=== PATIENT | female | born 2000 | race Caucasian/White ===

== ENCOUNTER 2019-06-16 23:25 | Emergency (ER) | payer MEDICAID, SELFPAY ==
[2019-06-16 23:25] VITALS: BP 114/76; PULSE 97; RESP 16; TEMP 36.6; O2SAT 99; BMI 21.7
--- NOTE | 2019-06-16 23:56 | ED.VIS.GEN ---
History of Present Illness Chief Complaint: Cold Sx Detail of Chief Complaint: Upper respiratory symptoms Informant: Patient Onset: Days - Onset 3 days ago Context: Sudden Onset Timing: Continuous Quality: Rhinorrhea, congestion, sore throat Location: Upper respiratory Current Severity: Mild Maximum Severity: Moderate Worsened by: Nothing Relieved by: Nothing Associated Symptoms: Nonproductive cough Narrative: Patient is a 18-year-old who presents with rhinorrhea, congestion, postnasal drainage, sore throat and nonproductive cough that started 3 days ago. She is a smoker. She smokes between one half and 1 pack/day. She denies headache, photophobia, neck pain or neck stiffness. She denies fever or chills. She denies chest discomfort. She denies GI symptoms. She states her mother had her throat swab and was told she has MRSA. Prior similar symptoms: No Recent Illness/Hospitalization: No - Past Medical History (1) No significant past medical history Status: Acute Past Medical History - Allergies and Home Meds Allergies/Adverse Reactions: Allergies latex Adverse Reaction (Verified 06/16/19 23:27) Rash Penicillins [PCN] Adverse Reaction (Verified 06/16/19 23:27) Other Primary Care Physician: Nahomy Fonseca NP-C [Primary Care Provider] - Prior records reviewed: No Past Medical History: None Surgical History: no surgical history Lives: With Family Smoking Status: Current every day smoker Alcohol: None Drugs: None Review of Systems General: Denies: Chills, Fever, Subjective, Sweats Eyes: Denies: Visual changes - bilaterally, Blurred Vision - bilaterally ENT: Reports: Rhinorrhea, Sore throat. Denies: Bilateral ear pain Cardiovascular: Denies: Chest pain, Palpitations, Heart racing Respiratory: Reports: Cough. Denies: Dyspnea, Sputum, Dyspnea on exertion Gastrointestinal: Denies: Abdominal pain, Nausea, Vomiting, Diarrhea, Melena, Hematochezia Musculoskeletal: Denies: Myalgias, Arthralgias, Neck pain, Back pain, Swelling, Extremity Pain, -, - Neurological: Denies: Headache, Weakness Allergy: Denies: Uticaria, Swelling of the mouth, Swelling of the tongue Physical Exam Vital Signs/Narrative: Vital Signs Temp Pulse Resp BP Pulse Ox 06/16/19 23:25 98 F 97 16 114/76 99 Inital Vital Signs reviewed: Yes General: Well nourished, Well developed, No Acute Distress Head: Normocephalic, Atraumatic Eyes: Perrl, EOMI. Negative for: Pale conjunctiva, Scleral icterus ENT: Moist mucous membranes, TM's clear, Nasal congestion. Negative for: No rhinorrhea, Sinus tenderness Neck: Supple, Nontender, No lymphadenopathy, No JVD Cardiovascular: Regular rate, Regular rhythm, No murmurs Respiratory: No distress, CTA bilaterally, Chest nontender Skin: Normal color, No rash, No Trauma. Negative for: Cyanosis, Diaphoresis, Jaundice Neurological: Alert, Oriented x3, Cranial nerves II-XII grossly intact, Normal Strength, Normal Sensation Psychological: Normal affect, Normal Mood Diagnostic/Tx/Re-eval - Medical Decision Making Centor score is 0. Patient was informed since her center score is 0 cultures are not recommended per the CDC, can be a family practice and Academy of pediatrics. Patient's history and physical exam is consistent with viral upper restaurant infection. She was informed because she is a smoker she may have a cough up to 4 weeks and she may be ill for another 10 to 14 days. She was informed it is in her best interest to quit smoking. ED Disposition - Plan for ED Patient: Disposition: Home or Assisted Living Diagnosis: Upper respiratory infection, acute Instructions: BRONCHITIS, No Antibiotic (Adult) Referrals: Nahomy Fonseca NP-C [Primary Care Provider] - 10-14 Days if not better Additional Instructions: It is in your best interest to quit smoking. Because you are a smoker you may have a cough for 4 weeks. You may be ill for an additional 1014 days.
== END 2019-06-17 00:27 | disposition home or self-care (01) ==
LOC: ED 06-17
PROVIDERS: Emergency Provider Emergency Medicine; Family Provider Nurse Practitioner Family; PCP Nurse Practitioner Family
DX: J06.9 Acute upper respiratory infection, unspecified (principal); F17.200 Nicotine dependence, unspecified, uncomplicated
CPT/HCPCS: 99282

== ENCOUNTER 2019-10-14 12:49 | Emergency (ER) | payer MEDICAID, SELFPAY ==
[2019-10-14 12:49] VITALS: BP 140/82; PULSE 125; RESP 16; TEMP 36.3; O2SAT 100; BMI 22.3
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
[2019-10-14] MEDS: Naproxen 250 MG Tablet 500 MG PO (14:19)
== END 2019-10-14 14:25 | disposition home or self-care (01) ==
LOC: ED 14:20
PROVIDERS: Emergency Provider Emergency Medicine; PCP Nurse Practitioner Family
DX: S90.31XA Contusion of right foot, initial encounter (principal); V03.90XA Pedestrian on foot injured in collision with car, pick-up truck or van, unspecified whether traffic or nontraffic accident, initial encounter; Y93.9 Activity, unspecified; F17.200 Nicotine dependence, unspecified, uncomplicated
CPT/HCPCS: 73630; 99282

== ENCOUNTER 2022-12-20 23:28 | Emergency (ER) | payer MEDICAID, SELFPAY ==
[2022-12-20 23:28] VITALS: BP 128/85; PULSE 98; RESP 16; TEMP 36.9; O2SAT 100; BMI 20.8
--- NOTE | 2022-12-20 23:49 | EDS_ITS ---
HPI History of Present Illness Chief Complaint: Substance Abuse Informant: patient Narrative Narrative: Patient had 6 check-in with 180 a couple days ago about meth use. They were going to get her treatment. They asked her if she drinks alcohol. She states she does drink sometimes. They then told her to come here for detox. They actually sent her an email on that issue. I did read the email that was sent to the patient directing her here. The patient states that they did not ask her how much she drank or how often or if she has symptoms. Patient states that she will sometimes drink a beer if it is in the refrigerator and her dad is having a drink. She will sometimes drink a twisted tea during the week. She may have a drink every day. Other times she will go 3 or 4 days with no drink at all. She rarely if ever has more than 1 drink. She has no symptoms of withdrawal. She does not feel especially good when she has a drink. She does not seek out drinking. She has never had issues with this. She denies any opiates or benzodiazepines. She has no physical complaint. She does not feel she needs detox from alcohol. Her last drink was likely 48 hours ago or maybe more. [facility] Medical History Substance abuse Home Medications NK 12/20/22 [History Last Taken Unknown] Allergy/AdvReac Type Severity Reaction Status Date / Time latex AdvReac Rash Verified 12/20/22 23:30 Penicillins [PCN] AdvReac Other Verified 12/20/22 23:30 Social History Smoking Status: Current every day smoker tobacco type: cigarettes ROS ROS ED Constitutional Constitutional ED: Denies fever(s) ENT ENT ED: Denies rhinorrhea Cardiovascular Cardiovascular: Denies chest pain or palpitations Respiratory/Chest Respiratory/Chest: Denies cough Gastrointestinal Gastrointestinal: Denies nausea or vomiting Musculoskeletal Musculoskeletal: Denies myalgias Integumentary Denies rash Neurologic Neurologic: Denies headache(s), paresthesias or weakness Allergic/Immunologic Allergic/Immunologic ED: Denies urticaria EXAM Physical Exam Narrative Exam Narrative: Patient sitting quietly in the room. She is awake alert appropriate no acute distress. She carries on a very normal conversation and makes good eye contact. HEENT shows no sign of trauma. I smell no odor that would be consistent with alcohol consumption. Neck is supple Lungs are clear bilaterally and saturations are normal at 100%. Heart is regular. No murmur gallop or rub. Abdomen soft nontender Extremities show no rashes. She does not inject any drugs. No track horn. Neurologically she is awake alert appropriate with clear train of thought. Const Vital Signs: 12/20/22 23:28 Temperature 98.4 F Temperature Source Temporal Pulse Rate 98 Respiratory Rate 16 Blood Pressure 128/85 H Blood Pressure Mean 99 Pulse Ox 100 Oxygen Delivery Method Room Air MDM MDM MDM Narrative Medical decision making narrative: Patient has an occasional drink. The most she will have is 1 a day. She has no symptoms if she does not drink. Although she may need help with methamphetamines, she does not need medical detox from alcohol based on this information. She does not really want to come in for detox that she does not think she needs it. If patient has further complaints or concerns she is welcome to return at any time. I do not think any testing is required. I see no indication for labs or x-rays. Discharge Plan Triage Chief Complaint: Substance Abuse ED Provider: Nikko Hanson Dx/Rx/DC Orders Clinical Impression: History of methamphetamine abuse, Alcohol use Instructions: Meth Abuse Addiction Prescriptions: No Action NK Primary Care Provider: Nahomy Fonseca NP Referrals: Nahomy Fonseca NP, SUPERVISORY EXAMINER-C [Primary Care Provider] - As Needed Disposition Disposition: Home, Self Care
[2022-12-21 00:05] VITALS: PULSE 98; RESP 18
== END 2022-12-21 00:05 | disposition home or self-care (01) ==
LOC: ED 23:59
PROVIDERS: Emergency Provider Emergency Medicine; PCP Nurse Practitioner Family; Visit Provider Emergency Medicine
DX: F15.10 Other stimulant abuse, uncomplicated (principal); F10.90 Alcohol use, unspecified, uncomplicated; F17.210 Nicotine dependence, cigarettes, uncomplicated
CPT/HCPCS: 99282

== ENCOUNTER 2024-07-26 23:38 | Emergency (ER) | payer SELFPAY ==
[2024-07-26 23:41] VITALS: BP 102/62; PULSE 142; RESP 18; TEMP 37.6; O2SAT 97; BMI 24.9
--- NOTE | 2024-07-27 | EX.ED.VIS.UR ---
HPI HPI - URI History of Present Illness Chief Complaint: Cold Sx Informant: patient Onset/Context/Timing Onset: Days (2) Context: Sudden Onset Timing: Continuous Quality: Throbbing Location: Head, neck Worsened by: - (Bright lights) Relieved by: - (Nothing) Associated Symptoms Associated Symptoms: Positive for Nasal Congestion, Headache, Sinus Pressure, Myalgias, Nausea, Vomiting, Diarrhea and Nonproductive cough; Negative for Shortness of Breath, Chest Pain, Hemoptysis or Productive Cough Narrative Narrative: Patient presents with fever that has been getting worse over the past 2 days. Patient states her fever was up to 1-2.8 at home. Patient states he got better with a cool bath. Patient states her symptoms began rather suddenly. Patient states they have been constant for the past 2 days. Patient admits to some pain in her head and neck. Patient describes it as throbbing. Patient states it is worse with bright lights. Patient states nothing seems to help with it. Patient also admits to some nausea, vomiting, diarrhea. Patient admits to a nonproductive cough. Patient admits to some general myalgias. Patient states she is approximately 16 weeks . ROS ROS ED Constitutional Constitutional ED: Reports chills and fever(s) Eyes Eyes: Denies blurry vision or change in vision ENT ENT ED: Reports rhinorrhea; Denies sore throat Cardiovascular Cardiovascular: Denies chest pain or palpitations Respiratory/Chest Respiratory/Chest: Reports cough; Denies dyspnea Gastrointestinal Gastrointestinal: Reports diarrhea, nausea and vomiting Genitourinary Genitourinary ED: Reports urinary frequency; Denies dysuria or hematuria Musculoskeletal Musculoskeletal: Reports back pain; Denies neck pain Integumentary Denies abscess or rash Neurologic Neurologic: Reports headache(s); Denies weakness Allergic/Immunologic Allergic/Immunologic ED: Denies mouth swelling or urticaria PFSH PFSH Medical History Substance abuse Home Medications ?Medication ?Instructions ?Recorded ?Last Taken ?Type NK 12/20/22 Unknown History Allergy/AdvReac Type Severity Reaction Status Date / Time latex AdvReac Rash Verified 07/26/24 23:44 Penicillins (PCN) AdvReac Other Verified 07/26/24 23:44 Surgical History no surgical history no surgical history Social History Smoking Status: Current every day smoker tobacco type: cigarettes EXAM Physical Exam Const Vital Signs: 07/26/24 23:41 07/26/24 23:53 Temperature 99.7 F H Temperature Source Oral Pulse Rate 142 H Respiratory Rate 18 Respiratory Effort Normal Blood Pressure 102/62 Blood Pressure Mean 75 Pulse Ox 97 Oxygen Delivery Method Room Air Positive well nourished and well developed General Appearance ED: well developed and NAD HEENT Reports moist mucous membranes normocephalic and atraumatic Throat: posterior oropharynx abnormal Positive for erythema Neck no lymphadenopathy, supple, no meningeal signs and no JVD General: Negative for anterior neck swelling or lymphadenopathy Resp normal respiratory effort and clear to auscultation bilaterally Cardio Rate: regular rate Rhythm: regular rhythm GI non-tender and non-distended Palpation: soft Neuro oriented x3, CN's II-XII intact bilaterally and no sensory deficits noted Sensorium / Orientation: alert Motor Exam: strength 5/5 throughout Psych mental status grossly normal MDM MDM MDM Narrative Medical decision making narrative: Differential diagnosis includes viral pharyngitis, strep pharyngitis, pneumonia, bronchitis, and viral upper respiratory infection. Rapid strep will be obtained to assess for strep pharyngitis. COVID-19, influenza, and RSV PCR will be obtained to assess for viral illness. Chest x-ray will be obtained to assess for pneumonia. Lab Data Lab results narrative: Rapid strep was reviewed and was negative. Radiography Chest X-Ray - ED: 2 View, Read by ED Physician, Read by Radiologist and No Acute Disease Diagnostic Testing: Clinical Impression(s) from Imaging Studies Chest X-Ray 07/27/24 00:20 IMPRESSION: No radiographic evidence of acute cardiopulmonary disease. Electronically Signed: Primo Lopez MD at 1:21 EST , PA and lateral chest x-ray was obtained. There are 2 views. On my independent interpretation, lung kebede are clear. There is normal cardiac silhouette. Bony thorax is normal. There is no acute process noted. Radiologist also interpreted the x-ray and agrees. Treatment and Re-Evaluation Narrative: Patient was advised of her findings. Patient was instructed to drink plenty of fluids. Patient was instructed to follow-up with her primary care physician in 5 to 7 days. Patient understood and was agreeable with the plan. All questions were answered. Discharge Plan Triage Chief Complaint: Cold Sx ED Provider: Israel Sahni Dx/Rx/DC Orders Clinical Impression: Viral upper respiratory infection, Instructions: ED URI, Viral, No Abx (Adult) Prescriptions: No Action NK Primary Care Provider: Nahomy Fonseca NP Referrals: Nahomy Fonseca NP, SENIOR DYNAMICS CRM DEVELOPER-C [Primary Care Provider] - 5-7 Days Print Language: Turkish Disposition Disposition: Home, Self Care
--- NOTE | 2024-07-27 00:20 | RAD_ITS ---
EXAM: XR CHEST, 2 VIEWS CLINICAL INDICATION: Fever -- Shield abdomen TECHNIQUE: Frontal and lateral views of the chest. COMPARISON: No relevant prior studies available. FINDINGS: LUNGS AND PLEURAL SPACES: Unremarkable. No consolidation or edema. No pneumothorax. No effusion. HEART: Unremarkable. Cardiac silhouette not enlarged. MEDIASTINUM: Central airways and mediastinal contour are unremarkable. BONES/JOINTS: Unremarkable. No acute fracture. SOFT TISSUES: Unremarkable. RAD/Chest PA and Lateral IMPRESSION: No radiographic evidence of acute cardiopulmonary disease. Electronically Signed: Primo Lopez MD at 1:21 EST ,
[2024-07-27 01:41] VITALS: BP 100/46; PULSE 130; RESP 18; O2SAT 98
[2024-07-27 02:05] VITALS: O2SAT 98
[2024-07-27 02:14] VITALS: BP 100/46; PULSE 130; RESP 18; TEMP 36.7; O2SAT 98
== END 2024-07-27 02:15 | disposition home or self-care (01) ==
PROVIDERS: Emergency Provider Emergency Medicine; PCP Nurse Practitioner Family; Visit Provider Emergency Medicine
DX: O98.512 Other viral diseases complicating pregnancy, second trimester (principal); U07.1 COVID-19; O99.512 Diseases of the respiratory system complicating pregnancy, second trimester; J06.9 Acute upper respiratory infection, unspecified; O99.332 Smoking (tobacco) complicating pregnancy, second trimester; F17.210 Nicotine dependence, cigarettes, uncomplicated; Z3A.16 16 weeks gestation of pregnancy
CPT/HCPCS: 71046; 87631; 87651; 99283

== ENCOUNTER 2024-10-14 03:55 | Emergency (ER) | payer MEDICAID, SELFPAY ==
[2024-10-14 03:56] VITALS: BP 140/92; PULSE 133; RESP 18; TEMP 36.5; O2SAT 98; BMI 28.3
[2024-10-14] MEDS: Lidocaine 2% /Epi 1:100 (20ml) 20 ML VIAL INFILT (04:14)
[2024-10-14] MEDS: Clindamycin HCl 150 MG Capsule 300 MG PO (04:15)
--- NOTE | 2024-10-14 04:20 | EDS_ITS ---
HPI History of Present Illness Chief Complaint: Dental Informant: patient Narrative Narrative: Patient is a 23-year-old female who is a roughly an 27 weeks . She states that she has been sober for months but through using drugs messed her teeth up. She states she noticed some pain in the lower jaw over the last 2 or 3 days without any type of dental trauma. However today the pain has increased and has become constant. She has concern she is developing a dental infection with this presents for evaluation [facility] Medical History Substance abuse Home Medications ?Medication ?Instructions ?Recorded ?Last Taken ?Type clindamycin HCl 300 mg capsule 300 mg PO 4X/DAY 10 day s #40 10/14/24 Unknown Rx (Cleocin HCl) CAPSULES vitamins no.144-folic 2 tab PO DAILY 10/14/24 Unknown History acid 400 mcg chewable tablet () Allergy/AdvReac Type Severity Reaction Status Date / Time latex AdvReac Rash Verified 10/14/24 03:56 Penicillins (PCN) AdvReac Other Verified 10/14/24 03:56 Social History Smoking Status: Current some day smoker tobacco type: cigarettes ROS ROS ED Constitutional Constitutional ED: Denies chills or fever(s) ENT ENT ED: Reports other Details: Positive dental pain ; Denies sore throat Cardiovascular Cardiovascular: Denies chest pain Respiratory/Chest Respiratory/Chest: Denies cough or dyspnea Gastrointestinal Gastrointestinal: Denies abdominal pain, diarrhea, nausea or vomiting Genitourinary Genitourinary ED: Denies dysuria or hematuria Musculoskeletal Musculoskeletal: Denies neck pain Integumentary Denies rash Neurologic Neurologic: Denies headache(s) Hematologic/Lymphatic Hematologic/Lymphatic: Denies easy bleeding or easy bruising Allergic/Immunologic Allergic/Immunologic ED: Denies tongue swelling EXAM Physical Exam Const Vital Signs: 10/14/24 03:56 Temperature 97.7 F L Temperature Source Oral Pulse Rate 133 H Respiratory Rate 18 Blood Pressure 140/92 H Blood Pressure Mean 108 Pulse Ox 98 Oxygen Delivery Method Room Air Positive well nourished and well developed General Appearance ED: well developed; Negative for pallor HEENT HEENT Narrative: Patient has multiple dental caries greatest in the left lower jaw. There is mild soft tissue swelling along the left molar tooth #20. No obvious abscess noted No airway edema or compromise Eyes PERRL and EOMs intact bilaterally Neck supple Neck Narrative: No brawny edema in the submental space to suggest Abraham's angina Resp normal respiratory effort and clear to auscultation bilaterally Cardio regular rate and regular rhythm Extremity normal to inspection Neuro oriented x3, CN's II-XII intact bilaterally and no sensory deficits noted Sensorium / Orientation: alert Motor Exam: strength 5/5 throughout Psych mental status grossly normal Skin no rashes or lesions noted General Skin Exam: Negative for jaundice or pallor MDM MDM MDM Narrative Medical decision making narrative: Patient presented to the ER hypertensive and tachycardic but is in pain and vitals are consistent with this. She denied any recent trauma and states she has a history of dental issues and has had increased pain over the last few days. Exam is most consistent with developing dental abscess/infection. She does not have brawny edema in the submental space is just Abraham's angina and physical exam shows no signs of ANUG. There is also no obvious abscess on the gingival surface and therefore no need for incision and drainage. As she is afebrile I have low concern for systemic infection and do not feel the need for laboratory studies. As patient's history and exam indicates she is developing a dental infection she will be placed on antibiotics and is otherwise safe for discharge Secondary to pain she was given a dental block. The patient was given 3 mL of 2% lidocaine with epinephrine and an inferior alveolar dental block fashion. Patient achieved good anesthesia with the injection and tolerated procedure well without complication. History & Record Review Discussion w/independent historian: Patient Discharge Plan Triage Chief Complaint: Dental ED Provider: Chad Walker Dx/Rx/DC Orders Clinical Impression: Dental caries, Dental infection, History of drug abuse Instructions: Understanding Tooth Decay, ED Dental Abscess Prescriptions: New clindamycin HCl [Cleocin HCl] 300 mg capsule 300 mg PO 4X/DAY 10 Days Qty: 40 0RF No Action 400 mcg tablet,chewable 2 tab PO DAILY Primary Care Provider: Nahomy Fonseca NP Referrals: Nahomy Fonseca NP, BULKING MACHINE OPERATOR-C [Primary Care Provider] - Activity Restrictions/Additional Instructions: Please take the antibiotic as directed to resolve your developing dental infection. Follow-up with your dentist for repeat evaluation as you may need a root canal or drainage of a developing abscess. Return to the ER should you have any further concerns Print Language: Israeli Disposition Disposition: Home, Self Care Discharge Date/Time: 10/14/24 04:39
== END 2024-10-14 04:39 | disposition home or self-care (01) ==
LOC: ED 04:26
PROVIDERS: Emergency Provider Emergency Medicine; PCP Nurse Practitioner Family; Visit Provider Emergency Medicine
DX: O99.612 Diseases of the digestive system complicating pregnancy, second trimester (principal); K04.7 Periapical abscess without sinus; K02.9 Dental caries, unspecified; O99.332 Smoking (tobacco) complicating pregnancy, second trimester; F17.210 Nicotine dependence, cigarettes, uncomplicated; Z3A.27 27 weeks gestation of pregnancy; Z88.0 Allergy status to penicillin; Z87.898 Personal history of other specified conditions
CPT/HCPCS: 64400; 99282

== ENCOUNTER 2024-10-14 17:27 | Emergency (ER) | payer MEDICAID, SELFPAY ==
[2024-10-14 17:27] VITALS: BP 122/78; PULSE 128; RESP 20; TEMP 36.4; O2SAT 98; BMI 27.4
--- NOTE | 2024-10-14 18:45 | CT_ITS ---
PROCEDURE: SOFT TISSUE NECK WITH CONTRAST REASON FOR EXAM: Trismus, change in voice, dental infection TECHNIQUE: CT of the soft tissues of the neck from the orbits to the upper mediastinum with intravenous contrast. Multiplanar reconstructions performed. COMPARISON: None. FINDINGS: Visualized brain:Unremarkable. Paranasal sinuses:Unremarkable. Vascular structures:Unremarkable. Pharynx:Unremarkable. Larynx:Unremarkable. Salivary glands:Unremarkable. Parotid gland:Unremarkable. Thyroid:Unremarkable. Lymph nodes:Borderline enlarged submandibular lymph nodes measuring 9 mm in short axis. Bones:A subperiosteal abscess is present at the left outer aspect of the mandible measuring 2.2 x 0.5 cm. Periapical abscesses are present at the left mandibular molars at this level. Multiple dental caries are present. Soft tissues:Subcutaneous and deep soft tissue fat stranding is present of the soft tissues of the left lower face. Upper chest:Unremarkable. CT/Soft Tissue Neck WITH Contrast IMPRESSION: 1. Subperiosteal abscess of the left outer aspect of the mandible from a dental source, with extensive surrounding cellulitis of the left lower face. 2. Mild reactive adenopathy in the left submandibular region. [facility]
[2024-10-14] MEDS: 0.9% Normal Saline (1000mL) 1,000 ML 1000 ML IV (18:55)
[2024-10-14 19:07] LABS: Absolute Lymphocyte Count 1.34 X10^3/uL (0.83-4.51); Absolute Neutrophil Count 14.8 X10^3/uL (2.0-7.7); Basophil# 0.03 X10^3/uL; Basophil% 0.2 % (0-1); Eosinophil# 0.13 X10^3/uL; Eosinophils% 0.7 % (0-5); Hematocrit 31.8 % (37-47); Hemoglobin 10.7 g/dL (12.0-15.0); Lymphocyte # 1.34 X10^3/ul (0.83-4.51); Lymphocyte % 7.4 % (19-41); Mean Corp Hgb Conc 33.6 g/dL (32-36); Mean Corpuscular Hgb 29.6 pg (27.0-32.0); Mean Corpuscular Volume 87.8 fL (81-99); Mean Platelet Vol. 8.9 fl (6.2-12.0); Monocyte# 1.74 X10^3/uL; Monocyte% 9.6 % (0-10); NRBC Flagged by Analyzer 0 % (0-5); Neutrophil # 14.76 X10^3/uL (2.7-7.7); Neutrophil % 81.4 % (47-70); POSITIVE DIFFERENTIAL YES; Platelet Count 275 K/mm3 (150-450); RBC Distribution Width CV 13.6 % (11.6-14.6); RBC Distribution Width SD 43.5 fl (35.1-43.9); Red Blood Count 3.62 M/mm3 (4.2-5.4); White Blood Count 18.1 K/mm3 (4.4-11.0)
[2024-10-14 19:12] LABS: Differential Indicated SCAN CRITERIA MET
--- NOTE | 2024-10-14 19:25 | ED.VIS.DENTA ---
HPI History of Present Illness Chief Complaint: Dental Detail of Chief Complaint: Dental pain, facial swelling Informant: patient Onset/Context/Timing Onset: Today (Patient was seen today at 4:[address] Walker. She has taken 2 doses of clindamycin. Pain started 2 to 3 days prior to presentation) Context: Sudden Onset Quality: Pain and swelling Current Severity: Moderate Maximum Severity: Moderate Worsened by: Advancement of disease Associated Symptoms Assocated Symptom - Dental: fever, jaw swelling and face swelling; Negative for cold sensitivity or hot sensitivity Narrative Narrative: Patient was seen earlier this morning by Dr. Walker. She had an infection involving tooth #20. There is slight swelling noted involving the gum in the proximity of tooth #20. There is no evidence of Ludewig's angina. There was no facial swelling. She presents now because of marked facial swelling on the left side. Slight change in voice. Prior similar symptoms: Yes Recent Illness/Hospitalization: [facility] Medical History Substance abuse Home Medications ?Medication ?Instructions ?Recorded ?Last Taken ?Type clindamycin HCl 300 mg capsule 300 mg PO 4X/DAY 10 days #40 10/14/24 Unknown Rx (Cleocin HCl) CAPSULES vitamins no.144-folic 2 tab PO DAILY 10/14/24 Unknown History acid 400 mcg chewable tablet () Allergy/AdvReac Type Severity Reaction Status Date / Time latex AdvReac Rash Verified 10/14/24 03:56 Penicillins (PCN) AdvReac Other Verified 10/14/24 03:56 Social History Smoking Status: Current some day smoker tobacco type: cigarettes ROS ROS ED Constitutional Constitutional ED: Reports chills, fever(s) and subjective; Denies sweats Eyes Eyes: Denies blurry vision or change in vision ENT ENT ED: Reports other Details: Detailed HPI narrative ; Denies ear pain, rhinorrhea or sore throat Cardiovascular Cardiovascular: Reports other Details: Patient was tachycardic this morning. Patient has no history of SBE, heart murmur, mitral valve prolapse. ; Denies chest pain, orthopnea, palpitations, paroxysmal nocturnal dyspnea or racing heartbeat Respiratory/Chest Respiratory/Chest: Denies cough, dyspnea, dyspnea on exertion, orthopnea or paroxysmal nocturnal dyspnea Gastrointestinal Gastrointestinal: Denies abdominal pain, nausea or vomiting Musculoskeletal Musculoskeletal: Denies neck pain Integumentary Denies rash Hematologic/Lymphatic Hematologic/Lymphatic: Denies easy bleeding or easy bruising EXAM Physical Exam Const Vital Signs: 10/14/24 17:27 10/14/24 19:59 Temperature 97.5 F L 98.7 F Temperature Source Temporal Pulse Rate 128 H 105 H Respiratory Rate 20 H 18 Blood Pressure 122/78 H 132/98 H Blood Pressure Mean 92 109 Pulse Ox 98 98 Oxygen Delivery Method Room Air Positive well nourished and well developed Constitutional Narrative: Patient appears ill. General Appearance ED: well developed HEENT HEENT Narrative: Patient has marked swelling left side of the face/jaw. There is submandibular adenopathy. There is swelling on the buccal side of the gum. No obvious fluctuance. Voice is slightly hoarse. There is no drooling. Patient has difficulty opening her mouth completely. Face and Sinus: sinuses nontender Mouth ED: Yes oral and palatal mucosa normal, Yes lips normal, Yes tongue normal, No mouth trauma and Yes oral and palatal mucosa abnormal Mouth: oral and palatal mucosa normal, lips normal, tongue normal, No mouth trauma and oral and palatal mucosa abnormal Teeth and Gingiva: abnormal tooth and associated gingiva, caries, gingiva abnormal, poor dentition and teeth discoloration Eyes PERRL and EOMs intact bilaterally General Eye ED: Negative for pale conjunctiva or scleral icterus Neck no lymphadenopathy, supple and no JVD General: anterior neck swelling and tenderness; Negative for normal visual inspection Lymph Lymphatic: lymphadenopathy; Negative for no lymphadenopathy noted Chest Wall inspection of chest normal and palpation of chest normal Resp normal respiratory effort, no retractions and clear to auscultation bilaterally Cardio regular rhythm, S1 normal heart sound, S2 normal heart sound and no murmurs Rate: tachycardic GI normal to inspection, nondistended, normoactive bowel sounds, non-tender, non-distended and no masses Extremity normal to inspection and no joint enlargement General Extremety ED: Negative for edema General Extremity: Negative for edema Neuro oriented x3 and CN's II-XII intact bilaterally Sensorium / Orientation: alert Skin no rashes or lesions noted MDM MDM MDM Narrative Medical decision making narrative: Patient with dental infection with significant facial swelling. Concern for masseter muscle abscess, possible Ludewig's angina. Patient has taken 2 doses of clindamycin. Will obtain CBC to assess white count differential, BMP to assess renal function and lactate. CT of the soft tissue neck with IV contrast was ordered. Abdomen was shielded since patient is 27 weeks gestation. Lab Data Attestation: I reviewed the patient's lab results. Lab results narrative: White count is elevated 18.1 thousand with shift. There is no bandemia. H&H is 10.7 and 31.8. Labs: Laboratory Results - last 24 hr 10/14/24 18:56 WBC 18.1 H RBC 3.62 L Hgb 10.7 L Hct 31.8 L MCV 87.8 MCH 29.6 MCHC 33.6 RDW Std Deviation 43.5 RDW Coeff of Jessica 13.6 Plt Count 275 MPV 8.9 Immature Gran % (Auto) 0.700 Neut % (Auto) 81.4 H Lymph % (Auto) 7.4 L [place] % (Auto) 9.6 Eos % (Auto) 0.7 Baso % (Auto) 0.2 Absolute Neuts (auto) 14.8 H Absolute Lymphs (auto) 1.34 Nucleated RBC % 0 Differential Comment SEE COMMENT Diff Path Review May foll Platelet Estimate ADEQUATE RBC Morphology NORM C+C Anisocytosis RARE Sodium 135 L Potassium 3.5 Chloride 104 Carbon Dioxide 24.0 Anion Gap 8 BUN 3 L Creatinine 0.50 L Estim Creat Clear Calc 169.40 Est GFR (MDRD) Af Amer 196 Est GFR (MDRD) Non-Af 162 BUN/Creatinine Ratio 6.1 L Glucose 106 Lactic Acid 0.8 Calcium 8.4 L Total Bilirubin 0.40 AST 11 L ALT 18 Alkaline Phosphatase 108 Total Protein 6.8 Albumin 2.9 L Globulin 3.9 Albumin/Globulin Ratio 0.7 L Radiography Diagnostic Testing: Clinical Impression(s) from Imaging Studies Soft Tissue Neck CT 10/14/24 18:45 IMPRESSION: 1. Subperiosteal abscess of the left outer aspect of the mandible from a dental source, with extensive surrounding cellulitis of the left lower face. 2. Mild reactive adenopathy in the left submandibular region. [facility] Management Discussion w/another healthcare provider: Hospitalist (Spoke with Dr. Giordano who requested I speak with Dr. Jaylan Maurer and Dr. Ev Peralta. They were both spoken to. They will see patient in consultation.) and Efficiency Analyst (Spoke with Dr. Jaylan Maurer. He was aware the patient from yesterday. He states he would get involved if needed. Spoke to Dr. Ev Peralta. She states she could be consulted. Patient go to what ever floor and she will have her nurses do daily NST test. She does not require admission to ) Discharge Plan Dx/Rx/DC Orders Clinical Impression: Abscess of periosteum without osteomyelitis, Abscess, dental, Cellulitis of face, Third trimester , Sinus tachycardia Disposition Disposition: Acute Care Hospital [facility]
[2024-10-14 19:26] LABS: ALB/GLOB Ratio 0.7 RATIO (0.9-2.4); AST(SGOT) 11 U/L (15-37); Alanine Aminotransfer ALT/SGPT 18 U/L (13-56); Albumin, Serum 2.9 g/dL (3.2-5.0); Alkaline Phosphatase 108 U/L (45-117); Anion Gap 8 (5-15); BUN 3 mg/dL (7-18); BUN/Creat Ratio 6.1 RATIO (10-20); Calcium,Total 8.4 mg/dL (8.5-10.1); Chloride 104 mmol/L (98-107); EST Glomerular Filtration Rate 162 mL/min (>60); Est Glom Filt Rate - Afr Amer 196 mL/min (>60); Globulin 3.9 g/dL (2.2-4.2); Glucose 106 mg/dL (74-106); Potassium 3.5 mmol/L (3.5-5.1); Protein, Total 6.8 g/dL (6.4-8.2); Sodium Level 135 mmol/L (136-145)
[2024-10-14 19:28] LABS: Lactic Acid 0.8 mmol/L (0.4-1.9)
[2024-10-14 19:36] LABS: Anisocytosis RARE; Platelet Estimate ADEQUATE (ADEQ); Red Cell Morphology NORM C+C NORMAL (NORM C&C)
[2024-10-14 19:59] VITALS: BP 132/98; PULSE 105; RESP 18; TEMP 37.1; O2SAT 98
[2024-10-14] MEDS: Clindamycin 900 MG/50 ML BAG 75 MG IV (20:47)
--- NOTE | 2024-10-14 20:59 | PCM.HP.STD ---
HPI - General General Date of Admission: 10/14/24 Date of Service: 10/14/24 Chief Complaint: Left facial pain, swelling, worsening, recent ED evaluation day prior w/ dental infection, started on clindamycin. HPI Narrative The patient is a 23 y/o F w/ PMHx: Methamphetamine abuse normally snorting reporting clean status x 8 months, Tobacco use, currently 27 weeks gestation following at [facility] for her OB care however she has not had a recent OB evaluation/visit secondary to being in residential since August initially presenting to the [facility] ED on 10/14/2024 in the care tech hours with history at that time of onset of pain to the lower jaw on the left side for 2 to 3 days with no recent history of dental trauma however the pain had increased and she was concern for an infection with no obvious abscess at that time and no need for I&D and given afebrile with dental block placed patient was discharged also on oral clindamycin and instructed to return if worsening now re-presented to [facility] ED on 10/14/2024 in the late evening hours secondary to significantly worsened appearance with significant increased swelling to the left cheek region as well as redness and difficulty even opening her mouth secondary to discomfort and pain with subjective fevers or chills. She does report that she had started the antibiotic therapy. Patient reports her pain as dull aching throbbing noting that discomfort varies from 8-10 out of 10 in severity worse with any attempt at opening her mouth. Workup in the ED included T97.5, heart rate 128, BP 122/78, respiratory rate 20, 98% on room air with most recent repeat vitals T98.7, heart rate 105, BP 132/98, respiratory rate 18, 98% on room air, CBC with WBC 18.1, hemoglobin 10.7, MCV 87.8, platelets 275 with left shift, CMP with sodium 135, BUN/creatinine 3/0.50, glucose 106, lactic acid 0.8, hepatic profile not marked appearing, CT soft tissue neck with subperiosteal abscess to the left outer aspect of the mandible from a dental source with extensive surrounding cellulitis of the left lower face and mild reactive adenopathy in the left submandibular region in addition to in the specific portion of the body of the read noted subperiosteal abscess left outer aspect of the mandible measuring 2.2 x 0.5 cm, periapical abscesses present at the left mandibular molars at that level with multiple dental caries present. Discussed patient with ED who initially reviewed case with facility attendant console operator in addition to ENT who are willing to evaluate patient with possible [facility] admission; however, did discuss case directly with ENT Dr. Maurer and reviewed the imaging itself and given the fact that there were periapical abscesses present to the left mandibular molars he was concerned that even with draining of the abscess patient absolutely 1 out of percent required dental extraction in order to be appropriately treated for this infectious source and recommended transfer to tertiary facility where they had a maxillofacial surgeon. Discussed case also with OB and also updated for fact of plan of transfer instead of admission. [facility] Medical History Normocytic anemia Tobacco use Substance abuse Home Medications ?Medication ?Instructions ?Recorded ?Last Taken ?Type clindamycin HCl 300 mg capsule 300 mg PO 4X/DAY 10 days #40 10/14/24 Unknown Rx (Cleocin HCl) CAPSULES vitamins no.144-folic 2 tab PO DAILY 10/14/24 Unknown History acid 400 mcg chewable tablet () Allergy/AdvReac Type Severity Reaction Status Date / Time latex AdvReac Rash Verified 10/14/24 03:56 Penicillins (PCN) AdvReac Other Verified 10/14/24 03:56 Family History (Updated 10/14/24 @ 21:[address] Ely Giordano MD) Mother Heart disease Sinus tachycardia Father Cancer Surgical History No history of previous surgery Social History (Updated 10/14/24 @ 21:[address] Ely Giordano MD) household members: family Smoking Status: Current some day smoker tobacco type: cigarettes Smoking packs per day: 0.5 Smoking cigarettes per day: 10.0 alcohol intake: never substance use type: former substance user 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 ROS ROS Narrative Admission Review of Systems: CONSTITUTIONAL: No weight loss, + fever, chills, weakness or fatigue. HEENT: + Significant left-sided facial discomfort, pain, swelling, difficulty opening mouth because of discomfort, dental pain, cervical adenopathy. Eyes: No visual loss, blurred vision, double vision or yellow sclerae. Ears, Nose, Throat: No hearing loss, sneezing, congestion, runny nose or sore throat. SKIN: No rash or itching, lesions, wounds except for left lateral facial swelling with erythema. CARDIOVASCULAR: No chest pain, chest pressure or chest discomfort, palpitations, edema, orthopnea, syncopal events. RESPIRATORY: No shortness of breath, cough or sputum, wheezing, hemoptysis. GASTROINTESTINAL: + Decreased intake/anorexia secondary to difficulty with oral intake with pain. No nausea, vomiting or diarrhea, abdominal pain, melena, BRBPR. GENITOURINARY: No dysuria, frequency, urgency or retention. NEUROLOGICAL: No headache, dizziness, syncope, paralysis, ataxia, numbness or tingling in the extremities, focal weakness, change in bowel or bladder control, seizure. MUSCULOSKELETAL: + muscle, back pain, joint pain or stiffness. HEMATOLOGIC: + Normocytic anemia noted. No easy history of bleeding or bruising. LYMPHATICS: + enlarged nodes. No history of splenectomy. PSYCHIATRIC: No history of depression or anxiety. ENDOCRINOLOGIC: No reports of sweating, cold or heat intolerance. No polyuria or polydipsia. ALLERGIES: No history of asthma, hives, eczema or rhinitis. Vital Signs Vital Signs Vital Signs: 10/14/24 17:27 10/14/24 19:59 Temperature 97.5 F L 98.7 F Temperature Source Temporal Pulse Rate 128 H 105 H Respiratory Rate 20 H 18 Blood Pressure 122/78 H 132/98 H Blood Pressure Mean 92 109 Pulse Ox 98 98 Oxygen Delivery Method Room Air Weight Weight: 160 lb Body Mass Index (BMI) 27.4 Physical Exam Narrative Physical Examination: General: Awake, alert, oriented x 3 and cooperative, seated upright in the ED bed, uncomfortable appearing Skin: Normal color, normal turgor, no icterus, no cyanosis except left-sided skin changes at the region of significant swelling/erythema. HEENT: AT aside from left-sided facial changes as noted/NC, EOMI, PERRLA, dry MM, no carotid bruits or JVD noted, obvious significant left-sided facial/jaw swelling with submandibular adenopathy and internal buccal swelling with airway intact with no obvious stridor or drooling with discomfort to palpation both external and internal with obvious poor significant oral care/dentition Lungs: Mildly diminished, greater bases, appropriate effort, no rales, ronchi or wheezing. Heart: Tachycardic with rhythm; no gallop, rub audible. Abdomen: Soft, nontender to palpation, 27 weeks gestation, distant bowel sounds, difficult to assess distention and HSM given status. Extremities: No cyanosis, clubbing, or edema. Neurological: Patient awake, alert, oriented as noted, cognitive function intact; pupils equally reactive to light and accommodation, cranial nerves grossly normal, moving all 4 extremities, no focal deficits, strength moderately globally decreased secondary to acute presentation. Psychiatric: Affect appears fatigued, uncomfortable appearing, no acute evidence of depressive or anxiety feelings. Results Lab / Micro Data 10/14/24 18:56 10/14/24 18:56 Labs: Laboratory Results - last 24 hr 10/14/24 18:56: WBC 18.1 H, RBC 3.62 L, Hgb 10.7 L, Hct 31.8 L, MCV 87.8, MCH 29.6, MCHC 33.6, RDW Std Deviation 43.5, RDW Coeff of Jessica 13.6, Plt Count 275, MPV 8.9, Immature Gran % (Auto) 0.700, Neut % (Auto) 81.4 H, Lymph % (Auto) 7.4 L, [place] % (Auto) 9.6, Eos % (Auto) 0.7, Baso % (Auto) 0.2, Absolute Neuts (auto) 14.8 H, Absolute Lymphs (auto) 1.34, Nucleated RBC % 0, Differential Comment SEE COMMENT, Diff Path Review May foll, Platelet Estimate ADEQUATE, RBC Morphology NORM C+C, Anisocytosis RARE, Sodium 135 L, Potassium 3.5, Chloride 104, Carbon Dioxide 24.0, Anion Gap 8, BUN 3 L, Creatinine 0.50 L, Estim Creat Clear Calc 169.40, Est GFR (MDRD) Af Amer 196, Est GFR (MDRD) Non-Af 162, BUN/Creatinine Ratio 6.1 L, Glucose 106, Lactic Acid 0.8, Calcium 8.4 L, Total Bilirubin 0.40, AST 11 L, ALT 18, Alkaline Phosphatase 108, Total Protein 6.8, Albumin 2.9 L, Globulin 3.9, Albumin/Globulin Ratio 0.7 L Imaging Radiology Impression Soft Tissue Neck CT 10/14/24 18:45 IMPRESSION: 1. Subperiosteal abscess of the left outer aspect of the mandible from a dental source, with extensive surrounding cellulitis of the left lower face. 2. Mild reactive adenopathy in the left submandibular region. [facility] Assessment & Plan Assessment/Plan (1) Abscess of periosteum without osteomyelitis: PLAN: Plan The patient is a 23 y/o F w/ PMHx: Methamphetamine abuse normally snorting reporting clean status x 8 months, Tobacco use, currently 27 weeks gestation following at [facility] for her OB care however she has not had a recent OB evaluation/visit secondary to being in residential since August initially presenting to the [facility] ED on 10/14/2024 in the care tech hours with history at that time of onset of pain to the lower jaw on the left side for 2 to 3 days with no recent history of dental trauma however the pain had increased and she was concern for an infection with no obvious abscess at that time and no need for I&D and given afebrile with dental block placed patient was discharged also on oral clindamycin and instructed to return if worsening now re-presented to [facility] ED on 10/14/2024 in the late evening hours secondary to significantly worsened appearance with significant increased swelling to the left cheek region as well as redness and difficulty even opening her mouth secondary to discomfort and pain with subjective fevers or chills. #1. Subperiosteal abscess of the left outer aspect of the mandible with periapical abscesses of the left mandibular molars with several dental caries with associated cellulitis: Given patient is specifically in need of maxillofacial surgeon per discussion with ENT, will be transferred to tertiary facility preferentially [facility] where she receives her OB care but if unable to obtain a bed in a timely fashion would plan to admit to medical surgical floor, maintain on clears until midnight with n.p.o. status following in case of any surgical needs, maintain on IV fluids, antiemetic regimen, oral/IV pain regimen, pharmacy to follow to ensure medications all appropriate given her /gestational age status. Discussed presence of these findings on imaging as noted with ENT and the concern that she has a previous drug abuse history as well as immunocompromise status thus at this time would likely plan to maintain if admitted on potentially cefepime and IV Flagyl #2. Hyponatremia, mild, suspected hypovolemic given acute presentation: Admission sodium 135, chloride 104, recent poor intake given worsening left-sided facial swelling and pain, will continue to aggressively hydrate and repeat CMP in AM. #3. Gestational age 27 weeks : Patient at this time with lack of OB care given that she has been in residential since August, did discuss frankly recent lab tests and she notes that syphilis and HIV testing were negative. Patient denies any IV drug abuse and again reports being clean x 8 months. UDS has been requested. Discussed case with OB and at this time plan for transfer given need for maxillofacial surgery however in the interim they noted intention for OB nursing to evaluate patient until her transfer. If patient temporally is required to be admitted until transfer bed available then we will continue consultation with OB. #4. Normocytic anemia, unclear chronicity: Admission hemoglobin 10.7, MCV 87.8, unclear baseline but potentially primarily related to anemia of , will continue vitamins with iron supplementation and trend CBC. #5. History of substance abuse: Patient reporting using only methamphetamine, snorting, reports clean x 8 months, UDS requested. #6. Tobacco Abuse: Encouraged cessation, inpatient consultation per RT, NR if desired. #7. DVT prophylaxis: SCDs. Charges/Coding Visit Charges Inpatient E&M: 65006 Init Hosp L3
[2024-10-14 21:53] VITALS: BP 126/75; PULSE 105; RESP 18; TEMP 37.1; O2SAT 98
[2024-10-14 22:53] VITALS: BP 122/75; PULSE 104; RESP 16; TEMP 36.8; O2SAT 99
[2024-10-14 22:55] LABS: Amphetamine Urine NEGATIVE (<1000 ng/mL); Barbiturate Urine VISTA NEGATIVE (< 200 ng/mL); Benzodiazepine Urine VISTA NEGATIVE (< 200 ng/mL); Cocaine Urine VISTA NEGATIVE (< 300 ng/mL); Ecstacy Urine VISTA NEGATIVE (< 500 ng/mL); Methadone Urine VISTA NEGATIVE (< 300 ng/mL); Opiates Urine NEGATIVE (< 300 ng/mL); PCP Urine NEGATIVE (< 25 ng/mL); THC Urine VISTA NEGATIVE (< 50 ng/mL); Vista UDS pH Range 7
[2024-10-14] MEDS: Acetaminophen 325 MG Tablet 650 MG PO (22:55)
--- NOTE | 2024-10-14 23:21 | ED.RN ---
PT NEEDING TRANSFERED, CALLED [facility], [facility], [facility], ALL DECLINED DUE TO NO ORAL SURGERY. [facility] ACCEPTED DR. WATSON ED TO ED.
--- NOTE | 2024-10-14 23:35 | ED.RN ---
This RN gave report to [facility] transfer center nurse.
[2024-10-14 23:36] VITALS: BP 126/76; PULSE 105; RESP 16; TEMP 36.8; O2SAT 98
--- NOTE | 2024-10-14 23:44 | ED.RN ---
Pt called out and requested to speak with this RN. This RN walked into room and pt stated my mom called the hospital in [place] and they said that they would be able to treat me up there. This RN stated, They do not have an oral facial surgeon on because we tried to send you there. The pt stated they said they could see me in the ER and get it treated with their dental clinic. This RN stated I was under the impression that you needed a surgeon and not just a clinic. It is up to you but you would be leaving against medical advice. Pt stated my mom says I should drive up there so I would like the paperwork. This RN gave the patient the AMA paperwork and the patient did not want a copy. The patient's IV is out, AMA paperwork signed, and patient ambulated off the unit at [id number].
--- NOTE | 2024-10-15 10:53 | PN_ITS ---
Progress Note patient was seen in the ER for a dental abscess and decision was made to transport the patient for further management to a tertiary care center. She is 27 weeks gestation and sees an [facility] at [facility]. NST: FHR: 140 moderate variability + accelerations 10x 10 and 15x15 bpm [place]: no contractions A/P reactive nst Procedures Urinary/Genital [id number]: [id number] non-stress test Interp
[2024-10-16 13:27] LABS: Pathologist Review Reviewed
== END 2024-10-15 00:05 | disposition left against medical advice (07) ==
LOC: ED 20:29 → MS3 21:04
PROVIDERS: Emergency Medicine; Emergency Provider Family Medicine; PCP Nurse Practitioner Family; Visit Provider Family Medicine
DX: O99.891 Other specified diseases and conditions complicating pregnancy (principal); M27.2 Inflammatory conditions of jaws; O99.332 Smoking (tobacco) complicating pregnancy, second trimester; F17.210 Nicotine dependence, cigarettes, uncomplicated; O99.712 Diseases of the skin and subcutaneous tissue complicating pregnancy, second trimester; L03.211 Cellulitis of face; O99.612 Diseases of the digestive system complicating pregnancy, second trimester; K02.9 Dental caries, unspecified; K04.7 Periapical abscess without sinus; R00.0 Tachycardia, unspecified; O99.282 Endocrine, nutritional and metabolic diseases complicating pregnancy, second trimester; E87.1 Hypo-osmolality and hyponatremia; O99.012 Anemia complicating pregnancy, second trimester; D64.9 Anemia, unspecified; O09.32 Supervision of pregnancy with insufficient antenatal care, second trimester; Z3A.27 27 weeks gestation of pregnancy; Z88.0 Allergy status to penicillin; Z87.898 Personal history of other specified conditions; Z53.29 Procedure and treatment not carried out because of patient's decision for other reasons
CPT/HCPCS: 70491; 80053; 80307; 83605; 85025; 96361; 96365; 99285; Q9967; A4216

== ENCOUNTER 2025-03-17 09:42 | Emergency (ER) | payer MEDICAID, SELFPAY ==
[2025-03-17 09:42] VITALS: BP 118/82; PULSE 91; RESP 16; TEMP 36.8; O2SAT 99; BMI 25.2
--- NOTE | 2025-03-17 10:17 | EDS_ITS ---
HPI History of Present Illness Chief Complaint: Abscess Informant: patient Narrative Narrative: Patient is evaluated for worsening pain, swelling and now drainage of her axilla. She denies any history of no known abscesses or skin lesions. Has a history of hidradenitis suppurativa. States she shaved her underarms about a week ago and then started to have pain, redness and swelling to the sites. Today she had increased pain and started having drainage from her left axilla which is what prompted her father come to the emergency room. She denies any fever or chills. Denies any nausea or vomiting. She is otherwise feeling well except for the pain of her underarms. She did not take anything for pain prior to arrival.. Denies any recent antibiotics. Does have a history of dental abscess complicated by in October of this year. She has since delivered. [facility] Medical History Normocytic anemia Tobacco use Substance abuse Home Medications ?Medication ?Instructions ?Recorded ?Last Taken ?Type clindamycin HCl 300 mg capsule 300 mg PO 4X/DAY 10 day s #40 10/14/24 Unknown Rx (Cleocin HCl) CAPSULES vitamins no.144-folic 2 tab PO DAILY 10/14/24 Unknown History acid 400 mcg chewable tablet () doxycycline hyclate 100 mg tablet 100 mg PO BID #14 ta bs 03/17/25 Unknown Rx ibuprofen 600 mg tablet 600 mg PO Q6H PRN PRN pain # 20 03/17/25 Unknown Rx TABLETS mupirocin 2 % topical ointment 1 applic topical BID 1 week #15 03/17/25 Unknown Rx (Centany) grams Allergy/AdvReac Type Severity Reaction Status Date / Time latex AdvReac Rash Verified 03/17/25 09:42 Penicillins (PCN) AdvReac Other Verified 03/17/25 09:42 Family History Mother Heart disease Sinus tachycardia Father Cancer Surgical History No history of previous surgery Social History household members: family Smoking Status: Current some day smoker tobacco type: cigarettes alcohol intake: never substance use type: former substance user 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 ROS ROS ED Constitutional Constitutional ED: Denies chills or fever(s) Gastrointestinal Gastrointestinal: Denies nausea or vomiting Musculoskeletal Musculoskeletal: Denies arthralgias or myalgias Integumentary Reports abscess and other Details: Bilateral axilla Neurologic Neurologic: Denies paresthesias or weakness Hematologic/Lymphatic Hematologic/Lymphatic: Denies easy bleeding or easy bruising EXAM Physical Exam Const Vital Signs: 03/17/25 09:42 03/17/25 11:48 Temperature 98.2 F 98 F Temperature Source Oral Pulse Rate 91 78 Respiratory Rate 16 14 Blood Pressure 118/82 H 118/64 Blood Pressure Mean 94 82 Pulse Ox 99 99 Oxygen Delivery Method Room Air Positive well nourished and well developed General Appearance ED: well developed and NAD HEENT Reports moist mucous membranes Neck supple Chest Wall inspection of chest normal and palpation of chest normal Resp normal respiratory effort and clear to auscultation bilaterally Cardio regular rate and regular rhythm Extremity normal to inspection Extremity Narrative: Normal range of motion of the shoulders General Extremety ED: Negative for edema General Extremity: Negative for edema Neuro oriented x3 Sensorium / Orientation: alert Motor Exam: Negative for general weakness Psych mental status grossly normal Skin Skin Narrative: Bilateral axilla abscess but no fluctuance. There is spontaneous drainage purulent/sanguinous drainage from the left. On the left there is another abscess that is approximately 1 cm x 2 cm. On the right there are 2 small - 1 cm areas of swelling with some mild overlying erythema. No associated lymphangitic streaking. No other abscesses or wounds appreciated. MDM MDM MDM Narrative Medical decision making narrative: Patient valuated for bilateral axilla abscess after shaving her underarms. She had spontaneous drainage from the left side today. Denies any fever or systemic symptoms. Differential includes abscess, cellulitis and hidradenitis suppurativa. Given that she does not have a history of any abscess lower suspicion for at bedtime. I&D performed to abscess on the right as well as 1 on the left in addition to opening up the spontaneously draining 1 further on the left lateral aspect of the axilla. Procedure note: 1% lidocaine with epinephrine injected subcutaneously for analgesia. Stab incision using 11 blade over the area of maximum fluctuance. Purulent drainage obtained from all 3. They were expressed until just blood came out. Area then cleansed with antiseptic wash and dressing applied. Patient given doxycycline and Motrin emergency room. Started on doxycycline with first dose in the emergency room and given a prescription as well as prescription for mupirocin and Motrin 600 mg. Given return precautions. Given the extent of her bilateral axilla abscesses given follow-up information for dermatology. Culture sent. Given return precautions. Discharged home in stable condition. Discharge Plan Triage Chief Complaint: Abscess ED Provider: Vani Diaz Dx/Rx/DC Orders Clinical Impression: Cutaneous abscesses of both axillae Instructions: ED Abscess Incision And Drainage Prescriptions: New doxycycline hyclate 100 mg tablet 100 mg PO BID Qty: 14 0RF mupirocin [Centany] 2 % ointment 1 applic topical BID 7 Days Qty: 15 0RF ibuprofen 600 mg tablet 600 mg PO Q6H PRN PRN (Reason: pain) Qty: 20 0RF No Action 400 mcg tablet,chewable 2 tab PO DAILY clindamycin HCl [Cleocin HCl] 300 mg capsule 300 mg PO 4X/DAY 10 Days Qty: 40 0RF Primary Care Provider: Nahomy Fonseca NP Referrals: Alin Ramírez MD [Med Staff - [facility]] - Nahomy Fonseca NP, [employer] [Primary Care Provider] - Print Language: Romanian Disposition Disposition: Home, Self Care Discharge Date/Time: 03/17/25 11:49
[2025-03-17] MEDS: Lidocaine 1% (20 ml mdv) 20 ML Vial INFILT (10:24)
--- OUTSIDE RECORDS SUMMARY | 2025-03-17 10:29 | XMS RPT_ITS | CCD ---
Author Organization [facility] Care Team Providers Care Obstetrics Specialist Name Role Phone TRILESLIE CHARLEE C Unavailable Unavailable TRILL, CHARLEE C Unavailable Unavailable TRILL, CHARLEE C Unavailable Unavailable TRILL, CHARLEE C (HIGHER EDUCATION ADMINISTRATOR) Attending Unavailab le TRILL, CHARLEE C (HIGHER EDUCATION ADMINISTRATOR) Referring Unavailab le TRILL, CHARLEE C (HIGHER EDUCATION ADMINISTRATOR) Referring Unavailab le Fidel Ram MD Primary Care Provider Fidel Ram MD Primary Care Provider [phone] PHYSICIAN, NONE Primary Care Physician Unavailab le PHYSICIAN, NONE Primary Care Unavailable LUTHER AIR BOATSWAIN-MARIBELL ROBLES Attending Unavail able BEITLER AIR BOATSWAIN-CNM, TALISHA R Attending Unav ailable PHYSICIAN, NONE Primary Care Unavailable BEITLER AIR BOATSWAIN-CNM, TALISHA R Attending Unav ailable PHYSICIAN, NONE Primary Care Unavailable BEITLER AIR BOATSWAIN-CNM, TALISHA R Attending Unav ailable PHYSICIAN, NONE Primary Care Unavailable PHYSICIAN, NONE Primary Care Unavailable LUTHER AIR BOATSWAIN-HIGHER EDUCATION ADMINISTRATOR, MARIEBLL Attending Unavail able LIN, DAVIAN Referring Unavailable Trill FOREST FIRE LOOKOUT, Charlee Primary Care Unavailable White, Ely L Admitting Unavailable White, Ely L Attending Unavailable Trill FOREST FIRE LOOKOUT, Charlee Primary Care Unavailable Israel Sahni Attending Unavailable Trill FOREST FIRE LOOKOUT, Charlee Primary Care Unavailable Chad Walker Attending Unavailable Ev Bishop Attending Unavailabl e White, Ely L Consulting Unavailable Trill FOREST FIRE LOOKOUT, Charlee Primary Care Unavailable Trill FOREST FIRE LOOKOUT, Charlee Primary Care Unavailable Lin, Davian Referring Unavailable White, Ely L Consulting Unavailable White, Ely L Attending Unavailable Rosa AIR BOATSWAIN-HIGHER EDUCATION ADMINISTRATOR, Melita Unavailable [phone] Stan SANCHEZ MD, Chad Unavailable [phone] Unavailable Primary Care Provider Unavailabl e PROVIDER, UNKNOWN Admitting Unavailable CHAD DAVIS Attending Unavailable PROVIDER, UNKNOWN Attending Unavailable PROVIDER, UNKNOWN Admitting Unavailable PROVIDER, UNKNOWN Admitting Unavailable ROSA, MELITA Attending Unavailable PROVIDER, UNKNOWN Admitting Unavailable ROSA, MELITA Attending Unavailable PROVIDER, UNKNOWN Admitting Unavailable ROSA, MELITA Referring Unavailable ROSA, MELITA Attending Unavailable PROVIDER, UNKNOWN Attending Unavailable PROVIDER, UNKNOWN Admitting Unavailable SUSTER, GLENN Admitting Unavailable PROVIDER, UNKNOWN Attending Unavailable PROVIDER, UNKNOWN Admitting Unavailable PROVIDER, UNKNOWN Attending Unavailable SUSTER, GLENN Admitting Unavailable KHANH, TALISHA Attending Unavailable MIRLANDE, EV Referring Unavailable CONSULT, IP OB HIGH RISK Consulting Unavail able REQUEST, IP SOCIAL WORK SERVICE Consulting Unavailable ORI, SOLER-BERTA Admitting Unavailable ORI, SOLER-BERTA Attending Unavailable PROVIDER, UNKNOWN Admitting Unavailable ROSA, MELITA Referring Unavailable ROSA, MELITA Attending Unavailable PROVIDER, UNKNOWN Attending Unavailable PROVIDER, UNKNOWN Admitting Unavailable ROSA, MELITA Referring Unavailable PROVIDER, UNKNOWN Admitting Unavailable ROSA, MELITA Referring Unavailable ROSA, MELITA Attending Unavailable PROVIDER, UNKNOWN Admitting Unavailable ROSA, MELITA Referring Unavailable ROSA, MELITA Attending Unavailable PROVIDER, UNKNOWN Admitting Unavailable PROVIDER, UNKNOWN Attending Unavailable Allergies Allergy Classification Reported Allergen(s) Allergy Type Date of Onset Reaction(s) Facility (20 sources) Latex; Translations: [LATEX] Propensity to adverse reactions to drug (disorder) 8 Rash [facility] Repository (20 sources) Penicillins; Translations: [PENICILLINS] Propensity to adverse reactions to drug (disorder) 6 Other [facility] Repository (3 sources) Penicillin; Translations: [penicillin] Drug Allergy unsure - allergic as young child [facility] Medications Current Medications Medication Drug Class(es) Dates Sig (Normalized) Sig (Original) acetaminophen 500 mg oral tablet (20 sources) Start: 12-31-2024 take 1000 mg by mouth every six hours 1,000 mg, Oral, EVERY 6 HOURS, First dose on 12/31/24 at 0300, Until Discontinued Start: 10-17-2024 End: 01-01-2025 take 2 tablets by mouth every six hours acetaminophen (TYLENOL) 500 MG tablet Take 2 Tablets by mouth every 6 (six) hours. 30 Tablet 10/17/2024 11:45 AM EST 10/17/2024 01/01/2025 Discontinued Start: 10-15-2024 End: 10-17-2024 take 1000 mg by mouth every six hours 1,000 mg, Oral, Every 6 hours, First dose on 10/15/24 at 1600, Until Discontinued Start: 10-15-2024 End: 10-15-2024 take 1 dose by mouth once 1,000 mg, Oral, ONCE, 1 dose , On 10/15/24 at 0954 chlorhexidine gluconate 1.2 mg/ml mouthwash (17 sources) Start: 10-15-2024 End: 10-17-2024 take 15 mL by mouth twice daily chlorhexidine (PERIDEX) 0.12 % oral solution Swish and spit 15 mL by mouth 2 times daily. 473 mL 3 10/17/2024 11:45 AM EST 10/17/2024 Active ferrous sulfate 325 mg oral tablet (18 sources) Start: 10-16-2024 End: 11-14-2024 take 1 tablet by mouth once daily ferrous sulfate 325 mg (65 mg elemental) tablet Take 1 Tablet by mouth daily. 60 Tablet 3 11/14/2024 Active ibuprofen 600 mg oral tablet (9 sources) Nonsteroidal Anti-inflammatory Drug Start: 12-31-2024 take 1 tablet by mouth every six hours in the morning ibuprofen (MOTRIN) 600 MG tablet Take 1 Tablet by mouth every 6 hours. 30 Tablet 3 01/01/2025 9:05 AM EDT 01/01/2025 Active lidocaine hydrochloride 20 mg/ml mucous membrane topical solution (17 sources) Antiarrhythmic, Amide Local Anesthetic Start: 10-17-2024 take 15 mL by mouth every three hours as needed for pain Lidocaine HCl (lidocaine viscous) 2 % SOLN solution Take 15 mL by mouth every 3 hours as needed (For severe tooth pain). 100 mL 10/17/2024 11:45 AM EST 10/17/2024 Active Start: 10-16-2024 End: 10-17-2024 take 15 mL by mouth every three hours as needed for pain 15 mL, Mouth/Throat, EVERY 3 HOURS PRN, Starting on Wed10/16/24 at 1219, Until Wed10/17/24 at 1549, For severe tooth pain nitrofurantoin, macrocrystals 25 mg / nitrofurantoin, monohydrate 75 mg oral capsule (2 sources) Nitrofuran Antibacterial Start: 08-01-2024 End: 08-06-2024 Macrobid 100 mg oral capsule Dose : 100 mg = 1 cap(s), Oral, BID, Take with food, X 5 day(s), # 10 cap(s), 0 Refill(s), 08/06/24 9:45:00 AM EST, Pharmacy: [facility] #[id number], 166, cm, 08/01/24 9:17:00 EST, Height Start Date: 08/01/24 Stop Date: 08/06/24 Status: Ordered omeprazole 20 mg delayed release oral capsule (15 sources) Proton Pump Inhibitor Start: 11-27-2024 take 1 capsule by mouth once daily omeprazole (PRILOSEC) 20 MG capsule Indications: Supervision of high risk in third trimester (HCC) , Heartburn during in third trimester (HCC) Take 1 Capsule by mouth daily. 30 Capsule 3 11/27/2024 Active polyethylene glycol 3350 16081 mg powder for oral solution (10 sources) Osmotic Laxative Start: 12-31-2024 polyethylene glycol (MIRALAX) packet Dissolve 1 Packet (17 g total) in 8 ounces of liquid and drink every 12 hours as needed. 30 Packet 3 01/01/2025 9:05 AM EDT 01/01/2025 Active Start: 10-16-2024 End: 10-17-2024 17 g, Oral, DAILY, First dos e on Wed10/16/24 at 1100, Until Discontinued Multivitamins with Vitamin B Complex, Vitamin C, Minerals and L-Methylfolate oral capsule (3 sources) Start: 06-28-2024 take 1 capsule by mouth once daily Multivitamins with Vitamin B Complex, Vitamin C, Minerals and L-Methylfolate oral capsule Dose = 1 cap(s), Oral, Daily, 0 Refill(s) Start Date: 06/28/24 Status: Ordered TABS tablet (16 sources) Start: 10-18-2024 take 1 tablet by mouth once daily TABS tablet Take 1 Tablet by mouth daily. 30 Tablet 5 10/17/2024 11:45 AM EST 10/18/2024 Suspended Start: 10-18-2024 take 1 tablet by jayce th once daily TABS tablet Take 1 Tablet by mouth daily. 30 Tablet 5 10/17/2024 11:45 AM EST 10/18/2024 Active simethicone 80 mg chewable t ablet (1 source) Start: 12-31-2024 Completed/Discontinued Medications Medication Drug Class(es) Dates Sig (Normalized) Sig (Original) benzocaine 200 mg/ml / menthol 5 mg/ml topical spray (1 source) Standardized Chemical Allergen Start: 12-31-2024 Topical, 4 TIMES DAILY PRN, Starting on 12/31/24 at 0335, Until Discontinued, for perineal pain or discomfort. calcium chloride 0.0014 meq/ml / potassium chloride 0.004 meq/ml / sodium chloride 0.103 meq/ml / sodium lactate 0.028 meq/ml injectable solution (6 sources) Start: 12-29-2024 End: 12-30-2024 500 mL, at 999 mL/hr, Intravenous, ONCE PRN, 1 dose, Starting on Wed12/29/24 at 2014, Until 12/30/24 at 2115 Start: 12-29-2024 End: 12-31-2024 take 1 dose intravenously every hour 250 mL, at 999 mL/hr, Intravenous, FLUID BOLUS, 1 dose, On Wed12/29/24 at 2330 Start: 10-15-2024 End: 10-16-2024 Intravenous, at 75 mL/hr, CONTINUOUS, Starting on Wed10/15/24 at 1800, Until 10/16/24 at 0856 ceFAZolin 2000 mg injection (1 source) Cephalosporin Antibacterial Start: 12-31-2024 End: 12-31-2024 2,000 mg, Intravenous, ONCE, 1 dose, On 12/31/24 at 0230 Start: 12-31-2024 End: 12-31-2024 2,000 mg, Intravenous, ONCE, 1 dose, On 12/31/24 at 0230 cefdinir 300 mg oral capsule (2 sources) Cephalosporin Antibacterial Start: 10-16-2024 End: 10-23-2024 take 1 capsule by mouth twice daily cefdinir (OMNICEF) 300 MG capsule Take 1 Capsule by mouth 2 times daily for 6 days. 12 Capsule 10/17/2024 11:45 AM EST 10/17/2024 10/23/2024 cefepime 2000 mg injection (1 source) Cephalosporin Antibacterial Start: 10-15-2024 End: 10-16-2024 2,000 mg, Intravenous, EVERY 8 HOURS ANTIBIOTIC, First dose on 10/15/24 at 1900, Until Discontinued cefepime (MAXIPIME) 2,000 mg in sterile water for injection 20 mL IV push (1 source) Start: 10-15-2024 End: 10-15-2024 2,000 mg, Intravenous, Once, 1 dose, On 10/15/24 at 1049 clindamycin 300 mg oral capsule (1 source) Lincosamide Antibacterial Start: 10-14-2024 End: 10-17-2024 take 1 capsule by mouth four times daily clindamycin (CLEOCIN) 300 MG capsule take 1 capsule by mouth four times a day for 10 days 10/14/2024 10/17/2024 Discontinued docusate sodium 100 mg oral capsule (2 sources) Start: 12-31-2024 take 100 mg by mouth twice daily at mealtime 100 mg, Oral, 2 TIMES DAILY WITH MEALS, First dose on 12/31/24 at 0900, Until Discontinued Start: 10-15-2024 End: 10-17-2024 take 100 mg by mouth twice daily 100 mg, Oral, 2 TIMES DAILY, First dose on 10/15/24 at 1400, Until Discontinued 5 ml EPINEPHrine 0.005 mg/ml / lidocaine hydrochloride 15 mg/ml injection (2 sources) Antiarrhythmic, alpha-Adrenergic Agonist, beta-Adrenergic Agonist, Catecholamine, Amide Local Anesthetic Start: 12-30-2024 End: 12-31-2024 Epidural, PRN, Starting on 12/30/24 at 0733, Until 12/31/24 at 0145, Intra-op Start: 10-15-2024 End: 10-15-2024 10 mL, Injection, ONCE, 1 do se, On 10/15/24 at 1110 1 ml fentaNYL 0.05 mg/ml injection (1 source) Opioid Agonist Start: 10-15-2024 End: 10-15-2024 50 mcg, Intravenous Push, STAT, 1 dose, On 10/15/24 at 1301 Start: 10-15-2024 End: 10-15-2024 50 mcg, Intravenous Push, ST AT, 1 dose, On 10/15/24 at 1301 fentaNYL 2 mcg/mL-BUPivacaine 0.1% in sodium chloride EPIDURAL infusion (1 source) Start: 12-30-2024 End: 12-31-2024 Epidural, PRN CONTINUOUS, Starting on 12/30/24 at 0742, Until 12/31/24 at 0145 iohexol (OMNIPAQUE) 350 MG/ML injection (1 source) Start: 10-16-2024 End: 10-16-2024 take 1 dose intravenously once 75 mL, Intravenous Push, Once at Radiology exam, 1 dose, Starting on 10/16/24 at 0250, Until 10/16/24 at 0250, Imaging Protocol Orders L & D fentaNYL-BUPivacaine EPIDURAL bolus syringe (1 source) Start: 12-30-2024 End: 12-31-2024 Epidural, PRN, Starting on 12/30/24 at 0739, Until 12/31/24 at 0145, Intra-op lanolin 1000 mg/ml topical cream (1 source) Start: 12-31-2024 Topical, PRN, Starting on 12/31/24 at 0335, Until Discontinued, Dry Skin, Breast Soreness 50 ml magnesium sulfate 40 mg/ml injection (1 source) Start: 10-15-2024 End: 10-15-2024 2 g (2,000 mg), Intravenous, ONCE, 1 dose, On 10/15/24 at 1315, at 100 mL/hr metroNIDAZOLE 500 mg oral tablet (3 sources) Nitroimidazole Antimicrobial Start: 10-16-2024 End: 10-23-2024 take 1 tablet by mouth three times daily metroNIDAZOLE (FLAGYL) 500 MG tablet Take 1 Tablet by mouth 3 times daily for 6 days. 18 Tablet 10/17/2024 11:45 AM EST 10/17/2024 10/23/2024 Start: 10-15-2024 End: 10-16-2024 500 mg, Intravenous, EVERY 8 HOURS ANTIBIOTIC, First dose on 10/15/24 at 1040, Until Discontinued, at 100 mL/hr miSOPROStol 0.2 mg oral tablet (2 sources) Prostaglandin E1 Analog Start: 12-31-2024 End: 12-31-2024 take 1 dose rectal route once 800 mcg, Rectal, ONCE, 1 dose, On 12/31/24 at 0230 Start: 12-31-2024 End: 12-31-2024 1 dose, Starting on 12/31 at 0121, Until 12/31/24 at 0127 1 ml nalbuphine hydrochloride 10 mg/ml injection (1 source) Opioid Agonist/Antagonist Start: 12-30-2024 End: 12-30-2024 take 1 dose intravenously once 10 mg, Intravenous Push, Once, 1 dose, On 12/30/24 at 0430 Start: 12-30-2024 End: 12-30-2024 take 1 dose intravenously once 10 mg, Intravenous Push , Once, 1 dose, On 12/30/24 at 0430 24 hr nicotine 0.583 mg/hr transdermal system (17 sources) Cholinergic Nicotinic Agonist Start: 12-29-2024 End: 12-31-2024 14 mg, Transdermal, DAILY, First dose on Wed12/29/24 at 2230, Until Discontinued Start: 10-30-2024 apply 1 dose transde rmal route every twenty-four hours nicotine (NICODERM CQ) 21 mg/24HR patch Indications: Supervision of high risk in third trimester (HCC) Place 1 Patch on the skin every 24 hours. 28 Patch 10/30/2024 Active Start: 10-15-2024 End: 10-17-2024 14 mg, Transdermal, DAILY, F irst dose on 10/15/24 at 1500, Until Discontinued 2 ml ondansetron 2 mg/ml injection (19 sources) Serotonin-3 Receptor Antagonist Start: 12-29-2024 End: 12-31-2024 take 4 mg intravenously every eight hours as needed 4 mg, Intravenous Push, EVERY 8 HOURS PRN, Starting on Wed12/29/24 at 2013, Until 12/31/24 at 0335 Start: 10-17-2024 take 1 tablet by jayce th every twelve hours as needed for nausea ondansetron (ZOFRAN-ODT) 4 MG disintegrating tablet Take 1 Tablet by mouth every 12 hours as needed for Nausea. Place 1 tablet under tongue as needed for nausea. 10 Tablet 10/17/2024 11:45 AM EST 10/17/2024 Active Start: 10-17-2024 End: 10-17-2024 inject 2 mL intravenously every six hours as needed ondansetron (ZOFRAN) 4 MG/2ML injection 2 mL by Intravenous Push route every 6 hours as needed. 15 mL 3 10/17/2024 10/17/2024 Discontinued Start: 10-15-2024 End: 10-17-2024 take 4 mg intravenously every six hours as needed 4 mg, Intravenous Push, EVERY 6 HOURS PRN, Starting on Wed10/15/24 at 1323, Until Wed10/17/24 at 1549 oxyCODONE hydrochloride 5 mg oral tablet (1 source) Opioid Agonist Start: 10-15-2024 End: 10-17-2024 5 mg, Oral, EVERY 4 HOURS PRN, Starting on Wed10/15/24 at 1325, Until Wed10/17/24 at 1549, Severe Pain (pain score 7,8,9,10) oxytocin (PITOCIN) infusion (2 sources) Start: 12-29-2024 End: 12-31-2024 6-36 snow-units/min (6-36 mL/hr), Intravenous, CONTINUOUS, Starting on Wed12/29/24 at 2230, Until Wed12/31/24 at 0335 Start: 12-29-2024 End: 12-31-2024 30 Units, Intravenous, ONCE PRN, 1 dose, Starting on Wed12/29/24 at 2013, Until Wed12/31/24 at 0335 microencapsulated potassium chloride 20 meq extended release oral tablet (1 source) Start: 10-15-2024 End: 10-15-2024 take 1 dose by mouth once 40 mEq, Oral, ONCE, 1 dose, On Wed10/15/24 at 1530 tablet (2 sources) Start: 12-31-2024 take 1 tablet by mouth once daily 1 Tablet, Oral, DAILY, First dose on Wed12/31/24 at 0900, Until Discontinued Start: 10-15-2024 End: 10-17-2024 take 1 tablet by mouth once daily 1 Tablet, Oral, DAILY, First dose on Wed10/15/24 at 1400, Until Discontinued witch chela 500 mg/ml medicated pad (1 source) Start: 04-27-2025 Topical, EVERY 4 HOURS PRN, Starting on 12/31/24 at 0335, Until Discontinued, Itching, Burning, Irritation, not to exceed 6 times per day Problems Active Problems Problem Classification Problem Date Documented Date Episodic/Chronic Abdominal pain (1 source) Unspecified abdominal pain; Translations: [Unspecified abdominal pain] Onset: 09-23-2018 Episodic Anxiety disorders (20 sources) Anxiety disorder, unspecified; Translations: [Mixed anxiety and depressive disorder] Onset: 07-06-2017 12-11-2024 Chronic Asthma (20 sources) Mild intermittent asthma; Translations: [Mild intermittent asthma, uncomplicated] Onset: 11-07-2003 11-07-2003 Chronic Blindness and vision defects (1 source) Other visual disturbances; Translations: [Other visual disturbances] Onset: 09-23-2018 Episodic Cardiac dysrhythmias (1 source) Tachycardia; Translations: [Tachycardia, unspecified] 10-15-2024 Episodic Diseases of mouth; excluding dental (1 source) Abscess of submandibular region; Translations: [Cellulitis and abscess of mouth] 10-15-2024 Episodic Diseases of white blood cells (1 source) Leukocytosis; Translations: [Elevated white blood cell count, unspecified] 10-15-2024 Chronic Headache; including migraine (1 source) Headache; including migraine; Translations: [Headache, unspecified] Onset: 09-29-2024 Hypertension complicating ; childbirth and the puerperium (1 source) Hypertension AND/OR vomiting complicating childbirth AND/OR puerperium 01-01-2025 Chronic Hypertension complicating ; childbirth and the puerperium (2 sources) Hypertension AND/OR vomiting complicating childbirth AND/OR puerperium; Translations: [Gestational [-induced] hypertension without significant proteinuria, third trimester] Onset: 12-29-2024 01-01-2025 Episodic Immunizations and screening for infectious disease (1 source) Encounter for screening for infections with a predominantly sexual mode of transmission; Translations: [Encounter for screening for infections with a predominantly sexual mode of transmission] Onset: 09-23-2018 Episodic Infective arthritis and osteomyelitis (except that caused by tuberculosis or sexually transmitted disease) (1 source) Other osteomyelitis, unspecified sites; Translations: [Other osteomyelitis, unspecified sites] Onset: 11-05-2024 Chronic Mood disorders (18 sources) Major depressive disorder, recurrent, moderate; Translations: [Moderate recurrent major depression] Onset: 07-06-2017 10-15-2024 Chronic Mood disorders (1 source) Mood disorders; Translations: [Depression, unspecified] Onset: 10-30-2024 Nausea and vomiting (1 source) Nausea; Translations: [Nausea] Onset: 09-23-2018 Episodic Other complications of (20 sources) Anemia in mother complicating , childbirth AND/OR puerperium; Translations: [Anemia complicating , third trimester] Onset: 10-30-2024 12-11-2024 Chronic Other complications of (1 source) Anemia complicating , third trimester; Translations: [Anemia complicating , third trimester] Onset: 10-30-2024 Chronic Other complications of (18 sources) Heartburn; Translations: [Other specified related conditions, third trimester] Onset: 11-13-2024 11-13-2024 Episodic Other complications of (5 sources) Vacuum assisted vaginal delivery; Translations: [Outcome of delivery, unspecified] 01-01-2025 Episodic Other complications of (1 source) Outcome of delivery, unspecified; Translations: [Outcome of delivery, unspecified] Onset: 12-29-2024 Episodic Other injuries and conditions due to external causes (20 sources) Systemic inflammatory response syndrome; Translations: [Systemic inflammatory response syndrome (SIRS) of non-infectious origin without acute organ dysfunction] Onset: 10-15-2024 Resolved: 10-17-2024 10-17-2024 Episodic Other nervous system disorders (1 source) Anesthesia of skin; Translations: [Anesthesia of skin] Onset: 09-23-2018 Episodic Other and delivery including normal (18 sources) ; Translations: [Third trimester ] Onset: 04-22-2024 06-28-2024 Episodic Other skin disorders (1 source) Localized swelling, mass and lump, head; Translations: [Localized swelling, mass and lump, head] Onset: 11-05-2024 Episodic Other upper respiratory disease (19 sources) Allergic rhinitis; Translations: [Allergic rhinitis, unspecified] Onset: 02-02-2012 02-02-2012 Chronic Other upper respiratory infections (1 source) Acute upper respiratory infection; Translations: [Acute upper respiratory infection, unspecified] 06-18-2019 Episodic Residual codes; unclassified (1 source) Current drinker; Translations: [Other specified health status] 12-20-2022 Episodic Residual codes; unclassified (2 sources) 16 weeks gestation of ; Translations: [16 weeks gestation of ] Onset: 08-01-2024 Episodic Residual codes; unclassified (2 sources) 10 weeks gestation of ; Translations: [10 weeks gestation of ] Onset: 07-03-2024 Episodic Residual codes; unclassified (9 sources) History of past delivery; Translations: [Personal history of other complications of , childbirth and the puerperium] Onset: 01-01-2025 01-01-2025 Episodic Substance-related disorders (20 sources) History of drug abuse; Translations: [Other stimulant abuse, in remission] Onset: 07-06-2017 12-20-2022 Chronic Superficial injury; contusion (1 source) Contusion of foot; Translations: [Contusion of right foot, initial encounter] 10-15-2019 Episodic Unclassified (1 source) No history of clinical finding in subject; Translations: [No significant past medical history] 06-17-2019 Unclassified (8 sources) MYC3 OB MANAGEMENT Onset: 12-31-2024 12-31-2024 Past or Other Problems Problem Classification Problem Date Documented Da te Episodic/Chronic Conditions associated with dizziness or vertigo (1 source) Dizziness and giddiness; Translations: [Dizziness and giddiness] Onset: 07-06-2017 Episodic Disorders of teeth and jaw (20 sources) Other specified disorders of teeth and supporting structures; Translations: [Dental abscess] Onset: 10-15-2024 10-30-2024 Episodic Inflammation; infection of eye (except that caused by tuberculosis or sexually transmitteddisease) (19 sources) Allergic conjunctivitis; Translations: [Acute atopic conjunctivitis, unspecified eye] Onset: 02-02-2012 02-02-2012 Episodic Malposition; malpresentation (18 sources) Breech presentation; Translations: [Maternal care for breech presentation, not applicable or unspecified] Onset: 12-11-2024 Resolved: 12-18-2024 12-11-2024 Episodic Other complications of (20 sources) High risk ; Translations: [Supervision of high risk , unspecified, third trimester] Onset: 10-15-2024 12-11-2024 Episodic Other complications of (1 source) Supervision of high risk , unspecified, third trimester; Translations: [Supervision of high risk , unspecified, third trimester] Onset: 10-30-2024 Episodic Other complications of (1 source) Supervision of high risk , unspecified, unspecified trimester; Translations: [Supervision of high risk , unspecified, unspecified trimester] Onset: 10-30-2024 Episodic Other injuries and conditions due to external causes (1 source) Systemic inflammatory response syndrome (SIRS) of non-infectious origin without acute organ dysfunction; Translations: [Systemic inflammatory response syndrome (sirs) of non-infectious origin without acute organ dysfunction] Onset: 12-01-2024 Episodic Other nutritional; endocrine; and metabolic disorders (19 sources) Overweight in adulthood with body mass index of 25 or more but less than 30; Translations: [Body mass index (BMI) 28.0-28.9, adult] Onset: 10-30-2024 12-11-2024 Episodic Other nutritional; endocrine; and metabolic disorders (1 source) Body mass index (BMI) 27.0-27.9, adult; Translations: [Body mass index (BMI) 27.0-27.9, adult] Onset: 10-30-2024 Episodic Residual codes; unclassified (19 sources) Has a correction record; Translations: [Other specified health status] Onset: 10-30-2024 12-11-2024 Episodic Residual codes; unclassified (1 source) Other specified health status; Translations: [Other specified health status] Onset: 10-30-2024 Episodic Unclassified (1 source) Dental Abscess - 27 wks Onset: 10-15-2024 Results Test Name Value Interpretation Reference Range Facility Telephone Encounteron 2024 Media Consultant Outside Sales Authentication Interface Message Text Patient NO SHOWED appointment on 01/30/25 Called patient :LVM to call back to reschd apt will send out mychart letter 3rd attempt to contact - end of PP date 03/25/25 [facility] Tele[facility] Encounter[facility] 2024 Media Consultant Outside Sales Authentication Interface Message Text Patient NO SHOWED appointment on 01/30/25 Called patient :LVM to call back to reschd apt 2nd attempt to contact - end of PP date 03/25/25 Normal [facility] Progress Noteson 01-31-2025 Media Consultant Outside Sales Authentication Interface Message Text Sent OB HTN RPM end of program letter. Neena Shook, MPH Virtual Care Manufacturer'S Service Representative [facility] Virtual Chronic Disease Management Program Ph#: [phone] Normal [facility] Telephone Encounteron 2024 Media Consultant Outside Sales Authentication Interface Message Text NO SHOW , OB FOLLOW-UP, AND NEW OB APPOINTMENTS Patient appeared on /no show report Patient NO SHOWED appointment on 01/30/25 Called patient :LVM to call back to reschd apt 1st attempt to contact - end of PP date 03/25/25 Normal [facility] Progress Noteson 01-10-2025 Media Consultant Outside Sales Authentication Interface Message Text Maternal HTN RPM Compliance Alert Review Contact details: 1st attempt to reach patient via telephone. No answer, left VM requesting a call back. SITUATION: Compliance alert received that patient has not taken vitals in the past 48 hours. BACKGROUND: Last vital sign activity synced on 01/03/25 ASSESSMENT: Patient have not check vitals for over 7 days. RECOMMENDATIONS: Patient to check vitals twice a day with C[employer]imple device. Neena Shook, MPH Virtual Care Manufacturer'S Service Representative [facility] Virtual Chronic Disease Management Program Ph#: [phone] Normal [facility] Noteon 01-03-2025 Media Consultant Outside Sales Authentication Interface Message Text This note was copied from a baby's chart. Discussed engorgement management including: Reviewed feed or pump 8-12 times a day around the clock. Make sure baby is latching well to empty the breast effectively. Keep baby actively nursing throughout the feed and do not skip feedings in the first couple of weeks. Reverse pressure softening, apply gentle back and upward pressure to the base the areola for several minutes to temporarily remove swelling. Feed baby on demand or 8-12 times a day. Apply cold packs for 10-20 minutes after feeding to reduce the swelling and provide comfort. Normal [facility] Consultson 01-01-2025 Media Consultant Outside Sales Authentication Interface Message Text SW Coverage Note- Note copied from baby's chart. SW consult received for: Hx of maternal mental health Per chart review, pt with a hx of anxiety and depression Pt is not currently taking any meds. Pt is engaged in counseling in an IOP program. Pt has repeatedly not endorsed experiencing depressive and anxious symptoms during (see PNC and current physician notes). Per chart review, pt's mood has been reported stable throughout . Physicians have documented that pt denies SI/SA/HI. Pt has a hx of substance use but has had clean tox screens throughout with the exception of a positive result for Oxycodone in 10/31 while admitted for a Dental procedure in which she was administered Oxycodeone. SW deferring MH consult at this time. SW to see pt to provide education about depression and anxiety and provide NICU support. MARTÍN Vasquez, MLSP, FUSE ASSEMBLER PRN Learning And Development Administrator Normal [facility] [employer] Noteon 01-01-2025 Media Consultant Outside Sales Authentication Interface Message Text This note was copied from a baby's chart. Consult Indications: $ Consult Type: NICU Follow-Up Reason for Consult: Referred by Nursing Assessment: LATCH Score: 8 Maternal: Maternal Goals: Initial Feeding Plan: Both breast milk and formula Maternal Assessment; Breast: Breast Appearance: Soft : Medical Complications/Histor y: Behavior: Quiet alert Latch Assessment: Independent, Grasps breasts, Lips flanged, Rhythmical sucking, Tongue down at Breast: Positioning: Cross cradle, Mother able to independently latch Latch Assessment: Independent, Grasps breasts, Lips flanged, Rhythmical sucking, Tongue down Feeding Interventions: Breast support and compression throughout feeding, Rousing techniques to maintain alertness, Use of Pillows/Rolls Suck Assessment at Breast: Nutritive, sustained Teaching: Teaching: Language appropriate, Rousing techniques, Latch on techniques, Positioning, Adequacy, Frequency, Duration of feeds Recommendations: Recommendations: Breastfeed on demand, At least 8 times in 24 hours, At least 15-20 minutes, Perform frequent skin to skin care, Pump 8-12 times in 24 hours Comments: Latch observed. Infant able to latch deeply without difficulty or pain. Mother denies breast or nipple pain. Mother states she would like to just put baby to breast instead of triple feeding (breast feeding, bottle feeding and pumping). Encouraged to call with any questions or concerns. Follow-up: Pump Status: Pump given (zomee z2 from [employer]) Follow Up: As needed Normal [facility] Addendum Noteon 12-31-2024 Media Consultant Outside Sales Authentication Interface Message Text Addendum created 12/31/24 1003 by Kameron Rodriguez MD Clinical Note Signed Normal [facility] Anesthesia Postprocedure Cecy chamberlain 12-31-2024 Media Consultant Outside Sales Authentication Interface Message Text Anesthesia Postoperative Assessment: Vital Signs (most recent): BP 116/82 (BP Location: right arm) Pulse 81 Temp 36.7 ???C (98.1 ???F) (Oral) Resp 18 Ht 5' 4 (1.626 m) Wt 174 lb 9.7 oz (79.2 kg) LMP (LMP Unknown) SpO2 100% Unknown BMI 29.97 kg/m??? Anesthesia Post Evaluation Level of consciousness: awake Post-procedure exam normal. Body temperature, hydration status, PONV and pain evaluated and addressed. Pain management: adequate Hydration status: normal PONV:No nausea/vomiting reported Cardiopulmonary status stable Respiratory status: acceptable Cardiovascular status: acceptable ANESTHESIA NOTABLE EVENTS: No notable events documented. Normal [facility] Media Consultant Outside Sales Authentication Interface Message Text Anesthesia Postoperative Assessment: Vital Signs (most recent): BP 117/46 (BP Location: left arm) Pulse 95 Temp 36.8 ???C (98.2 ???F) (Oral) Resp 18 Ht 5' 4 (1.626 m) Wt 174 lb 9.7 oz (79.2 kg) LMP (LMP Unknown) SpO2 100% No BMI 29.97 kg/m??? Anesthesia Post Evaluation Level of consciousness: awake Post-procedure exam normal. Body temperature, hydration status, PONV and pain evaluated and addressed. Pain management: adequate Hydration status: normal PONV:No nausea/vomiting reported Cardiopulmonary status stable Respiratory status: acceptable Cardiovascular status: acceptable ANESTHESIA NOTABLE EVENTS: No notable events documented. Normal [facility] CORD BLOOD GAS, ARTERIALon 0 12-31-2024 Base excess Calc (BldCoA) [Moles/Vol] -1 mmol/L -7.0 - 2.0 mmol/L [facility] CO2 (BldCoA) [Partial pressure] 51.7 [facility] HCO3 (BldCoA) [Moles/Vol] 26 mmol/L 21 - 28 mmol/L [facility] Interpretation and review of laboratory results Abnormal [facility] pH (BldCoA) 7.317 7.180 - 7.380 [facility] CR CABE -1.0 mmol/L Normal -7.0-2.0 [facility] Comment on above: Performed By: #### C R BGCA #### [facility] [address] [place] [address], CR CHCO3 26 mmol/L Normal 21-28 [facility] Comment on above: Performed By: #### C R BGCA #### [facility] [address] [place] [address], CR CPCO2 51.7 mm Hg Normal 38.0-71.0 [facility] Comment on above: Performed By: #### C R BGCA #### [facility] [address] [place] [address], CR CPHA 7.317 Normal 7.180-7.380 [facility] Comment on above: Performed By: #### C R BGCA #### [facility] [address] [place] [address], CR CPO2 < 30 Normal 6-31 [facility] Comment on above: Performed By: #### C R BGCA #### [facility] [address] [place] [address], Oxygen saturation in Blood 60.7 % High 7.0-32.0 [facility] Comment on above: Performed By: #### C R BGCA #### [facility] [address] [place] [address], CORD BLOOD GAS, VENOUSOrdere d By: Mason Lee on 12-31-2024 Base Excess 0.6 mmol/L -6.0 - 2.0 mmol/L [facility] CO2 (BldCoV) [Partial pressure] 40.1 [facility] HCO3 (BldCoV) [Moles/Vol] 25 mmol/L 21 - 28 mmol/L [facility] Interpretation and review of laboratory results Normal [facility] Oxygen (BldCoV) [Partial pressure] 30.1 [facility] Oxygen saturation in Venous blood 70.8 % 70.0 - 80.0 % [facility] pH (BldCoV) 7.408 7.250 - 7.450 [facility] CORD BLOOD GAS, VENOUSon CR CABEV 0.6 mmol/L Normal -6.0-2.0 [facility] Comment on above: Performed By: #### C R BGCV #### S PATHOLOG[facility] LABORAT[facility] [address] [place] [address], CR CHCO3V 25 mmol/L Normal 21-28 [facility] Comment on above: Performed By: #### C R BGCV #### S [facility] [address] [place] [address], CR CPHV 7.408 Normal 7.250-7.450 [facility] Comment on above: Performed By: #### C R BGCV #### S [facility] [address] [place] [address], CR CPVCO2 40.1 mm Hg Normal 28.0-55.0 [facility] Comment on above: Performed By: #### C R BGCV #### [facility] [address] [place] [address], CR CPVO2 30.1 mm Hg Normal 17.0-41.0 [facility] Comment on above: Performed By: #### C R BGCV #### S [facility] [address] [place] [address], Oxygen saturation in Blood 70.8 % Normal 70.0-80.0 [facility] Comment on above: Performed By: #### C R BGCV #### S [facility] LAB[facility] [address] [place] [address], Care Plan Noteon 12-31-2024 Media Consultant Outside Sales Authentication Interface Message Text Problem: Routine Care: Goal: Patient care will be managed and maintained throughout hospital stay per unit specific routine care procedure Outcome: Progressing Intervention: Implement Routine Care of the Patient in Labor Delivery Stages Procedure (continuous) Note: Routine care and hourly rounding maintained. Patient oriented to room, and call light within reach. Problem: Breast Milk/: Goal: Breast Milk/ will be promoted, initated and maintained Outcome: Progressing Intervention: Initiate Procedure (continuous) Note: Patient desires to breast and bottle feed. Will initiate and assist with first feed. Will continue to encourage and support mom during this time. All questions answered. Problem: Fluid and Electrolyte Imbalance: Goal: Adequate fluid and electrolyte balance will be achieved and maintained Outcome: Progressing Intervention: Monitor for signs and symptoms of electrolyte imbalance (ongoing) Note: IV fluids administered per orders. Vaginal Bleeding will be monitored. Problem: Risk for Infection: Goal: Risk for infection will be reduced Outcome: Progressing Intervention: Monitor vital signs (per order) Note: No signs and symptoms of infection as this time. Labs WNL and patient remains afebrile. Will continue to assess and monitor. Problem: Knowledge Deficit: Goal: Ability to make informed decisions regarding treatment will improve Outcome: Progressing Intervention: Identify level of understanding (continuous) Note: Pt kept up to date on POC, all questions answered at this time. Problem: Acute Pain: Goal: Ability to identify pain intensity on a pain scale and rate it consistently will be achieved and maintained Outcome: Progressing Intervention: Assess pain routinely using the developmentally appropriate pain scale (continuous) Note: Pain scale used during hourly rounding on patient. Patient received an epidural for pain management during labor. Encouraged to hit her epidural button only if needed and explained that pressure is a normal feeling with an epidural. Will continue to assess and provide non-pharmacologic interventions when possible as well. Problem: Safety: Goal: Patient will remain free of falls during hospital stay Outcome: Progressing Intervention: Assess for risk related to falls using age appropriate scale (continuous) Note: Environment remains safe. Side rails are up on the bed and is in lowest, locked position. No skid footwear/ Yellow falls risk band and socks applied. Purposeful hourly rounding maintained and call light within reach. Problem: Discharge Planning: Goal: Discharge needs of the adult patient will be met Outcome: Progressing Intervention: Follow [facility] Discharge Planning Policy (continuous) Note: Patient to be transferred with her baby to the Unit s/p after the recovery period in L AND D. Plan for discharge home after 24-48 hours. Patient aware and updated on the discharge planning. Problem: Substance Use / Abuse Goal: MUD WORKER GOAL: PATIENT WILL ESTABLISH A SUSTAINED RECOVERY FROM SUBSTANCE ABUSE Outcome: Progressing Note: Normal [facility] Media Consultant Outside Sales Authentication Interface Message Text Problem: Routine Care: Goal: Patient care will be managed and maintained throughout hospital stay per unit specific routine care procedure Outcome: Progressing Intervention: Implement Routine Care of the Patient in Labor Delivery Stages Procedure (continuous) Note: Routine care and hourly rounding maintained. Patient oriented to room, and call light within reach. Problem: Breast Milk/: Goal: Breast Milk/ will be promoted, initated and maintained Outcome: Progressing Intervention: Initiate Procedure (continuous) Note: Patient desires to breast and bottle feed. Will initiate and assist with first feed. Will continue to encourage and support mom during this time. All questions answered. Problem: Fluid and Electrolyte Imbalance: Goal: Adequate fluid and electrolyte balance will be achieved and maintained Outcome: Progressing Intervention: Monitor for signs and symptoms of electrolyte imbalance (ongoing) Note: IV fluids administered per orders. Vaginal Bleeding will be monitored. Problem: Risk for Infection: Goal: Risk for infection will be reduced Outcome: Progressing Intervention: Monitor vital signs (per order) Note: No signs and symptoms of infection as this time. Labs WNL and patient remains afebrile. Will continue to assess and monitor. Problem: Knowledge Deficit: Goal: Ability to make informed decisions regarding treatment will improve Outcome: Progressing Intervention: Identify level of understanding (continuous) Note: Pt kept up to date on POC, all questions answered at this time. Problem: Acute Pain: Goal: Ability to identify pain intensity on a pain scale and rate it consistently will be achieved and maintained Outcome: Progressing Intervention: Assess pain routinely using the developmentally appropriate pain scale (continuous) Note: Pain scale used during hourly rounding on patient. Patient received an epidural for pain management during labor. Encouraged to hit her epidural button only if needed and explained that pressure is a normal feeling with an epidural. Will continue to assess and provide non-pharmacologic interventions when possible as well. Problem: Safety: Goal: Patient will remain free of falls during hospital stay Outcome: Progressing Intervention: Assess for risk related to falls using age appropriate scale (continuous) Note: Environment remains safe. Side rails are up on the bed and is in lowest, locked position. No skid footwear/ Yellow falls risk band and socks applied. Purposeful hourly rounding maintained and call light within reach. Problem: Discharge Planning: Goal: Discharge needs of the adult patient will be met Outcome: Progressing Intervention: Follow [facility] Discharge Planning Policy (continuous) Note: Patient to be transferred with her baby to the Unit s/p after the recovery period in L AND D. Plan for discharge home after 24-48 hours. Patient aware and updated on the discharge planning. Problem: Substance Use / Abuse Goal: MUD WORKER GOAL: PATIENT WILL ESTABLISH A SUSTAINED RECOVERY FROM SUBSTANCE ABUSE Outcome: Progressing Note: Normal [facility] L AND D Delivery Noteon 04-2 Media Consultant Outside Sales Authentication Interface Message Text OB Delivery Note: The patient began pushing 12/30/2024 9:34 PM. She had a cat II tracing with variable decels with pushing so pitocin was decreased. She was making good progress. We had periods of mod variability and accels at 0004. Patient took a break from pushing due to low energy. She then was amenable to a vacuum assisted delivery given FHR tracing and fatigue. Delivered a living Male over perineum with No episiotomy from Left Occiput Anterior position with Epidural anesthesia. Nocord complications. Anterior shoulder delivered atraumatically, shoulder dystocia not present, followed by posterior shoulder and body. Cord doubly clamped and cut, and infant placed on maternal abdomen Placenta delivery was Spontaneous, and it was Intact, with 3 Vessels cord and with intact amnion/chorion. Pitocin was administered. Fundus firm. Vagina and perineum inspected and found to have 2nd perineal laceration, No periurethral laceration, Bilateral labial laceration, No sulcus laceration(s), no vaginal laceration(s), and no cervical laceration(s). The perineum and lacerations were repaired in the usual fashion. Patient stable in delivery room and in delivery room Delivery Date/Time: 12/31/2024 @ 12:36 AM weight: See delivery summary report for infant weight. APGARS: 1 Minute 5 Minute Totals: 9 9 Blood loss: Blood loss: 200 (12/29/2024 8:08 PM - 12/31/2024 1:14 AM) Pt plans to Breast Milk and Formula feed and use Implant for contraception The patient now has the following VTE risk factors: 0 No known risk factors for a total score of 0. The patient does not meet criteria for chemoprophylaxis currently. PPH Flowsheet the patient's post- PPH risk score is High Risk Total Score: 23 4 Adm - Induction of labor (with oxytocin) or cervical ripening 2 Adm - Hematocrit <30 4 Pre - Labor greater than 18 hours 4 Pre - Augmentation of labor 4 Pre - Prolonged second stage (>2 hours) 4 Post - Operative vaginal delivery 1 PPH Doc Complete (Admission Assessment) Was there a post hemorrhage? No Attending: PAULINE RICO Resident(s): KWADWO MELENDEZ;MARIBELL MOREL;SARAH COHN;LAYLA GARY Jose R Labor Events Induction?: Yes Indications for induction: Hypertension Induction methods: [place]/EASI, Oxytocin, AROM Cervical ripening date/time: Augmentation: N/A--IOL Rupture type: Artificial Rupture date/time: 12/30/24 1030 Fluid color: Clear labor?: No Labor complications: None Hypertension in ?: Yes Hypertensive disorder: Gestational Hypertension Start Pushing Labor onset date/time: 12/29/242199 Dilation complete date/time: 12/30/242125 Start pushing date/time: 12/30/20242133 Decision date/time (emergent ): Anesthesia Anesthesia/Pain Management: Epidural Delivery Details Forceps attempted?: No Vacuum extractor attempted?: Yes Informed Consent: verbal Pelvic exam done: Yes Estimated position prior to placement: left occipital anterior Asynclitic: No Indications: Maternal Fatigue, Heart Rate or Rhythm Abnormality Vacuum type: Kiwi Vacuum application location: Outlet Ease of placement: easy Ease of traction: easy Informed Consent: verbal First attempt time vacuum applied: 0029 EDT First attempt time vacuum removed: 0036 EDT Number of pop offs: 0 Number of pulls: 5 Total vacuum application time: 8 minutes Vacuum applied by: NORA Pelvic exam done: Yes Bladder: Emptied Station at placement: +3 Rotation: 0??? Estimated position prior to placement: left occipital anterior Asynclitic: No Failed?: No Shoulder Dystocia Shoulder dystocia present?: No Presentation and Position Presentation: Vertex Position: Left Occiput Anterior Kwadwo Melendez MD I was present for and actively participated in the entire procedure. There were no complications. I agree with the resident's note above. Pauline Rico MD Normal [facility] Noteon 12-31-2024 Media Consultant Outside Sales Authentication Interface Message Text This note was copied from a baby's chart. Consult Indications: $ Consult Type: $ New consult Reason for Consult: Routine Assessment: Mom sleeping, Nurse will instructed patient how to pump. Maternal: Maternal Goals: Initial Feeding Plan: Both breast milk and formula Maternal History: Experience: No Education: None Is Infant From Mother?: Yes (see comment) (NICU) Initiation: Initiation - within 60 minutes of delivery or within 6 hours of separation (NICU) Teaching: Teaching: Language appropriate, Pumping Education/Resources Provided: Written booklet, NICU packet, Community resources Recommendations: Recommendations: Pump 8-12 times in 24 hours Follow-up: Pump Status: Has pump Follow Up: Will continue to follow Sudha Rey 12/31/2024 Normal [facility] Progress Noteson 12-31-2024 Media Consultant Outside Sales Authentication Interface Message Text 12/31/24 1:31 AM To room for increased trickling on fundal exam. BP 117/46 (BP Location: left arm) Pulse 95 Temp 98.2 ???F (36.8 ???C) (Oral) Resp 18 Ht 5' 4 (1.626 m) Wt 174 lb 9.7 oz (79.2 kg) LMP (LMP Unknown) SpO2 100% No BMI 29.97 kg/m??? Fundus firm ~1cm below U Clots evacuated from ABRAHAN Misoprostol 800mcg MS Ancef for bimanual EBL of 199g Total of 399cc Kwadwo Melendez MD Obstetrics and Gynecology PGY-4 Normal [facility] Media Consultant Outside Sales Authentication Interface Message Text 12/31/24 12:17 AM To room to assess pushing. Good maternal efforts, still +2 station. Pt reported significant fatigue. Assessed for vacuum but after discussion of risks and benefits, pt desired to continue pushing unassisted. FHT occ cat 2 for occ variables but good variability and overall cat 1. To continue pushing. Anticipate . Daksha Kaba MD PGY-1 Obstetrics AND Gynecology Normal [facility] ANTIBODY ID - LAB USE ONLYon 12-30-2024 Antibody Identification Clin Sig Stephany Not ID [facility] Comment on above: All common clinicall y significant alloantibodies have been ruled out X 2 IN GEL. NEG IN PEG [facility] Anesthesia Preprocedure Eval uationon 12-30-2024 Media Consultant Outside Sales Authentication Interface Message Text Attestation signed by Primo Nelson MD at 12/30/2024 7:45 AM Teaching Physician Note: I saw and evaluated the patient. I personally obtained the garcia and critical portions of the history and physical exam. I reviewed the resident's documentation and discussed the patient with the resident. I agree with the resident's medical decision making as documented in the resident's note. Primo Nelson MD ASA: 2 No history of anesthetic complications Past Medical History and Review of Systems Pulmonary (+) asthma Dental ROS (+) teeth problems missing Endo clinical trial specialist (+) Neuro/Psych (+) depression Comment: Substance use Cardiovascular - negative ROS GI/Hepatic/Renal - negative ROS Heme/Other - negative ROS Comment: CBC: 12/29/2024: 8:57 PM H.3 Hct: 29.8 Plt: 299 MCV: 83 PT/PTT/INR: 10/15/2024: 9:31 AM PT: 12.4 PTT: 28 INR: 1.11 Type AND Screen (Last result in the past 30 days) 12/29/2024 8:57 PM ABO Rh O Positive Screen Int. Positive Physical Exam Airway Mallampati: II TM distance: Adequate Micrognathia: Not present Jaw opening: Adequate Neck flexion: Adequate Dental PE (+) intact Pulmonary Cardiovascular Neuro Plan Anesthesia plan: epidural; Anesthesia risks / alternatives discussed pre-op Questions answered / anesthesia plan accepted Past medical history, surgical history, allergies, and medications reviewed. Pertinent laboratory tests, EKG, imaging, and consults reviewed and I have personally seen and evaluated the patient, repeating garcia portions of the history and physical examination. Attestation: Anesthesia options were discussed with the patient and/or legal contact center representative. The risks, benefits and alternatives were reviewed. Questions regarding anesthesia were answered. Patient and/or legal contact center representative knows such anesthetics and procedures may be performed by Resident physicians, Certified Anesthesiologist Assistants, or Certified Nurse Anesthetists under the supervision of a physician. The patient /or the patient's legal contact center representative agree with the plan for anesthesia. clinical trial specialist Evaluation Current Patient is now. Obstetric History MHPATFORM Normal [facility] Basic metabolic 2000 panelon 12-30-2024 Anion gap [Moles/Vol] 12 mmol/L 10 - 20 [facility] Calcium [Mass/Vol] 8.7 mg/dL 8.6 - 10. 3 mg/dL [facility] Chloride [Moles/Vol] 106 mmol/L 98 - 10 7 mmol/L [facility] CO2 [Moles/Vol] 22 mmol/L 21 - 31 mmol/L [facility] Creatinine [Mass/Vol] 0.58 mg/dL Low 0.60 - 1.20 mg/dL [facility] GFR/1.73 sq M.predicted CKD-EPI (S/P/Bld) [Vol rate/Area] 129 - PINF [facility] Comment on above: 2020 CKD EPI Equatio n using Creatinine without Race Comment: Estimated glomerular filtration rate (eGFR) is calculated without a race coefficient. Values should be interpreted in the context of the patient's full clinical presentation. Reference: 1. Jae C, Belén M, Lloyd DC, et al.. A Unifying Approach for GFR Estimation: Recommendations of the NKF-ASN Task Force on Reassessing the Inclusion of Race in Diagnosing Kidney Disease. [place]e Journal of Kidney Diseases 2021;79(2):268-88.e1. 2. N Engl J Med 2020 Vol. 385 Issue 19 Pages 4606-0746 Glucose [Mass/Vol] 78 mg/dL 74 - 109 mg/dL [facility] Potassium [Moles/Vol] 4.1 mmol/L 3.5 - 5.0 mmol/L [facility] Sodium [Moles/Vol] 136 mmol/L 136 - 145 mmol/L [facility] Urea nitrogen [Mass/Vol] 4 mg/dL Low 7 - 25 mg/dL [facility] Blood Attestationon 12-31-19 25 Media Consultant Outside [employer] Authentication Interface Message Text Blood Attestation: ATTESTATION OF INFORMED CONSENT FOR BLOOD: The transfusion of blood and/or blood components were discussed with the patient and/or legal contact center representative. The risks, benefits and alternatives were reviewed. Questions regarding blood transfusions were answered. The patient /or the patient's legal contact center representative agree with the plan for transfusion of blood and/or blood components. Normal [facility] Care Plan Noteon 12-30-2024 Media Consultant Outside Sales Authentication Interface Message Text Problem: Routine Care: Goal: Patient care will be managed and maintained throughout hospital stay per unit specific routine care procedure Outcome: Progressing Unit routine initiated and maintained. Pt oriented to room, call gordon, and nurse Problem: Breast Milk/: Goal: Breast Milk/ will be promoted, initated and maintained Outcome: Progressing Pt plans to breastfeed her . Education provided on and performing kangaroo care. Problem: Fluid and Electrolyte Imbalance: Goal: Adequate fluid and electrolyte balance will be achieved and maintained Outcome: Progressing Patient fluid and electrolyte will be maintained with both IV fluids and PO fluids. Problem: Risk for Infection: Goal: Risk for infection will be reduced Outcome: Progressing Hand hygiene maintained; pt remains afebrile. Will continue to assess vital signs per protocol Problem: Knowledge Deficit: Goal: Ability to make informed decisions regarding treatment will improve Outcome: Progressing Will address any knowledge deficits that patient may have and address any concerns. Problem: Acute Pain: Goal: Ability to identify pain intensity on a pain scale and rate it consistently will be achieved and maintained Outcome: Progressing Patient pain will be managed with both nonpharmacologic and pharmacologic measures. Problem: Safety: Goal: Patient will remain free of falls during hospital stay Outcome: Progressing Side rails up times two, bed locked in lowest position, call gordon within reach, non slip socks applied and falls band applied. Problem: Discharge Planning: Goal: Discharge needs of the adult patient will be met Outcome: Progressing Patient will be aware of all discharge plans prior to discharge. Problem: Substance Use / Abuse Goal: JAIL GOAL: PATIENT WILL ESTABLISH A SUSTAINED RECOVERY FROM SUBSTANCE ABUSE Outcome: Progressing Before patient leaves hospital she will establish a plan to sustain recovery from substance abuse. Normal [facility] Epidural Blockon 12-30-2024 Primo Nelson MD 12/30/2024 7:46 AM Epidural Block Patient location during procedure: OB Start time: 12/30/2024 7:31 AM End time: 12/30/2024 7:34 AM Reason for block: procedure for pain Preanesthetic Checklist Completed: patient identified, IV checked, risks and benefits discussed, consent given, standard monitors applied and equipment checked, pre-op evaluation and timeout performed Staffing: Authorized by: Primo Nelson MD Performed by: Carlos Abel MD Epidural Patient position: sitting Patient monitoring: heart rate and continuous pulse ox Approach: midline Location: L3-4, lumbar Injection technique: JACQUE saline Procedures: lidocaine 1% used Prep: chlorhexidine, site prepped and draped and sterile technique and prep used Multiple attempts not required: Needle Needle type: Tuohy-Schliff Needle gauge: 17 Needle length: 3.5 (9 cm) Needle insertion depth: 7 cm Needle bevel orientation: parallel to dural fibers Catheter type: side hole Catheter at skin depth: 12 cm Test dose: negative and lidocaine 1.5% with epinephrine 1-to-200,000 Assessment Events: injection not painful, no injection resistance, no blood aspirated, CSF not aspirated, no difficulty passing catheter, no paresthesia, adequate block, no unintentional unilaterality and well-tolerated Additional Notes Test dose negative. No complications. I was personally present for the garcia portions of the procedure. Primo Nelson MD Anesthesiologist No block complications [facility] HEPATIC FUNCTION PANELon Albumin [Mass/Vol] 3.6 g/dL 3.5 - 5.7 g/dL [facility] ALP [Catalytic activity/Vol] 188 U/L High [facility] ALT [Catalytic activity/Vol] 14 U/L [facility] AST [Catalytic activity/Vol] 17 U/L [facility] Bilirubin [Mass/Vol] 0.3 mg/dL 0.3 - 1 .0 mg/dL [facility] Bilirubin.direct [Mass/Vol] 0.06 mg/dL 0.03 - 0.18 mg/dL [facility] Protein [Mass/Vol] 6.1 g/dL 6.0 - 8.3 g/dL [facility] LDHon 12-30-2024 LDH [Catalytic activity/Vol] 137 U/L [facility] No Panel Informationon 12-30 Interpretation and review of laboratory results Abnormal [facility] Progress Noteson 12-30-2024 Media Consultant Outside [employer] Authentication Interface Message Text Attestation signed by Pauline Rico MD at 12/30/2024 11:32 PM Patient seen and examined at the bedside. Tachysystole noted and pitocin turned down. Fetus noted to be LOP and rotated to ALLISON. Will continue to monitor but will consider decreasing pitocin further or considering operative delivery vs section if FHR tracing does not improve.CEFM noted to improve with decrease in pitocin so will continue to proceed with pushng. 12/30/24 11:03 PM In to assess pushing efforts. Pushing for 1.5 hours. Now 10/100/+2 although with some caput. LOP position rotated to ALLISON. Deep variables noted with pushing. Pitocin decreased to 3 snow-units/min. Able to elicit scalp stim at 2300. Will continue to monitor. Kwadwo Melendez MD Obstetrics and Gynecology PGY-4 Normal [facility] Media Consultant Outside [employer] Authentication Interface Message Text ADDENDUM 9:08 PM To room for FHR decels. Cervix: 100/0 Patient repositioned. Will decrease pitocin if continued variables persist however overall reassured by moderate variability LABOR PROGRESS 12/30/2024, 7:14 PM S:Patient without complaints. O: BP 115/68 Pulse 70 Temp 98.1 ???F (36.7 ???C) (Oral) Resp 16 Ht 5' 4 (1.626 m) Wt 174 lb 9.7 oz (79.2 kg) LMP (LMP Unknown) SpO2 100% No BMI 29.97 kg/m??? GEN:A AND Ox3 Cervix: 5-6cm / 80% / -1 NST: baseline 120, moderate variability, few mild variable decelerations, + accels TOCO: contractions Q2-4 minutes 12/30/2024 12/29/2024 12/29/2024 OB Pre-eclampsia Labs Hgb 10.3 Hct 29.8 RBC 3.59 WBC 13.0 Mch 28.6 Mchc 34.5 Mcv 83 BUN 4 Creatinine 0.58 TP:CR Ratio 109 Uric Acid 4.2 Ast 17 Alt 14 Plt 299 A/P: 24 year old at 39w1d, admitted for eIOL, now with gHTN 1. Labor: latent phase of labor -- Increasing pitocin per protocol, currently 10 snow-units/min -- Pain management: Epidural 2. FWB: Category 2 -- Few mild variables but overall reassuring due to + accels and mod variability -- Overall reassuring status, continue EFM. 3. GBS negative 4. Gestational hypertension -- BP range: 110-120/60-80 -- Pt asx -- PreE labs without e/o end organ damage 5. Asthma -- Albuterol prn Continue IOL Kwadwo Melendez MD Obstetrics and Gynecology PGY-4 Normal [facility] Media Consultant Outside [employer] Authentication Interface Message Text Attestation signed by Pauline Rico MD at 12/30/2024 12:49 PM Patient seen and examined at bedside. Patient with category 1 tracing. Diagnosed with GHTN, continue to monitor Bps. Patient being induced on pitocin. LABOR PROGRESS 12/30/2024, 10:18 AM S:Patient without complaints. O: BP 117/78 Pulse 75 Temp 98 ???F (36.7 ???C) (Oral) Resp 16 Ht 5' 4 (1.626 m) Wt 174 lb 9.7 oz (79.2 kg) LMP (LMP Unknown) SpO2 96% No BMI 29.97 kg/m??? GEN:A AND Ox3 Cervix: 5-6cm / 70% / -2 AROM clear fluid NST: baseline 120, moderate variability, no decelerations, + accels TOCO: contractions Q2-4 minutes A/P: 24 year old at 39w1d, admitted for elective induction of labor 1. Labor: latent phase of labor -- Increasing pitocin per protocol, currently 2 snow-units/min (decreased due to tachysystole per Dr. Kaba) -- Pain management: Epidural 2. FWB: Category 1 -- Overall reassuring status, continue EFM. 3. GBS negative 4. Gestational hypertension -- Overall normotensive, but has had a few mild range BP >4h apart -- Will order PreE labs now -- Pt asx 5. Asthma -- Albuterol prn Continue IOL Kwadwo Melendez MD Obstetrics and Gynecology PGY-4 Normal [facility] Media Consultant Outside [employer] Authentication Interface Message Text 0708 -Anesthesia called for anesthesia consult 717- LR bolus initiated 0715- Anesthesia at bedside for consult 0722-Timeout 0734- Test dose, FHR monitored 0740- Patient dosed by anesthesia, FHR monitored 0751- Anesthesia out of room Normal [facility] TOTAL PROTEIN WITH CREATININ E, RANDOM URINEon 12-30-2024 Creatinine (U) [Mass/Vol] 92 mg/dL [facility] Protein (U) [Mass/Vol] 10 mg/dL [facility] Protein/Creatinine (U) [Mass ratio] 109 mg/g NINF - 150 mg/g [facility] CREATININE, URINE 92 mg/dL Normal [facility] Comment on above: Performed By: #### C BC #### [facility] [address] [place] [address], [id number] Protein (U) [Mass/Vol] 10 mg/dL Normal [facility] Comment on above: Performed By: #### C BC #### [facility] [address] [place] [address] [place], TP/CREAT RATIO 109 mg/g Normal <150 [facility] Comment on above: Performed By: #### C BC #### S [facility] [address], [place], URIC ACIDon 12-30-2024 Interpretation and review of laboratory results Normal [facility] Urate [Mass/Vol] 4.2 mg/dL 2.3 - 6.6 mg/dL [facility] ANTIBODY [facility] - LAB USE ONLYon 12-29-2024 ABID Clin Sig Stephany Not ID Normal [facility] Comment on above: Result Comment: All common clinically significant alloantibodies have been ruled out X 2 IN GEL. NEG IN PEG Performed By: #### T S #### [facility] [address], [place], BASIC METABOLIC PANELon 12-06 Anion gap [Moles/Vol] 12 mmol/L Normal 10-20 [facility] Comment on above: Performed By: #### L D, URIC, CH8, HEPATIC ####S PATHOLOGY [id number] [place], [place], Calcium [Mass/Vol] 8.7 mg/dL Normal 8.6-10.3 [facility] Comment on above: Performed By: #### L D, URIC, CH8, HEPATIC ####[facility] [id number] [place], [place], Chloride [Moles/Vol] 106 mmol/L Normal 98-107 [facility] Comment on above: Performed By: #### L D, URIC, CH8, HEPATIC ####[facility] [id number] [place], [place], CO2 [Moles/Vol] 22 mmol/L Normal 21-31 [facility] Comment on above: Performed By: #### L D, URIC, CH8, HEPATIC ####[facility] [id number] [place], [place], Creatinine [Mass/Vol] 0.58 mg/dL Low 0.60-1.20 [facility] Comment on above: Performed By: #### L D, URIC, CH8, HEPATIC ####[facility] [id number] [place], [place], ESTIMATED GFR (CKD-EPI) 129 mL/min/1.73sqm Normal >=60 [facility] Comment on above: Result Comment: 2020 CKD EPI Equation using Creatinine without Race Comment: Estimated glomerular filtration rate (eGFR) is calculated without a race coefficient. Values should be interpreted in the context of the patient's full clinical presentation. Reference: 1. Jae C, Belén M, Lloyd MCCLENDON, et al.. A Unifying Approach for GFR Estimation: Recommendations of the NKF-ASN Task Force on Reassessing the Inclusion of Race in Diagnosing Kidney Disease. [place]e Journal of Kidney Diseases 2021;79(2):268-88.e1. 2. N Engl J Med 2020 Vol. 385 Issue 19 Pages 2308-5792 Performed By: #### L D, URIC, CH8, HEPATIC ####S PATHOLOGY [id number] [place], [place], Glucose [Mass/Vol] 78 mg/dL Normal 74-109 [facility] Comment on above: Performed By: #### L D, URIC, CH8, HEPATIC ####[facility] [id number] [place], [place], Potassium [Moles/Vol] 4.1 mmol/L Normal 3.5-5.0 [facility] Comment on above: Performed By: #### L D, URIC, CH8, HEPATIC ####[facility] [id number] [place], [place], Sodium [Moles/Vol] 136 mmol/L Normal 136-145 [facility] Comment on above: Performed By: #### L D, URIC, CH8, HEPATIC ####[facility] [id number] [place], [place], Urea nitrogen [Mass/Vol] 4 mg/dL Low 7-25 [facility] Comment on above: Performed By: #### L D, URIC, CH8, HEPATIC ####[facility] [id number] [place], [place], CBC panel Auto (Bld)on 12-29 Erythrocyte distribution width (RBC) [Ratio] 15.3 % High 11.5 - 14.5 % [facility] Hematocrit (Bld) [Volume fraction] 29.8 % Low 36.0 - 46.0 % [facility] Hemoglobin (Bld) [Mass/Vol] 10.3 g/dL Low 12.0 - 15.0 g/dL [facility] Interpretation and review of laboratory results Abnormal [facility] MCH (RBC) [Entitic mass] 28.6 pg 26.0 - 34.0 pg [facility] MCHC (RBC) [Mass/Vol] 34.5 g/dL 32.0 - 35.9 g/dL [facility] MCV (RBC) [Entitic vol] 83 fL 80 - 100 fL [facility] Platelet mean volume (Bld) [Entitic vol] 7.7 fL 7.5 - 11.2 fL [facility] Platelets (Bld) [#/Vol] 299 10*3/uL 150 - 400 K/uL [facility] RBC (Bld) [#/Vol] 3.59 10*6/uL Low [facility] WBC (Bld) [#/Vol] 13 10*3/uL High 4.5 - 11.5 K/uL [facility] COMPLETE BLOOD COUNTon 12-29 Erythrocyte distribution width (RBC) [Ratio] 15.3 % High 11.5-14.5 [facility] Comment on above: Performed By: #### T S #### S [facility] [address] [place] [address], Hematocrit (Bld) [Volume fraction] 29.8 % Low 36.0-46.0 [facility] Comment on above: Performed By: #### T S #### [facility] [address] [place] [address], Hemoglobin (Bld) [Mass/Vol] 10.3 g/dL Low 12.0-15.0 [facility] Comment on above: Performed By: #### T S #### [facility] [address] [place] [address], MCH (RBC) [Entitic mass] 28.6 pg Normal 26.0-34.0 [facility] Comment on above: Performed By: #### T S #### [facility] [address], [place], MCHC (RBC) [Mass/Vol] 34.5 g/dL Normal 32.0-35.9 [facility] Comment on above: Performed By: #### T S #### [facility] [address], [place], MCV (RBC) [Entitic vol] 83 fL Normal 80-100 [facility] Comment on above: Performed By: #### T S #### [facility] [address], [place], Platelet mean volume (Bld) [Entitic vol] 7.7 fL Normal 7.5-11.2 [facility] Comment on above: Performed By: #### T S #### [facility] [address], [place], Platelets (Bld) [#/Vol] 299 10*3/uL Normal 150-400 [facility] Comment on above: Performed By: #### T S #### [facility] [address], [place], RBC (Bld) [#/Vol] 3.59 10*6/uL Low 4.00-5.20 [facility] Comment on above: Performed By: #### T S #### [facility] [address], [place], WBC (Bld) [#/Vol] 13.0 10*3/uL High 4.5-11.5 [facility] Comment on above: Performed By: #### T S #### [facility] [address], [place], Care Plan Noteon 12-29-2024 Media Consultant Outside Sales Authentication Interface Message Text Problem: Routine Care: Goal: Patient care will be managed and maintained throughout hospital stay per unit specific routine care procedure Outcome: Progressing Unit routine implemented- pt oriented to room, call gordon, care channel. Patient care will be managed and maintained throughout hospital stay per unit specific routine care procedure Orders being followed. Problem: Breast Milk/: Goal: Breast Milk/ will be promoted, initated and maintained Outcome: Progressing promoted while in labor. Will initiate when pt delivers. Problem: Fluid and Electrolyte Imbalance: Goal: Adequate fluid and electrolyte balance will be achieved and maintained Outcome: Progressing Adequate fluid and electrolyte balance will be achieved and maintained IV fluids infusing as ordered. Lab work drawn and sent as ordered. Problem: Risk for Infection: Goal: Risk for infection will be reduced Outcome: Progressing No signs or symptoms of infection at this time. Pt afebrile. Problem: Knowledge Deficit: Goal: Ability to make informed decisions regarding treatment will improve Outcome: Progressing Pt verbalizes understanding of POC. All questions answered. Problem: Acute Pain: Goal: Ability to identify pain intensity on a pain scale and rate it consistently will be achieved and maintained Outcome: Progressing Pt rating pain 0/10 on numeric pain scale. Pt verbalizes understanding of interventions. Problem: Safety: Goal: Patient will remain free of falls during hospital stay Outcome: Progressing Side rails up times two, bed locked in lowest position, call gordon within reach, non slip socks applied. Problem: Discharge Planning: Goal: Discharge needs of the adult patient will be met Outcome: Progressing No discharge concerns at this time. All questions answered. Pt verbalizes understanding of discharge disposition. Will transfer to following delivery. Problem: Substance Use / Abuse Goal: JAIL GOAL: PATIENT WILL ESTABLISH A SUSTAINED RECOVERY FROM SUBSTANCE ABUSE Outcome: Progressing Patient has history of alcohol and meth use. Patient continues sobriety and denies relapse. SW following. Normal [facility] GC/CHLAMYDIA/TRICHOMONAS AMP LIFICATIONon 12-29-2024 GC/CHLAMYDIA/TRICHOMONA S AMPLIFICATION CHLAMYDIA AMPLIFICATION: Negative GC AMPLIFICATION: Negative TRICHOMONAS AMPLIFICATION: Negative Normal Negative [facility] Comment on above: Order Comment: This test is performed using an automated nucleic acid amplification assay ([employer] Performed By: #### C STREP #### [facility] [address] [facility] [address] [place] [address] GOLD TOP - SST TUBE, BLOODon 12-29-2024 Extra Tube Done [facility] H AND Royce 12-29-2024 Media Consultant Outside Sales Authentication Interface Message Text Attestation signed by Fredo Braxton MD at 12/30/2024 3:46 AM Teaching Physician Note: I saw and evaluated the patient. I personally obtained the garcia and critical portions of the history and physical exam. I reviewed the resident's documentation and discussed the patient with the resident. I agree with the resident's medical decision making as documented in the resident's note. 24y at 39w1d, presenting for scheduled induction of labor. status currently reassuring. Zhanna Braxton MD Maternal Medicine, Complex Family Planning Pager: [phone] LABOR AND DELIVERY HISTORY AND PHYSICAL NOTE 12/29/2024 8:21 PM Chief complaint: Braeden Tapia is a 24 year old at 39w0d presents to Labor and Delivery for eIOL. She reports no contractions, no vaginal bleeding, no leaking fluid, and normal movement. Her has been complicated by: 1) Late transfer of care - Transferred here at 28 weeks, from [facility] - Dating confirmed by 07/05/24 US, placing her at 14w0d, at [facility]. Spoke with [place] L AND D provider regarding dating US. 2) History of incarceration - Incarcerated late August-September. - SW/ consult declined. - Related to possession of controlled substances. - Patient states she is in IOP 3) Anxiety and depression - Mood stable, no SI/HI - Counseling - in IOP, no meds. - Denies SW/BH 4) Dental Abscess - 10/15/2024: #L dental/mandibular abscess, Sepsis; Elevated troponin:: s/p I AND D drainage by OMFS with 5cc serosanguinous fluid drained. CT face/soft tissue significant for significant soft tissue infection/phlegmon throughout the left face with myositis of the left masseter muscle without discrete drainable abscess. Sent home with: Peridex mouth rinse daily, no PO for 30 min after use; Cefdinir 2x daily + Flagyl 3x daily for 7 day course - Since that time, no new concerns. 5) History of drug use - Hx of methamphetamine and alcohol abuse - Tox screen negative on 10/15 (positive for oxycodone after iatrogenic administration of opiates) - Denies current use 6) Tobacco use - 0.5 PPD 10/30/24 7) Mild intermittent asthma - Reports this as childhood asthma, last time of symptoms she was in Kindergarten. - No meds - no previous hospitalizations Dating Summary Working BRIANNA: 01/05/2025 set by Margaret Chou RN on 10/30/2024 based on Ultrasound on 10/15/2024 Based On BRIANNA GA Diff User Date Other Basis 01/10/2025 -5d Margaret Chou RN 10/30/2024 Comment: stated BRIANNA Last Menstrual Period (LMP Unknown) Margaret Chou RN 10/30/2024 Ultrasound on 10/15/2024 01/05/2025 Working Margaret Chou RN 10/30/2024 GA: 28w2d OB History Para Term AB Living 1 0 SAB IAB Ectopic Multiple Live Births # Outcome Date GA Lbr Jevon/2nd Weight Sex Type Anes PTL Lv 1 Current Obstetric Comments Due date January 10 Prior Delivery: No. Prior Shoulder Dystocia: No. Prior Delivery: No. Diabetes in : None. Hypertension in : None Infertility treatment: None. Conditions: None Anatomic Malformations: None Other Maternal Medical Conditions: None. Infections in : None. History: Had total of greater than 3 visits. Primary OB Provider: Melita Lee Past Medical History: Diagnosis Date Dental abscess 10/2024 Resolved Depression No problems currently Headache No meds, takes nap Mild intermittent asthma (HCC) No meds since childhood. Pneumonia, organism unspecified([id number]) 09/30/2004 Past Surgical History: Procedure Laterality Date NO PAST SURGICAL HISTORY Family History Problem Relation Age of Onset Other (colitis [Other]) Mother GI Disorders Mother Other (Tachycardia [Other]) Mother Good health Father Cancer runs in family Social History Tobacco Use Smoking status: Every Day Current packs/day: 0.50 Types: Cigarettes Vaping Use Vaping status: Never Used Substance Use Topics Alcohol use: Not Currently Alcohol/week: 7.0 standard drinks of alcohol Types: 7 Cans of beer per week Drug use: Yes Types: Methamphetamines Allergies Allergen Reactions Latex Rash Penicillins Other Other Reaction(s): unsure - allergic as young child No current facility-administere d medications on file prior to encounter. Current Outpatient Medications on File Prior to Encounter Medication Sig Dispense Refill ondansetron (ZOFRAN-ODT) 4 MG disintegrating tablet Take 1 Tablet by mouth every 12 hours as needed for Nausea. Place 1 tablet under tongue as needed for nausea. 10 Tablet 0 acetaminophen (TYLENOL) 500 MG tablet Take 2 Tablets by mouth every 6 (six) hours. 30 Tablet 0 chlorhexidine (PERIDEX) 0.12 % oral so (more content not included)... Normal [facility] HEPATIC FUNCTION PANELon Albumin [Mass/Vol] 3.6 g/dL Normal 3.5-5.7 [facility] Comment on above: Performed By: #### L D, URIC, CH8, HEPATIC ####[facility] [id number] [place], [place], ALK 188 IU/L High 34-104 [facility] Comment on above: Performed By: #### L D, URIC, CH8, HEPATIC ####[facility] [id number] [place], [place], ALT [Catalytic activity/Vol] 14 U/L Normal 7-52 [facility] Comment on above: Performed By: #### L D, URIC, CH8, HEPATIC ####[facility] [id number] [place], [place], AST [Catalytic activity/Vol] 17 U/L Normal 13-39 [facility] Comment on above: Performed By: #### L D, URIC, CH8, HEPATIC ####[facility] [id number] [place], [place], Bilirubin [Mass/Vol] 0.3 mg/dL Normal 0.3-1.0 [facility] Comment on above: Performed By: #### L D, URIC, CH8, HEPATIC ####[facility] [id number] [place], Bilirubin.direct [Mass/Vol] 0.06 mg/dL Normal 0.03-0.18 [facility] Comment on above: Performed By: #### L D, URIC, CH8, HEPATIC ####[facility] [id number] [place], Protein [Mass/Vol] 6.1 g/dL Normal 6.0-8.3 [facility] Comment on above: Performed By: #### L D, URIC, CH8, HEPATIC ####[facility] [id number] [place], [place], LDHon 12-29-2024 LD 137 IU/L Low 140-271 [facility] Comment on above: Performed By: #### L D, URIC, CH8, HEPATIC ####[facility] [id number] [place], [place], Laboratory - Blood bankon ABO and Rh group Nom (Bld) Blood group O Rh(D) positive [facility] SYPHILIS TOTAL/TPPAon 2024 T. pallidum Ab LA Qn (S) [facility] T. pallidum IgG+IgM IA Ql (S) Non-Reactive Non-Reactive [facility] No results found for: TPPA No components found for: FTA No serologic evidence of syphilis. If recent exposure/early infection is suspected, repeat testing in 2-4 weeks. [facility] SYPHILIS TOTAL (IGG/IGM) Non-Reactive Normal Non-Reactive [facility] Comment on above: Order Comment: No re sults found for: TPPANo components found for: FTANo serologic evidence of syphilis.If recent exposure/early infection is suspected, repeat testing in 2-4 weeks. Performed By: #### T S #### [facility] [address] [place], [place], TPPA Normal [facility] Comment on above: Order Comment: No re sults found for: TPPANo components found for: FTANo serologic evidence of syphilis.If recent exposure/early infection is suspected, repeat testing in 2-4 weeks. Performed By: #### T S #### [facility] [address], [place], TOX SCREEN W/CONFIRM - OB/GY Non 12-29-2024 Amphetamines Ql (U) Negative Cutoff: 1000 ng/mL [facility] Barbiturates Screen Ql (U) Negative Cutoff: 200 ng/mL [facility] Benzodiazepines Ql (U) Negative Cutof f: 200 ng/mL [facility] Benzoylecgonine Screen Ql (U) Negative Cutoff: 300 ng/mL [facility] Ethanol Screen Ql (U) Negative Cutoff : 10 mg/dL [facility] fentaNYL Screen Ql (U) Negative Cutof f: 1 ng/mL [facility] Interpretation and review of laboratory results Normal [facility] Methadone Screen Ql (U) Negative Cuto ff: 300 ng/mL [facility] Opiates Confirm Ql (U) Negative Cutof f: 300 ng/mL [facility] oxyCODONE Ql (U) Negative Cutoff: 100 ng/mL [facility] Comment on above: Oxycodone and metabo lites of Oxycodone (Oxymorphone, Noroxycodone, and Noroxymorphone) are measured/detected in this assay method. Phencyclidine Ql (U) Negative Cutoff: 25 ng/mL [facility] Tetrahydrocannabinol Screen Ql (U) Negative Cutoff: 50 ng/mL [facility] Screen results are reported as positive (at or above the cutoff) or negative (below the cutoff). The LC-MS/MS testing (if applicable) was developed and its performance characteristics determined by [facility] in a manner consistent with CLIA requirements. This test has not been cleared or approved by the U.S. Food and Drug Administration; however, the FDA has determined that such clearance or approval is not necessary. [facility] ALCOHOL - TOX W/ CONF Negative Normal Cutoff: 10 [facility] Comment on above: Order Comment: This test was developed, and its performance characteristics determined by the Department of Pathology of [facility]. It has not been cleared or approved by the FDA. This test is used for clinical purposes only. Performed By: #### L ACT #### [facility] [address] [place], [place], AMPH CL Negative Normal Cutoff: 1000 [facility] Comment on above: Order Comment: This test was developed, and its performance characteristics determined by the Department of Pathology of [facility]. It has not been cleared or approved by the FDA. This test is used for clinical purposes only. Performed By: #### L ACT #### [facility] [address] [place], [place], JEAN PIERRE CL Negative Normal Cutoff: 200 [facility] Comment on above: Order Comment: This test was developed, and its performance characteristics determined by the Department of Pathology of [facility]. It has not been cleared or approved by the FDA. This test is used for clinical purposes only. Performed By: #### L ACT #### [facility] [address] [place], [place], BENZO CL Negative Normal Cutoff: 200 [facility] Comment on above: Order Comment: This test was developed, and its performance characteristics determined by the Department of Pathology of [facility]. It has not been cleared or approved by the FDA. This test is used for clinical purposes only. Performed By: #### L ACT #### S [facility]Y LABORATORY [address] [place], [place], COCAINE CL- TOX W/ CONF Negative Normal Cutoff: 300 [facility] Comment on above: Order Comment: This test was developed, and its performance characteristics determined by the Department of Pathology of [facility]. It has not been cleared or approved by the FDA. This test is used for clinical purposes only. Performed By: #### L ACT #### [facility] [address] [place], [place], FENTANYL Negative Normal Cutoff: 1 [facility] Comment on above: Order Comment: This test was developed, and its performance characteristics determined by the Department of Pathology of [facility]. It has not been cleared or approved by the FDA. This test is used for clinical purposes only. Performed By: #### L ACT #### [facility] [address] [place], [place], METH CL Negative Normal Cutoff: 300 [facility] Comment on above: Order Comment: This test was developed, and its performance characteristics determined by the Department of Pathology of [facility]. It has not been cleared or approved by the FDA. This test is used for clinical purposes only. Performed By: #### L ACT #### S PATHOLOGY LABORATORY [address] [place] [address], OPI CL Negative Normal Cutoff: 300 [facility] Comment on above: Order Comment: This test was developed, and its performance characteristics determined by the Department of Pathology of [facility]. It has not been cleared or approved by the FDA. This test is used for clinical purposes only. Performed By: #### L ACT #### [facility] [address] [place], [place], OXYCODONE Negative Normal Cutoff: 100 [facility] Comment on above: Order Comment: This test was developed, and its performance characteristics determined by the Department of Pathology of [facility]. It has not been cleared or approved by the FDA. This test is used for clinical purposes only. Result Comment: Oxyc odone and metabolites of Oxycodone (Oxymorphone, Noroxycodone, and Noroxymorphone) are measured/detected in this assay method. Performed By: #### L ACT #### [facility] [address] [place] [address], PCP CL Negative Normal Cutoff: 25 [facility] Comment on above: Order Comment: This test was developed, and its performance characteristics determined by the Department of Pathology of [facility]. It has not been cleared or approved by the FDA. This test is used for clinical purposes only. Performed By: #### L ACT #### [facility] [address] [place] [address], THC CL - TOX W/ CONF Negative Normal Cutoff: 50 [facility] Comment on above: Order Comment: This test was developed, and its performance characteristics determined by the Department of Pathology of [facility]. It has not been cleared or approved by the FDA. This test is used for clinical purposes only. Performed By: #### L ACT #### [facility] [address] [place] [address], TYPE AND SCREENon 12-29-2024 Blood group antibody screen Ql [facility] ABO and Rh group Nom (Bld) Blood group O Rh(D) positive Normal [facility] Comment on above: Performed By: #### T S #### [facility] [address] [place], [place], ABSC INT Positive Normal [facility] Comment on above: Performed By: #### T S #### [facility] [address] [place], [place], URIC ACIDon 12-29-2024 Urate [Mass/Vol] 4.2 mg/dL Normal 2.3-6.6 [facility] Comment on above: Performed By: #### L D, URIC, CH8, HEPATIC ####[facility] [id number] [place], [place], Assessment AND Plan Noteon 0 12-25-2024 [employer] Authentication Interface Message Text On with extra iron and b12 and is taking that instead of more pills. Does not desire to take extra iron or b12 Nrm hgb elec Labs noteable for low ferritin and low b12; normocytic anemia Repeat 37 weeks reviewed today Hgb slight improvement Normal [facility] [employer] Authentication Interface Message Text Growth AGA Normal [facility] [employer] Authentication Interface Message Text Omeprazole helps sometimes Diet changes reviewed Normal [facility] [employer] Authentication Interface Message Text SW following, continued sobriety Denies cravings, relapse Normal [facility] [employer] Authentication Interface Message Text on probation Lives with partner and grandmother Normal [facility] [employer] Authentication Interface Message Text States in childhood, no meds Denies CP/SOB Normal [facility] [employer] Authentication Interface Message Text Cut down to 3-5 cigs per day nicotine dependant service request already placed Will continue to encouraged cessation Serial growth ongoing - AGA to date Has nicotine patches ordered, has not used yet We reviewed maternal/ risks both during the and We discussed abruption risks Normal [facility] [employer] Authentication Interface Message Text Datinw2d IUP on 01/06/2024 ; Anatomy scan report WNL at [facility], the [facility], records not sent KARO here 35w0d EFW 59%tile AC 75%tile - KARO: The following structures were not optimally visualized due to crowding: neck, mandible, profile, abdominal cord insertion, RVOT Genetics: rrCFDNA at [facility], per pt Vaccinations: declines all, counseled Labs: RH+/RI, RPR negative; Abnormal 1 hr, Nrm 3 hour. GBS negative : control: plans for nexplanon; Feeding: plans to BF; Pediatrics: pre visit information previously provided. Plans to take baby to Delivery: 39 week IOL: December 29 at 8pm Labor precautions reviewed Normal [facility] Progress Noteson 12-25-2024 Media Consultant Outside [employer] Authentication Interface Message Text Department of Obstetrics AND Gynecology Division of Maternal Medicine scale manager Follow-Up Visit Date of visit: 12/25/24 Time of visit: 11:00 AM Patient name: Jose R Tapia Patient Patient : 2000 Assessment and Plan: 24 year old at 38w3d here for her high-risk follow-up visit. The and maternal status are reassuring today. The EPIC chart was reviewed and updated. Please refer to the OB EPIC problem list for further details on the problems addressed at today's visit. Supervision of high risk in third trimester (HCC) [09/07 ppd 10/30/24 ] Datinw2d IUP on 01/06/2024 ; Anatomy scan report WNL at [facility], the [facility], records not sent KARO here 35w0d EFW 59%tile AC 75%tile - KARO: The following structures were not optimally visualized due to crowding: neck, mandible, profile, abdominal cord insertion, RVOT Genetics: rrCFDNA at [facility], per pt Vaccinations: declines all, counseled Labs: RH+/RI, RPR negative; Abnormal 1 hr, Nrm 3 hour. GBS negative : control: plans for nexplanon; Feeding: plans to BF; Pediatrics: pre visit information previously provided. Plans to take baby to Delivery: 39 week IOL: December 29 at 8pm Labor precautions reviewed Tobacco use disorder [2 ppd 10/30/24 ] Cut down to 3-5 cigs per day nicotine dependant service request already placed Will continue to encouraged cessation Serial growth ongoing - AGA to date Has nicotine patches ordered, has not used yet We reviewed maternal/ risks both during the and We discussed abruption risks Mild intermittent asthma without complication (HCC) [childhood] States in childhood, no meds Denies CP/SOB History of incarceration [Briefly incarcerated from late Aug-mid September] on probation Lives with partner and grandmother History of drug abuse (HCC) [Hx Meth and Alcohol use ] SW following, continued sobriety Denies cravings, relapse Heartburn during in third trimester (HCC) Omeprazole helps sometimes Diet changes reviewed BMI 28.0-28.9,adult [Unsure pregravid wt] Growth AGA Anxiety and depression [Reports hx of] mood stable reasons to reach out reviewed BH referral declined will continue close monitoring during the / PP period Anemia affecting in third trimester (HCC) [Normocytic. Low b12, low ferritin. Nrm Hgb elect] On with extra iron and b12 and is taking that instead of more pills. Does not desire to take extra iron or b12 Nrm hgb elec Labs noteable for low ferritin and low b12; normocytic anemia Repeat 37 weeks reviewed today Hgb slight improvement Orders AND Meds Signed During This Encounter Urine Glu/Protein-Ob Pts Only Follow-up Plan: Follow-up in 12/29 (Wednesday) for IOL, or as indicated based on clinical progress. Patient Education AND Counseling: General warning signs discussed, including when to go to the hospital or seek medical attention. kick counts, signs, and symptoms of labor reviewed with the patient today. Patient verbalizes understanding of the care plan and the current management of issues. No further questions or concerns were raised by the patient. Future Appointments Reviewed: Patient's next appointments are listed as follows: Future Appointments (next ) Provider Department Center 12/29/2024 8:00 PM Melita Lee, [employer] EDUCATION ADMINISTRATOR; LD INDUCTIONS [facility] Labor and Delivery INPATIENT Melita Lee DNP, [employer] Advanced Practice Provider (KIMBERLEE) [employer] WORK[employer]OW CONSULTANT, Maternal Medicine Department [address] [place] [phone] ---- Chief Complaint Patient presents with visit Subjective: Jose R Tapia is a 24 year old at 38w3d who presents for her high risk follow-up visit. She is followed in high risk clinic for a c/b Asthma, H/o Drug use, Tobacco use, anxiety and depression, Anemia Current Symptoms: Today, she reports the following symptoms : some ctx, cramping the past day Nothing consistent Vitals Symptoms Flowsheet Row Office Visit from 12/25/2024 [facility] Ob[facility]s High Risk Vag Bleed N Show / Disch N Cramps / CTX Y Dysuria N Pelv press Y She denies nausea, vomiting , loss of fluid, fevers, chills, or general urinary issues today Pertinent negatives and positives listed above. Otherwise, all 10 systems of ROS negative. except what is mention above in HPI. See updated PN Smartforms PN Labs AND dating info reviewed. Problem list, OB Flowsheet, PMHx, PSHx, PSocH, Family Hx, Social Hx, medications, and allergies all reviewed and updated in Epic. Problem based charting was completed today - -we reviewed the following Problem Heartburn During in Third Trimester (Hcc) History of Incarceration Anxiety and Depression Anemia Affecting in (more content not included)... Normal [facility] Media Consultant Outside [employer] Authentication Interface Message Text Patient was identified by name and date of . Ada Syed MA Patient at risk for falls:No Falls Risk protocol implemented: No Normal [facility] URINE GLU/PROTEIN-OB PTS ONL Yon 12-25-2024 Glucose Test strip (U) [Mass/Vol] Negative Negative mg/dL [facility] Interpretation and review of laboratory results Abnormal [facility] Protein (U) [Mass/Vol] Trace Abnormal Negat galileo mg/dL [facility] Addendum Noteon 12-19-2024 Media Consultant Outside [employer] Authentication Interface Message Text Addended by: MELITA LEE on: 12/19/2024 08:49 AM Modules accepted: Orders Normal [facility] Assessment AND Plan Noteon 0 12-18-2024 Media Consultant Outside [employer] Authentication Interface Message Text On with extra iron and b12 and is taking that instead of more pills. Does not desire to take extra iron or b12 Nrm hgb elec Labs noteable for low ferritin and low b12; normocytic anemia Repeat 37 weeks - ordered today Normal [facility] Media Consultant [employer] Authentication Interface Message Text Growth AGA Normal [facility] Media Consultant [employer] Authentication Interface Message Text Cephalic on US today Normal [facility] Media Consultant [employer] Authentication Interface Message Text Omeprazole helps sometimes Diet changes reviewed Normal [facility] [employer] Authentication Interface Message Text SW following, continued sobriety Normal [facility] [employer]ant [employer] Authentication Interface Message Text on probation Lives with partner and grandmother Normal [facility] Media [employer]ant [employer] Authentication Interface Message Text States in childhood, no meds Denies CP/SOB Normal [facility] [employer] Authentication Interface Message Text Cut down to 3-5 cigs per day nicotine dependant service request already placed Will continue to encouraged cessation Serial growth ongoing - AGA to date Has nicotine patches ordered, has not used yet We reviewed maternal/ risks both during the and We discussed abruption risks Normal The [employer] Media Consultant Outside Sales Authentication Interface Message Text Datinw2d IUP on 01/06/2024 ; Anatomy scan report WNL at OSH, [facility], records not sent KARO here 35w0d EFW 59%tile AC 75%tile - KARO: The following structures were not optimally visualized due to crowding: neck, mandible, profile, abdominal cord insertion, RVOT Genetics: rrCFDNA at [facility], per pt Vaccinations: declines all, counseled Labs: RH+/RI, RPR negative; Abnormal 1 hr, Nrm 3 hour. GBS negative : control: plans for nexplanon; Feeding: plans to BF; Pediatrics: pre visit information previously provided. Plans to take baby to Delivery: desires 39 week IOL: December 29 at 8pm The patient has been recommended to have an induction of labor. Reviewed that an induction of labor can be done for either medical or elective indications in order to safely achieve a healthy delivery. The goal of an induction is to have a vaginal delivery, and multiple large studies in both high and low risk patients have shown that induction of labor is safe and is associated with a higher chance of a vaginal delivery than the alternative, expectant management. As with any patient in labor, a delivery may be recommended during her labor for either maternal or reasons, but our starting plan is to achieve a vaginal mode of delivery. I discussed that inductions can involve several steps. For patients with an unripe cervix, cervical ripening with either misoprostol or a richmond catheter may be used. For an induction we also recommend the use of pitocin, a synthetic form of oxytocin, to stimulate contractions. The pitocin will be titrated to achieve a regular contraction pattern. I also reviewed that artificial rupture of membranes may be recommended during the course of her labor as this can help shorten the time to delivery. I reviewed any questions the patient had about the induction of labor process and answered them to the best of my ability. Normal [facility] CBC panel Auto (Bld)on 12-18 Erythrocyte distribution width (RBC) [Ratio] 14.9 % High 11.5 - 14.5 % [facility] Hematocrit (Bld) [Volume fraction] 31.7 % Low 36.0 - 46.0 % [facility] Hemoglobin (Bld) [Mass/Vol] 10.7 g/dL Low 12.0 - 15.0 g/dL [facility] Interpretation and review of laboratory results Abnormal [facility] MCH (RBC) [Entitic mass] 29.4 pg 26.0 - 34.0 pg [facility] MCHC (RBC) [Mass/Vol] 33.7 g/dL 32.0 - 35.9 g/dL [facility] MCV (RBC) [Entitic vol] 87 fL 80 - 100 fL [facility] Platelet mean volume (Bld) [Entitic vol] 8.3 fL 7.5 - 11.2 fL [facility] Platelets (Bld) [#/Vol] 260 10*3/uL 150 - 400 K/uL [facility] RBC (Bld) [#/Vol] 3.64 10*6/uL Low [facility] WBC (Bld) [#/Vol] 16.9 10*3/uL High 4.5 - 11.5 K/uL [facility] COMPLETE BLOOD COUNTon 12-18 Erythrocyte distribution width (RBC) [Ratio] 14.9 % High 11.5-14.5 [facility] Comment on above: Performed By: #### C BC ####S PATHOLOGY [id number] [place] [address], Hematocrit (Bld) [Volume fraction] 31.7 % Low 36.0-46.0 [facility] Comment on above: Performed By: #### C BC ####S PATHOLOGY [id number] [place], [place], Hemoglobin (Bld) [Mass/Vol] 10.7 g/dL Low 12.0-15.0 [facility] Comment on above: Performed By: #### C BC ####[facility] [id number] [place], [place], MCH (RBC) [Entitic mass] 29.4 pg Normal 26.0-34.0 [facility] Comment on above: Performed By: #### C BC ####[facility] PATHOLOGY [id number] [place] [address], MCHC (RBC) [Mass/Vol] 33.7 g/dL Normal 32.0-35.9 [facility] Comment on above: Performed By: #### C BC ####[facility] PATH[facility]Y [id number] [place] [address], MCV (RBC) [Entitic vol] 87 fL Normal 80-[address] [facility] Comment on above: Performed By: #### C BC ####[facility] PATH[facility] [id number] [place] [address], Platelet mean volume (Bld) [Entitic vol] 8.3 fL Normal 7.5-11.2 [facility] Comment on above: Performed By: #### C BC ####[facility] PATH[facility] [id number] [place] [address], Platelets (Bld) [#/Vol] 260 10*3/uL Normal 150-400 [facility] Comment on above: Performed By: #### C BC ####[facility] PATHOLOGY [id number] [place] [address], RBC (Bld) [#/Vol] 3.64 10*6/uL Low 4.00-5.20 [facility] Comment on above: Performed By: #### C BC ####[facility] PATHOLOGY [id number] [place] [address], WBC (Bld) [#/Vol] 16.9 10*3/uL High 4.5-11.5 [facility] Comment on above: Performed By: #### C BC ####[facility] PATHOLOGY [id number] [place], [address] SKILLED NURSING SECOND/THIRD TRIMESTER O Bon 12-18-2024 SKILLED NURSING SECOND/THIRD TRIMESTER OB Indication ======== Indication: Uterine Size-Date Discrepancy,complica ting Indication: Increased Risk for Chromosome Anomaly / Aneuploidy, Suspected in Fetus Indication: Anemia in Indication: Screening Follow-Up Growth Overview Exam date GA BPD (mm) HC (mm) AC (mm) FL (mm) HL (mm) EFW (g) 10/15/2024 28w 2d 74.2 83% 269 51% 234 26% 48.4 2% 1083 15% 12/01/2024 35w 0d 93.1 99% 317 31% 317.4 75% 65.7 16% 57.3 24% 2672 59% Method ====== Transabdominal ultrasound examination. View: Sufficient ========= Irizarry . Number of fetuses: 1 Dating ====== GA by prior assessment 37 w + 3 d BRIANNA by prior assessment: 01/05/2025 Assigned: based on ultrasound (AC, BPD, Femur, HC), selected on 10/15/2024 Assigned GA 37 w + 3 d Assigned BRIANNA: 01/05/2025 General Evaluation Cardiac activity present. FHR 141 bpm. movements: visualized. Presentation: cephalic Placenta: Placental site: anterior Umbilical cord: Cord vessels: 3 vessel cord Amniotic fluid: Amount of AF: normal amount. MVP 5.8 cm. RODRÍGUEZ 13.7 cm. Q1 5.8 cm, Q2 0.0 cm, Q3 4.4 cm, Q4 3.4 cm Anatomy Profile: normal Face Mandible: normal RVOT view: normal 7-ycaxql-vlcrcbu view: normal Heart / Thorax Ductal arch view: normal sex: male Wants to know sex: yes Biophysical Profile 2: breathing movements 2: Gross body movements 2: tone 2: Amniotic fluid volume 8/8 Biophysical profile score Interpretation: normal Maternal Structures Uterus / Cervix Uterus: Visualized Impression ========= There is a single intrauterine with a GA of 37w 3d, and an BRIANNA of 01/05/2025. The biophysical profile reveals an 8 /8 score. The amniotic fluid volume is normal amount, with an RODRÍGUEZ of 13.7 cm. The following structures were visualized today: profile, RVOT, DA, 3VTV, mandible. They appear unremarkable today. Normal [facility] Laboratory - Urinalysison Glucose Test strip (U) [Mass/Vol] Negative Negative mg/dL [facility] Protein (U) [Mass/Vol] Negative Negat galileo mg/dL [facility] No Panel Informationon 12-18 [facility] Progress Noteson 12-18-2024 Media Consultant Outside Sales Authentication Interface Message Text Patient was identified by name and date of . Alia Camarena MA Patient at risk for falls:No Falls Risk protocol implemented: No Normal [facility] Media Consultant Outside Sales Authentication Interface Message Text Department of Obstetrics AND Gynecology Division of Maternal Medicine scale manager Follow-Up Visit Date of visit: 12/18/24 Time of visit: 2:00 PM Patient name: Jose R Tapia Patient Patient : 2000 Assessment and Plan: 24 year old at 37w3d here for her high-risk follow-up visit. The and maternal status are reassuring today. The EPIC chart was reviewed and updated. Please refer to the OB EPIC problem list for further details on the problems addressed at today's visit. Supervision of high risk in third trimester (HCC) [T/f care alexander in 3rd TM; Rh +/ RI / / CT neg / HBV neg / HCV neg / HIV neg / neg Ucx. Abnormal 1 hr, nrm 3 hr GTT ] Datinw2d IUP on 01/06/2024 ; Anatomy scan report WNL at OSH, [facility], records not sent KARO here 35w0d EFW 59%tile AC 75%tile - KARO: The following structures were not optimally visualized due to crowding: neck, mandible, profile, abdominal cord insertion, RVOT Genetics: rrCFDNA at [facility], per pt Vaccinations: declines all, counseled Labs: RH+/RI, RPR negative; Abnormal 1 hr, Nrm 3 hour. GBS negative : control: plans for nexplanon; Feeding: plans to BF; Pediatrics: pre visit information previously provided. Plans to take baby to Delivery: desires 39 week IOL: December 29 at 8pm The patient has been recommended to have an induction of labor. Reviewed that an induction of labor can be done for either medical or elective indications in order to safely achieve a healthy delivery. The goal of an induction is to have a vaginal delivery, and multiple large studies in both high and low risk patients have shown that induction of labor is safe and is associated with a higher chance of a vaginal delivery than the alternative, expectant management. As with any patient in labor, a delivery may be recommended during her labor for either maternal or reasons, but our starting plan is to achieve a vaginal mode of delivery. I discussed that inductions can involve several steps. For patients with an unripe cervix, cervical ripening with either misoprostol or a richmond catheter may be used. For an induction we also recommend the use of pitocin, a synthetic form of oxytocin, to stimulate contractions. The pitocin will be titrated to achieve a regular contraction pattern. I also reviewed that artificial rupture of membranes may be recommended during the course of her labor as this can help shorten the time to delivery. I reviewed any questions the patient had about the induction of labor process and answered them to the best of my ability. Tobacco use disorder [/2 ppd 10/30/24 ] Cut down to 3-5 cigs per day nicotine dependant service request already placed Will continue to encouraged cessation Serial growth ongoing - AGA to date Has nicotine patches ordered, has not used yet We reviewed maternal/ risks both during the and We discussed abruption risks Mild intermittent asthma without complication (HCC) [childhood] States in childhood, no meds Denies CP/SOB History of incarceration [Briefly incarcerated from late Aug-mid September] on probation Lives with partner and grandmother History of drug abuse (HCC) [Hx Meth and Alcohol use ] SW following, continued sobriety Heartburn during in third trimester (HCC) Omeprazole helps sometimes Diet changes reviewed Breech presentation (HCC) Cephalic on US today BMI 28.0-28.9,adult [Unsure pregravid wt] Growth AGA Anxiety and depression [Reports hx of] mood stable reasons to reach out reviewed BH referral declined will continue close monitoring during the / PP period Anemia affecting in third trimester (HCC) [Normocytic. Low b12, low ferritin. Nrm Hgb elect] On with extra iron and b12 and is taking that instead of more pills. Does not desire to take extra iron or b12 Nrm hgb elec Labs noteable for low ferritin and low b12; normocytic anemia Repeat 37 weeks - ordered today Orders AND Meds Signed During This Encounter Complete Blood Count Urine Glu/Protein-Ob Pts Only Follow-up Plan: Follow-up in 1 wk, or as indicated based on clinical progress. Patient Education AND Counseling: General warning signs discussed, including when to go to the hospital or seek medical attention. kick counts, signs, and symptoms of labor reviewed with the patient today. Patient verbalizes understanding of the care plan and the current management of issues. No further questions or concerns were raised by the patient. Future Appointments Reviewed: Patient's next appointments are listed as follows: Future Appointments (next 10) Provider Department Center 12/25/2024 11:00 AM (Arrive by 10:45 AM) Melita Lee APRN-CNP [facility] High Risk [facility] 12/29/2024 8:00 PM Melita Lee APRN-CNP; LD INDUCTIONS [facility] (more content not included)... Normal [facility] US for in second o r third trimesteron 12-18-2024 Indication ======== Indication: Uterine Size-Date Discrepancy,complica ting Indication: Increased Risk for Chromosome Anomaly / Aneuploidy, Suspected in Fetus Indication: Anemia in Indication: Screening Follow-Up Growth Overview Exam date GA BPD (mm) HC (mm) AC (mm) FL (mm) HL (mm) EFW (g) 10/15/2024 28w 2d 74.2 83% 269 51% 234 26% 48.4 2% 1083 15% 12/01/2024 35w 0d 93.1 99% 317 31% 317.4 75% 65.7 16% 57.3 24% 2672 59% Method ====== Transabdominal ultrasound examination. View: Sufficient ========= Irizarry . Number of fetuses: 1 Dating ====== GA by prior assessment 37 w + 3 d BRIANNA by prior assessment: 01/05/2025 Assigned: based on ultrasound (AC, BPD, Femur, HC), selected on 10/15/2024 Assigned GA 37 w + 3 d Assigned BRIANNA: 01/05/2025 General Evaluation Cardiac activity present. FHR 141 bpm. movements: visualized. Presentation: cephalic Placenta: Placental site: anterior Umbilical cord: Cord vessels: 3 vessel cord Amniotic fluid: Amount of AF: normal amount. MVP 5.8 cm. RODRÍGUEZ 13.7 cm. Q1 5.8 cm, Q2 0.0 cm, Q3 4.4 cm, Q4 3.4 cm Anatomy Profile: normal Face Mandible: normal RVOT view: normal 5-tgcqzq-leltvvf view: normal Heart / Thorax Ductal arch view: normal sex: male Wants to know sex: yes Biophysical Profile 2: breathing movements 2: Gross body movements 2: tone 2: Amniotic fluid volume 8/8 Biophysical profile score Interpretation: normal Maternal Structures Uterus / Cervix Uterus: Visualized Impression ========= There is a single intrauterine with a GA of 37w 3d, and an BRIANNA of 01/05/2025. The biophysical profile reveals an 8 /8 score. The amniotic fluid volume is normal amount, with an RODRÍGUEZ of 13.7 cm. The following structures were visualized today: profile, RVOT, DA, 3VTV, mandible. They appear unremarkable today. [facility] Sonia Blount MD - 12/18/2024 Indication ======== Indication:Uterine Size-Date Discrepancy,complica ting Indication:Increased Risk for Chromosome Anomaly / Aneuploidy, Suspected in Fetus Indication:Anemia in Indication: Screening Follow-Up Growth Overview Exam date GA BPD (mm) HC (mm) AC (mm) FL (mm) HL (mm) EFW (g) 10/15/2024 28w 2d 74.2 83% 269 51% 234 26% 48.4 2% 1083 15% 12/01/2024 35w 0d 93.1 99% 317 31% 317.4 75% 65.7 16% 57.3 24% 2672 59% Method ====== Transabdominal ultrasound examination. View: Sufficient ========= Irizarry . Number of fetuses: 1 Dating ====== GA by prior [id number] w + 3 d BRIANNA by prior assessment:01/05/2025 Assigned:based on ultrasound (AC, BPD, Femur, HC), selected on 10/15/2024 Assigned GA37 w + 3 d Assigned BRIANNA:01/05/2025 General Evaluation Cardiac activity present. FHR 141 bpm. movements: visualized. Presentation: cephalic Placenta: Placental site: anterior Umbilical cord: Cord vessels: 3 vessel cord Amniotic fluid: Amount of AF: normal amount. MVP 5.8 cm. RODRÍGUEZ 13.7 cm. Q1 5.8 cm, Q2 0.0 cm, Q3 4.4 cm, Q4 3.4 cm Anatomy Profile:normal Face Mandible:normal RVOT view:normal 1-kmrtqy-gnwxzgg view:normal Heart / Thorax Ductal arch view:normal sex:male Wants to know sex:yes Biophysical Profile 2: breathing movements 2: Gross body movements 2: tone 2: Amniotic fluid volume 8/8 Biophysical profile score Interpretation: normal Maternal Structures Uterus / Cervix Uterus:Visualized Impression ========= There is a single intrauterine with a GA of 37w 3d, and an BRIANNA of 01/05/2025. The biophysical profile reveals an 8 /8 score. The amniotic fluid volume is normal amount, with an RODRÍGUEZ of 13.7 cm. The following structures were visualized today: profile, RVOT, DA, 3VTV, mandible. They appear unremarkable today. [facility] Radiology Study observation (narrative) [facility] US for in second o r third trimesterOrdered By: Sonia Blount on 12-18-2024 [facility] Work Phone: Assessment AND Plan Noteon 0 12-11-2024 Media Consultant Outside Sales Authentication Interface Message Text On US at 35 weeks US next week to recheck position ECV vs CS discussed, will plan at next appt base on position Normal [facility] Media Consultant Outside Sales Authentication Interface Message Text Reports picked up with extra iron and b12 and is taking that instead of more pills. Does not desire to take extra iron or b12 Nrm hgb elec Labs noteable for low ferritin and low b12; normocytic anemia Repeat 37 weeks Normal [facility] Media Consultant Outside Sales Authentication Interface Message Text Growth AGA Normal [facility] Media Consultant Outside Sales Authentication Interface Message Text SW following, continued sobriety Normal [facility] Media Consultant Outside Sales Authentication Interface Message Text on probation, SW following Lives with partner and grandmother Normal [facility] Media Consultant Outside Sales Authentication Interface Message Text States in childhood, no meds Denies CP/SOB Normal The [facility] Media Consultant Outside Sales [employer] Interface Message Text Cut down to 3-5 cigs per day nicotine dependant service request already placed Will continue to encouraged cessation Serial growth ongoing - AGA to date Has nicotine patches ordered, has not used yet We reviewed maternal/ risks both during the and We discussed abruption risks Normal The [facility] Media Consultant Outside Sales Authentication Interface Message Text Dating -- 28w2d IUP on 01/06/2024 ; Anatomy scan report WNL at OS, [facility], records not sent KARO here 35w0d EFW 59%tile AC 75%tile - KARO: The following structures were not optimally visualized due to crowding: neck, mandible, profile, abdominal cord insertion, RVOT Genetics: rrCFDNA at [facility], per pt Vaccinations: declines all, counseled RH+/RI, RPR negative; Abnormal 1 hr, Nrm 3 hour : control: plans for nexplanon Feeding: plans to BF Pediatrics: pre visit information previously provided. Plans to take baby to GBS today Normal [facility] CULTURE FOR BETA-HEMOLYTIC S TREPon 12-11-2024 CULTURE FOR BETA-HEMOLYTIC STREP C STREP: Negative for beta-hemolytic Streptococci group B. Normal [facility] Comment on above: Performed By: #### C STREP #### [facility] Pathology [address] [facility] [place], [place] [address] Progress Noteson 12-11-2024 Media Consultant Outside Sales Authentication Interface Message Text Patient was identified by name and date of . Alia Camarena MA Patient at risk for falls:No Falls Risk protocol implemented: No Normal [facility] Media Consultant Outside Sales Authentication Interface Message Text Department of Obstetrics AND Gynecology Division of Maternal Medicine scale manager Follow-Up Visit Date of visit: 12/11/24 Time of visit: 1:00 PM Patient name: Jose R Tapia Patient Patient : 2000 Assessment and Plan: 24 year old at 36w3d here for her high-risk follow-up visit. The and maternal status are reassuring today. The EPIC chart was reviewed and updated. Please refer to the OB EPIC problem list for further details on the problems addressed at today's visit. Supervision of high risk in third trimester (HCC) [T/f care alexander in 3rd TM; Rh +/ RI / / CT neg / HBV neg / HCV neg / HIV neg / neg Ucx. Abnormal 1 hr, nrm 3 hr GTT ] Dating -- 28w2d IUP on 01/06/2024 ; Anatomy scan report WNL at OSH, [facility], records not sent KARO here 35w0d EFW 59%tile AC 75%tile - KARO: The following structures were not optimally visualized due to crowding: neck, mandible, profile, abdominal cord insertion, RVOT Genetics: rrCFDNA at [facility], per pt Vaccinations: declines all, counseled RH+/RI, RPR negative; Abnormal 1 hr, Nrm 3 hour : control: plans for nexplanon Feeding: plans to BF Pediatrics: pre visit information previously provided. Plans to take baby to [facility] today Tobacco use disorder [/2 ppd 10/30/24 ] Cut down to 3-5 cigs per day nicotine dependant service request already placed Will continue to encouraged cessation Serial growth ongoing - AGA to date Has nicotine patches ordered, has not used yet We reviewed maternal/ risks both during the and We discussed abruption risks Mild intermittent asthma without complication (HCC) [childhood] States in childhood, no meds Denies CP/SOB History of incarceration [Briefly incarcerated from late Aug-mid September] on probation, SW following Lives with partner and grandmother History of drug abuse (HCC) [Hx Meth and Alcohol use ] SW following, continued sobriety BMI 28.0-28.9,adult [Unsure pregravid wt] Growth AGA Anxiety and depression [Reports hx of] mood stable reasons to reach out reviewed BH referral declined will continue close monitoring during the Anemia affecting in third trimester (HCC) [Normocytic. Low b12, low ferritin. Nrm Hgb elect] Reports picked up with extra iron and b12 and is taking that instead of more pills. Does not desire to take extra iron or b12 Nrm hgb elec Labs noteable for low ferritin and low b12; normocytic anemia Repeat 37 weeks Breech presentation (HCC) On US at 35 weeks US next week to recheck position ECV vs CS discussed, will plan at next appt base on position Orders AND Meds Signed During This Encounter Urine Glu/Protein-Ob Pts Only Culture for Beta-Hemolytic Strep Follow-up Plan: Follow-up in 1 wk, or as indicated based on clinical progress. At next visit, will plan for CBC Patient Education AND Counseling: General warning signs discussed, including when to go to the hospital or seek medical attention. kick counts, signs, and symptoms of labor reviewed with the patient today. Patient verbalizes understanding of the care plan and the current management of issues. No further questions or concerns were raised by the patient. Future Appointments Reviewed: Patient's next appointments are listed as follows: Future Appointments (next 10) Provider Department Center 12/18/2024 1:00 PM SKILLED NURSING ROOM 2 [facility] Diagnostic Center [facility] 12/18/2024 2:00 PM (Arrive by 1:45 PM) Melita Lee APRN-CNP [facility] Obstetrics High Risk [facility] 12/25/2024 11:00 AM (Arrive by 10:45 AM) Melita Lee APRN-CNP [facility] Obstetrics [facility] Center Risk [facility] 01/01/2025 11:00 AM (Arrive by 10:45 AM) Melita Lee APRN-CNP [facility] Obstetrics [facility] Center Risk [facility] Melita Lee DNP, APRN-FNP Advanced Practice Provider (KIMBERLEE) S[employer]IOR [employer]UT[employer] WORKFLOW CONSULTANT, Maternal Medicine Department [address] [place] [id number] ---- Chief Complaint Patient presents with visit Subjective: Jose R Tapia is a 24 year old at 36w3d who presents for her high risk follow-up visit. She is followed in high risk clinic for a c/b Asthma, H/o Drug use, Tobacco use, anxiety and depression, Anemia Current Symptoms: Today, she reports the following symptoms : none Some lightening crotch Vitals Symptoms Flowsheet Row Office Visit from 12/11/2024 in [facility] Obst[facility]s High Risk Vag Bleed N Show / Disch N Cramps / CTX N Dysuria N Pelv press N She denies nausea, vomiting , loss of fluid, fevers, chills, or general urinary issues today She denies labor concerns today Pertinent negatives and positives listed above. Otherwise, all 10 systems of ROS negative. except what is mention above in HPI. See updated PN Sma (more content not included)... Normal [facility] SKILLED NURSING SECOND/THIRD TRIMESTER O Bon 12-01-2024 SKILLED NURSING SECOND/THIRD TRIMESTER OB Indication ======== Indication: Anatomy Survey Indication: Increased Risk for Chromosome Anomaly / Aneuploidy, Suspected in Fetus Comment: no labs Indication: Anemia in Growth Overview Exam date GA BPD (mm) HC (mm) AC (mm) FL (mm) HL (mm) EFW (g) 10/15/2024 28w 2d 74.2 83% 269 51% 234 26% 48.4 2% 1083 15% 12/01/2024 35w 0d 93.1 99% 317 31% 317.4 75% 65.7 16% 57.3 24% 2672 59% Method ====== Transabdominal ultrasound examination. View: Suboptimal view: limited by late gestational age. Suboptimal view: limited by position ========= Irizarry . Number of fetuses: 1 Dating ====== GA by prior assessment 35 w + 0 d BRIANNA by prior assessment: 01/05/2025 Ultrasound examination on: 12/01/2024 GA by U/S based upon: AC, BPD, Femur, HC GA by U/S 35 w + 5 d BRIANNA by U/S: 12/31/2024 Assigned: based on ultrasound (AC, BPD, Femur, HC), selected on 10/15/2024 Assigned GA 35 w + 0 d Assigned BRIANNA: 01/05/2025 General Evaluation Cardiac activity present. FHR 151 bpm. movements: visualized. Presentation: breech Placenta: Placental site: anterior Umbilical cord: Cord vessels: 3 vessel cord. Insertion site: normal insertion Amniotic fluid: Amount of AF: normal amount. MVP 7.8 cm. RODRÍGUEZ 21.0 cm. Q1 1.9 cm, Q2 4.5 cm, Q3 6.8 cm, Q4 7.8 cm Biometry Standard BPD 93.1 mm 37w 6d 99% Hadlock HC 317.0 mm 35w 4d 31% Hadlock Cerebellum tr 45.5 mm 16% [place] AC 317.4 mm 35w 5d 75% Hadlock Femur 65.7 mm 33w 6d 16% Hadlock Humerus 57.3 mm 33w 2d 24% Max HC / AC 1.00 EFW 2,672 g 59% Hadlock EFW (lb) 5 lb EFW (oz) 14 oz EFW by: Hadlock ([id number]) Extended Floor Layer Apprentice 4.9 mm CM 9.5 mm 92% Nicolaides Nasal bone 9.7 mm Other Structures FHR 151 bpm Anatomy Cranium: normal Lateral ventricles: normal Choroid plexus: normal Midline falx: normal Cavum septi pellucidi: normal Cerebellum: normal Cisterna magna: normal Head / Neck Cerebellar lobes: normal Vermis: normal Nuchal fold: normal Lips: normal Profile: normal Nose: normal Face Palate: normal Orbits: normal Lens: normal 4-chamber view: normal RVOT view: not visualized LVOT view: normal 3-vessel view: normal 6-ycuhst-hpqdcrw view: not visualized Heart / Thorax Situs: situs solitus (normal) Aortic arch view: normal Bicaval view: normal Ductal arch view: not visualized Cardiac position: levocardia (normal) Cardiac axis: normal Cardiac size: normal (approx. 1/3 of thoracic area) Rt lung: normal Lt lung: normal Diaphragm: normal Cord insertion: not visualized Stomach: normal Kidneys: normal Bladder: normal Genitals: normal Abdomen Abdom. wall: normal Gallbladder: normal Small bowel: normal Large bowel: normal Cervical spine: normal Thoracic spine: normal Lumbar spine: normal Sacral spine: normal Arms: normal Hands: normal Legs: normal Feet: normal Rt upper arm: normal Rt forearm: normal Rt hand: normal Rt fingers: not visualized Lt upper arm: normal Lt forearm: normal Lt hand: normal Lt fingers: not visualized Rt upper leg: normal Rt lower leg: normal Rt foot: normal Lt upper leg: normal Lt lower leg: normal Lt foot: normal Position of hands: normal Position of feet: normal Position of joints: normal sex: male Wants to know sex: yes Maternal Structures Uterus / Cervix Uterus: Visualized Cervix: Not visualized Approach: Transabdominal Ovaries / Tubes / Adnexa Rt ovary: Not visualized Lt ovary: Not visualized Impression ========= The patient presents for an anatomic survey. 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 The scan is limited by the late gestational age and crowding. Single intrauterine gestation with EFW at 59%. The placenta is anterior. The anatomic survey is incomplete. The following structures were not optimally visualized due to crowding: neck, mandible, profile, abdominal cord insertion, RVOT, 3VTV, ductal arch, fingers/toes. Detailed evaluation reveals no malformations, soft markers of aneuploidy, effusions or dysrhythmias on this incomplete anatomic survey. No adnexal or cervical anomalies are suspected on this incomplete survey. Follow-up as clinically indicated. Normal [facility] US for in second o r third trimesteron 12-01-2024 Indication ======== Indication: Anatomy Survey Indication: Increased Risk for Chromosome Anomaly / Aneuploidy, Suspected in Fetus Comment: no labs Indication: Anemia in Growth Overview Exam date GA BPD (mm) HC (mm) AC (mm) FL (mm) HL (mm) EFW (g) 10/15/2024 28w 2d 74.2 83% 269 51% 234 26% 48.4 2% 1083 15% 12/01/2024 35w 0d 93.1 99% 317 31% 317.4 75% 65.7 16% 57.3 24% 2672 59% Method ====== Transabdominal ultrasound examination. View: Suboptimal view: limited by late gestational age. Suboptimal view: limited by position ========= Irizarry . Number of fetuses: 1 Dating ====== GA by prior assessment 35 w + 0 d BRIANNA by prior assessment: 01/05/2025 Ultrasound examination on: 12/01/2024 GA by U/S based upon: AC, BPD, Femur, HC GA by U/S 35 w + 5 d BRIANNA by U/S: 12/31/2024 Assigned: based on ultrasound (AC, BPD, Femur, HC), selected on 10/15/2024 Assigned GA 35 w + 0 d Assigned BRIANNA: 01/05/2025 General Evaluation Cardiac activity present. FHR 151 bpm. movements: visualized. Presentation: breech Placenta: Placental site: anterior Umbilical cord: Cord vessels: 3 vessel cord. Insertion site: normal insertion Amniotic fluid: Amount of AF: normal amount. MVP 7.8 cm. RODRÍGUEZ 21.0 cm. Q1 1.9 cm, Q2 4.5 cm, Q3 6.8 cm, Q4 7.8 cm Biometry Standard BPD 93.1 mm 37w 6d 99% Hadlock HC 317.0 mm 35w 4d 31% Hadlock Cerebellum tr 45.5 mm 16% Verburg AC 317.4 mm 35w 5d 75% Hadlock Femur 65.7 mm 33w 6d 16% Hadlock Humerus 57.3 mm 33w 2d 24% Max HC / AC 1.00 EFW 2,672 g 59% Hadlock EFW (lb) 5 lb EFW (oz) 14 oz EFW by: Hadlock ([id number]) Extended Floor Layer Apprentice 4.9 mm CM 9.5 mm 92% Nicolaides Nasal bone 9.7 mm Other Structures FHR 151 bpm Anatomy Cranium: normal Lateral ventricles: normal Choroid plexus: normal Midline falx: normal Cavum septi pellucidi: normal Cerebellum: normal Cisterna magna: normal Head / Neck Cerebellar lobes: normal Vermis: normal Nuchal fold: normal Lips: normal Profile: normal Nose: normal Face Palate: normal Orbits: normal Lens: normal 4-chamber view: normal RVOT view: not visualized LVOT view: normal 3-vessel view: normal 9-twazor-rjoqhwc view: not visualized Heart / Thorax Situs: situs solitus (normal) Aortic arch view: normal Bicaval view: normal Ductal arch view: not visualized Cardiac position: levocardia (normal) Cardiac axis: normal Cardiac size: normal (approx. 1/3 of thoracic area) Rt lung: normal Lt lung: normal Diaphragm: normal Cord insertion: not visualized Stomach: normal Kidneys: normal Bladder: normal Genitals: normal Abdomen Abdom. wall: normal Gallbladder: normal Small bowel: normal Large bowel: normal Cervical spine: normal Thoracic spine: normal Lumbar spine: normal Sacral spine: normal Arms: normal Hands: normal Legs: normal Feet: normal Rt upper arm: normal Rt forearm: normal Rt hand: normal Rt fingers: not visualized Lt upper arm: normal Lt forearm: normal Lt hand: normal Lt fingers: not visualized Rt upper leg: normal Rt lower leg: normal Rt foot: normal Lt upper leg: normal Lt lower leg: normal Lt foot: normal Position of hands: normal Position of feet: normal Position of joints: normal sex: male Wants to know sex: yes Maternal Structures Uterus / Cervix Uterus: Visualized Cervix: Not visualized Approach: Transabdominal Ovaries / Tubes / Adnexa Rt ovary: Not visualized Lt ovary: Not visualized Impression ========= The patient presents for an anatomic survey. 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 The scan is limited by the late gestational age and crowding. Single intrauterine gestation with EFW at 59%. The placenta is anterior. The anatomic survey is incomplete. The following structures were not optimally visualized due to crowding: neck, mandible, profile, abdominal cord insertion, RVOT, 3VTV, ductal arch, fingers/toes. Detailed evaluation reveals no malformations, soft markers of aneuploidy, effusions or dysrhythmias on this incomplete anatomic survey. No adnexal or cervical anomalies are suspected on this incomplete survey. Follow-up as clinically indicated. [facility] Fredo Braxton MD - 12/01/2024 Indication ======== Indication: Anatomy Survey Indication:Increased Risk for Chromosome Anomaly / Aneuploidy, Suspected in Fetus Comment:no labs Indication:Anemia in Growth Overview Exam date GA BPD (mm) HC (mm) AC (mm) FL (mm) HL (mm) EFW (g) 10/15/2024 28w 2d 74.2 83% 269 51% 234 26% 48.4 2% 1083 15% 12/01/2024 35w 0d 93.1 99% 317 31% 317.4 75% 65.7 16% 57.3 24% 2672 59% Method ====== Transabdominal ultrasound examination. View: Suboptimal view: limited by late gestational age. Suboptimal view: limited by position ========= Irizarry . Number of fetuses: 1 Dating ====== GA by prior [id number] w + 0 d BRIANNA by prior assessment:01/05/2025 Ultrasound examination on:12/01/2024 GA by U/S based upon:AC, BPD, Femur, HC GA by U/S35 w + 5 d BRIANNA by U/S:12/31/2024 Assigned:based on ultrasound (AC, BPD, Femur, HC), selected on 10/15/2024 Assigned GA35 w + 0 d Assigned BRIANNA:01/05/2025 General Evaluation Cardiac activity present. FHR 151 bpm. movements: visualized. Presentation: breech Placenta: Placental site: anterior Umbilical cord: Cord vessels: 3 vessel cord. Insertion site: normal insertion Amniotic fluid: Amount of AF: normal amount. MVP 7.8 cm. RODRÍGUEZ 21.0 cm. Q1 1.9 cm, Q2 4.5 cm, Q3 6.8 cm, Q4 7.8 cm Biometry Standard BPD93.1 mm37w 6d 99% Hadlock HC317.0 mm35w 4d 31% Hadlock Cerebellum tr45.5 mm 16% Verburg AC317.4 mm35w 5d 75% Hadlock Femur65.7 mm33w 6d 16% Hadlock Kehzgli90.3 mm33w 2d 24% Max HC / AC1.00 EFW2,672 g 59% Hadlock EFW (lb)5 lb EFW (oz)14 oz EFW by:Hadlock ([id number]) Extended Vp4.9 mm CM9.5 mm 92% Nicolaides Nasal bone9.7 mm Other Structures ARN186 bpm Anatomy Cranium:normal Lateral ventricles:normal Choroid plexus:normal Midline falx:normal Cavum septi pellucidi:normal Cerebellum:normal Cisterna magna:normal Head / Neck Cerebellar lobes:normal Vermis:normal Nuchal fold:normal Lips:normal Profile:normal Nose:normal Face Palate:normal Orbits:normal Lens:normal 4-chamber view:normal RVOT view:not visualized LVOT view:normal 3-vessel view:normal 6-mmpqzd-wfwfece view:not visualized Heart / Thorax Situs:situs solitus (normal) Aortic arch view:normal Bicaval view:normal Ductal arch view:not visualized Cardiac position:levocardia (normal) Cardiac axis:normal Cardiac size:normal (approx. 1/3 of thoracic area) Rt lung:normal Lt lung:normal Diaphragm:normal Cord insertion:not visualized Stomach:normal Kidneys:normal Bladder:normal Genitals:normal Abdomen Abdom. wall:normal Gallbladder:normal Small bowel:normal Large bowel:normal Cervical spine:normal Thoracic spine:normal Lumbar spine:normal Sacral spine:normal Arms:normal Hands:normal Legs:normal Feet:normal Rt upper arm:normal Rt forearm:normal Rt hand:normal Rt fingers:not visualized Lt upper arm:normal Lt forearm:normal Lt hand:normal Lt fingers:not visualized Rt upper leg:normal Rt lower leg:normal Rt foot:normal Lt upper leg:normal Lt lower leg:normal Lt foot:normal Position of hands:normal Position of feet:normal Position of joints:normal sex:male Wants to know sex:yes Maternal Structures Uterus / Cervix Uterus:Visualized Cervix:Not visualized Approach:Transabdomi nal Ovaries / Tubes / Adnexa Rt ovary:Not visualized Lt ovary:Not visualized Impression ========= The patient presents for an anatomic survey. 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 The scan is limited by the late gestational age and crowding. Single intrauterine gestation with EFW at 59%. The placenta is anterior. The anatomic survey is incomplete. The following structures were not optimally visualized due to crowding: neck, mandible, profile, abdominal cord insertion, RVOT, 3VTV, ductal arch, fingers/toes. Detailed evaluation reveals no malformations, soft markers of aneuploidy, effusions or dysrhythmias on this incomplete anatomic survey. No adnexal or cervical anomalies are suspected on this incomplete survey. Follow-up as clinically indicated. [facility] Radiology Study observation (narrative) [facility] US for in second o r third trimesterOrdered By: Fredo Braxton on 12-01-2024 SDI Work Phone: Assessment AND Plan Noteon 0 11-27-2024 Media Consultant Outside Sales Authentication Interface Message Text Reports picked up with extra iron and b12 and is taking that instead of more pills. Does not desire to take extra iron or b12 Nrm hgb elec Labs noteable for low ferritin and low b12; normocytic anemia Repeat 37 weeks Normal The [facility] Media Consultant Outside Sales Authentication Interface Message Text unsure pregravid wt serial growth ordered AGA to date, has growth next week (rescheduled due to missed appt) Normal The [employer] Media Consultant Outside Sales Authentication Interface Message Text Resolved Normal The [employer] Interface Message Text Pepcid not helping Will rx omeprazole today Diet changes reviewed Normal The [employer] Media Consultant Outside Sales Authentication Interface Message Text SW following, continued sobriety Normal The [employer] Authentication Interface Message Text on probation, SW following Lives with partner and grandmother Normal The [employer] Interface Message Text States in childhood, no meds Denies CP/SOB Normal The [employer] Authentication Interface Message Text Cut down to 5 cigs per day nicotine dependant service request already placed Will continue to encouraged cessation Serial growth ongoing - AGA to date, has growth next week (rescheduled due to missed appt) Has nicotine patches ordered, has not used yet We reviewed maternal/ risks both during the and We discussed abruption risks Normal The [facility] System Media Consultant Outside Sales Authentication Interface Message Text Dating -- 28w2d IUP on 01/06/2024 ; Anatomy scan pending Genetics: rrCFDNA at [facility], per pt Vaccinations: declines all, counseled RH+/RI, RPR negative. Abnormal 1 hr, Nrm 3 hour control: plans for nexplanon Feeding: plans to BF Pediatrics: pre visit information previously provided Normal The [facility] Progress Noteson 11-27-2024 Media Consultant Outside Sales Authentication Interface Message Text Patient was identified by name and date of . Morgan Steiner MA Patient at risk for falls:No Falls Risk protocol implemented: No Pt is unable to give urine at this time. Normal The 3LM Interface Message Text Department of Obstetrics AND Gynecology Division of Maternal Medicine scale manager Follow-Up Visit Date of visit: 11/27/24 Time of visit: 3:15 PM Patient name: Jose R Tapia Patient Patient : 2000 Assessment and Plan: 24 year old at 34w3d here for her high-risk follow-up visit. The and maternal status are reassuring today. The EPIC chart was reviewed and updated. Please refer to the OB EPIC problem list for further details on the problems addressed at today's visit. Supervision of high risk in third trimester (HCC) [T/f care [facility] in 3rd TM; Rh +/ RI / / CT neg / HBV neg / HCV neg / HIV neg / neg Ucx. Abnormal 1 hr, nrm 3 hr GTT ] Dating -- 28w2d IUP on 01/06/2024 ; Anatomy scan pending Genetics: rrCFDNA at [facility], per pt Vaccinations: declines all, counseled RH+/RI, RPR negative. Abnormal 1 hr, Nrm 3 hour control: plans for nexplanon Feeding: plans to BF Pediatrics: pre visit information previously provided Tobacco use disorder [/2 ppd 10/30/24 ] Cut down to 5 cigs per day nicotine dependant service request already placed Will continue to encouraged cessation Serial growth ongoing - AGA to date, has growth next week (rescheduled due to missed appt) Has nicotine patches ordered, has not used yet We reviewed maternal/ risks both during the and We discussed abruption risks Mild intermittent asthma without complication (HCC) [childhood] States in childhood, no meds Denies CP/SOB History of incarceration [Briefly incarcerated from late Aug-mid September] on probation, SW following Lives with partner and grandmother History of drug abuse (HCC) [Hx Meth and Alcohol use ] SW following, continued sobriety Heartburn during in third trimester (HCC) Pepcid not helping Will rx omeprazole today Diet changes reviewed Dental abscess [10/15/2024: #L dental/mandibular abscess, Sepsis; Elevated troponin:: s/p I AND D drainage by OMFS with 5cc serosanguinous fluid drained. CT face/soft tissue significant for significant soft tissue infection/phlegmon throughout the left face with myositis of the left masseter muscle without discrete drainable abscess. Cardiopulmonary exam benign EKG with mild sinus tachycardia (HR 102);] Resolved BMI 28.0-28.9,adult [Unsure pregravid wt] unsure pregravid wt serial growth ordered AGA to date, has growth next week (rescheduled due to missed appt) Anxiety and depression [Reports hx of] mood stable reasons to reach out reviewed referral declined will continue close monitoring during the Anemia affecting in third trimester (HCC) [Normocytic. Low b12, low ferritin. Nrm Hgb elect] Reports picked up with extra iron and b12 and is taking that instead of more pills. Does not desire to take extra iron or b12 Nrm hgb elec Labs noteable for low ferritin and low b12; normocytic anemia Repeat 37 weeks Orders AND Meds Signed During This Encounter Urine Glu/Protein-Ob Pts Only omeprazole (PRILOSEC) 20 MG capsule Follow-up Plan: Follow-up in 2 weeks, or as indicated based on clinical progress. At next visit, will plan for GBS, IOL Patient Education AND Counseling: General warning signs discussed, including when to go to the hospital or seek medical attention. kick counts, signs, and symptoms of labor reviewed with the patient today. Patient verbalizes understanding of the care plan and the current management of issues. No further questions or concerns were raised by the patient. Future Appointments Reviewed: Patient's next appointments are listed as follows: Future Appointments (next 10) Provider Department Center 12/01/2024 8:00 AM SKILLED NURSING ROOM 4 [facility] Diagnostic [facility] 12/11/2024 1:00 PM (Arrive by 12:45 PM) Melita Lee APRN-CNP [facility] Obstetrics High Risk [facility] 12/18/2024 1:00 PM SKILLED NURSING ROOM 2 [facility] Diagnostic [facility] 12/18/2024 2:00 PM (Arrive by 1:45 PM) Melita Lee APRN-CNP [facility] Obstetrics High Risk [facility] 12/25/2024 11:00 AM (Arrive by 10:45 AM) Melita Lee APRN-CNP [facility] Obstetrics High Risk [facility] 01/01/2025 11:00 AM (Arrive by 10:45 AM) Melita Lee APRN-CNP [facility] Risk [facility] Melita Lee DNP, APRN-FNP Advanced Practice Provider (KIMBERLEE) [employer]IOR [employer] WORKFLOW CONSULTANT, Maternal Medicine Department [address] [place] [address] ---- Chief Complaint Patient presents with Pregancy high risk Subjective: Jose R Tapia is a 24 year old at 34w3d who presents for her high risk follow-up visit. She is followed in high risk clinic for a c/b Asthma, H/o Drug use, Tobacco use, anxiety and depression, Anemia Current Symptoms: Today, she reports the following symptoms: none Vitals Pregn (more content not included)... Normal The [facility] Assessment AND Plan Noteon 0 11-13-2024 Media Consultant Outside Sales Authentication Interface Message Text - pepcid rx today - eating a lot of spicy foods - diet and lifestyle changes reviewed Normal The [employer] Interface Message Text - states in childhood, no meds - denies CP/SOB Normal The [employer] Interface Message Text - s/p abx, resolved Normal The [employer] Interface Message Text - unsure pregravid wt - serial growth ordered Normal The [facility] Media Consultant Outside Sales Authentication Interface Message Text - has iron rx, not taking -- recommend repeat labs today to see if iron transfusion indicated - hgb elec collected today with iron studies and CBC - denies dizziness, fatigue, lightheadedness, palpitation, headache, SOB, or malaise Normal The [employer] Authentication Interface Message Text - 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 Reviewed can not smoke while using - nicotine dependant service request - will continue to encouraged cessation - for serial growth, ordered todat Normal The [employer] Media Consultant Outside Sales Authentication Interface Message Text - SW following, continued sobriety Normal The [employer] Authentication Interface Message Text Routine care reviewed -- Dating -- 28w2d IUP on 01/06/2024 ; Anatomy scan pending -- Genetics: rrCFDNA at [facility], per pt -- Vaccinations: declines all, counseled -- RH+/RI, RPR negative. -- Abnormal 1 hr, Nrm 3 hour -- control: plans for nexplanon -- Feeding: plans to BF -- Pediatrics: pre visit information previously provided Plan: - 2 week f/up to correlate with US Normal The [facility] COMPLETE BLOOD COUNTon 11-13 Erythrocyte distribution width (RBC) [Ratio] 13.7 % Normal 11.5-14.5 The [facility] System Comment on above: Performed By: #### C BC #### [facility] [address] [place] [address], Hematocrit (Bld) [Volume fraction] 30.3 % Low 36.0-46.0 The [facility] Comment on above: Performed By: #### C BC #### [facility] [address] [place] [address], Hemoglobin (Bld) [Mass/Vol] 10.3 g/dL Low 12.0-15.0 The [facility] Comment on above: Performed By: #### C BC #### [facility] [address] [place] [address], MCH (RBC) [Entitic mass] 29.1 pg Normal 26.0-34.0 The [facility] Comment on above: Performed By: #### C BC #### [facility] [address], [place], MCHC (RBC) [Mass/Vol] 33.9 g/dL Normal 32.0-35.9 [facility] Comment on above: Performed By: #### C BC #### [facility] [address], [place], MCV (RBC) [Entitic vol] 86 fL Normal 80-100 [facility] Comment on above: Performed By: #### C BC #### [facility] [address], [place], Platelet mean volume (Bld) [Entitic vol] 8.1 fL Normal 7.5-11.2 [facility] Comment on above: Performed By: #### C BC #### [facility] [address], [place], Platelets (Bld) [#/Vol] 279 10*3/uL Normal 150-400 [facility] Comment on above: Performed By: #### C BC #### [facility] [address], [place], RBC (Bld) [#/Vol] 3.52 10*6/uL Low 4.00-5.20 [facility] Comment on above: Performed By: #### C BC #### [facility] [address], [place], WBC (Bld) [#/Vol] 19.2 10*3/uL High 4.5-11.5 [facility] Comment on above: Performed By: #### C BC #### [facility] [address], [place], FERRITINon 11-13-2024 CEFERINO 9.9 ng/mL Low 11.0-306.8 [facility] Comment on above: Performed By: #### C R BGCA #### [facility] [address], [place], FOLIC ACIDon 11-13-2024 FOL 12.1 ng/mL Normal 5.9-24.7 [facility] Comment on above: Performed By: #### C R BGCA #### [facility] [address] [place] [address], HEMOGLOBIN ELECTROPHORESISon 11-13-2024 HEMOGLOBIN A 97.7 % Normal [facility] Comment on above: Order Comment: Lee sierra Signed Out by Tarsha Banks MD on 11/14/2024.I certify that I personally conducted the diagnostic evaluation of the above specimen(s) and have rendered the final diagnosis(es). Performed By: #### C R BGCA #### [facility] [address] [place] [address], HEMOGLOBIN A2 2.3 % Normal 2.2-3.2 [facility] Comment on above: Order Comment: Lee sierra Signed Out by Tarsha Banks MD on 11/14/2024.I certify that I personally conducted the diagnostic evaluation of the above specimen(s) and have rendered the final diagnosis(es). Performed By: #### C R BGCA #### [facility] [address] [place] [address], HGB INTERPRETATION Normal hemoglobin electrophoresis. Normal [facility] Comment on above: Order Comment: Lee sierra Signed Out by Tarsha Banks MD on 11/14/2024.I certify that I personally conducted the diagnostic evaluation of the above specimen(s) and have rendered the final diagnosis(es). Performed By: #### C R BGCA #### [facility] [address] [place] [address], IRON AND TIBCon 11-13-2024 % SAT CORRECT PRD 7 % Low 20-55 [facility] Comment on above: Performed By: #### C R BGCA #### [facility] [address] [place] [address], FE CORRECT PRD 37 ug/dL Low 50-212 [facility] Comment on above: Performed By: #### C R BGCA #### [facility] [address] [place] [address], TIBC CORRECT PRD 514 ug/mL High 250-410 [facility] Comment on above: Performed By: #### C R BGCA #### [facility] [address], [place], TRANSFER CORRECT PRD 367 mg/dL High 203-362 The [facility] Comment on above: Performed By: #### C Anuradha BGJENNI #### [facility] [address], [place], Progress Noteson 11-13-2024 Media Consultant Outside Sales Authentication Interface Message Text Patient was identified by name and date of . Alessandra Westfall MA Normal The [facility] Media Consultant Outside Sales Authentication Interface Message Text OB HIGH RISK FOLLOW UP VISIT 11/13/2024 1:30 PM Chief Complaint Patient presents with Pregancy high risk S:Jose R Tapia is a 24 year old at 32w3d who presents for follow up high-risk OB visit. She is followed in high risk clinic for a c/b Asthma, H/o Drug use, Tobacco use, anxiety and depression, Anemia Nicotine patches -- has not started Today she has complaints of none Vitals Symptoms Flowsheet Row Office Visit from 11/13/2024 in [facility] Obstetrics High Risk Vag Bleed N Show / Disch N Cramps / CTX N Dysuria N Pelv press N She denies any loss of fluid, fevers, chills, dysuria, or other urinary issues She also denies nausea/vomiting. Pertinent negatives and positives listed above. Otherwise, all 10 systems of ROS negative. except what is mention above in HPI. See updated PN Smartforms PN Labs AND dating info reviewed. Problem list, OB Flowsheet, PMHx, PSHx, PSocH, Family Hx, Social Hx, medications, and allergies all reviewed and updated in [facility]. Problem based charting was completed today - -we reviewed the following Problem Heartburn During in Third Trimester ([facility]) History of Incarceration Anxiety and Depression Anemia Affecting in Third Trimester ([facility]) Bmi 28.0-28.9,Adult Dental Abscess Supervision of High Risk in Third Trimester ([facility]) History of Drug Abuse ([facility]) Tobacco Use Disorder Mild Intermittent Asthma Without Complication ([facility]) Allergies Allergen Reactions Latex Rash Penicillins Other Other Reaction(s): unsure - allergic as young child O: BP 119/69 Pulse 107 Ht 5' 4 (1.626 m) Wt 167 lb 14.4 oz (76.2 kg) LMP (LMP Unknown) BMI 28.82 kg/m??? GEN: alert, oriented, no acute distress, pleasant PSYCH: normal mood and affect HEENT: mucous membranes moist NECK: no thyroid enlargement CARDIO: warm and well perfused PULM: no increased work of breathing ABD: soft, gravid, nontender BACK: no CVA tenderness EXT: no edema OB: + by doppler or reviewed from today's ultrasound Vitals Assessment Flowsheet Row Office Visit from 11/13/2024 in [facility] Obstetrics High Risk Fundal Ht -- Presentation -- FHR 145 Mvmt Present See episode visit flowsheet for further examination findings. CBC (last 3 years, up to 8 values) 10/17/2024 10/16/2024 10/15/2024 4:29 AM 6:46 AM 9:31 AM WBC 11.2 12.7 18.0 RBC 3.25 3.38 3.83 Hgb 9.6 9.8 11.0 Hct 28.5 29.9 33.9 MCV 88 88 88 RDW 14.1 14.2 14.1 Plt 263 298 330 A/P: 24 year old at 32w3d here for her high risk visit . and maternal status reassuring today. The EPIC chart was reviewed and updated. Please see the OB EPIC problem list for further details on the problems addressed at today's visit. Supervision of high risk in third trimester (HCC) [T/f care [facility] in 3rd TM; Rh +/ RI / / CT neg / HBV neg / HCV neg / HIV neg / neg Ucx. Abnormal 1 hr, nrm 3 hr GTT ] Routine care reviewed -- Dating -- 28w2d IUP on 01/06/2024 ; Anatomy scan pending -- Genetics: rrCFDNA at [facility], per pt -- Vaccinations: declines all, counseled -- RH+/RI, RPR negative. 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 Reviewed can not smoke while using - nicotine dependant service request - will continue to encouraged cessation - for serial growth, ordered todat History of incarceration [Briefly incarcerated from late Aug-mid September] - on probation, referral today Anxiety and depression [Reports hx of] - mood stable - reasons to reach out reviewed - referral declined - will continue close monitoring during the Anemia affecting in third trimester (HCC) [Nrm ferritin/b12/folic acid] - has iron rx, not taking -- recommend repeat labs today to see if iron transfusion indicated - hgb elec collected today with iron studies and CBC - denies dizziness, fatigue, lightheadedness, palpitation, headache, SOB, or malaise BMI 28.0-28.9,adult [Unsure pregravid wt] - unsure pregravid wt - serial growth ordered Dental abscess [10/15/2024: #L dental/mandibular abscess, Sepsis; Elevated troponin:: s/p I AND D drainage by OMFS with 5cc serosanguinous fluid drained. CT face/soft tissue significant for significant soft tissue infection/phlegmon throughout the left face with myositis of the left masseter muscle without discrete drainable abscess. Cardiopulmonary exam benign EKG with mild sinus tachycardia (HR 102);] - s/p abx, resolved Mild intermittent asthma without complication (HCC) [childhood] - states in childhood, no meds - (more content not included)... Normal [facility] VITAMIN B12 (CYANOCOBALAMIN) on 11-13-2024 Cobalamin (Vitamin B12) [Mass/Vol] 145 pg/mL Low 180-914 [facility] Comment on above: Order Comment: Defic ient: <= 145 pg/mLInsufficient: 145 - 180 pg/mLSufficient: 180 - 914 pg/mL Performed By: #### C R BGCA #### [facility] [address] [place] [address], [phone] Addendum Noteon 10-31-2024 Media Consultant Outside [employer] Authentication Interface Message Text Addended by: CINDA RUST on: 10/31/2024 12:12 PM Modules accepted: Orders Normal [facility] Assessment AND Plan Noteon 0 10-30-2024 Media Consultant Outside Sales Authentication Interface Message Text - unsure pregravid wt Normal [facility] [employer] Interface Message Text - has iron rx, ahs not started. Labs reviewed. Recommend iron BID with low nrm ferritin. - will repeat CBC next week w/ hgb elect (does not have one drawn) - denies dizziness, fatigue, lightheadedness, palpitation, headache, SOB, or malaise Normal [facility] [employer] Interface Message Text - The importance of maternal control of her disease was discussed in detail. - Recommend follow up with psychiatrist throughout the and the post- period. When weighing the risks and benefits, in regards to continued treatment, it is important to note that having untreated psychiatric disorders is related to complications-- increased risk of growth abnormalities, low weight, premature delivery, depression, low rates, substance use and maternal suicide. Each patient has to make an individualized decision based upon their level of comfort with either continuation or discontinuation of medication. - Today, the patient denies insomnia, guilt, loss of energy, anorrhexia, or suicidal/homicidal ideation.The patient feels that she has good ability to concentrate on daily/personal tasks. Discussed that the risk of post- blues/depression is significantly elevated in those with a history of depression (approx. 75-80%). - states this was in the past and no current issues Plan: - resources available to the patient reviewed - reasons to reach out reviewed - referral declined - will continue close monitoring during the Normal [facility] [employer] Interface Message Text - Counseled patient that tobacco use in has been shown to be associated with placental abruption, prelabor rupture of membranes, growth restriction, and increased mortality. Discussed recommendations for discontinuation during . - I asked the patient about her tobacco use, 1/2 ppd - The risks of smoking, especially smoking >1/2 packs per day, were discussed in detail including risks of premature , orofacial clefts, growth restriction, placenta previa, decreased maternal thyroid function and increased potential for abruptio placentae resulting in . - I advised the patient to quit smoking as soon as possible. - Lifetime benefits of smoking cessation to the patient, her unborn child, and effects to her children (such as respiratory infections, asthma, infantile colic, bone fractures and childhood obesity) were explained in detail. I advised that smoking cessation before 15 weeks has the greatest benefit to the unborn child, but cessation at any time during promotes better health for both her and her fetus. I recommended that she cut down on her smoking as quickly as possible and consider quitting cold turkey when smoking less than 10 cigarettes/day. - I assessed her willingness to quit and she was interested in working on it. - I assisted her by offering psychosocial (-QUIT NOW), behavioral, pharmacotherapy and digital smoking cessation resources at [facility]. Pharmacotherapy options in include nicotine replacement (gum, lozenges, inhalers, nasal spray patches) or bupriopion. Although varenicline can be utilized to assist with smoking cessation, there is little data on its safety in . - I recommended that she avoid electronic nicotine delivery systems such as e-cigarettes and vaping products, due to the negative effects of nicotine on the developing lungs as well as the risk of noninfectious severe pulmonary disease. I explained that these should not be utilized as a strategy for smoking cessation. Plan: - nicotine patches, 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 Reviewed can not smoke while using - nicotine dependant service request - will continue to encouraged cessation - for serial growth, ordered todat Normal The [facility] Interface Message Text - Prior meth/stimulant use, no use in . Sober for about 10 months. Attends an IOP program through [facility] in [place] - weekly - recently when inpatient Tox screen negative except for oxycodone, however tox screen collected after administered oxycodone in hospital - Stable, no cravings Reviewed the risks of cocaine use in , including , IUGR, and abruption, as well as the maternal risks of hypertensive crisis, PA, and CVA. --encouraged the patient to continue sobriety and IOP, declined need for MOUD at this time. Strongly encouraged, reviewed risk of relapse. Declines use. On probation and reports that she has + support system. Lives with ehr grandmother. Father of the baby is supportive --recommend the patient see SW, referral today Normal The [facility] Interface Message Text - resolved, not current issues - recommend dental f/up. Reports has f/up with outside provider Normal The [facility] Interface Message Text - states in childhood, no meds - denies CP/SOB Normal [facility] Media Consultant Outside [employer] Authentication Interface Message Text Pt here for New OB, T/f of care from [facility] Routine care reviewed Rh +/ RI / / CT neg / HBV neg / HCV neg / HIV neg / neg Ucx. Abnormal 1 hr, nrm 3 hr GTT -- Dating -- 28w2d IUP on 01/06/2024 -- Genetics: rrCFDNA at [facility], per pt -- Vaccinations: declines today -- RH+/RI, RPR negative. -- Abnormal 1 hr, Nrm 3 hour -- control: plans for nexplanon -- Feeding: plans to BF -- Pediatrics: pre visit information for Peds provided today Plan: - 1 week f/up to correlate with [place] Normal [facility] Patient Instructionson 10-30 Media Consultant Outside Sales Authentication Interface Message Text Folate is also known as folic acid and folacin. The [employer] recommends that all women of childbearing age in the [place] who are capable of becoming consume a multivitamin containing 400 micrograms (mcg) of folic acid per day in addition to eating a healthy diet including foods rich in folic acid for the purpose of reducing their risk of having a affected with Spina Bifida or other neural tube defects. The neural tube is where the central nervous system develops. This forms between the 18-27 day of embryonic life - before a woman knows she is . FOLIC ACID FOOD SOURCES SHOULD BE A PART OF YOUR DAILY DIET BEFORE . Current diet surveys show the average intake of dietary folic acid among women in the [place] is only 200 mcg a day. FOOD SOURCES OF FOLIC ACID Grains Micrograms 1 cup fortified [id number] cereal 100 - 400 ??? cup wheat germ 82 ??? cup oatmeal 97 [place] Fruits and Juice 1 cup orange juice from concentrate 100 1 cup orange sections 55 ??? cantaloupe 100 Vegetables ??? cup cooked asparagus 132 ??? cup cooked spinach 131 ??? cup cooked brussel sprouts 116 ??? cup cooked peas 70 1 cup jody lettuce 86 Legumes/Nuts ??? cup cooked lentils 179 ??? cup cooked black beans 128 ??? cup kidney beans 115 1/3 cup dry roasted peanuts 109 1/3 cup dry roasted almonds 48 If you would like to see a registered dietitian at [facility] to discuss a pre- diet plan, an appointment can be made by calling . NEW OB PATIENT INFORMATION Congratulations! You are well on your way to becoming a parent. Enclosed in this packet is important information for you to review at your leisure. You will receive other important handouts regarding your health care periodically during the next few months. We encourage you to talk about any questions or concerns that you may have regarding this information or your . Through regular OB visits, it is our goal to assist you in obtaining the result of a positive birthing experience and a healthy baby. We look forward to being your health care providers. Sincerely, [facility] Obstetrics staff OFFICE INFORMATION: [facility] - OBGYN [address] [place] [address] PATIENTS: IF YOU ARE HAVE AN EMERGENCY OR CALL AFTER HOURS, PLEASE CALL THE LABOR AND DELIVERY DEPARTMENT AT . ABNORMAL SIGNS IN Should any of the following signs occur prior to your next visit, please seek medical advice immediately by calling our office during normal business hours, or after hours contact Labor and Delivery at HEAVY VAGINAL BLEEDING LIKE A PERIOD OR SPOTTING. SEVERE ABDOMINAL PAIN WHICH DOES NOT GO AWAY (MAY BE ONE SIDED OR ALL OVER), SEVERE CRAMPING. LEAKING FLUID FROM YOUR VAGINA. BURNING, MORE FREQUENT URINATION, OR URGENCY WHEN YOU URINATE. BLOOD IN YOUR URINE. SEVERE VOMITING. UNABLE TO KEEP EVEN CLEAR LIQUIDS DOWN OVER A 24 HOUR PERIOD. MEDICINES: During your , you may become ill with headaches, cold or flu like symptoms. The following over the counter medicines are safe to take at any time during your (as long as you are not allergic) according to the dose instructions on the bottle. Robitussin Cough Syrup (any kind)--cough Extra-Strength Tylenol--headaches/f ever/muscle aches Imodium AD/Kaopectate--diarr hea TUMS/Maalox/Mylanta/ Zantac--heartburn Senokot/Colace/Dulco lax suppositories--const ipation Benadryl--itching/al lergies Please check with our office prior to taking any other medicines, including health food store items, herbs or additional vitamins. Remember to take your vitamins daily to provide you and your baby with the proper vitamins and minerals during your . They also contain folic acid, which is very important for the prevention of spinal problems in your growing baby during the first few weeks of development. If you are not able to tolerate your vitamins, please contact us as alternatives are available. If you have any questions please call the doctor's office. IMPORTANT INFORMATION DOCTOR VISITS: Your first visit to our office will be a somewhat longer appointment. We will be obtaining your initial OB lab tests, medical history, perform an exam, and provide important information related to your . Once your first visit is complete, we will have you schedule your next visit prior to leaving. We will be seeing you every 4-5 weeks initially and more frequently as your condition requires. At the end of your we will be seeing you weekly. WE WILL SCHEDULE YOUR FOLLOW UP APPOINTMENTS AROUND IMPORTANT LAB TESTS FOR WHICH YOU ARE DUE. IF YOU ARE NOT ABLE TO KEEP YOUR APPOINTMENT, PLEASE CALL OUR APPOINTMENT DESK TO RESCHEDULE IN ORDER TO PREVENT A LAPSE (more content not included)... Normal [facility] Media Consultant Outside [employer] Authentication Interface Message Text Folate is also known as folic acid and folacin. The [employer] recommends that all women of childbearing age in the [place] who are capable of becoming consume a multivitamin containing 400 micrograms (mcg) of folic acid per day in addition to eating a healthy diet including foods rich in folic acid for the purpose of reducing their risk of having a affected with Spina Bifida or other neural tube defects. The neural tube is where the central nervous system develops. This forms between the 18-27 day of embryonic life - before a woman knows she is . FOLIC ACID FOOD SOURCES SHOULD BE A PART OF YOUR DAILY DIET BEFORE . Current diet surveys show the average intake of dietary folic acid among women in the [place] is only 200 mcg a day. FOOD SOURCES OF FOLIC ACID Grains Micrograms 1 cup fortified [id number] cereal 100 - 400 ??? cup wheat germ 82 ??? cup oatmeal 97 [place] Fruits and Juice 1 cup orange juice from concentrate 100 1 cup orange sections 55 ??? cantaloupe 100 Vegetables ??? cup cooked asparagus 132 ??? cup cooked spinach 131 ??? cup cooked brussel sprouts 116 ??? cup cooked peas 70 1 cup jody lettuce 86 Legumes/Nuts ??? cup cooked lentils 179 ??? cup cooked black beans 128 ??? cup kidney beans 115 1/3 cup dry roasted peanuts 109 1/3 cup dry roasted almonds 48 If you would like to see a registered dietitian at [facility] to discuss a pre- diet plan, an appointment can be made by calling . NEW OB PATIENT INFORMATION Congratulations! You are well on your way to becoming a parent. Enclosed in this packet is important information for you to review at your leisure. You will receive other important handouts regarding your health care periodically during the next few months. We encourage you to talk about any questions or concerns that you may have regarding this information or your . Through regular OB visits, it is our goal to assist you in obtaining the result of a positive birthing experience and a healthy baby. We look forward to being your health care providers. Sincerely, [facility] Obstetrics staff OFFICE INFORMATION: [facility] - OBGYN [address] [id number] PATIENTS: IF YOU ARE HAVE AN EMERGENCY OR CALL AFTER HOURS, PLEASE CALL THE LABOR AND DELIVERY DEPARTMENT AT . ABNORMAL SIGNS IN Should any of the following signs occur prior to your next visit, please seek medical advice immediately by calling our office during normal business hours, or after hours contact Labor and Delivery at HEAVY VAGINAL BLEEDING LIKE A PERIOD OR SPOTTING. SEVERE ABDOMINAL PAIN WHICH DOES NOT GO AWAY (MAY BE ONE SIDED OR ALL OVER), SEVERE CRAMPING. LEAKING FLUID FROM YOUR VAGINA. BURNING, MORE FREQUENT URINATION, OR URGENCY WHEN YOU URINATE. BLOOD IN YOUR URINE. SEVERE VOMITING. UNABLE TO KEEP EVEN CLEAR LIQUIDS DOWN OVER A 24 HOUR PERIOD. MEDICINES: During your , you may become ill with headaches, cold or flu like symptoms. The following over the counter medicines are safe to take at any time during your (as long as you are not allergic) according to the dose instructions on the bottle. Robitussin Cough Syrup (any kind)--cough Extra-Strength Tylenol--headaches/f ever/muscle aches Imodium AD/Kaopectate--diarr hea TUMS/Maalox/Mylanta/ Zantac--heartburn Senokot/Colace/Dulco lax suppositories--const ipation Benadryl--itching/al lergies Please check with our office prior to taking any other medicines, including health food store items, herbs or additional vitamins. Remember to take your vitamins daily to provide you and your baby with the proper vitamins and minerals during your . They also contain folic acid, which is very important for the prevention of spinal problems in your growing baby during the first few weeks of development. If you are not able to tolerate your vitamins, please contact us as alternatives are available. If you have any questions please call the doctor's office. IMPORTANT INFORMATION DOCTOR VISITS: Your first visit to our office will be a somewhat longer appointment. We will be obtaining your initial OB lab tests, medical history, perform an exam, and provide important information related to your . Once your first visit is complete, we will have you schedule your next visit prior to leaving. We will be seeing you every 4-5 weeks initially and more frequently as your condition requires. At the end of your we will be seeing you weekly. WE WILL SCHEDULE YOUR FOLLOW UP APPOINTMENTS AROUND IMPORTANT LAB TESTS FOR WHICH YOU ARE DUE. IF YOU ARE NOT ABLE TO KEEP YOUR APPOINTMENT, PLEASE CALL OUR APPOINTMENT DESK TO RESCHEDULE IN ORDER TO PREVENT A LAPSE (more content not included)... Normal [facility] Progress Noteson 10-30-2024 Media Consultant Outside Sales Authentication Interface Message Text Patient was identified by name and date of . Christina Cunningham MA Patient at risk for falls:No Falls Risk protocol implemented: No Normal [facility] Media Consultant Outside Sales Authentication Interface Message Text Maternal Medicine New OB 10/30/2024 10:45 AM CC: Maternal Medicine New OB HPI: Jose R Tapia is a 23 year old at 29w5d with No LMP recorded (lmp unknown). Patient is . Here for new OB, T/f care from [facility]. Desires to be here with this hospital, reports [facility] does not know what they are doing MEDICAL HISTORY (PMHx, PSHx, Family Hx, Social Hx, genetic history, infection history, medications, and allergies reviewed and updated in [facility]). Relevant information as summarized below: OBHx: G1 GYNHx: Pap History: denies history of abnormal pap smears, Last Pap Smear date (10 year lookback): Not Found Past Medical History: Diagnosis Date Dental abscess 10/2024 Resolved Depression No problems currently Headache No meds, takes nap Mild intermittent asthma (HCC) No meds since childhood. Pneumonia, organism unspecified([id number]) 09/30/2004 Past Surgical History: Procedure Laterality Date NO PAST SURGICAL HISTORY Allergies Allergen Reactions Latex Rash Penicillins Other Other Reaction(s): unsure - allergic as young child Current Outpatient Medications on File Prior to Visit Medication Sig Dispense Refill ondansetron (ZOFRAN-ODT) 4 MG disintegrating tablet Take 1 Tablet by mouth every 12 hours as needed for Nausea. Place 1 tablet under tongue as needed for nausea. 10 Tablet 0 acetaminophen (TYLENOL) 500 MG tablet Take 2 Tablets by mouth every 6 (six) hours. 30 Tablet 0 ferrous sulfate 325 mg (65 mg elemental) tablet Take 1 Tablet by mouth daily. 60 Tablet 3 chlorhexidine (PERIDEX) 0.12 % oral solution Swish and spit 15 mL by mouth 2 times daily. 473 mL 3 Lidocaine HCl (lidocaine viscous) 2 % SOLN solution Take 15 mL by mouth every 3 hours as needed (For severe tooth pain). 100 mL 0 TABS tablet Take 1 Tablet by mouth daily. 30 Tablet 5 No current facility-administere d medications on file prior to visit. Family History Problem Relation Age of Onset Other (colitis [Other]) Mother GI Disorders Mother Other (Tachycardia [Other]) Mother Good health Father Cancer runs in family pt denies history of MR or congenital defects, denies personal or family history of blood clotting disorders (thrombophilia or coagulopathy, h/o PE/DVT, etc); denies Ashkenazi Sabianist descent. Family/personal history of any genetic disorders? No Social: + tobacco use smoking, denies current drug use, or current EtOH use in this Review of Systems: Today the patient has no complaints Denies VB, LOF, or contractions She denies abnormal vaginal discharge, pelvic pain and/or fevers, chills, dysuria, or other urinary issues. She also denies nausea/vomiting. See OB followsheet for additional HPI. Constitutional: Negative. HENT: Negative. Eyes: Negative. Respiratory: Negative. Cardiovascular: Negative. Gastrointestinal: Negative. Genitourinary: Negative. Musculoskeletal: Negative. Skin: Negative O: Pulse 105 Comment: manual LMP (LMP Unknown) WT 163lb BP 122/71 HR 105 manual (See Vital Flowsheet) Physical Exam Vitals and nursing notes reviewed. GEN: NAD, pleasant, normal appearance. alert and oriented. HENT: Head: Normocephalic and atraumatic. Nose: Nose normal. Mucous membranes moist. Neck: no thyroid enlargement, full range of motion Eyes: Pupils: Pupils are equal, round, and reactive to light. Cardiovascular: Rate and Rhythm: Normal rate and regular rhythm. Warm and well perfused. Pulmonary: Effort: Pulmonary effort is normal. No increased work of breathing Clear lung sounds bilaterally in all lobes Abdominal: Comments: Gravid; soft, non-tender Musculoskeletal: Cervical back: Normal range of motion. no edema noted, full range of motion, no CVA tenderness Skin: General: Skin is warm and dry, intact. No rash noted Neurological: Mental Status: She is A AND O x3, no obvious deficits Psychiatric: Mood and Affect: Normal mood, behavior, and affect ; no focal deficit present. thought content normal. judgement normal. Obstetrics: FHT 150 + by doppler or reviewed from today's ultrasound See episode visit flowsheet for further examination findings. Pertinent Labs: 10/17/2024 4:29 AM 10/17/2024 5:27 AM 10/17/2024 6:32 AM 10/17/2024 7:32 AM WBC 11.2 RBC 3.25 (L) Hemoglobin 9.6 (L) Hematocrit 28.5 (L) MCV 88 MCH 29.6 MCHC 33.7 Platelet 263 RDW-CV% 14.1 MPV 7.5 Glucose 80 Sodium 140 Potassium 4.0 Carbon Dioxide 23 Chloride 108 (H) BUN 6 (L) Creatinine 0.45 (L) Calcium 7.8 (L) Anion Gap 13 Estimated GFR 138 Glucose, Fasting 80 Glucose, 1Hr 152 Glucose, 2Hr 101 GTT 3 HR 54 (LL) Legend: (L) Low (H) High (LL) Low Panic 10/16/2024 6:46 AM 10/16/2024 12:50 PM Amphetamine Class Negative Barbiturate Class Negative Benzodiazepine Class Negative Methadone Class Negative Fentanyl Negative Opiate Class Negative PCP Class Negative Cocaine (more content not included)... Normal [facility] URINE CULTUREon 10-30-2024 Bacteria identified Cx Nom (U) C URINE: No growth of greater than 1,000 CFU/ml Normal [facility] Comment on above: Performed By: #### C STREP #### [facility] Pathology [address] [facility] [address] [place], [place] [address] Laboratory - Microbiology an d Antimicrobial susceptibilityon 10-20-2024 Bacteria identified Cx Nom (Bld) No Growth [facility] No Panel Informationon 10-20 Interpretation and review of laboratory results [facility] TOX ANALYSIS W/CONFIMATION,U ROrdered By: Lobo Rodriguez on 10-20-2024 Amphetamines Ql (U) Negative Cutoff: 1000 ng/mL [facility] Barbiturates Screen Ql (U) Negative Cutoff: 200 ng/mL [facility] Benzodiazepines Ql (U) Negative Cutof f: 200 ng/mL [facility] Benzoylecgonine Screen Ql (U) Negative Cutoff: 300 ng/mL [facility] Ethanol Screen Ql (U) Negative Cutoff : 10 mg/dL [facility] fentaNYL Screen Ql (U) Negative Cutof f: 1 ng/mL [facility] Interpretation and review of laboratory results Abnormal [facility] Methadone Screen Ql (U) Negative Cuto ff: 300 ng/mL [facility] Opiates Confirm Ql (U) Negative Cutof f: 300 ng/mL [facility] oxyCODONE Confirm (U) [Mass/Vol] Positive Abnormal Cutoff: 100 ng/mL [facility] oxyCODONE Ql (U) Positive Abnormal Cutoff: 100 ng/mL [facility] Comment on above: Oxycodone and metabo lites of Oxycodone (Oxymorphone, Noroxycodone, and Noroxymorphone) are measured/detected in this assay method. oxyMORphone Confirm Ql (U) Positive Abnormal Cutoff: 100 ng/mL [facility] Phencyclidine Ql (U) Negative Cutoff: 25 ng/mL [facility] Tetrahydrocannabinol Screen Ql (U) Negative Cutoff: 50 ng/mL [facility] Screen results are reported as positive (at or above the cutoff) or negative (below the cutoff). The LC-MS/MS testing (if applicable) was developed and its performance characteristics determined by [facility] in a manner consistent with CLIA requirements. This test has not been cleared or approved by the U.S. Food and Drug Administration; however, the FDA has determined that such clearance or approval is not necessary. [facility] AEROBIC WOUND CULTUREOrdered By: Makayla Siegel on 10-18-2024 Bacteria identified Cx Nom (Wound) Normal Oral kendal isolated [facility] Microscopic observation Gram stain Nom (Unsp spec) 1+ Polymorphonuclear Leukocytes [facility] Microscopic observation Gram stain Nom (Unsp spec) No Squamous Epithelial Cells seen [facility] Microscopic observation Gram stain Nom (Unsp spec) Positive [facility] BASIC METABOLIC PANELon 10-07 Anion gap [Moles/Vol] 13 mmol/L Normal 10-20 [facility] Comment on above: Performed By: #### L ACT #### S [facility] [address] [place] [address], Calcium [Mass/Vol] 7.8 mg/dL Low 8.6-10.3 [facility] Comment on above: Performed By: #### L ACT #### [facility] [address] [place] [address], Chloride [Moles/Vol] 108 mmol/L High 98-107 [facility] Comment on above: Performed By: #### L ACT #### [facility] [address] [place] [address], CO2 [Moles/Vol] 23 mmol/L Normal 21-31 [facility] Comment on above: Performed By: #### L ACT #### [facility] [address] [place] [address], Creatinine [Mass/Vol] 0.45 mg/dL Low 0.60-1.20 [facility] Comment on above: Performed By: #### L ACT #### [facility] [address] [place] [address], ESTIMATED GFR (CKD-EPI) 138 mL/min/1.73sqm Normal >=60 [facility] Comment on above: Result Comment: 2020 CKD EPI Equation using Creatinine without Race Comment: Estimated glomerular filtration rate (eGFR) is calculated without a race coefficient. Values should be interpreted in the context of the patient's full clinical presentation. Reference: 1. Jae C, Belén M, Lloyd DC, et al.. A Unifying Approach for GFR Estimation: Recommendations of the NKF-ASN Task Force on Reassessing the Inclusion of Race in Diagnosing Kidney Disease. [place] Journal of Kidney Diseases 2021;79(2):268-88.e1. 2. N Engl J Med 1 Vol. 385 Issue 19 Pages 7094-7727 Performed By: #### L ACT #### [facility] [address] [place] [address], Glucose [Mass/Vol] 80 mg/dL Normal 74-109 [facility] Comment on above: Performed By: #### L ACT #### S [facility] [address] [place] [address], Potassium [Moles/Vol] 4.0 mmol/L Normal 3.5-5.0 [facility] Comment on above: Performed By: #### L ACT #### S [facility] [address] [place] [address], Sodium [Moles/Vol] 140 mmol/L Normal 136-145 [facility] Comment on above: Performed By: #### L ACT #### [facility] [address] [place] [address], Urea nitrogen [Mass/Vol] 6 mg/dL Low 7-25 [facility] Comment on above: Performed By: #### L ACT #### [facility] [address] [place] [address], Basic metabolic 2000 panelon 10-17-2024 Anion gap [Moles/Vol] 13 mmol/L 10 - 20 [facility] Calcium [Mass/Vol] 7.8 mg/dL Low 8.6 - 10. 3 mg/dL [facility] Chloride [Moles/Vol] 108 mmol/L High 98 - 10 7 mmol/L [facility] CO2 [Moles/Vol] 23 mmol/L 21 - 31 mmol/L [facility] Creatinine [Mass/Vol] 0.45 mg/dL Low 0.60 - 1.20 mg/dL [facility] GFR/1.73 sq M.predicted CKD-EPI (S/P/Bld) [Vol rate/Area] 138 - PINF [facility] Comment on above: 2020 CKD EPI Equatio n using Creatinine without Race Comment: Estimated glomerular filtration rate (eGFR) is calculated without a race coefficient. Values should be interpreted in the context of the patient's full clinical presentation. Reference: 1. Jae De Dios, Belén M, Lloyd DC, et al.. A Unifying Approach for GFR Estimation: Recommendations of the NKF-ASN Task Force on Reassessing the Inclusion of Race in Diagnosing Kidney Disease. [place] Journal of Kidney Diseases 202;79(2):268-88.e1. 2. N Engl J Med 2020 Vol. 385 Issue 19 Pages 0890-5806 Glucose [Mass/Vol] 80 mg/dL 74 - 109 mg/dL [facility] Interpretation and review of laboratory results Abnormal [facility] Potassium [Moles/Vol] 4 mmol/L 3.5 - 5.0 mmol/L [facility] Sodium [Moles/Vol] 140 mmol/L 136 - 145 mmol/L [facility] Urea nitrogen [Mass/Vol] 6 mg/dL Low 7 - 25 mg/dL [facility] CBC panel Auto (Bld)on 10-17 Erythrocyte distribution width (RBC) [Ratio] 14.1 % 11.5 - 14.5 % [facility] Hematocrit (Bld) [Volume fraction] 28.5 % Low 36.0 - 46.0 % [facility] Hemoglobin (Bld) [Mass/Vol] 9.6 g/dL Low 12.0 - 15.0 g/dL [facility] Interpretation and review of laboratory results Abnormal [facility] MCH (RBC) [Entitic mass] 29.6 pg 26.0 - 34.0 pg [facility] MCHC (RBC) [Mass/Vol] 33.7 g/dL 32.0 - 35.9 g/dL [facility] MCV (RBC) [Entitic vol] 88 fL 80 - 100 fL [facility] Platelet mean volume (Bld) [Entitic vol] 7.5 fL 7.5 - 11.2 fL [facility] Platelets (Bld) [#/Vol] 263 10*3/uL 150 - 400 K/uL [facility] RBC (Bld) [#/Vol] 3.25 10*6/uL Low [facility] WBC (Bld) [#/Vol] 11.2 10*3/uL 4.5 - 11.5 K/uL [facility] COMPLETE BLOOD COUNTon 10-17 Erythrocyte distribution width (RBC) [Ratio] 14.1 % Normal 11.5-14.5 [facility] Comment on above: Performed By: #### T S #### [facility] [address] [place] [address], Hematocrit (Bld) [Volume fraction] 28.5 % Low 36.0-46.0 [facility] Comment on above: Performed By: #### T S #### [facility] [address] [place] [address], Hemoglobin (Bld) [Mass/Vol] 9.6 g/dL Low 12.0-15.0 [facility] Comment on above: Performed By: #### T S #### [facility] [address] [place] [address], MCH (RBC) [Entitic mass] 29.6 pg Normal 26.0-34.0 [facility] Comment on above: Performed By: #### T S #### [facility] [address] [place] [address], MCHC (RBC) [Mass/Vol] 33.7 g/dL Normal 32.0-35.9 [facility] Comment on above: Performed By: #### T S #### S [facility] [address] [place] [address], MCV (RBC) [Entitic vol] 88 fL Normal 80-100 [facility] Comment on above: Performed By: #### T S #### S PATH[facility] LAB[facility]ORY [address], [place], Platelet mean volume (Bld) [Entitic vol] 7.5 fL Normal 7.5-11.2 [facility] Comment on above: Performed By: #### T S #### S [facility] [address] [place] [address], Platelets (Bld) [#/Vol] 263 10*3/uL Normal 150-400 [facility] Comment on above: Performed By: #### T S #### [facility] [address], [place], RBC (Bld) [#/Vol] 3.25 10*6/uL Low 4.00-5.20 [facility] Comment on above: Performed By: #### T S #### [facility] [address], [place], WBC (Bld) [#/Vol] 11.2 10*3/uL Normal 4.5-11.5 [facility] Comment on above: Performed By: #### T S #### [facility] [address], [place], EKG 12 LEAD - PERFORMon 10-07 Diagnosis Sinus tachycardia Otherwise normal ECG No previous ECGs available Confirmed by MAKAYLA GOLDEN ([id number]) on 10/17/2024 1:11:09 PM [facility] P wave [facility] by EKG 102 BPM [facility] P wave axis 76 degrees [facility] P-R Interval 136 ms [facility] Q-T interval 326 ms [facility] Q-T interval corrected 424 ms [facility] QRS axis 29 degrees [facility] QRS duration 74 ms [facility] T wave axis 35 degrees [facility] LAB ONLY-GLUCOSE, 0FASTING G TT10-17-2024 Glucose post fast [Mass/Vol] 80 mg/dL NINF - 95 mg/dL [facility] Interpretation and review of laboratory results Normal [facility] GLUCOSE, FASTING GTT3 80 mg/dL Normal <95 [facility] Comment on above: Performed By: #### 1 [id number] ####[facility] [id number] [place], [place], LAB ONLY-GLUCOSE, 1 HOUR GTT 10-17-2024 Glucose [Mass/Vol] 152 mg/dL NINF - 18 0 mg/dL [facility] Interpretation and review of laboratory results Normal [facility] GLUCOSE, 1 HOUR GTT3 152 mg/dL Normal <180 [facility] Comment on above: Performed By: #### 1 [id number] ####[facility] [id number] [place], [place], LAB ONLY-GLUCOSE, 2 HOUR GTT 3on 10-17-2024 Glucose 2 Hr post 75 g glucose PO [Mass/Vol] 101 mg/dL NINF - 155 mg/dL [facility] Interpretation and review of laboratory results Normal [facility] GLUCOSE, 2 HOUR GTT3 101 mg/dL Normal <155 [facility] Comment on above: Performed By: #### 1 [id number] ####[facility] [id number] [place], [place], LAB ONLY-GLUCOSE, 3 HOUR GTT 3Ordered By: Chidi Wheeler on 10-17-2024 Glucose 3 Hr post 75 g glucose PO [Mass/Vol] 54 mg/dL Critically low NINF - 140 mg/dL [facility] Interpretation and review of laboratory results Abnormal [facility] LAB ONLY-GLUCOSE, 3 HOUR GTT 3on 10-17-2024 GLUCOSE, 3 HOUR GTT3 54 mg/dL Critically low <140 [facility] Comment on above: Performed By: #### 1 [id number] ####[facility] [id number] [place], [place], No Panel Informationon 10-17 [facility] Procedureson 10-17-2024 [employer] Authentication Interface Message Text Jose R Tapia is a 23 year old at 27w6d admitted for sepsis (now resolved) secondary to left mandibular abscess. NST: FHR: Baseline 130 Accels present Decels absent Variability: moderate TOCO: CTX: No Reactive Reanna Mason MD Obstetrics and Gynecology, PGY-1 I have personally reviewed the NST. NST reactive. I agree with the resident's documentation as stated above. Talisha Rahman MD Normal [facility] Progress Noteson 10-17-2024 [employer] Authentication Interface Message Text /BEREKET Mason notified of critical Glucose value of 54. /BEREKET Mason read back critical results. New orders not received. 0830: Pt's breakfast delivered to bedside Normal [facility] BASIC METABOLIC PANELon 10-07 Anion gap [Moles/Vol] 12 mmol/L Normal 10-20 [facility] Comment on above: Performed By: #### C BC #### [facility] [address] [facility] [place], Calcium [Mass/Vol] 8.1 mg/dL Low 8.6-10.3 [facility] Comment on above: Performed By: #### C BC #### S [facility] [address] [place] [address], Chloride [Moles/Vol] 105 mmol/L Normal 98-107 [facility] Comment on above: Performed By: #### C BC #### [facility] [address] [place] [address], CO2 [Moles/Vol] 23 mmol/L Normal 21-31 [facility] Comment on above: Performed By: #### C BC #### [facility] [address] [place] [address], Creatinine [Mass/Vol] 0.43 mg/dL Low 0.60-1.20 [facility] Comment on above: Performed By: #### C BC #### [facility] [address] [place] [address], ESTIMATED GFR (CKD-EPI) 139 mL/min/1.73sqm Normal >=60 [facility] Comment on above: Result Comment: 2020 CKD EPI Equation using Creatinine without Race Comment: Estimated glomerular filtration rate (eGFR) is calculated without a race coefficient. Values should be interpreted in the context of the patient's full clinical presentation. Reference: 1. Jae C, Belén M, Lloyd MCCLENDON, et al.. A Unifying Approach for GFR Estimation: Recommendations of the NKF-ASN Task Force on Reassessing the Inclusion of Race in Diagnosing Kidney Disease. [place] Journal of Kidney Diseases 2021;79(2):268-88.e1. 2. N Engl J Med 1 Vol. 385 Issue 19 Pages 8307-9245 Performed By: #### C BC #### S [facility] [address] [place] [address], Glucose [Mass/Vol] 80 mg/dL Normal 74-109 [facility] Comment on above: Performed By: #### C BC #### S [facility] [address] [place] [address], Potassium [Moles/Vol] 4.2 mmol/L Normal 3.5-5.0 [facility] Comment on above: Performed By: #### C BC #### S [facility] [address], [place], Sodium [Moles/Vol] 136 mmol/L Normal 136-145 [facility] Comment on above: Performed By: #### C BC #### S [facility] [address], [place], Urea nitrogen [Mass/Vol] 4 mg/dL Low 7-25 [facility] Comment on above: Performed By: #### C BC #### S [facility] [address], [place], Basic metabolic 2000 panelon 10-16-2024 Anion gap [Moles/Vol] 12 mmol/L 10 - 20 [facility] Calcium [Mass/Vol] 8.1 mg/dL Low 8.6 - 10. 3 mg/dL [facility] Chloride [Moles/Vol] 105 mmol/L 98 - 10 7 mmol/L [facility] CO2 [Moles/Vol] 23 mmol/L 21 - 31 mmol/L [facility] Creatinine [Mass/Vol] 0.43 mg/dL Low 0.60 - 1.20 mg/dL [facility] GFR/1.73 sq M.predicted CKD-EPI (S/P/Bld) [Vol rate/Area] 139 - PINF [facility] Comment on above: 2020 CKD EPI Equatio n using Creatinine without Race Comment: Estimated glomerular filtration rate (eGFR) is calculated without a race coefficient. Values should be interpreted in the context of the patient's full clinical presentation. Reference: 1. Jae C, Belén M, Lloyd MCCLENDON, et al.. A Unifying Approach for GFR Estimation: Recommendations of the NKF-ASN Task Force on Reassessing the Inclusion of Race in Diagnosing Kidney Disease. [place] Journal of Kidney Diseases 2021;79(2):268-88.e1. 2. N Engl J Med 2020 Vol. 385 Issue 19 Pages 5231-9838 Glucose [Mass/Vol] 80 mg/dL 74 - 109 mg/dL [facility] Interpretation and review of laboratory results Abnormal [facility] Potassium [Moles/Vol] 4.2 mmol/L 3.5 - 5.0 mmol/L [facility] Sodium [Moles/Vol] 136 mmol/L 136 - 145 mmol/L [facility] Urea nitrogen [Mass/Vol] 4 mg/dL Low 7 - 25 mg/dL [facility] CBC W/Diff, Automatedon 10-07 PATH REV Reviewed Normal [facility] Comment on above: Result Comment: Neut rophilic leukocytosis. Normocytic anemia. Clinical correlation necessary. Kuldeep Navarro M.D. 10/16/24 AMENDED REPORT 10/16/24 0747 PATH REV previously reported as: January Performed By: #### L 100.0100, L503.6005, L500.4050 #### [facility] [address] [place], [address] CBC panel Auto (Bld)on 10-16 Erythrocyte distribution width (RBC) [Ratio] 14.2 % 11.5 - 14.5 % [facility] Hematocrit (Bld) [Volume fraction] 29.9 % Low 36.0 - 46.0 % [facility] Hemoglobin (Bld) [Mass/Vol] 9.8 g/dL Low 12.0 - 15.0 g/dL [facility] Interpretation and review of laboratory results Abnormal [facility] MCH (RBC) [Entitic mass] 29 pg 26.0 - 34.0 pg [facility] MCHC (RBC) [Mass/Vol] 32.8 g/dL 32.0 - 35.9 g/dL [facility] MCV (RBC) [Entitic vol] 88 fL 80 - 100 fL [facility] Platelet mean volume (Bld) [Entitic vol] 7.6 fL 7.5 - 11.2 fL [facility] Platelets (Bld) [#/Vol] 298 10*3/uL 150 - 400 K/uL [facility] RBC (Bld) [#/Vol] 3.38 10*6/uL Low [facility] WBC (Bld) [#/Vol] 12.7 10*3/uL High 4.5 - 11.5 K/uL [facility] COMPLETE BLOOD COUNTon 10-16 Erythrocyte distribution width (RBC) [Ratio] 14.2 % Normal 11.5-14.5 [facility] Comment on above: Performed By: #### L ACT #### [facility] [address] [place] [address], Hematocrit (Bld) [Volume fraction] 29.9 % Low 36.0-46.0 [facility] Comment on above: Performed By: #### L ACT #### [facility] [address] [place] [address], Hemoglobin (Bld) [Mass/Vol] 9.8 g/dL Low 12.0-15.0 [facility] Comment on above: Performed By: #### L ACT #### [facility] [address] [place] [address], MCH (RBC) [Entitic mass] 29.0 pg Normal 26.0-34.0 [facility] Comment on above: Performed By: #### L ACT #### [facility] [address] [place] [address], MCHC (RBC) [Mass/Vol] 32.8 g/dL Normal 32.0-35.9 [facility] Comment on above: Performed By: #### L ACT #### [facility] [address] [place] [address], MCV (RBC) [Entitic vol] 88 fL Normal 80-[address] [facility] Comment on above: Performed By: #### L ACT #### [facility] [address] [place] [address], Platelet mean volume (Bld) [Entitic vol] 7.6 fL Normal 7.5-11.2 [facility] Comment on above: Performed By: #### L ACT #### [facility] [address] [place] [address], Platelets (Bld) [#/Vol] 298 10*3/uL Normal 150-400 [facility] Comment on above: Performed By: #### L ACT #### [facility] [address] [place] [address], RBC (Bld) [#/Vol] 3.38 10*6/uL Low 4.00-5.20 [facility] Comment on above: Performed By: #### L ACT #### S PATHOLOGY LABORATORY [address], [place], WBC (Bld) [#/Vol] 12.7 10*3/uL High 4.5-11.5 [facility] Comment on above: Performed By: #### L ACT #### S PATH[facility] LAB[facility]ORY [address], [place], CT FACE SOFT TISSUE W/CONTRA STon 10-16-2024 CT FACE SOFT TISSUE W/CONTRAST EXAMINATION: CT FACE SOFT TISSUE W/CONTRAST 10/16/2024 02:49 AM CLINICAL HISTORY: Abscess; Face pain; submandibular abscess s/p drainage by [facility] DIAGNOSIS: Dental abscess Submandibular abscess ORDERING PROVIDER: MELITA ALEJANDRE TECHNOLOGISTS NOTE: COMPARISON: None TECHNIQUE: Thin isotropic axial images were obtained through the maxillofacial area with intravenous contrast. 2D sagittal and coronal reconstructions were obtained from the axial data. Before infusion of intravenous contrast, radiology personnel investigated the possibility of an allergic history and of any history of reaction to iodinated contrast material. Contrast Protocol: Omnipaque 350 [>or =100lb] 75 ml [<100 lb] 1 ml per 1 lb. INTRA-PROCEDURE MEDS: iohexol (OMNIPAQUE) 350 MG/ML injection 75 mL Route: Intravenous Push FINDINGS: Mandible, maxilla and dentition: There is significant phlegmon and inflammation throughout the left buccal space with thickening of the platysma with haziness/hypoattenua tion of the left masseter muscle suspicious for myositis. There is no discrete well-defined drainable abscess. Significant dental disease with multiple dental caries. The source of the left facial infection is probably the left first mandibular molar which demonstrates significant periapical lucency with a small defect through the buccal cortex. There is also periapical lucency surrounding the left second mandibular bicuspid with the additional lucency through the buccal cortex. Additional mild periapical lucency surrounding the left second mandibular molar. Additional dental caries and periapical lucencies. Orbits: No visible inflammation. Paranasal sinuses: Moderate paranasal sinus mucosal thickening. Vasculature: No evidence of acute thrombosis. Lymph nodes: There is reactive cervical chain adenopathy. Aerodigestive tract: No suspicious mass lesion. Other osseous structures: No acute fracture. Included intracranial contents: Noncontributory. IMPRESSION: Significant soft tissue infection/phlegmon throughout the left face with myositis of the left masseter muscle without discrete drainable abscess. The source is probably the left first mandibular molar with possible contributions from the left second mandibular bicuspid. MACRO: None Normal [facility] CT Maxillofacial region W co ntrast IVOrdered By: Primo Hines on 10-16-2024 CT DLP 852.44 (mGycm) Iwebal[employer]et h Work Phone: CT Series Head,Head,Head Keepy Work Phone: CTDI VOL 52.86 (mGy) [facility] Work Phone: PHANTOM TYPE [employer] Head Dosimetry Phantom [facility] Work Phone: [facility] Work Phone: CT Maxillofacial region W co ntrast James 10-16-2024 EXAMINATION: CT FACE SOFT TISSUE W/CONTRAST 10/16/2024 02:49 AM CLINICAL HISTORY: Abscess; Face pain; submandibular abscess s/p drainage by [facility] DIAGNOSIS: Dental abscess Submandibular abscess ORDERING PROVIDER: MELITA ALEJANDRE TECHNOLOGISTS NOTE: COMPARISON: None TECHNIQUE: Thin isotropic axial images were obtained through the maxillofacial area with intravenous contrast. 2D sagittal and coronal reconstructions were obtained from the axial data. Before infusion of intravenous contrast, radiology personnel investigated the possibility of an allergic history and of any history of reaction to iodinated contrast material. Contrast Protocol: Omnipaque 350 [>or =100lb] 75 ml [<100 lb] 1 ml per 1 lb. INTRA-PROCEDURE MEDS: iohexol (OMNIPAQUE) 350 MG/ML injection 75 mL Route: Intravenous Push FINDINGS: Mandible, maxilla and dentition: There is significant phlegmon and inflammation throughout the left buccal space with thickening of the platysma with haziness/hypoattenua tion of the left masseter muscle suspicious for myositis. There is no discrete well-defined drainable abscess. Significant dental disease with multiple dental caries. The source of the left facial infection is probably the left first mandibular molar which demonstrates significant periapical lucency with a small defect through the buccal cortex. There is also periapical lucency surrounding the left second mandibular bicuspid with the additional lucency through the buccal cortex. Additional mild periapical lucency surrounding the left second mandibular molar. Additional dental caries and periapical lucencies. Orbits: No visible inflammation. Paranasal sinuses: Moderate paranasal sinus mucosal thickening. Vasculature: No evidence of acute thrombosis. Lymph nodes: There is reactive cervical chain adenopathy. Aerodigestive tract: No suspicious mass lesion. Other osseous structures: No acute fracture. Included intracranial contents: Noncontributory. IMPRESSION: Significant soft tissue infection/phlegmon throughout the left face with myositis of the left masseter muscle without discrete drainable abscess. The source is probably the left first mandibular molar with possible contributions from the left second mandibular bicuspid. MACRO: None RADIOLOGY Primo Hines DO - 10/16/2024 EXAMINATION: CT FACE SOFT TISSUE W/CONTRAST 10/16/2024 02:49 AM CLINICAL HISTORY: Abscess; Face pain; submandibular abscess s/p drainage by [facility] DIAGNOSIS: Dental abscess Submandibular abscess ORDERING PROVIDER: MELITA ALEJANDRE TECHNOLOGISTS NOTE: COMPARISON: None TECHNIQUE: Thin isotropic axial images were obtained through the maxillofacial area with intravenous contrast. 2D sagittal and coronal reconstructions were obtained from the axial data. Before infusion of intravenous contrast, radiology personnel investigated the possibility of an allergic history and of any history of reaction to iodinated contrast material. Contrast Protocol: Omnipaque 350 [>or =100lb] 75 ml [<100 lb] 1 ml per 1 lb. INTRA-PROCEDURE MEDS: iohexol (OMNIPAQUE) 350 MG/ML injection 75 mL Route: Intravenous Push FINDINGS: Mandible, maxilla and dentition: There is significant phlegmon and inflammation throughout the left buccal space with thickening of the platysma with haziness/hypoattenua tion of the left masseter muscle suspicious for myositis. There is no discrete well-defined drainable abscess. Significant dental disease with multiple dental caries. The source of the left facial infection is probably the left first mandibular molar which demonstrates significant periapical lucency with a small defect through the buccal cortex. There is also periapical lucency surrounding the left second mandibular bicuspid with the additional lucency through the buccal cortex. Additional mild periapical lucency surrounding the left second mandibular molar. Additional dental caries and periapical lucencies. Orbits: No visible inflammation. Paranasal sinuses: Moderate paranasal sinus mucosal thickening. Vasculature: No evidence of acute thrombosis. Lymph nodes: There is reactive cervical chain adenopathy. Aerodigestive tract: No suspicious mass lesion. Other osseous structures: No acute fracture. Included intracranial contents: Noncontributory. IMPRESSION: Significant soft tissue infection/phlegmon throughout the left face with myositis of the left masseter muscle without discrete drainable abscess. The source is probably the left first mandibular molar with possible contributions from the left second mandibular bicuspid. MACRO: None [facility] Radiology Study observation (narrative) [facility] Consultson 10-16-2024 Media Consultant Outside Sales Authentication Interface Message Text SOCIAL WORK COVERAGE NOTE SW aware of consult for 'Substance abuse resources/interventi ons'. Per chart review, pt with history of substance use. SW met with pt at bedside, visitor present during discussion with pt's permission. This is pt's first per her report. Pt states she stopped using substances prior to and has not used again during this . Pt attends an IOP program through [facility] in [place]. Pt denies need for additional substance use resources at this time. Tox screen is pending. No discharge or SDOH concerns noted by pt. Pt aware to alert SW should needs arise prior to discharge. SW remains available. GRAHAM Guo, FUSE ASSEMBLER Inpatient Social Work Normal The [facility] Media Consultant Outside Sales Authentication Interface Message Text scale manager Consult Note 10/16/2024 CC: Dental abscess and sepsis HPI: Jose R Tapia is a 23 year old at 27w5d who presented to Labor AND Delivery yesterday afternoon for dental abscess and sepsis. (10/15) She presented to [facility] ED on 10/14 with 2-3 days of worsening left lower jaw. She had been seen in the [place] ED that morning and discharged on oral clindamycin. She was afebrile, labs notable for leukocytosis of 18.1 with left shift, lactate 0.8. CT head and neck showed subperiosteal abscess of L outer mandible extending from dental source with extensive cellulitis and reactive submandibular adenopathy. Transfer to [place] for treatment was initially planned due to no dental/OMFS providers available at [facility], but pt declined and left AMA, transported herself to [facility]. In the [facility] ED, labs notable for continued leukocytosis with L shift, mild hypomagnesemia/hypok alemia, and elevated lactate of 2.5. Afebrile but tachycardic to 120s on presentation and she met sepsis criteria at this time, so blood cx collected. She was seen by OMFS who performed I AND D of L facial abscess in the ED with ~5cc fluid collected and sent for culture. OMFS recommended continuing IV antibiotics and CT facial bones with contrast, so pt was admitted to antepartum for continued IV abx and observation in the setting of sepsis. She has been able to swallow and drink fluids but has had decreased intake over the last few days as the pain has limited her ability to open her mouth. Interval update: Today the patient reports she is doing much better. She states she has been able to eat with success. She's had some water and snacks. She states this dental problem has been here since about Wednesday of last week, this has never occurred before. She currently lives in [place] with her grandmother, she has a stable partner whom she feels safe with. They plan to move in together here in [place] off [address] in an apartment that used to be owned by her grandfather. She is currently here with her cousin who drover her up here, she states she would like to continue her care through [facility]. 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 However, she was arrested and sent to halfway for a week, after which she did not use meth again. She states she did not go to a rehab facility or have any formal detox therapy and was able to stop without assistance herself. She denies any cravings at this time, she is agreeable to a urine tox screen. She states she is unsure whether she wasnts to breast or bottle feed and is also unsure of contraception - she reports wanting it, but is unsure what she should receive when it is time. Regarding her jaw swelling, she reports it is much improved compared to earlier this week, she states OMFS recommended they remove several teeth but is unsure when they plan to do this, just told that it would likely happen while she was admitted. She denies any fever, nausea, vomiting, chills, sweats, or weakness. She states her pain is well controlled with her current regimen. She denies any LOF, vaginal bleeding, reports normal movement, denies contractions. ROS: otherwise negative except as above. Past Medical History: Diagnosis Date Mild intermittent asthma (HCC) Pneumonia, organism unspecified(486) 09/30/04 Past Surgical History: Procedure Laterality Date NO PAST SURGICAL HISTORY Allergies Allergen Reactions Latex Rash Penicillins Other Other Reaction(s): unsure - allergic as young child Current Facility-Administere d Medications: lactated ringers iv infusion, , Intravenous, Continuous, Lito Pitt MD, Stopped at 10/16/24 0516 nicotine (NICODERM CQ) 14 mg/24HR patch, 14 mg, Transdermal, Daily, Melita Alejandre MD, 14 mg at 10/15/24 1531 cefepime (MAXIPIME) 2-5 GM-%(50ML) in dextrose 5% 50 mL ivpb, 2,000 mg, Intravenous, Q8H Antibiotic, Melita Alejandre MD, Last Rate: 100 mL/hr at 10/16/24 0516, 2,000 mg at 10/16/24 0516 chlorhexidine (PERIDEX) 0.12 % oral solution, 15 mL, Swish AND Spit, 2x Daily, Melita Alejandre MD, 15 mL at 10/15/24 2134 tablet, 1 Tablet, Oral, Daily, Melita Alejandre MD, 1 Tablet at 10/15/24 1438 ondansetron (ZOFRAN) 4 MG/2ML injection, 4 mg, Intravenous Push, Q6H PRN, Melita Alejandre MD docusate sodium (COLACE) capsule, 100 mg, Oral, 2x Daily, Melita Alejandre MD, 100 mg at 10/15/24 2100 oxyCODONE immediate release tablet, 5 mg, Oral, Q4H PRN, Melita Alejandre MD, 5 mg at 10/16/24 0552 acetaminophen (TYLENOL) tablet, 1,000 mg, Oral, q6h, Melita Alejandre MD, 1,000 mg at 10/16/24 0203 metroNIDAZOLE (FLAGYL) 500 MG/100ML ivpb, 500 mg, Intravenous, Q8H Antibiotic, Ev Sparks MD, Last Rate: 100 mL/hr at 10/16/24256, 500 mg at 10/16/24256 OBJ: BP 113/61 (BP Location: lef (more content not included)... Normal [facility] SKILLED NURSING SECOND/THIRD TRIMESTER O Bon 10-16-2024 SKILLED NURSING SECOND/THIRD TRIMESTER OB Indication ======== Indication: Uterine Size-Date Discrepancy,complica ting Growth Overview Exam date GA BPD (mm) HC (mm) AC (mm) FL (mm) HL (mm) EFW (g) 10/15/2024 28w 2d 74.2 83% 269 51% 234 26% 48.4 2% 1083 15% Method ====== Transabdominal ultrasound examination. View: Sufficient ========= Irizarry . Number of fetuses: 1 Dating ====== Ultrasound examination on: 10/15/2024 GA by U/S based upon: AC, BPD, Femur, HC GA by U/S 28 w + 2 d BRIANNA by U/S: 01/05/2025 Assigned: based on ultrasound (AC, BPD, Femur, HC), selected on 10/15/2024 Assigned GA 28 w + 2 d Assigned BRIANNA: 01/05/2025 General Evaluation Cardiac activity present. FHR 127 bpm. movements: visualized. Presentation: cephalic Placenta: Placental site: anterior Amniotic fluid: Amount of AF: normal amount . MVP 6.6 cm. RODRÍGUEZ 25.2 cm. Q1 5.8 cm, Q2 6.4 cm, Q3 6.6 cm, Q4 6.5 cm Biometry Standard BPD 74.2 mm 29w 5d 83% Hadlock HC 269.0 mm 29w 2d 51% Hadlock AC 234.0 mm 27w 5d 26% Hadlock Femur 48.4 mm 26w 2d 2% Hadlock HC / AC 1.15 EFW 1,083 g 15% Hadlock EFW (lb) 2 lb EFW (oz) 6 oz EFW by: Hadlock ([id number]) Other Structures FHR 127 bpm Anatomy Cranium: normal Cavum septi pellucidi: normal 4-chamber view: normal Stomach: normal Maternal Structures Uterus / Cervix Uterus: Visualized Impression ========= Ms. TAPIA presents to L AND D and a growth scan was performed for the above indications Ultrasound reveals a irizarry fetus in utero. The estimated weight is at the 15%. The abdominal circumference measures at the 26%. The amniotic fluid is within normal limits. Impression: A 28w 2d irizarry intrauterine gestation. Appropriate growth and amniotic fluid volume. Normal [facility] FERRITINon 10-16-2024 Ferritin [Mass/Vol] 32.2 ng/mL 11.0 - 3 06.8 ng/mL [facility] Interpretation and review of laboratory results Normal [facility] CEFERINO 32.2 ng/mL Normal 11.0-306.8 [facility] Comment on above: Performed By: #### C BC #### [facility] [address] [place] [address], FOLIC ACIDon 10-16-2024 Folate [Mass/Vol] 21.5 ng/mL 5.9 - 24.7 ng/mL [facility] Interpretation and review of laboratory results Normal [facility] FOL 21.5 ng/mL Normal 5.9-24.7 [facility] Comment on above: Performed By: #### C BC #### [facility] [address] [place] [address], GC/CHLAMYDIA/TRICHOMONAS AMP LIFICATIONon 10-16-2024 C. trachomatis DNA ANALI+probe Ql (Unsp spec) Negative Negative [facility] Interpretation and review of laboratory results Normal [facility] N. gonorrhoeae DNA ANALI+probe Ql (Unsp spec) Negative Negative [facility] T. vaginalis DNA ANALI+probe Ql (Unsp spec) Negative Negative [facility] This test is performed using an automated nucleic acid amplification assay ([employer] [facility] GLUCOSE OB SCREENon 10-16-19 25 Glucose 1 Hr post 50 g glucose PO [Mass/Vol] 178 mg/dL High NINF - 135 mg/dL [facility] Interpretation and review of laboratory results Abnormal [facility] GLUOBSCRN 178 mg/dL High <135 [facility] Comment on above: Performed By: #### C BC #### [facility] [address], [place], HCV Ab IA Qn (S)on HCV Ab Ql (S) Non-Reactive Nonreactive [facility] Interpretation and review of laboratory results Normal [facility] HEPATITIS B SURFACE ANTIGENo n 10-16-2024 HBV surface Ag Ql (S) Non-Reactive Non-Reactive [facility] Interpretation and review of laboratory results Normal [facility] HIV 1 and 2 Ab and HIV 1 p24 Ag panel IAon 10-16-2024 HIV 1+2 Ab+HIV1 p24 Ag IA Ql Non-Reactive Non-Reactive [facility] Comment on above: No laboratory eviden ce for HIV Infection. Negative result does not rule out acute HIV infection. If acute HIV infection is suspected, recommend ordering an HIV-1 RNA quanitification test. Interpretation and review of laboratory results Normal [facility] HIV Information: [place] Rev. code 3701.243(E): This information has been disclosed to you from confidential records protected from disclosure by state law. You shall make no further disclosure of this information without the specific, written, and informed release of the individual to whom it pertains, or as otherwise permitted by state law. A general authorization for the release of medical or other information is not sufficient for the purpose of the release of HIV test results or diagnoses. [facility] IRON AND TIBCon 10-16-2024 Interpretation and review of laboratory results Abnormal [facility] Iron [Mass/Vol] 42 ug/dL Low 50 - 212 ug/dL [facility] Iron binding capacity [Mass/Vol] 417 ug/mL High 250 - 410 ug/mL [facility] Iron saturation [Mass fraction] 10 % Low 20 - 55 % [facility] Transferrin [Mass/Vol] 298 mg/dL 203 - 362 mg/dL [facility] % SAT CORRECT PRD 10 % Low 20-55 [facility] Comment on above: Performed By: #### C BC #### [facility] [address], [place], FE CORRECT PRD 42 ug/dL Low 50-212 [facility] Comment on above: Performed By: #### C BC #### [facility] [address], [place], TIBC CORRECT PRD 417 ug/mL High 250-410 [facility] Comment on above: Performed By: #### C BC #### [facility] [address], [place], TRANSFER CORRECT PRD 298 mg/dL Normal 203-362 [facility] Comment on above: Performed By: #### C BC #### [facility] [address], [place], Procedureson 10-16-2024 Media Consultant Outside Sales Authentication Interface Message Text Jose R Tapia is a 23 year old at 27w5d admitted for L dental abscess/sepsis NST: FHR: Baseline 130 Accels present Decels absent Variability: moderate TOCO: CTX: No Reactive Reanna Mason MD Obstetrics and Gynecology, PGY-1 I have personally reviewed the above NST. I agree with the resident's documentation as stated above. Reactive NST. Talisha Rahman MD Normal [facility] Progress Noteson 10-16-2024 Media Consultant Outside Sales Authentication Interface Message Text Teaching Physician Note: I saw and evaluated the patient. I personally obtained the garcia and critical portions of the history and physical exam. I reviewed the resident's documentation and discussed the patient with the resident. I agree with the resident's medical decision making as documented in the resident's note. Chad Davis DMD, MD Normal [facility] Media Consultant Outside Sales Authentication Interface Message Text 1254: Sent urine tox. Pt aware. Expressed concern that medicine that I got in the ED might show up in test. RN reassured pt that the physicians will account for any narcotics that show up in urine given by hospital. 1255: Pt drank orange glucola. RN will take sample in 1 hr. Pt aware Normal [facility] Media Consultant Outside Sales Authentication Interface Message Text Normal [facility] Authentication Interface Message Text 0548 EFM for NST able to be d/hannah per Dr Betancourt Normal [facility] RUBELLAon 10-16-2024 Rubella virus Ab IA Qn (S) 18.1 IU/mL [facility] Rubella virus IgG (S) [Interp] Reactive [facility] Nonreactive : < or = 9.9 IU/mL Equivocal : 10.0 - 14.9 IU/mL Reactive : > or = 15.0 IU/mL * A Nonreactive test result indicates no current or previous infection with rubella virus. Such individuals are presumed to be susceptible to primary infection. * A Reactive test result indicates past or current infection with rubella virus or vaccination and indicates immunity to rubella. The following results were obtained using the Access Rubella IgG EIA assay. Values obtained with different manufacturer representative s assay methods may not be used interchangeably. [facility] SYPHILIS TOTAL/TPPAon 2024 T. pallidum Ab LA Qn (S) [facility] T. pallidum IgG+IgM IA Ql (S) Non-Reactive Non-Reactive [facility] No results found for: TPPA No components found for: FTA No serologic evidence of syphilis. If recent exposure/early infection is suspected, repeat testing in 2-4 weeks. [facility] TOX ANALYSIS W/CONFIMATION,U Abran 10-16-2024 ALCOHOL - TOX W/ CONF Negative Normal Cutoff: 10 [facility] Comment on above: Order Comment: Scree n results are reported as positive (at or above the cutoff) or negative (below the cutoff).The LC-MS/MS testing (if applicable) was developed and its performance characteristics determined by [facility] in a manner consistent with CLIA requirements. This test has not been cleared or approved by the U.S. Food and Drug Administration; however, the FDA has determined that such clearance or approval is not necessary. Performed By: #### T S #### [facility] [address] [place] [address], [id number] AMPH CL Negative Normal Cutoff: 1000 [facility] Comment on above: Order Comment: Scree n results are reported as positive (at or above the cutoff) or negative (below the cutoff).The LC-MS/MS testing (if applicable) was developed and its performance characteristics determined by [facility] in a manner consistent with CLIA requirements. This test has not been cleared or approved by the U.S. Food and Drug Administration; however, the FDA has determined that such clearance or approval is not necessary. Performed By: #### T S #### [facility] [address] [place] [address], JEAN PIERRE CL Negative Normal Cutoff: 200 [facility] Comment on above: Order Comment: Scree n results are reported as positive (at or above the cutoff) or negative (below the cutoff).The LC-MS/MS testing (if applicable) was developed and its performance characteristics determined by [facility] in a manner consistent with CLIA requirements. This test has not been cleared or approved by the U.S. Food and Drug Administration; however, the FDA has determined that such clearance or approval is not necessary. Performed By: #### T S #### [facility] [address] [place] [address], BENZO CL Negative Normal Cutoff: 200 [facility] Comment on above: Order Comment: Scree n results are reported as positive (at or above the cutoff) or negative (below the cutoff).The LC-MS/MS testing (if applicable) was developed and its performance characteristics determined by [facility] in a manner consistent with CLIA requirements. This test has not been cleared or approved by the U.S. Food and Drug Administration; however, the FDA has determined that such clearance or approval is not necessary. Performed By: #### T S #### [facility] [address] [place] [address], COCAINE CL- TOX W/ CONF Negative Normal Cutoff: 300 [facility] Comment on above: Order Comment: Scree n results are reported as positive (at or above the cutoff) or negative (below the cutoff).The LC-MS/MS testing (if applicable) was developed and its performance characteristics determined by [facility] in a manner consistent with CLIA requirements. This test has not been cleared or approved by the U.S. Food and Drug Administration; however, the FDA has determined that such clearance or approval is not necessary. Performed By: #### T S #### [facility] [address], [place], FENTANYL Negative Normal Cutoff: 1 [facility] Comment on above: Order Comment: Scree n results are reported as positive (at or above the cutoff) or negative (below the cutoff).The LC-MS/MS testing (if applicable) was developed and its performance characteristics determined by [facility] in a manner consistent with CLIA requirements. This test has not been cleared or approved by the U.S. Food and Drug Administration; however, the FDA has determined that such clearance or approval is not necessary. Performed By: #### T S #### [facility] [address] [place] [address], METH CL Negative Normal Cutoff: 300 [facility] Comment on above: Order Comment: Scree n results are reported as positive (at or above the cutoff) or negative (below the cutoff).The LC-MS/MS testing (if applicable) was developed and its performance characteristics determined by [facility] in a manner consistent with CLIA requirements. This test has not been cleared or approved by the U.S. Food and Drug Administration; however, the FDA has determined that such clearance or approval is not necessary. Performed By: #### T S #### [facility] [address] [place] [address], OPI CL Negative Normal Cutoff: 300 [facility] Comment on above: Order Comment: Scree n results are reported as positive (at or above the cutoff) or negative (below the cutoff).The LC-MS/MS testing (if applicable) was developed and its performance characteristics determined by [facility] in a manner consistent with CLIA requirements. This test has not been cleared or approved by the U.S. Food and Drug Administration; however, the FDA has determined that such clearance or approval is not necessary. Performed By: #### T S #### [facility] [address] [place] [address], OXYCODONE Positive Abnormal Cutoff: 100 [facility] Comment on above: Order Comment: Scree n results are reported as positive (at or above the cutoff) or negative (below the cutoff).The LC-MS/MS testing (if applicable) was developed and its performance characteristics determined by [facility] in a manner consistent with CLIA requirements. This test has not been cleared or approved by the U.S. Food and Drug Administration; however, the FDA has determined that such clearance or approval is not necessary. Result Comment: Oxyc odone and metabolites of Oxycodone (Oxymorphone, Noroxycodone, and Noroxymorphone) are measured/detected in this assay method. Performed By: #### T S #### [facility] [address] [place] [address], OXYCODONE CONFIRMATION Positive Abnormal Cutoff: 100 T [facility] Comment on above: Order Comment: Scree n results are reported as positive (at or above the cutoff) or negative (below the cutoff).The LC-MS/MS testing (if applicable) was developed and its performance characteristics determined by [facility] in a manner consistent with CLIA requirements. This test has not been cleared or approved by the U.S. Food and Drug Administration; however, the FDA has determined that such clearance or approval is not necessary. Performed By: #### T S #### [facility] [address] [place] [address], OXYMORPHONE CONFIRMATION Positive Abnormal Cutoff: 100 [facility] Comment on above: Order Comment: Scree n results are reported as positive (at or above the cutoff) or negative (below the cutoff).The LC-MS/MS testing (if applicable) was developed and its performance characteristics determined by [facility] in a manner consistent with CLIA requirements. This test has not been cleared or approved by the U.S. Food and Drug Administration; however, the FDA has determined that such clearance or approval is not necessary. Performed By: #### T S #### [facility] [address] [place] [address], PCP CL Negative Normal Cutoff: 25 [facility] Comment on above: Order Comment: Scree n results are reported as positive (at or above the cutoff) or negative (below the cutoff).The LC-MS/MS testing (if applicable) was developed and its performance characteristics determined by [facility] in a manner consistent with CLIA requirements. This test has not been cleared or approved by the U.S. Food and Drug Administration; however, the FDA has determined that such clearance or approval is not necessary. Performed By: #### T S #### [facility] [address] [place] [address], THC CL - TOX W/ CONF Negative Normal Cutoff: 50 [facility] Comment on above: Order Comment: Scree n results are reported as positive (at or above the cutoff) or negative (below the cutoff).The LC-MS/MS testing (if applicable) was developed and its performance characteristics determined by [facility] in a manner consistent with CLIA requirements. This test has not been cleared or approved by the U.S. Food and Drug Administration; however, the FDA has determined that such clearance or approval is not necessary. Performed By: #### T S #### [facility] [address], [place], US for in second o r third trimesteron 10-16-2024 Indication ======== Indication: Uterine Size-Date Discrepancy,complica ting Growth Overview Exam date GA BPD (mm) HC (mm) AC (mm) FL (mm) HL (mm) EFW (g) 10/15/2024 28w 2d 74.2 83% 269 51% 234 26% 48.4 2% 1083 15% Method ====== Transabdominal ultrasound examination. View: Sufficient ========= Irizarry . Number of fetuses: 1 Dating ====== Ultrasound examination on: 10/15/2024 GA by U/S based upon: AC, BPD, Femur, HC GA by U/S 28 w + 2 d BRIANNA by U/S: 01/05/2025 Assigned: based on ultrasound (AC, BPD, Femur, HC), selected on 10/15/2024 Assigned GA 28 w + 2 d Assigned BRIANNA: 01/05/2025 General Evaluation Cardiac activity present. FHR 127 bpm. movements: visualized. Presentation: cephalic Placenta: Placental site: anterior Amniotic fluid: Amount of AF: normal amount . MVP 6.6 cm. RODRÍGUEZ 25.2 cm. Q1 5.8 cm, Q2 6.4 cm, Q3 6.6 cm, Q4 6.5 cm Biometry Standard BPD 74.2 mm 29w 5d 83% Hadlock HC 269.0 mm 29w 2d 51% Hadlock AC 234.0 mm 27w 5d 26% Hadlock Femur 48.4 mm 26w 2d 2% Hadlock HC / AC 1.15 EFW 1,083 g 15% Hadlock EFW (lb) 2 lb EFW (oz) 6 oz EFW by: Hadlock (MPU-CM-UD-FL) Other Structures FHR 127 bpm Anatomy Cranium: normal Cavum septi pellucidi: normal 4-chamber view: normal Stomach: normal Maternal Structures Uterus / Cervix Uterus: Visualized Impression ========= Ms. TAPIA presents to L&D and a growth scan was performed for the above indications Ultrasound reveals a irizarry fetus in utero. The estimated weight is at the 15%. The abdominal circumference measures at the 26%. The amniotic fluid is within normal limits. Impression: A 28w 2d irizarry intrauterine gestation. Appropriate growth and amniotic fluid volume. [facility] Keshia Jarvis MD - 10/16/2024 Indication ======== Indication:Uterine Size-Date Discrepancy,complica ting Growth Overview Exam date GA BPD (mm) HC (mm) AC (mm) FL (mm) HL (mm) EFW (g) 10/15/2024 28w 2d 74.2 83% 269 51% 234 26% 48.4 2% 1083 15% Method ====== Transabdominal ultrasound examination. View: Sufficient ========= Irizarry . Number of fetuses: 1 Dating ====== Ultrasound examination on:10/15/2024 GA by U/S based upon:AC, BPD, Femur, HC GA by U/S28 w + 2 d BRIANNA by U/S:01/05/2025 Assigned:based on ultrasound (AC, BPD, Femur, HC), selected on 10/15/2024 Assigned GA28 w + 2 d Assigned BRIANNA:01/05/2025 General Evaluation Cardiac activity present. FHR 127 bpm. movements: visualized. Presentation: cephalic Placenta: Placental site: anterior Amniotic fluid: Amount of AF: normal amount . MVP 6.6 cm. RODRÍGUEZ 25.2 cm. Q1 5.8 cm, Q2 6.4 cm, Q3 6.6 cm, Q4 6.5 cm Biometry Standard BPD74.2 mm29w 5d 83% Hadlock HC269.0 mm29w 2d 51% Hadlock AC234.0 mm27w 5d 26% Hadlock Femur48.4 mm26w 2d 2% Hadlock HC / AC1.15 EFW1,083 g 15% Hadlock EFW (lb)2 lb EFW (oz)6 oz EFW by:Hadlock (UHH-MS-HE-FL) Other Structures TUZ110 bpm Anatomy Cranium:normal Cavum septi pellucidi:normal 4-chamber view:normal Stomach:normal Maternal Structures Uterus / Cervix Uterus:Visualized Impression ========= Ms. TAPIA presents to L&D and a growth scan was performed for the above indications Ultrasound reveals a irizarry fetus in utero. The estimated weight is at the 15%. The abdominal circumference measures at the 26%. The amniotic fluid is within normal limits. Impression: A 28w 2d irizarry intrauterine gestation. Appropriate growth and amniotic fluid volume. [facility] US for in second o r third trimesterOrdered By: Keshia Jarvis on 10-16-2024 [facility] Work Phone: VITAMIN B12 (CYANOCOBALAMIN) on 10-16-2024 Cobalamin (Vitamin B12) [Moles/Vol] 235 pg/mL 180 - 914 pg/mL [facility] Interpretation and review of laboratory results Normal [facility] Deficient: <= 145 pg/mL Insufficient: 145 - 180 pg/mL Sufficient: 180 - 914 pg/mL [facility] Cobalamin (Vitamin B12) [Mass/Vol] 235 pg/mL Normal 180-914 [facility] Comment on above: Order Comment: This test was developed, and its performance characteristics determined by the Department of Pathology of [facility]. It has not been cleared or approved by the FDA. This test is used for clinical purposes only. Performed By: #### L ACT #### [facility] [address] [place] [address], AEROBIC WOUND CULTUREon AEROBIC WOUND CULTURE C PYOG: Normal Oral kendal isolated GRAM STAIN: 1+ Polymorphonuclear Leukocytes No Squamous Epithelial Cells seen 1+ Gram Positive Cocci In Pairs Normal [facility] Comment on above: Performed By: #### C STREP #### [facility] Pathology [address] [place] [address] BASIC METABOLIC PANELon Anion gap [Moles/Vol] 14 mmol/L Normal 10-20 [facility] Comment on above: Performed By: #### C R BGCA #### [facility] [address] [place] [address], Calcium [Mass/Vol] 8.8 mg/dL Normal 8.6-10.3 [facility] Comment on above: Performed By: #### C R BGCA #### [facility] [address] [place] [address], Chloride [Moles/Vol] 104 mmol/L Normal 98-107 [facility] Comment on above: Performed By: #### C R BGCA #### [facility] [address] [place] [address], CO2 [Moles/Vol] 22 mmol/L Normal 21-31 [facility] Comment on above: Performed By: #### C R BGCA #### [facility] [address] [place] [address], Creatinine [Mass/Vol] 0.53 mg/dL Low 0.60-1.20 [facility] Comment on above: Performed By: #### C R BGCA #### [facility] [address] [place] [address], ESTIMATED GFR (CKD-EPI) 132 mL/min/1.73sqm Normal >=60 [facility] Comment on above: Result Comment: 2020 CKD EPI Equation using Creatinine without Race Comment: Estimated glomerular filtration rate (eGFR) is calculated without a race coefficient. Values should be interpreted in the context of the patient's full clinical presentation. Reference: 1. Jae C, Belén M, Lloyd DC, et al.. A Unifying Approach for GFR Estimation: Recommendations of the NKF-ASN Task Force on Reassessing the Inclusion of Race in Diagnosing Kidney Disease. Nep[place]e Journal of Kidney Diseases 2021;79(2):268-88.e1. 2. N Engl J Med 1 Vol. 385 Issue 19 Pages 8640-3401 Performed By: #### C R BGCA #### [facility] [address] [place] [address], Glucose [Mass/Vol] 90 mg/dL Normal 74-109 [facility] Comment on above: Performed By: #### C R BGCA #### [facility] [address] [place] [address], Potassium [Moles/Vol] 3.4 mmol/L Low 3.5-5.0 [facility] Comment on above: Performed By: #### C R BGCA #### [facility] [address] [place] [address], Sodium [Moles/Vol] 137 mmol/L Normal 136-145 [facility] Comment on above: Performed By: #### C R BGCA #### [facility] [address] [place] [address], Urea nitrogen [Mass/Vol] 4 mg/dL Low 7-25 [facility] Comment on above: Performed By: #### C R BGCA #### S [facility] [address] [place] [address], BLOOD CULTUREon 10-15-2024 Bacteria identified Cx Nom (Bld) C BLOOD: No Growth Normal [facility] Comment on above: Performed By: #### C STREP #### [facility] Path[facility] [address] [place] [address] Basic metabolic 2000 panelon 10-15-2024 Anion gap [Moles/Vol] 14 mmol/L 10 - 20 [facility] Calcium [Mass/Vol] 8.8 mg/dL 8.6 - 10. 3 mg/dL [facility] Chloride [Moles/Vol] 104 mmol/L 98 - 10 7 mmol/L [facility] CO2 [Moles/Vol] 22 mmol/L 21 - 31 mmol/L [facility] Creatinine [Mass/Vol] 0.53 mg/dL Low 0.60 - 1.20 mg/dL [facility] GFR/1.73 sq M.predicted CKD-EPI (S/P/Bld) [Vol rate/Area] 132 - PINF [facility] Comment on above: 2020 CKD EPI Equatio n using Creatinine without Race Comment: Estimated glomerular filtration rate (eGFR) is calculated without a race coefficient. Values should be interpreted in the context of the patient's full clinical presentation. Reference: 1. Jae C, Belén M, Lloyd DC, et al.. A Unifying Approach for GFR Estimation: Recommendations of the NKF-ASN Task Force on Reassessing the Inclusion of Race in Diagnosing Kidney Disease. [place]e Journal of Kidney Diseases 2021;79(2):268-88.e1. 2. N Engl J Med 2020 Vol. 385 Issue 19 Pages 0700-0141 Glucose [Mass/Vol] 90 mg/dL 74 - 109 mg/dL [facility] Potassium [Moles/Vol] 3.4 mmol/L Low 3.5 - 5.0 mmol/L [facility] Sodium [Moles/Vol] 137 mmol/L 136 - 145 mmol/L [facility] Urea nitrogen [Mass/Vol] 4 mg/dL Low 7 - 25 mg/dL [facility] CBC WITH DIFFERENTIALon 0 Basophils (Bld) [#/Vol] 0.04 10*3/uL 0.00 - 0.20 K/uL [facility] Basophils/100 WBC (Bld) 0.2 % NINF - 1.9 % [facility] Eosinophils (Bld) [#/Vol] 0.17 10*3/uL 0.00 - 0.70 K/uL [facility] Eosinophils/100 WBC (Bld) 0.9 % 0.1 - 4.0 % [facility] Erythrocyte distribution width (RBC) [Ratio] 14.1 % 11.5 - 14.5 % [facility] Hematocrit (Bld) [Volume fraction] 33.9 % Low 36.0 - 46.0 % [facility] Hemoglobin (Bld) [Mass/Vol] 11 g/dL Low 12.0 - 15.0 g/dL [facility] Interpretation and review of laboratory results Abnormal [facility] Lymphocytes (Bld) [#/Vol] 1.8 10*3/uL 1.00 - 4.80 K/uL [facility] Lymphocytes/100 WBC (Bld) 10.1 % Low 24.0 - 44.0 % [facility] MCH (RBC) [Entitic mass] 28.7 pg 26.0 - 34.0 pg [facility] MCHC (RBC) [Mass/Vol] 32.5 g/dL 32.0 - 35.9 g/dL [facility] MCV (RBC) [Entitic vol] 88 fL 80 - 100 fL [facility] Monocyte distribution width Auto (Bld) [Entitic vol] 23 High NINF - 20 [facility] Monocytes (Bld) [#/Vol] 1.34 10*3/uL High 0.20 - 1.00 K/uL [facility] Monocytes/100 WBC (Bld) 7.5 % 2.0 - 11.0 % [facility] Neutrophils (Bld) [#/Vol] 14.6 10*3/uL High 1.50 - 8.00 K/uL [facility] Neutrophils/100 WBC (Bld) 81.3 % High 31.0 - 76.0 % [facility] Platelet mean volume (Bld) [Entitic vol] 8.1 fL 7.5 - 11.2 fL [facility] Platelets (Bld) [#/Vol] 330 10*3/uL 150 - 400 K/uL [facility] RBC (Bld) [#/Vol] 3.83 10*6/uL Low [facility] WBC (Bld) [#/Vol] 18 10*3/uL High 4.5 - 11.5 K/uL [facility] Basophils (Bld) [#/Vol] 0.04 10*3/uL Normal 0.00-0.20 [facility] Comment on above: Performed By: #### C BCDSAT ####[facility] [id number] [place], [address] Basophils/100 WBC (Bld) 0.2 % Normal <=1.9 T [facility] Comment on above: Performed By: #### C BCDSAT ####[facility] [id number] [place], [place], Eosinophils (Bld) [#/Vol] 0.17 10*3/uL Normal 0.00-0.70 [facility] Comment on above: Performed By: #### C BCDSAT ####[facility] [id number] [place], [place], Eosinophils/100 WBC (Bld) 0.9 % Normal 0.1-4.0 [facility] Comment on above: Performed By: #### C BCDSAT ####[facility] [id number] [place], [place], Erythrocyte distribution width (RBC) [Ratio] 14.1 % Normal 11.5-14.5 [facility] Comment on above: Performed By: #### C BCDSAT ####[facility] [id number] [place], [place], Hematocrit (Bld) [Volume fraction] 33.9 % Low 36.0-46.0 [facility] Comment on above: Performed By: #### C BCDSAT ####[facility] [id number] [place], Hemoglobin (Bld) [Mass/Vol] 11.0 g/dL Low 12.0-15.0 [facility] Comment on above: Performed By: #### C BCDSAT ####[facility] [id number] [place], [place], Lymphocytes (Bld) [#/Vol] 1.80 10*3/uL Normal 1.00-4.80 [facility] Comment on above: Performed By: #### C BCDSAT ####[facility] [id number] [place], Lymphocytes/100 WBC (Bld) 10.1 % Low 24.0-44.0 [facility] Comment on above: Performed By: #### C BCDSAT ####[facility] [id number] [place], [place], MCH (RBC) [Entitic mass] 28.7 pg Normal 26.0-34.0 [facility] Comment on above: Performed By: #### C BCDSAT ####[facility] [id number] [place], MCHC (RBC) [Mass/Vol] 32.5 g/dL Normal 32.0-35.9 [facility] Comment on above: Performed By: #### C BCDSAT ####S PATHOLOGY [id number] [place], MCV (RBC) [Entitic vol] 88 fL Normal 80-[address] [facility] Comment on above: Performed By: #### C BCDSAT ####[facility] [id number] [place], MONOCYTE DISTRIBUTION WIDTH 23 High <=20 [facility] Comment on above: Performed By: #### C BCDSAT ####[facility] [id number] [place], [place], Monocytes (Bld) [#/Vol] 1.34 10*3/uL High 0.20-1.00 [facility] Comment on above: Performed By: #### C BCDSAT ####[facility] [id number] [place], Monocytes/100 WBC (Bld) 7.5 % Normal 2.0-11.0 T [facility] Comment on above: Performed By: #### C BCDSAT ####[facility] [id number] [place], Neutrophils (Bld) [#/Vol] 14.60 10*3/uL High 1.50-8.00 [facility] Comment on above: Performed By: #### C BCDSAT ####[facility] [id number] [place], Neutrophils/100 WBC (Bld) 81.3 % High 31.0-76.0 [facility] Comment on above: Performed By: #### C BCDSAT ####S PATHOLOGY [id number] [place], Platelet mean volume (Bld) [Entitic vol] 8.1 fL Normal 7.5-11.2 [facility] Comment on above: Performed By: #### C BCDSAT ####S PATHOLOGY [id number] [place], Platelets (Bld) [#/Vol] 330 10*3/uL Normal 150-400 [facility] Comment on above: Performed By: #### C BCDSAT ####[facility] [id number] [place], RBC (Bld) [#/Vol] 3.83 10*6/uL Low 4.00-5.20 [facility] Comment on above: Performed By: #### C BCDSAT ####[facility] [id number] [place], WBC (Bld) [#/Vol] 18.0 10*3/uL High 4.5-11.5 [facility] Comment on above: Performed By: #### C BCDSAT ####S PATHOLOGY [id number] [place], [place], Care Plan Noteon 10-15-2024 Media Consult[employer] Outside [employer] Authentication Interface Message Text Problem: Routine Care: Goal: Patient care will be managed and maintained throughout hospital stay per unit specific routine care procedure Outcome: Progressing Problem: Infection: Goal: Will be free of signs and symptoms of infection Outcome: Progressing Problem: Knowledge Deficit: Goal: Ability to make informed decisions regarding treatment will improve Outcome: Progressing Goal: Knowledge of disease processes will improve Outcome: Progressing Problem: Acute Pain: Goal: Ability to identify pain intensity on a pain scale and rate it consistently will be achieved and maintained Outcome: Progressing Goal: Acceptable level of pain which allows the patient to achieve functional outcome goals Outcome: Progressing Problem: Safety: Goal: Patient will remain free of falls during hospital stay Outcome: Progressing Goal: Free from injury during hospitalization Outcome: Progressing Problem: Discharge Planning: Goal: Discharge needs of the adult patient will be met Outcome: Progressing Normal [facility] Provider Noteson 10-15-19 Media Consultant Outside Sales Authentication Interface Message Text EMERGENCY DEPARTMENT - VISIT NOTE HISTORY OF PRESENT ILLNESS ------ Chief Complaint Patient presents with Dental Left lower dental pain and worsening swelling, onset Wednesday, 27 weeks OB HIPAA: Verbal permission granted from patient to discuss case, including protected health information, in front of family / friends in room at the time of the evaluation. Measurer: not needed - patient preferred language is [place] Zealander. The history is provided by the Patient. Jose R Tapia is a 23 year old female (at 27 weeks, due date january 10) h/o meth abuse (per chart review, last use 8 months prior), presenting to the ED for further evaluation of dental pain/infection. Patient reports she has had 3 days of left dental pain, and 2 days of significant facial swelling. She reports she went to [facility] on Wednesday/Sat and in the ed they initially tried to drain her abscess, and then ordered blood work ct and iv abx. They told her she would need to go to [facility] for OFMS consult, patient decided to leave AMA last night and come [facility]. Patient reports sig pain left lower face, non radiating. Swelling. Difficulty eating d/t pain. No fevers. No gen weakness. No n/v. No abd pain, no vb, no lof, no contractions. + FM. OSH records reviewed: 10/14: HR 128, T 97.5 122/78 BP Pulse ox 98% WBC: 18.1 CT: subperiosteal abscess of left mandible from dental source, with extensive cellulitis left lower face, with mild reactive adenopathy in submandibular region. Follows with OB at [place] no recent OB care given was [facility]. REVIEW OF SYSTEMS Review of Systems Constitutional: Negative for chills and fever. HENT: Positive for dental problem and facial swelling. Negative for congestion and rhinorrhea. Eyes: Negative for discharge and redness. Respiratory: Negative for cough, shortness of breath and wheezing. Cardiovascular: Negative for chest pain and palpitations. Gastrointestinal: Negative for abdominal pain, diarrhea, nausea and vomiting. Genitourinary: Negative for decreased urine volume, difficulty urinating, dysuria, frequency and vaginal bleeding. Musculoskeletal: Negative for arthralgias and myalgias. Skin: Negative for color change, rash and wound. Neurological: Negative for syncope, weakness and headaches. Psychiatric/Behavior al: Negative for behavioral problems and confusion. PAST HISTORY -- Pertinent Past History: Past Medical History: Diagnosis Date Mild intermittent asthma (HCC) Pneumonia, organism unspecified(486) 09/30/04 Pertinent Family History: Family History Problem Relation Age of Onset Other (colitis [Other]) Mother GI Disorders Mother Other (Tachycardia [Other]) Mother Good health Father Cancer runs in family Pertinent Social History: Social History Occupational History Not on file Tobacco Use Smoking status: Heavy Smoker Smokeless tobacco: Not on file Substance and Sexual Activity Alcohol use: No Alcohol/week: 0.0 standard drinks of alcohol Drug use: No Sexual activity: Never Smoking cessation counseling of less than 3 minutes was provided to the patient including Reinforced decision not to smoke. PHYSICAL EXAM --- BP 109/63 (BP Location: left arm) Pulse 96 Temp 97.9 ???F (36.6 ???C) (Oral) Resp 17 Ht 5' 4.5 (1.638 m) Wt 160 lb 4.4 oz (72.7 kg) SpO2 100% Unknown BMI 27.09 kg/m??? Const: NAD, Nontoxic, Well nourished, Well Appearing Head: Normocephalic Atruamtic Eyes: PERRL, no conjuctival injection, symmetrical eyelids ENMT: atraumatic ext nose ears, MMM Left face significant manibular edema and erythema noted Multiple dental carious noted, with abscess noted adjacent left lower 19/20 No submandib fullness No trismus Handling secretions Neck: supple, trachea midline , stridor CV: heart rrr no mrg , 2+ peripheral pulses, no edema Resp: Lungs CTAB no wrr GI: soft, gravid, nt, no peritoneal signs MSK: extremities without deformities or ttp Skin: Warm Dry No rash Neuro: CN II-XII grossly intact, strength sensation grossly intact Psych: Alert And Oriented, Approp Mood/Affect MEDICAL DECISION MAKING and ED COURSE - History from Independent Historian: Mother reports, swelling sig increased over past 48 hours. Review of External (Non- ED) Notes: See HPI Management Decisions: CT considered but not performed due to able to obtain OSH images. Images sent over from [employer] via [employer] order in, plant technician/control room operator notified and requested to upload images. - low susp for sig airway involvement, lower susp abraham, given (contrast risk in preg), defer repeat imag (more content not included)... Normal [facility] GC/CHLAMYDIA/TRICHOMONAS AMP LIFICATIONon 10-15-2024 GC/CHLAMYDIA/TRICHOMONA S AMPLIFICATION CHLAMYDIA AMPLIFICATION: Negative GC AMPLIFICATION: Negative TRICHOMONAS AMPLIFICATION: Negative Normal Negative [facility] Comment on above: Order Comment: This test is performed using an automated nucleic acid amplification assay ([employer] Performed By: #### C STREP #### [facility] [address] [place], [place] [address] HEPATIC FUNCTION PANELon Albumin [Mass/Vol] 3.8 g/dL 3.5 - 5.7 g/dL [facility] ALP [Catalytic activity/Vol] 88 U/L [facility] ALT [Catalytic activity/Vol] 12 U/L [facility] AST [Catalytic activity/Vol] 13 U/L [facility] Bilirubin [Mass/Vol] 0.4 mg/dL 0.3 - 1 .0 mg/dL [facility] Bilirubin.direct [Mass/Vol] 0.09 mg/dL 0.03 - 0.18 mg/dL [facility] Interpretation and review of laboratory results Normal [facility] Protein [Mass/Vol] 6.7 g/dL 6.0 - 8.3 g/dL [facility] Albumin [Mass/Vol] 3.8 g/dL Normal 3.5-5.7 [facility] Comment on above: Performed By: #### C R BGCA #### [facility] [address] [place] [address], ALK 88 IU/L Normal 34-104 [facility] Comment on above: Performed By: #### C R BGCA #### [facility] [address] [place] [address], ALT [Catalytic activity/Vol] 12 U/L Normal 7-52 [facility] Comment on above: Performed By: #### C R BGCA #### [facility] [address] [place] [address], AST [Catalytic activity/Vol] 13 U/L Normal 13-39 [facility] Comment on above: Performed By: #### C R BGCA #### [facility] [address] [place] [address], Bilirubin [Mass/Vol] 0.4 mg/dL Normal 0.3-1.0 [facility] Comment on above: Performed By: #### C R BGCA #### [facility] [address] [place] [address], Bilirubin.direct [Mass/Vol] 0.09 mg/dL Normal 0.03-0.18 [facility] Comment on above: Performed By: #### C R BGCA #### [facility] [address] [place] [address], Protein [Mass/Vol] 6.7 g/dL Normal 6.0-8.3 [facility] Comment on above: Performed By: #### C R BGCA #### [facility] [address] [place] [address], HEPATITIS B SURFACE ANTIGENo n 10-15-2024 HBSAG Non-Reactive Normal Non-Reactive [facility] Comment on above: Performed By: #### C BC #### [facility] [address] [place], [place], HEPATITIS C ANTIBODYon 10-15 HCV Non-Reactive Normal Nonreactive [facility] Comment on above: Performed By: #### C BC #### S PATHOLOGY LABORATORY [address] [place], [place], HIGH SENSITIVITY CARDIAC TRO PONIN I (HS-CTNI) SERIAL TESTING 0HR (BASELINE)on 10-15-2024 Troponin I.cardiac DL <= 0.01 ng/mL [Mass/Vol] 15 ng/L NINF - 15 ng/L [facility] HS-CTNI 0 HR (BASELINE) 15 ng/L Normal <=15 T [facility] Comment on above: Order Comment: [place] juan r troponin can result from acute myocardial infarction (coronary etiology) or myocardial injury (non-coronary etiology) - always consider both.Interval test times for ruling out acute coronary syndrome (ACS) are 2 hours.All results are reported in whole numbers representing ng/L. Results obtained by different labs or methods are not comparable.For ruling out ACS, lab values are always used in conjunction with clinical risk assessment (e.g., HEART score*).Interpreting initial value in ruling out ACSLess than 5 ng/L - below lower limit of quantification - essentially rules out ACS if chest pain began more than 3 hours prior to test and assessed risk is low.5 - 49 ng/L - indeterminate - consider repeat value in 2 hours depending on risk assessment.50 ng/L or greater - concern for ACS or myocardial injury.Interpreting delta values in ruling out ACS.Always compare to initial value obtained:Absolute change (rise or fall) of less than 5 ng/L - essentially rules out ACS if assessed clinical risk is low.Absolute change (rise or fall) of 5 - 19 ng/L - indeterminate - consider another repeat value in 2 hours depending on assessed clinical risk.Absolute change (rise or fall) of 20 ng/L or greater - concern for ACS or myocardial injury.Any absolute value of 50 ng/L or greater - concern for ACS or myocardial injury.*When using hsTnI to calculate the HEART score, use the 99% Upper Reference Limit of 15 ng/L as the normal limit (i.e. <=15 ng/L = 0 points, 16-45 ng/L = 1 point, >45 ng/L = 2 points).DispositionIntermediate hsTnI values DO NOT mandate admission to a cardiology or telemetry unit. They need to be interpreted within the clinical context using provider judgement. Performed By: #### C #### [facility] [address] [place], [address] HIGH SENSITIVITY CARDIAC TRO PONIN I (HS-CTNI) SERIAL TESTING 2HRon 10-15-2024 Troponin I.cardiac DL <= 0.01 ng/mL [Mass/Vol] 17 ng/L High NINF - 15 ng/L [facility] DELTA HS-CTNI (0 HR-2HR) 2 ng/L Normal <5 [facility] Comment on above: Order Comment: [place] juan r troponin can result from acute myocardial infarction (coronary etiology) or myocardial injury (non-coronary etiology) - always consider both.Interval test times for ruling out acute coronary syndrome (ACS) are 2 hours.All results are reported in whole numbers representing ng/L. Results obtained by different labs or methods are not comparable.For ruling out ACS, lab values are always used in conjunction with clinical risk assessment (e.g., HEART score*).Interpreting initial value in ruling out ACSLess than 5 ng/L - below lower limit of quantification - essentially rules out ACS if chest pain began more than 3 hours prior to test and assessed risk is low.5 - 49 ng/L - indeterminate - consider repeat value in 2 hours depending on risk assessment.50 ng/L or greater - concern for ACS or myocardial injury.Interpreting delta values in ruling out ACS.Always compare to initial value obtained:Absolute change (rise or fall) of less than 5 ng/L - essentially rules out ACS if assessed clinical risk is low.Absolute change (rise or fall) of 5 - 19 ng/L - indeterminate - consider another repeat value in 2 hours depending on assessed clinical risk.Absolute change (rise or fall) of 20 ng/L or greater - concern for ACS or myocardial injury.Any absolute value of 50 ng/L or greater - concern for ACS or myocardial injury.*When using hsTnI to calculate the HEART score, use the 99% Upper Reference Limit of 15 ng/L as the normal limit (i.e. <=15 ng/L = 0 points, 16-45 ng/L = 1 point, >45 ng/L = 2 points).DispositionIntermediate hsTnI values DO NOT mandate admission to a cardiology or telemetry unit. They need to be interpreted within the clinical context using provider judgement. Performed By: #### T S #### [facility] [address] [place] [address], [id number] HS-CTNI 2 HR 17 ng/L High <=15 [facility] Comment on above: Order Comment: [place] juan r troponin can result from acute myocardial infarction (coronary etiology) or myocardial injury (non-coronary etiology) - always consider both.Interval test times for ruling out acute coronary syndrome (ACS) are 2 hours.All results are reported in whole numbers representing ng/L. Results obtained by different labs or methods are not comparable.For ruling out ACS, lab values are always used in conjunction with clinical risk assessment (e.g., HEART score*).Interpreting initial value in ruling out ACSLess than 5 ng/L - below lower limit of quantification - essentially rules out ACS if chest pain began more than 3 hours prior to test and assessed risk is low.5 - 49 ng/L - indeterminate - consider repeat value in 2 hours depending on risk assessment.50 ng/L or greater - concern for ACS or myocardial injury.Interpreting delta values in ruling out ACS.Always compare to initial value obtained:Absolute change (rise or fall) of less than 5 ng/L - essentially rules out ACS if assessed clinical risk is low.Absolute change (rise or fall) of 5 - 19 ng/L - indeterminate - consider another repeat value in 2 hours depending on assessed clinical risk.Absolute change (rise or fall) of 20 ng/L or greater - concern for ACS or myocardial injury.Any absolute value of 50 ng/L or greater - concern for ACS or myocardial injury.*When using hsTnI to calculate the HEART score, use the 99% Upper Reference Limit of 15 ng/L as the normal limit (i.e. <=15 ng/L = 0 points, 16-45 ng/L = 1 point, >45 ng/L = 2 points).DispositionIntermediate hsTnI values DO NOT mandate admission to a cardiology or telemetry unit. They need to be interpreted within the clinical context using provider judgement. Performed By: #### T S #### [facility] [address] [place] [address], HIV 1 and 2 Ab and HIV 1 p24 Ag panel IAon 10-15-2024 HIV AG-AB SCREEN Non-Reactive Normal Non-Reactive [facility] Comment on above: Order Comment: HIV I nformation: ???[place] Rev. code 3701.243(E):This information has been disclosed to you from confidential records protected from disclosure by state law. ???You shall make no further disclosure of this information without the specific, written, and informed release of the individual to whom it pertains, or as otherwise permitted by state law. ???A general authorization for the release of medical or other information is not sufficient for the purpose of the release of HIV test results or diagnoses. Result Comment: No l aboratory evidence for HIV Infection. Negative result does not rule out acute HIV infection. If acute HIV infection is suspected, recommend ordering an HIV-1 RNA quanitification test. Performed By: #### C BC #### [facility] [address], [place], LACTIC ACIDon 10-15-2024 Interpretation and review of laboratory results Normal [facility] Lactate [Moles/Vol] 0.7 mmol/L 0.5 - 1. 6 mmol/L [facility] This test was developed, and its performance characteristics determined by the Department of Pathology of [facility]. It has not been cleared or approved by the FDA. This test is used for clinical purposes only. [facility] CR LACT 0.7 mmol/L Normal 0.5-1.6 [facility] Comment on above: Order Comment: This test was developed, and its performance characteristics determined by the Department of Pathology of [facility]. It has not been cleared or approved by the FDA. This test is used for clinical purposes only. Performed By: #### L ACT #### [facility] [address], [place], CR LACT 2.5 mmol/L High 0.5-1.6 [facility] Comment on above: Order Comment: This test was developed, and its performance characteristics determined by the Department of Pathology of [facility]. It has not been cleared or approved by the FDA. This test is used for clinical purposes only. Performed By: #### T S #### [facility] [address] [place] [address], LACTIC ACIDOrdered By: Michelle Junior on 10-15-2024 Interpretation and review of laboratory results Abnormal [facility] Lactate [Moles/Vol] 2.5 mmol/L High 0.5 - 1. 6 mmol/L [facility] This test was developed, and its performance characteristics determined by the Department of Pathology of [facility]. It has not been cleared or approved by the FDA. This test is used for clinical purposes only. [facility] Laboratory - Blood bankon ABO and Rh group Nom (Bld) Blood group O Rh(D) positive [facility] MAGNESIUMon 10-15-2024 Magnesium [Mass/Vol] 1.7 mg/dL Low 1.9 - 2 .7 mg/dL [facility] Magnesium [Mass/Vol] 1.7 mg/dL Low 1.9-2.7 [facility] Comment on above: Performed By: #### C R BGCA #### [facility] [address] [place] [address], No Panel Informationon 10-15 [facility] Interpretation and review of laboratory results Abnormal [facility] PARTIAL THROMBOPLASTIN TIMEo n 10-15-2024 aPTT Coag (Bld) [Time] 28 s [facility] Interpretation and review of laboratory results Normal [facility] aPTT Coag (Bld) [Time] 28 s Normal 25-37 Th e [facility] Comment on above: Performed By: #### T S #### [facility] [address] [place] [address], PROTHROMBIN TIME AND INRon 0 10-15-2024 INR Coag (PPP) [Relative time] 1.11 {INR} High 0.90 - 1.10 [facility] Interpretation and review of laboratory results Abnormal [facility] PT Coag (PPP) [Time] 12.4 s [facility] INR Coag (PPP) [Relative time] 1.11 {INR} High 0.90-1.10 [facility] Comment on above: Performed By: #### T S #### [facility] [address], [place], PT Coag (PPP) [Time] 12.4 s Normal 9.7-12.9 [facility] Comment on above: Performed By: #### T S #### [facility] [address], [place], Progress Noteson 10-15-2024 [employer] Authentication Interface Message Text Dr. Kaba at the bedside to see patient. Normal [facility] RUBELLAon 10-15-2024 RUB 18.1 IU/mL Normal [facility] Comment on above: Order Comment: Nonre active : < or = 9.9 IU/mLEquivocal : 10.0 - 14.9 IU/mLReactive : > or = 15.0 IU/mL* A Nonreactive test result indicates no current or previous infection with rubella virus. Such individuals are presumed to be susceptible to primary infection.* A Reactive test result indicates past or current infection with rubella virus or vaccination and indicates immunity to rubella.The following results were obtained using the Access Rubella IgG EIA assay. Values obtained with different manufacturer representative???s assay methods may not be used interchangeably. Performed By: #### C R BGCA #### [facility] [address] [place] [address], RUBELLA INTERPRETATION Reactive Normal Th e [facility] Comment on above: Order Comment: Nonre active : < or = 9.9 IU/mLEquivocal : 10.0 - 14.9 IU/mLReactive : > or = 15.0 IU/mL* A Nonreactive test result indicates no current or previous infection with rubella virus. Such individuals are presumed to be susceptible to primary infection.* A Reactive test result indicates past or current infection with rubella virus or vaccination and indicates immunity to rubella.The following results were obtained using the Access Rubella IgG EIA assay. Values obtained with different manufacturer representative???s assay methods may not be used interchangeably. Performed By: #### C R BGCA #### [facility] [address], [place], SYPHILIS TOTAL/TPPAon 2024 SYPHILIS TOTAL (IGG/IGM) Non-Reactive Normal Non-Reactive [facility] Comment on above: Order Comment: No re sults found for: TPPANo components found for: FTANo serologic evidence of syphilis.If recent exposure/early infection is suspected, repeat testing in 2-4 weeks. Performed By: #### C R BGCA #### [facility] [address] [place] [address], TPPA Normal [facility] Comment on above: Order Comment: No re sults found for: TPPANo components found for: FTANo serologic evidence of syphilis.If recent exposure/early infection is suspected, repeat testing in 2-4 weeks. Performed By: #### C R BGCA #### [facility] [address] [place] [address], TYPE AND SCREENon 10-15-2024 Blood group antibody screen Ql Negative [facility] ABO and Rh group Nom (Bld) Blood group O Rh(D) positive Normal [facility] Comment on above: Performed By: #### T S #### [facility] [address] [place] [address], ABSC INT Negative Normal [facility] Comment on above: Performed By: #### T S #### [facility] [address] [place] [address], Troponin I.cardiac DL <= 0.0 1 ng/mL [Mass/Vol]on 10-15-2024 DELTA hs-cTnI, (0 HR-2HR) 2 ng/L NINF - 5 ng/L [facility] Interpretation and review of laboratory results Abnormal [facility] Elevated troponin can result from acute myocardial infarction (coronary etiology) or myocardial injury (non-coronary etiology) - always consider both. Interval test times for ruling out acute coronary syndrome (ACS) are 2 hours. All results are reported in whole numbers representing ng/L. Results obtained by different labs or methods are not comparable. For ruling out ACS, lab values are always used in conjunction with clinical risk assessment (e.g., HEART score*). Interpreting initial value in ruling out ACS Less than 5 ng/L - below lower limit of quantification - essentially rules out ACS if chest pain began more than 3 hours prior to test and assessed risk is low. 5 - 49 ng/L - indeterminate - consider repeat value in 2 hours depending on risk assessment. 50 ng/L or greater - concern for ACS or myocardial injury. Interpreting delta values in ruling out ACS. Always compare to initial value obtained: Absolute change (rise or fall) of less than 5 ng/L - essentially rules out ACS if assessed clinical risk is low. Absolute change (rise or fall) of 5 - 19 ng/L - indeterminate - consider another repeat value in 2 hours depending on assessed clinical risk. Absolute change (rise or fall) of 20 ng/L or greater - concern for ACS or myocardial injury. Any absolute value of 50 ng/L or greater - concern for ACS or myocardial injury. *When using hsTnI to calculate the HEART score, use the 99% Upper Reference Limit of 15 ng/L as the normal limit (i.e. <=15 ng/L = 0 points, 16-45 ng/L = 1 point, >45 ng/L = 2 points). Disposition Intermediate hsTnI values DO NOT mandate admission to a cardiology or telemetry unit. They need to be interpreted within the clinical context using provider judgement. [facility] Interpretation and review of laboratory results Normal [facility] Elevated troponin can result from acute myocardial infarction (coronary etiology) or myocardial injury (non-coronary etiology) - always consider both. Interval test times for ruling out acute coronary syndrome (ACS) are 2 hours. All results are reported in whole numbers representing ng/L. Results obtained by different labs or methods are not comparable. For ruling out ACS, lab values are always used in conjunction with clinical risk assessment (e.g., HEART score*). Interpreting initial value in ruling out ACS Less than 5 ng/L - below lower limit of quantification - essentially rules out ACS if chest pain began more than 3 hours prior to test and assessed risk is low. 5 - 49 ng/L - indeterminate - consider repeat value in 2 hours depending on risk assessment. 50 ng/L or greater - concern for ACS or myocardial injury. Interpreting delta values in ruling out ACS. Always compare to initial value obtained: Absolute change (rise or fall) of less than 5 ng/L - essentially rules out ACS if assessed clinical risk is low. Absolute change (rise or fall) of 5 - 19 ng/L - indeterminate - consider another repeat value in 2 hours depending on assessed clinical risk. Absolute change (rise or fall) of 20 ng/L or greater - concern for ACS or myocardial injury. Any absolute value of 50 ng/L or greater - concern for ACS or myocardial injury. *When using hsTnI to calculate the HEART score, use the 99% Upper Reference Limit of 15 ng/L as the normal limit (i.e. <=15 ng/L = 0 points, 16-45 ng/L = 1 point, >45 ng/L = 2 points). Disposition Intermediate hsTnI values DO NOT mandate admission to a cardiology or telemetry unit. They need to be interpreted within the clinical context using provider judgement. [facility] for in second o r third trimesteron 10-15-2024 Radiology Study observation (narrative) [facility] Comprehensive Metabolic Prof ilon 10-14-2024 Albumin [Mass/Vol] 2.9 g/dL Low 3.2-5.0 [facility] Comment on above: Performed By: #### L 100.0100, L503.6005, L500.4050 #### [facility] [address] [place], [address] Albumin/Globulin [Mass ratio] 0.7 {ratio} Low 0.9-2.4 [facility] Comment on above: Performed By: #### L 100.0100, L503.6005, L500.4050 #### [facility] [address] [place], [address] ALK P 108 U/L Normal 45-117 [facility] Comment on above: Performed By: #### L 100.0100, L503.6005, [id number] #### [facility] [address] [place], [address] ALT [Catalytic activity/Vol] 18 U/L Normal 13-56 [facility] Comment on above: Performed By: #### L 100.0100, L503.6005, [id number] #### [facility] [address] [place], [address] AST [Catalytic activity/Vol] 11 U/L Low 15-37 [facility] Comment on above: Performed By: #### L 100.0100, L503.6005, [id number] #### [facility] [address] [place], [address] Bilirubin [Mass/Vol] 0.40 mg/dL Normal 0.20-1.00 [facility] Comment on above: Result Comment: For patients on eltrombopag therapy, use of Dimension Elsie TBIL is not recommended. Performed By: #### L 100.0100, L503.6005, [id number] #### [facility] [address] [place], [address] BUN/CRE 6.1 RATIO Low 10-20 [facility] Comment on above: Performed By: #### L 100.0100, L503.6005, [id number] #### [facility] [address] [place], [address] CA,Total 8.4 mg/dL Low 8.5-10.1 [facility] Comment on above: Performed By: #### L 100.0100, L503.6005, [id number] #### [facility] [address] [place], [address] Chloride [Moles/Vol] 104 mmol/L Normal 98-107 [facility] Comment on above: Performed By: #### L 100.0100, L503.6005, [id number] #### [facility] [address] [place], [address] CO2 [Moles/Vol] 24.0 mmol/L Normal 21.0-32.0 [facility] Comment on above: Performed By: #### L 100.0100, L503.6005, L500.4050 #### [facility] [address] [place], [address] Creatinine [Mass/Vol] 0.50 mg/dL Low 0.55-1.02 [facility] Comment on above: Result Comment: The validity of the calculated GFR GFRAA in patients over 70 years has not been determined. Clinical correlation is essential. Performed By: #### L 100.0100, L503.6005, L500.4050 #### [facility] [address] [place], [address] ECRCL 169.40 ml/min Normal [facility] Comment on above: Performed By: #### L 100.0100, L503.6005, L500.4050 #### [facility] [address] [place], [address] EST GFR - AA 196 mL/min Normal >60 [facility] Comment on above: Result Comment: Afri can Nepalese GFR Calc Performed By: #### L 100.0100, L503.6005, L500.4050 #### [facility] [address] [place], [address] GAP 8 Normal 5-15 [facility] Comment on above: Performed By: #### L 100.0100, L503.6005, L500.4050 #### [facility] [address] [place], [address] GFR/1.73 sq M.predicted among non-blacks MDRD (S/P/Bld) [Vol rate/Area] 162 mL/min/{1.73_m2} Normal >60 [facility] Comment on above: Result Comment: Non- GFR Calc Performed By: #### L 100.0100, L503.6005, L500.4050 #### [facility] [address] [place], [address] Globulin (S) [Mass/Vol] 3.9 g/dL Normal 2.2-4.2 [facility] Comment on above: Performed By: #### L 100.0100, L503.6005, L500.4050 #### [facility] [address] [place] [place], [address] Glucose [Mass/Vol] 106 mg/dL Normal 74-106 [facility] Comment on above: Result Comment: Fast ing Glucose result from 100 to 125 mg/dL suggests IMPAIRED HOMEOSTASIS per A.D.A. criteria. Performed By: #### L 100.0100, L503.6005, L500.4050 #### [facility] [address] [place] [place], [address] Potassium [Moles/Vol] 3.5 mmol/L Normal 3.5-5.1 [facility] Comment on above: Performed By: #### L 100.0100, L503.6005, L500.4050 #### [facility] [address] [place] [place], [address] Sodium [Moles/Vol] 135 mmol/L Low 136-145 [facility] Comment on above: Performed By: #### L 100.0100, L503.6005, L500.4050 #### [facility] [address] [place], [address] T PROT 6.8 g/dL Normal 6.4-8.2 [facility] Comment on above: Performed By: #### L 100.0100, L503.6005, L500.4050 #### [facility] [address] [place] [place], [address] Urea nitrogen [Mass/Vol] 3 mg/dL Low 7-18 [facility] Comment on above: Performed By: #### L 100.0100, L503.6005, L500.4050 #### [facility] [address] [place], [address] Emergency Department Summary on 10-14-2024 Emergency Department Summary [facility] Medical Records Department [address] [place] [address] Emergency Department Summary 10/14/24 MR#: [id number] Acct: [id number] Name: JOSE R TAPIA Rep #: [id number] : 2000 23 From: Davian Lin MD PCP: HOLLY Sanchez Status:DEP ER Location: ED HPI History of Present Illness Chief Complaint: Dental Detail of Chief Complaint: Dental pain, facial swelling Informant: patient Onset/Context/Timing Onset: Today (Patient was seen today at 4:[address] Walker. She has taken 2 doses of clindamycin. Pain started 2 to 3 days prior to presentation) Context: Sudden Onset Quality: Pain and swelling Current Severity: Moderate Maximum Severity: Moderate Worsened by: Advancement of disease Associated Symptoms Assocated Symptom - Dental: fever, jaw swelling and face swelling; Negative for cold sensitivity or hot sensitivity Narrative Narrative: Patient was seen earlier this morning by Dr. Walker. She had an infection involving tooth #20. There is slight swelling noted involving the gum in the proximity of tooth #20. There is no evidence of Ludewig's angina. There was no facial swelling. She presents now because of marked facial swelling on the left side. Slight change in voice. Prior similar symptoms: Yes Recent Illness/Hospitalizat ion: Yes PFSH PFSH Medical History Substance abuse Home Medications ???Medication ???Instructions ???Recorded ???Last Taken ???Type clindamycin HCl 300 mg capsule 300 mg PO 4X/DAY 10 days #40 10/14 Unknown Rx (Cleocin HCl) CAPSULES vitamins no.144-folic 2 tab PO DAILY 10/14/24 Unknown Hi story acid 400 mcg chewable tablet () Allergy/AdvReac Type Severity Reaction Status Date / Time latex AdvReac Rash Verified 10/14/24 03:56 Penicillins (PCN) AdvReac Other Verified 10/14/24 03:56 Social History Smoking Status: Current some day smoker tobacco type: cigarettes ROS ROS ED Constitutional Constitutional ED: Reports chills, fever(s) and subjective; Denies sweats Eyes Eyes: Denies blurry vision or change in vision ENT ENT ED: Reports other Details: Detailed HPI narrative ; Denies ear pain, rhinorrhea or sore throat Cardiovascular Cardiovascular: Reports other Details: Patient was tachycardic this morning. Patient has no history of SBE, heart murmur, mitral valve prolapse. ; Denies chest pain, orthopnea, palpitations, paroxysmal nocturnal dyspnea or racing heartbeat Respiratory/Chest Respiratory/Chest: Denies cough, dyspnea, dyspnea on exertion, orthopnea or paroxysmal nocturnal dyspnea Gastrointestinal Gastrointestinal: Denies abdominal pain, nausea or vomiting Musculoskeletal Musculoskeletal: Denies neck pain Integumentary Denies rash Hematologic/Lymphati c Hematologic/Lymphati c: Denies easy bleeding or easy bruising EXAM Physical Exam Const Vital Signs: 10/14/24 17:27 10/14/24 19:59 Temperature 97.5 F L 98.7 F Temperature Source Temporal Pulse Rate 128 H 105 H Respiratory Rate 20 H 18 Blood Pressure 122/78 H 132/98 H Blood Pressure Mean 92 109 Pulse Ox 98 98 Oxygen Delivery Method Room Air Positive well nourished and well developed Constitutional Narrative: Patient appears ill. General Appearance ED: well developed HEENT HEENT Narrative: Patient has marked swelling left side of the face/jaw. There is submandibular adenopathy. There is swelling on the buccal side of the gum. No obvious fluctuance. Voice is slightly hoarse. There is no drooling. Patient has difficulty opening her mouth completely. Face and Sinus: sinuses nontender Mouth ED: Yes oral and palatal mucosa normal, Yes lips normal, Yes tongue normal, No mouth trauma and Yes oral and palatal mucosa abnormal Mouth: oral and palatal mucosa normal, lips normal, tongue normal, No mouth trauma and oral and palatal mucosa abnormal Teeth and Gingiva: abnormal tooth and associated gingiva, caries, gingiva abnormal, poor dentition and teeth discoloration Eyes PERRL and EOMs intact bilaterally General Eye ED: Negative for pale conjunctiva or scleral icterus Neck no lymphadenopathy, supple and no JVD General: anterior neck swelling and tenderness; Negative for normal visual inspection Lymph Lymphatic: lymphadenopathy; Negative for no lymphadenopathy noted Chest Wall inspection of chest normal and palpation of chest normal Resp normal respiratory effort, no retractions and clear to auscultation bilaterally Cardio regular rhythm, S1 normal heart sound, S2 normal heart sound and no murmurs Rate: tachycardic GI normal to inspection, nondistended, normoactive bowel sounds, non-tender, non-distended and no masses Extremity normal to (more content not included)... Normal [facility] Emergency Department Summary [facility] Medical Records Department [address] [place] [address] Emergency Department Summary 10/14/24 MR#: [id number] Acct: [id number] Name: JOSE R TAPIA Rep #: [id number] : 2000 23 From: Chad Walker DO PCP: SHAUNA SanchezC Status:DEP ER Location: ED HPI History of Present Illness Chief Complaint: Dental Informant: patient Narrative Narrative: Patient is a 23-year-old female who is a roughly an 27 weeks . She states that she has been sober for months but through using drugs messed her teeth up. She states she noticed some pain in the lower jaw over the last 2 or 3 days without any type of dental trauma. However today the pain has increased and has become constant. She has concern she is developing a dental infection with this presents for evaluation [facility] Medical History Substance abuse Home Medications ???Medication ???Instructions ???Recorded ???Last Taken ???Type clindamycin HCl 300 mg capsule 300 mg PO 4X/DAY 10 days #40 10/14 Unknown Rx (Cleocin HCl) CAPSULES vitamins no.144-folic 2 tab PO DAILY 10/14/24 Unknown Hi story acid 400 mcg chewable tablet () Allergy/AdvReac Type Severity Reaction Status Date / Time latex AdvReac Rash Verified 10/14/24 03:56 Penicillins (PCN) AdvReac Other Verified 10/14/24 03:56 Social History Smoking Status: Current some day smoker tobacco type: cigarettes ROS ROS ED Constitutional Constitutional ED: Denies chills or fever(s) ENT ENT ED: Reports other Details: Positive dental pain ; Denies sore throat Cardiovascular Cardiovascular: Denies chest pain Respiratory/Chest Respiratory/Chest: Denies cough or dyspnea Gastrointestinal Gastrointestinal: Denies abdominal pain, diarrhea, nausea or vomiting Genitourinary Genitourinary ED: Denies dysuria or hematuria Musculoskeletal Musculoskeletal: Denies neck pain Integumentary Denies rash Neurologic Neurologic: Denies headache(s) Hematologic/Lymphati c Hematologic/Lymphati c: Denies easy bleeding or easy bruising Allergic/Immunologic Allergic/Immunologic ED: Denies tongue swelling EXAM Physical Exam Const Vital Signs: 10/14/24 03:56 Temperature 97.7 F L Temperature Source Oral Pulse Rate 133 H Respiratory Rate 18 Blood Pressure 140/92 H Blood Pressure Mean 108 Pulse Ox 98 Oxygen Delivery Method Room Air Positive well nourished and well developed General Appearance ED: well developed; Negative for pallor HEENT HEENT Narrative: Patient has multiple dental caries greatest in the left lower jaw. There is mild soft tissue swelling along the left molar tooth #20. No obvious abscess noted No airway edema or compromise Eyes PERRL and EOMs intact bilaterally Neck supple Neck Narrative: No brawny edema in the submental space to suggest Abraham's angina Resp normal respiratory effort and clear to auscultation bilaterally Cardio regular rate and regular rhythm Extremity normal to inspection Neuro oriented x3, CN's II-XII intact bilaterally and no sensory deficits noted Sensorium / Orientation: alert Motor Exam: strength 5/5 throughout Psych mental status grossly normal Skin no rashes or lesions noted General Skin Exam: Negative for jaundice or pallor MDM MDM MDM Narrative Medical decision making narrative: Patient presented to the ER hypertensive and tachycardic but is in pain and vitals are consistent with this. She denied any recent trauma and states she has a history of dental issues and has had increased pain over the last few days. Exam is most consistent with developing dental abscess/infection. She does not have brawny edema in the submental space is just Abraham's angina and physical exam shows no signs of ANUG. There is also no obvious abscess on the gingival surface and therefore no need for incision and drainage. As she is afebrile I have low concern for systemic infection and do not feel the need for laboratory studies. As patient's history and exam indicates she is developing a dental infection she will be placed on antibiotics and is otherwise safe for discharge Secondary to pain she was given a dental block. The patient was given 3 mL of 2% lidocaine with epinephrine and an inferior alveolar dental block fashion. Patient achieved good anesthesia with the injection and tolerated procedure well without complication. History Record Review Discussion w/independent historian: Patient Discharge Plan Triage Chief Complaint: Dental ED Provider: Chad Walker Dx/Rx/DC Orders Clinical Impression: Dental caries, Dental infection, History of drug abuse Instructions: U (more content not included)... Normal [facility] H AND P Exam - Hospitaliston 10-14-2024 H&P Exam - Hospitalist [facility] Medical Records Department [address] [place] [address] H P Exam - Hospitalist 10/14/242058 MR#: [id number] Acct: [id number] Name: JOSE R TAPIA Rep #: [id number] : 2000 23 From: Ely Giordano MD PCP: SHAUNA SanchezC Status:REG ER Location: ED HPI - General General Date of Admission: 10/14/24 Date of Service: 10/14/24 Chief Complaint: Left facial pain, swelling, worsening, recent ED evaluation day prior w/ dental infection, started on clindamycin. HPI Narrative The patient is a 23 y/o F w/ PMHx: Methamphetamine abuse normally snorting reporting clean status x 8 months, Tobacco use, currently 27 weeks gestation following at [place] for her OB care however she has not had a recent OB evaluation/visit secondary to being in halfway since August initially presenting to the [facility] ED on 10/14/2024 in the early childhood assistant hours with history at that time of onset of pain to the lower jaw on the left side for 2 to 3 days with no recent history of dental trauma however the pain had increased and she was concern for an infection with no obvious abscess at that time and no need for I D and given afebrile with dental block placed patient was discharged also on oral clindamycin and instructed to return if worsening now re-presented to [facility] ED on 10/14/2024 in the late evening hours secondary to significantly worsened appearance with significant increased swelling to the left cheek region as well as redness and difficulty even opening her mouth secondary to discomfort and pain with subjective fevers or chills. She does report that she had started the antibiotic therapy. Patient reports her pain as dull aching throbbing noting that discomfort varies from 8-10 out of 10 in severity worse with any attempt at opening her mouth. Workup in the ED included T97.5, heart rate 128, BP 122/78, respiratory rate 20, 98% on room air with most recent repeat vitals T98.7, heart rate 105, BP 132/98, respiratory rate 18, 98% on room air, CBC with WBC 18.1, hemoglobin 10.7, MCV 87.8, platelets 275 with left shift, CMP with sodium 135, BUN/creatinine 3/0.50, glucose 106, lactic acid 0.8, hepatic profile not marked appearing, CT soft tissue neck with subperiosteal abscess to the left outer aspect of the mandible from a dental source with extensive surrounding cellulitis of the left lower face and mild reactive adenopathy in the left submandibular region in addition to in the specific portion of the body of the read noted subperiosteal abscess left outer aspect of the mandible measuring 2.2 x 0.5 cm, periapical abscesses present at the left mandibular molars at that level with multiple dental caries present. Discussed patient with ED who initially reviewed case with clinical trial specialist combustion analyst in addition to ENT who are willing to evaluate patient with possible [facility] admission; however, did discuss case directly with ENT Dr. Maurer and reviewed the imaging itself and given the fact that there were periapical abscesses present to the left mandibular molars he was concerned that even with draining of the abscess patient absolutely 1 out of percent required dental extraction in order to be appropriately treated for this infectious source and recommended transfer to tertiary facility where they had a maxillofacial surgeon. Discussed case also with OB and also updated for fact of plan of transfer instead of admission. [facility] Medical History Normocytic anemia Tobacco use Substance abuse Home Medications ???Medication ???Instructions ???Recorded ???Last Taken ???Type clindamycin HCl 300 mg capsule 300 mg PO 4X/DAY 10 days #40 10/14 Unknown Rx (Cleocin HCl) CAPSULES vitamins no.144-folic 2 tab PO DAILY 10/14/24 Unknown Hi story acid 400 mcg chewable tablet () Allergy/AdvReac Type Severity Reaction Status Date / Time latex AdvReac Rash Verified 10/14/24 03:56 Penicillins (PCN) AdvReac Other Verified 10/14/24 03:56 Family History (Updated 10/14/24 @ 21:[address] Ely Giordano MD) Mother Heart disease Sinus tachycardia Father Cancer Surgical History No history of previous surgery Social History (Updated 10/14/24 @ 21:[address] Ely Giordano MD) household members: family Smoking Status: Current some day smoker tobacco type: cigarettes Smoking packs per day: 0.5 Smoking cigarettes per day: 10.0 alcohol intake: never substance use type: former substance user 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 ROS ROS Narrative Admission Review of Systems: CONSTITUTIONAL: No weight loss, + fever, chills, weakness or fatigue. HEENT: + Significant left-sided facial discomfort, pain, swelling, difficulty opening mouth because of disc (more content not included)... Normal [facility] Lactic Acidon 10-14-2024 Lactate [Moles/Vol] 0.8 mmol/L Normal 0.4-1.9 [facility] Comment on above: Order Comment: Y Performed By: #### L 100.0100, L503.6005, L500.4050 #### [facility] Laboratory [address] [place], [address] Soft Tissue Neck WITH Contra ston 10-14-2024 Soft Tissue Neck WITH Contrast [facility] Imaging Services [address] [place], [place] [address] Soft Tissue Neck WITH Contrast MR#: [id number] Acct: [id number] Name: JOSE R TAPIA Rep #: [id number] : 2000 F 23 From: Leslye Metzger MD PCP: HOLLY Sanchez Status: [facility] ER Study: Soft Tissue Neck WITH Contrast Date of Exam: 0 10/14/24 Exam# [id number] Ordering Dr: Davian Lin MD PROCEDURE: SOFT TISSUE NECK WITH CONTRAST REASON FOR EXAM: Trismus, change in voice, dental infection TECHNIQUE: CT of the soft tissues of the neck from the orbits to the upper mediastinum with intravenous contrast. Multiplanar reconstructions performed. COMPARISON: None. FINDINGS: Visualized brain:Unremarkable. Paranasal sinuses:Unremarkable . Vascular structures:Unremarka ble. Pharynx:Unremarkable . Larynx:Unremarkable. Salivary glands:Unremarkable. Parotid gland:Unremarkable. Thyroid:Unremarkable . Lymph nodes:Borderline enlarged submandibular lymph nodes measuring 9 mm in short axis. Bones:A subperiosteal abscess is present at the left outer aspect of the mandible measuring 2.2 x 0.5 cm. Periapical abscesses are present at the left mandibular molars at this level. Multiple dental caries are present. Soft tissues:Subcutaneous and deep soft tissue fat stranding is present of the soft tissues of the left lower face. Upper chest:Unremarkable. CT/Soft Tissue Neck WITH Contrast IMPRESSION: 1. Subperiosteal abscess of the left outer aspect of the mandible from a dental source, with extensive surrounding cellulitis of the left lower face. 2. Mild reactive adenopathy in the left submandibular region. Reading Location: [place] CC: HOLLY Negro; Dr. Davian Lin MD Supervisor Paint Department: Signed Normal [facility] Urine Drug Screen (VISTA)on 10-14-2024 AMPHETAMINES Negative Normal <1000 ng/mL [facility] Comment on above: Performed By: #### L 505.5000 ####[facility] [address] [place] [address] BARBITIURATES Negative Normal < 200 ng/mL [facility] Comment on above: Performed By: #### L 505.5000 ####[facility] [address] [place] [address] BENZODIAZIPINE Negative Normal < 200 ng/mL [facility] Comment on above: Performed By: #### L 505.5000 ####[facility] [address] [place] [id number] COCAINE Negative Normal < 300 ng/mL [facility] Comment on above: Performed By: #### L 505.5000 ####[facility] [address] [facility] [address] ECSTACY Negative Normal < 500 ng/mL [facility] Comment on above: Performed By: #### L 505.5000 ####[facility] [address] [place], [address] METHADONE Negative Normal < 300 ng/mL [facility] Comment on above: Performed By: #### L 505.5000 ####[facility] [address] [place], [address] OPIATES Negative Normal < 300 ng/mL [facility] Comment on above: Performed By: #### L 505.5000 ####[facility] [address] [place], [address] PCP Negative Normal < 25 ng/mL [facility] Comment on above: Performed By: #### L 505.5000 ####[facility] [address] [place], [address] THC Negative Normal < 50 ng/mL [facility] Comment on above: Performed By: #### L 505.5000 ####[facility] [address] [place], [address] VISTA UDS PH 7 Normal [facility] Comment on above: Performed By: #### L 505.5000 ####[facility] [address] [place], [address] No Panel Informationon 08-01 Culture Urine 10,000 - 50,000 cfu/ml Mixed growth consistent with normal urogenital kendal. [facility] Chest PA and Lateralon 07-27 Chest PA and Lateral [facility] Imaging Services [address] [place] [address] Chest PA and Lateral MR#: [id number] Acct: [id number] Name: JOSE R TAPIA Rep #: [id number] : 2000 F 23 From: Primo Argueta PCP: Charlee Negro NP-C Status: REG ER Study: Chest PA and Lateral Date of Exam: 07/27/24 Exam# [id number] Ordering Dr: Israel Sahni DO [id number] EXAM: XR CHEST, 2 VIEWS CLINICAL INDICATION: Fever -- Shield abdomen TECHNIQUE: Frontal and lateral views of the chest. COMPARISON: No relevant prior studies available. FINDINGS: LUNGS AND PLEURAL SPACES: Unremarkable. No consolidation or edema. No pneumothorax. No effusion. HEART: Unremarkable. Cardiac silhouette not enlarged. MEDIASTINUM: Central airways and mediastinal contour are unremarkable. BONES/JOINTS: Unremarkable. No acute fracture. SOFT TISSUES: Unremarkable. RAD/Chest PA and Lateral IMPRESSION: No radiographic evidence of acute cardiopulmonary disease. Electronically Signed: Primo Lopez MD at 1:21 EST , CC: FOREST FIRE LOOKOUTTrey Negro; Dr. Israel Sahni DO Supervisor Paint Department: Signed Normal [facility] Emergency Department Summary on 07-27-2024 Emergency Department Summary [facility] Medical Records Department [address] [place] [address] Emergency Department Summary 07/27/24 MR#: [id number] Acct: [id number] Name: JOSE R TAPIA Rep #: [id number] : 2000 23 From: Israel Sahni DO PCP: HOLLY Sanchez Status:REG ER Location: ED ADDENDUM by Chad Walker DO on 07/27/24 at 0210 The patient was signed out to me while awaiting results of her COVID influenza and RSV swab. The COVID swab was positive consistent with her exam. However she is not in respiratory distress at rest and her pulse ox is 98 to 100% on room air at rest. In order to ensure she does not become hypoxic with ambulation she was walked in the ER. Her pulse ox remained 97 to 100% on room air with ambulation and therefore she is not showing signs of hypoxia there is no need for admission and she is otherwise safe for discharge 07/27/24 0210 Cosigner Signature (if applicable): cc: HOLLY Corea Nickyleslie * Signed HPI HPI - URI History of Present Illness Chief Complaint: Cold Sx Informant: patient Onset/Context/Timing Onset: Days (2) Context: Sudden Onset Timing: Continuous Quality: Throbbing Location: Head, neck Worsened by: - (Bright lights) Relieved by: - (Nothing) Associated Symptoms Associated Symptoms: Positive for Nasal Congestion, Headache, Sinus Pressure, Myalgias, Nausea, Vomiting, Diarrhea and Nonproductive cough; Negative for Shortness of Breath, Chest Pain, Hemoptysis or Productive Cough Narrative Narrative: Patient presents with fever that has been getting worse over the past 2 days. Patient states her fever was up to 1-2.8 at home. Patient states he got better with a cool bath. Patient states her symptoms began rather suddenly. Patient states they have been constant for the past 2 days. Patient admits to some pain in her head and neck. Patient describes it as throbbing. Patient states it is worse with bright lights. Patient states nothing seems to help with it. Patient also admits to some nausea, vomiting, diarrhea. Patient admits to a nonproductive cough. Patient admits to some general myalgias. Patient states she is approximately 16 weeks . ROS ROS ED Constitutional Constitutional ED: Reports chills and fever(s) Eyes Eyes: Denies blurry vision or change in vision ENT ENT ED: Reports rhinorrhea; Denies sore throat Cardiovascular Cardiovascular: Denies chest pain or palpitations Respiratory/Chest Respiratory/Chest: Reports cough; Denies dyspnea Gastrointestinal Gastrointestinal: Reports diarrhea, nausea and vomiting Genitourinary Genitourinary ED: Reports urinary frequency; Denies dysuria or hematuria Musculoskeletal Musculoskeletal: Reports back pain; Denies neck pain Integumentary Denies abscess or rash Neurologic Neurologic: Reports headache(s); Denies weakness Allergic/Immunologic Allergic/Immunologic ED: Denies mouth swelling or urticaria [facility] Medical History Substance abuse Home Medications ???Medication ???Instructions ???Recorded ???Last Taken ???Type NK 12/20/22 Unknown History Allergy/AdvReac Type Severity Reaction Status Date / Time latex AdvReac Rash Verified 07/26/24 23:44 Penicillins (PCN) AdvReac Other Verified 07/26/24 23:44 Surgical History no surgical history no surgical history Social History Smoking Status: Current every day smoker tobacco type: cigarettes EXAM Physical Exam Const Vital Signs: 07/26/24 23:41 07/26/24 23:53 Temperature 99.7 F H Temperature Source Oral Pulse Rate 142 H Respiratory Rate 18 Respiratory Effort Normal Blood Pressure 102/62 Blood Pressure Mean 75 Pulse Ox 97 Oxygen Delivery Method Room Air Positive well nourished and well developed General Appearance ED: well developed and NAD HEENT Reports moist mucous membranes normocephalic and atraumatic Throat: posterior oropharynx abnormal Positive for erythema Neck no lymphadenopathy, supple, no meningeal signs and no JVD General: Negative for anterior neck swelling or lymphadenopathy Resp normal respiratory effort and clear to auscultation bilaterally Cardio Rate: regular rate Rhythm: regular rhythm GI non-tender and non-distended Palpation: soft Neuro oriented x3, CN's II-XII intact bilaterally and no sensory deficits noted Sensorium / Orientation: alert Motor Exam: strength 5/5 throughout Psych mental status grossly normal MDM MDM MDM Narrative Medical decision making narrative: Differential diagnosis includes viral pharyngitis, strep pharyngitis, pneumonia, bronchitis, and viral upper respiratory infection. Rapid strep will be obtained to assess for strep pharyngit (more content not included)... Normal [facility] M100.677on 07-27-2024 M100.677 Negative Normal [facility] Comment on above: Performed By: #### M 100.677, M100.678 #### [facility] [address] [place], [address] M100.678on 07-27-2024 M100.678 Copy of report sent to Infection Control Printer [id number] 07/27/24 Jemma MONET. [facility] Jemma Oropeza. REPORT READ BACK BY SAME. Pending SARS-CoV-2 (COVID 19) A Positive A INFLUENZA A Negative INFLUENZA B Negative RSV PCR Negative SARS-CoV-2 (COVID 19 PCR) * This is an amended result. * A prior result that was reported as final has been changed. 07/27/24 0649 by JACQUES Ramírez [facility] Comment on above: Performed By: #### M 100.677, M100.678 #### [facility] [address] 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 Electronically Signed by Pathology report verified by [facility] Screened by: KK Electronically signed by Marielle ROSEN (ASCP) Sign-Out Date: 07/10/2024 11:22 Performing Lab: [facility], [address] [place] [address] Pathology Dept Disclaimer The Pap test is a screening test for cervical cancer. As evidenced by published data, it is subject to both inherent false negative and false positive results. Your patient's results should be interpreted in context with pertinent clinical history including gynecological examination. Normal [facility] RPRon 07-06-2024 Reagin Ab RPR Ql (S) Non-Reactive Normal Non-Reactive [facility] Comment on above: Result Comment: The RPR test is a non-treponemal assay useful as an aid in the diagnosis of primary and secondary syphilis. It converts to positive generally within 2 weeks after the appearance of a lesion. This test is also useful for monitoring response to antibiotic therapy. A positive RPR screening test will be followed by the FTA ABS test. False positive RPR tests may occur in 1) patients with underlying autoimmune disorders, 2) elderly patients, 3) , and 4) other conditions with abnormal serum globulins. Performed By: #### A FABIOLA, ADIFF, CBC #### [place] [address] #### RPR, VARIS, HBSAG, HCV1, RUBIS #### [place] [address] RUBISon 07-06-[address] Positive Normal Positive [facility] Comment on above: Result Comment: This immune status assay detects IgM and/or IgG antibody to Rubella. Interpret results in conjunction with clinical history. POS: Antibody detected; exposure at undetermined recent or distant time. If clinically indicated, order Rubella IGM to rule out recent infection. NEG: No antibody detected. Performed By: #### A FABIOLA, ADIFF, CBC #### [place] [address] #### RPR, VARIS, HBSAG, HCV1, RUBIS #### [place] [address] VARISon 07-06-[address] Positive Normal [facility] Comment on above: Result Comment: INTE RPRETATION OF VARICELLA IMMUNE STATUS IgG BY EIA: Negative: No detectable VZV IgG antibody. Positive: VZV IgG antibody Detected. If clinically indicated, order Varicella IgM to rule out recent infection. Equivocal: Equivocal for antibodies to VZV. Suggest repeat testing in 10-14 days. Performed By: #### A BSGEL, ABOGEL, HIVRP #### [place] [address] .Auto Diffon 07-05-2024 Basophil, Absolute 0.0 10 3/mcL Normal 0.0-0.2 [facility] Comment on above: Performed By: #### A FABIOLA, ADIFF, CBC #### [place] [address] #### RPR, VARIS, HBSAG, HCV1, RUBIS #### [address] [address] Basophils/100 WBC (Bld) 0.2 % Normal 0.0-2.5 [facility] Comment on above: Performed By: #### A FABIOLA, ADIFF, CBC #### [address] [address] #### RPR, VARIS, HBSAG, HCV1, RUBIS #### [address] [address] Eosinophil, Absolute 0.1 10 3/mcL Normal 0.0-0.7 [facility] Comment on above: Performed By: #### A FABIOLA, ADIFF, CBC #### [place] [address] #### RPR, VARIS, HBSAG, HCV1, RUBIS #### [address] [address] Eosinophils/100 WBC (Bld) 0.6 % Normal 0.0-7.0 [facility] Comment on above: Performed By: #### A FABIOLA, ADIFF, CBC #### [place] [address] #### RPR, VARIS, HBSAG, HCV1, RUBIS #### [address] [address] Lymphocyte, Absolute 1.7 10 3/mcL Normal 0.9-4.3 [facility] Comment on above: Performed By: #### A FABIOLA, ADIFF, CBC #### [place] [address] #### RPR, VARIS, HBSAG, HCV1, RUBIS #### [address] [address] Lymphocytes/100 WBC (Bld) 14.3 % Low 20.0-40.0 [facility] Comment on above: Performed By: #### A FABIOLA, ADIFF, CBC #### [place] [address] #### RPR, VARIS, HBSAG, HCV1, RUBIS #### [address] [address] Monocyte, Absolute 0.6 10 3/mcL Normal 0.1-1.4 [facility] Comment on above: Performed By: #### A FABIOLA, ADIFF, CBC #### [place] [address] #### RPR, VARIS, HBSAG, HCV1, RUBIS #### [address] [address] Monocytes/100 WBC (Bld) 5.3 % Normal 2.0-13.0 [facility] Comment on above: Performed By: #### A FABIOLA, ADIFF, CBC #### [place] [address] #### RPR, VARIS, HBSAG, HCV1, RUBIS #### [address] [address] Neutrophils/100 WBC (Bld) 79.6 % High 50.0-75.0 [facility] Comment on above: Performed By: #### A FABIOLA, ADIFF, CBC #### [place] [address] #### RPR, VARIS, HBSAG, HCV1, RUBIS #### [address] [address] .NEUABSon 07-05-2024 Neutrophil, Absolute 9.4 10 3/mcL High 2.3-8.1 [facility] Comment on above: Performed By: #### A FABIOLA, ADIFF, CBC #### [place] [address] #### RPR, VARIS, HBSAG, HCV1, RUBIS #### [address] [address] ABO/Rh (Gel)on 07-05-2024 ABO/Rh Interp Positive Invalid Interpretation Code [facility] Comment on above: Performed By: #### A BSGEL, ABOGEL, HIVRP #### [address] [address] ABS (Gel)on 07-05-2024 ABSC Interp (Gel) Negative Normal [facility] Comment on above: Performed By: #### A BSEMIL FENTON, HIVRP #### [address] [address] CBCon 07-05-2024 Erythrocyte distribution width (RBC) [Ratio] 13.3 % Normal 11.5-15.5 [facility] Comment on above: Performed By: #### A HAIDER HICKS, CBC #### [place] [address] #### RPR, VARIS, HBSAG, HCV1, RUBIS #### [place] [address] Hematocrit (Bld) [Volume fraction] 38.0 % Normal 34.0-46.0 [facility] Comment on above: Performed By: #### A HAIDER HICKS, CBC #### [place] [address] #### RPR, VARIS, HBSAG, HCV1, RUBIS #### [place] [address] Hgb 12.8 G/dL Normal 12.0-16.0 [facility] Comment on above: Performed By: #### A SHANNA HICKSIFF, CBC #### [place] [address] #### RPR, VARIS, HBSAG, HCV1, RUBIS #### [address] [address] MCH (RBC) [Entitic mass] 29.9 pg Normal 27.0-33.0 [facility] Comment on above: Performed By: #### A SHANNA HICKSIFF, CBC #### [place] [address] #### RPR, VARIS, HBSAG, HCV1, RUBIS #### [place] [id number] MCHC 33.6 G/dL Normal 32.0-36.0 [facility] Comment on above: Performed By: #### A FABIOLA, SHANNAIFF, CBC #### [place] [address] #### RPR, VARIS, HBSAG, HCV1, RUBIS #### [address] [address] MCV (RBC) [Entitic vol] 89.1 fL Normal 80.0-99.0 [facility] Comment on above: Performed By: #### A FABIOLA, ADIFF, CBC #### [place] [address] #### RPR, VARIS, HBSAG, HCV1, RUBIS #### [address] [address] Platelet 305 10 3/mcL Normal 150-450 [facility] Comment on above: Performed By: #### A FABIOLA, SHANNAIFF, CBC #### [place] [address] #### RPR, VARIS, HBSAG, HCV1, RUBIS #### [place] [address] Platelet mean volume (Bld) [Entitic vol] 7.6 fL Normal 6.6-10.5 [facility] Comment on above: Performed By: #### A FABIOLA, ADIFF, CBC #### [place] [address] #### RPR, VARIS, HBSAG, HCV1, RUBIS #### [place] [address] RBC 4.27 10 6/mcL Normal 4.10-5.30 [facility] Comment on above: Performed By: #### A FABIOLA, ADIFF, CBC #### [place] [address] #### RPR, VARIS, HBSAG, HCV1, RUBIS #### [place] [id number] WBC 11.8 10 3/mcL High 4.5-10.8 [facility] Comment on above: Performed By: #### A FABIOLA, SHANNAIFF, CBC #### [address] [address] #### RPR, VARIS, HBSAG, HCV1, RUBIS #### [address] [address] CTPCRon 07-05-2024 C. trachomatis Interp Normal See CT Interp N [facility] Comment on above: Result Comment: C. t rachomatis DNA not detected. Specimen is presumptive negative for C. trachomatis. A negative result does not preclude C. trachomatis infection because results depend on adequate specimen collection, absence of inhibitors, and sufficient DNA to be detected. See CT Interp N Performed By: #### A EMIL CULVER, HIVRP #### [address] [address] C.trachomatis PCR Negative Normal Negative [facility] Comment on above: Result Comment: Robin ureña (PCR) assay performed on the Ghanshy[employer] Susan 4800 system. Performed By: #### A EMIL CULVER HIVRP #### [address] [address] Chlam Source Cervix Normal [facility] Comment on above: Performed By: #### A EMIL CULVER HIVRP #### [address] [address] HBSAGon 07-05-2024 Hep B Surf Ag Non-Reactive Normal Non-Reactive [facility] Comment on above: Performed By: #### A FABIOLA, SHANNAIFF, CBC #### [address] [address] #### RPR, VARIS, HBSAG, HCV1, RUBIS #### [place] [id number] HCVon 07-05-2024 Hep C Ab Non-Reactive Normal Non-Reactive [facility] Comment on above: Performed By: #### A FABIOLA, ADIFF, CBC #### [place] [id number] #### RPR, VARIS, HBSAG, HCV1, RUBIS #### [place] [id number] Hep C Ab Int Normal [facility] Comment on above: Result Comment: Nonr eactive: Samples with a value < 0.80 are considered nonreactive (negative) for antibodies to HCV. A negative test result does not exclude the possibility of exposure to or infection with HCV. HCV antibodies may be undetectable in some stages of the infection and in some clinical conditions. See Interp Performed By: #### A FABIOLA, ADIFF, CBC #### [place] [address] #### RPR, VARIS, HBSAG, HCV1, RUBIS #### [place] [id number] HIVRPon 07-05-2024 HIV p24 Antigen Non-Reactive Normal Non-Reactive [facility] Comment on above: Result Comment: Dete ction of p24 may be inhibited by biotin in the sample, causing false negative results in acute infection. Therefore do not test samples from patients who are taking biotin. Performed By: #### A EMIL CULVER, HIVRP #### [place] [address] HIV P24 Int Non-Reactive Invalid Interpretation Code [facility] Comment on above: Performed By: #### A BSEMIL FENTON, HIVRP #### [place] [id number] Rapid HIV 1/2 Antibody Non-Reactive Normal Non-Reactiv e [facility] Comment on above: Performed By: #### A BSORALIA FENTONGEL, HIVRP #### [address] [address] RHIV 1/2 Ab Int Non-Reactive Invalid Interpretation Code [facility] Comment on above: Performed By: #### A BSEMIL FENTON, HIVRP #### [place] [id number] LABORATORYOrdered By: Carmelita Mohamud on 07-05-2024 ABO and Rh group Nom (Bld) Blood group O Rh(D) positive Invalid Interpretation Code AO BB Auto SS Blood group antibody screen Ql Negative ABSC (07/05/24 11:34 AM) Normal AO BB Auto SS LABORATORYOrdered By: SYSTEM SYSTEM on 07-05-2024 Basophils (Bld) [#/Vol] 0.0 103/mcL Normal 0.0 - 0.2 10^3/mcL AO Workflow SS Basophils/100 WBC (Bld) 0.2 % Normal 0.0 - 2.5 % AO Workflow SS Eosinophil, Absolute 0.1 103/mcL Normal 0.0 - 0 .7 10^3/mcL AO Workflow SS Eosinophils/100 WBC (Bld) 0.6 % Normal 0.0 - 7.0 % AO Workflow SS Erythrocyte distribution width (RBC) [Ratio] 13.3 % Normal 11.5 - 15.5 % AO Workflow SS Hematocrit (Bld) [Volume fraction] 38.0 % Normal 34.0 - 46.0 % AO Workflow SS Hemoglobin (Bld) [Mass/Vol] 12.8 G/dL Normal 12.0 - 16.0 G/dL AO Workflow SS Lymphocytes (Bld) [#/Vol] 1.7 103/mcL Normal 0.9 - 4.3 10^3/mcL AO Workflow SS Lymphocytes/100 WBC (Bld) 14.3 % Low 20.0 - 40.0 % AO Workflow SS MCH (RBC) [Entitic mass] 29.9 pg Normal 27.0 - 33.0 pg AO Workflow SS MCHC 33.6 G/dL Normal 32.0 - 36.0 G/dL AO Workflow SS MCV (RBC) [Entitic vol] 89.1 fL Normal 80.0 - 99.0 fL AO Workflow SS Monocytes (Bld) [#/Vol] 0.6 103/mcL Normal 0.1 - 1.4 10^3/mcL AO Workflow SS Monocytes/100 WBC (Bld) 5.3 % Normal 2.0 - 13.0 % AO Workflow SS Neutrophils (Bld) [#/Vol] 9.4 103/mcL High 2.3 - 8.1 10^3/mcL AO Workflow SS Neutrophils/100 WBC (Bld) 79.6 % High 50.0 - 75.0 % AO Workflow SS Platelet mean volume (Bld) [Entitic vol] 7.6 fL Normal 6.6 - 10.5 fL AO Workflow SS Platelets (Bld) [#/Vol] 305 103/mcL Normal 150 - 450 10^3/mcL AO Workflow SS RBC (Bld) [#/Vol] 4.27 106/mcL Normal 4.10 - 5.3 0 10^6/mcL AO Workflow SS WBC (Bld) [#/Vol] 11.8 103/mcL High 4.5 - 10.8 10^3/mcL AO Workflow SS LABORATORYOrdered By: Carlton Stanton on 07-05-2024 HBV surface Ag IA Ql Non-Reactive (07/05/24 11:34 AM) Normal Non-Reactive AH ADM SS LABORATORYOrdered By: Velma Howard on 07-05-2024 HCV Ab IA Ql Non-Reactive (07/05/24 11:34 AM) Normal Non-Reactive AH ADM SS HCV Ab IA Ql Nonreactive: Samples with a value < 0.80 are considered nonreactive (negative) for antibodies to HCV.A negative test result does not exclude the possibility of exposure to or infection with HCV. HCV antibodies may be undetectable in some stages of the infection and in some clinical conditions. Invalid Interpretation Code Chemistry S LABORATORYOrdered By: Jerrica Stewart on 07-05-2024 HIV 1 p24 Ab Ql (S) Non-Reactive 1 (07/05/24 11:34 AM) Normal Non-Reactive AO Rapid Testing SS Comment on above: Interpretive Data: D etection of p24 may be inhibited by biotin in the sample, causing false negative results in acute infection. Therefore do not test samples from patients who are taking biotin. HIV 1 p24 Ab Ql (S) Non-Reactive Invalid Interpretation Code AO Rapid Testing SS HIV 1+2 Ab IA Ql Non-Reactive Invalid Interpretation Code AO Rapid Testing SS HIV 1+2 Ab IA.rapid Ql (Unsp spec) Non-Reactive (07/05/24 11:34 AM) Normal Non-Reactive AO Rapid Testing SS DRUGUon 07-03-2024 Amphetamine (u) Negative Normal Negative [facility] Comment on above: Performed By: #### A EMIL CULVER HIVRP #### [address] [place] [address] [place], [place] [address] Barbiturate (u) Negative Normal Negative [facility] Comment on above: Performed By: #### A EMIL CULVER HIVRP #### [address] [address] Benzodiazepine (u) Negative Normal Negative [facility] Comment on above: Performed By: #### A EMIL CULVER HIVRP #### [address] [address] Cannabinoid (u) Negative Normal [facility] Comment on above: Performed By: #### A EMIL CULVER HIVRP #### [address] [address] Cocaine Ql (U) Negative Normal Negative [facility] Comment on above: Performed By: #### A EMIL CULVER HIVRP #### [place] [id number] Fentanyl (u) Negative Normal Negative [facility] Comment on above: Result Comment: Test ing has been performed FOR MEDICAL PURPOSES ONLY. Performed By: #### A EMIL CULVER HIVRP #### [address] [address] Methadone Ql (U) Negative Normal [facility] Comment on above: Performed By: #### A EMIL CULVER HIVRP #### [place] [id number] Opiate (u) Negative Normal [facility] Comment on above: Performed By: #### A EMIL CULVER HIVRP #### [place] [id number] Oxycodone (u) Negative Normal [facility] Comment on above: Result Comment: Test ing has been performed FOR MEDICAL PURPOSES ONLY. Performed By: #### A EMIL CULVER HIVRP #### [place] [address] PCP (u) Negative Normal [facility] Comment on above: Performed By: #### A EMIL CULVER HIVRP #### [place] [id number] Propoxyphene (u) Negative Normal Negative [facility] Comment on above: Performed By: #### A EMIL CULVER HIVRP #### [facility] [address] [place], [place] [address] U pH Drug Scrn 6.0 Normal 5.0-8.0 [facility] Comment on above: Performed By: #### A EMIL CULVER HIVBALA #### [facility] [address] [place], [place] [address] Urine Drugs screened: See Below Normal L [facility] Comment on above: Result Comment: This drug screen is a presumptive screening only. No confirmation will be performed unless requested. Drugs screened include: Threshold Amphetamines/Methamphetamines 1,000 ng/mL Barbiturates 200 ng/mL Benzodiazepine metabolites 200 ng/mL Cannabinoids (THC metabolites) 50 ng/mL Benzoylecognine (Cocaine metab) 300 ng/mL Opiates 300 ng/mL Phencyclidine (PCP) 25 ng/mL Methadone 300 ng/mL Propoxyphene 300 ng/mL Fentanyl 1.0 ng/mL Oxycodone 100 ng/mL Testing has been performed FOR MEDICAL PURPOSES ONLY. Performed By: #### A EMIL CULVER HIVRP #### [place] [id number] [place], [place] [address] [facility] JOSE R TAPIA ([id number]) [address] [facility] Date Time Provider Department 03/12/21 CHARLEE NEGRO During your visit today, we recorded the following information about you: Allergies As of Date: 03/12/2021 Noted Allergy Reaction LATEX 09/11/2008 2 - Rash PENICILLINS 09/11/2008 4 - Hives Comments: PCN Date Reviewed: 02/18/2019 Reviewed by: Charlee Negro - Fully Assessed Reason for Visit: outreach call [Other] Cmt: on 02/14/21 2nd attempt no answer no vm Prescriptions as of 03/12/2021 - FLUoxetine (PROZAC) 10 mg capsule Take 1 capsule by mouth once daily. Increase to 2 tablets after 2 weeks. - psyllium (METAMUCIL FIBER SINGLES) 3.4 gram packet Take 1 Packet by mouth once daily. - levonorgestrel-ethin yl estradiol 0.15-0.03 mg per tab Take 1 tablet by mouth once daily. Problem List As Of Date 03/12/2021 Noted Resolved Mild intermittent asthma [J45.20] 11/07/2003 Allergic rhinitis [J30.9] 02/02/2012 Allergic conjunctivitis [H10.10] 02/02/2012 Tobacco use disorder [F17.200] 07/06/2017 Syncope [R55] 07/06/2017 Dizziness [R42] 07/06/2017 Fatigue [R53.83] 07/06/2017 Anxiety [F41.9] 07/06/2017 Moderate episode of recurrent major depressive *07/06/2017 Mild intermittent asthma without complication [*07/06/2017 Encounter Status:Closed by [facility] JOSE R TAPIA ([id number]) [address] [facility] Date Time Provider Department 03/12/21 CHARLEE NEGRO During your visit today, we recorded the following information about you: Allergies As of Date: 03/12/2021 Noted Allergy Reaction LATEX 09/11/2008 2 - Rash PENICILLINS 09/11/2008 4 - Hives Comments: PCN Date Reviewed: 02/18/2019 Reviewed by: Charlee Negro - Fully Assessed Reason for Visit: PHMA/Care Gap Outreach [[id number]] Cmt: 3 attempt again no answer unable to leave message Prescriptions as of 03/12/2021 - FLUoxetine (PROZAC) 10 mg capsule Take 1 capsule by mouth once daily. Increase to 2 tablets after 2 weeks. - psyllium (METAMUCIL FIBER SINGLES) 3.4 gram packet Take 1 Packet by mouth once daily. - levonorgestrel-ethin yl estradiol 0.15-0.03 mg per tab Take 1 tablet by mouth once daily. Problem List As Of Date 03/12/2021 Noted Resolved Mild intermittent asthma [J45.20] 11/07/2003 Allergic rhinitis [J30.9] 02/02/2012 Allergic conjunctivitis [H10.10] 02/02/2012 Tobacco use disorder [F17.200] 07/06/2017 Syncope [R55] 07/06/2017 Dizziness [R42] 07/06/2017 Fatigue [R53.83] 07/06/2017 Anxiety [F41.9] 07/06/2017 Moderate episode of recurrent major depressive *07/06/2017 Mild intermittent asthma without complication [*07/06/2017 Encounter Status:Closed by NEYDA JOSEPH [facility]12[facility] Telephone (YUEMPFILIBERTO) JOSE R TAPIA ([id number]) [address] [facility] Date Time Provider Department 01/01/21 CHARLEE NEGRO During your visit today, we recorded the following information about you: Allergies As of Date: 01/01/2021 Noted Allergy Reaction LATEX 09/11/2008 2 - Rash PENICILLINS 09/11/2008 4 - Hives Comments: N Date Reviewed: 02/18/2019 Reviewed by: Charlee Negro - Fully Assessed Reason for Visit: outreach caregap call [Other] Cmt: 1st call no answer no vm set up Prescriptions as of 01/01/2021 Sig: FLUOXETINE 10 MG CAPSULE Take 1 capsule by mouth once * PSYLLIUM HUSK (ASPARTAME) 3.4* Take 1 Packet by mouth once d* LEVONORGESTREL 0.15 MG-ETHINY* Take 1 tablet by mouth once d* Patient not taking: Reported on 02/06/2019 Problem List As Of Date 01/01/2021 Noted Resolved Mild intermittent asthma [J45.20] 11/07/2003 Allergic rhinitis [J30.9] 02/02/2012 Allergic conjunctivitis [H10.10] 02/02/2012 Tobacco use disorder [F17.200] 07/06/2017 Syncope [R55] 07/06/2017 Dizziness [R42] 07/06/2017 Fatigue [R53.83] 07/06/2017 Anxiety [F41.9] 07/06/2017 Moderate episode of recurrent major depressive *07/06/2017 Mild intermittent asthma without complication [*07/06/2017 Encounter Status:Closed by NEYDA JOSEPH on 01/01/21 Normal [facility] RPRon 09-26-2018 Reagin Ab RPR Ql (S) Non-reactive Normal Nonreactive [facility] Comment on above: Performed By: #### L UDR2 #### [place] [address] HIV Screenon 09-25-2018 HIV Screen Negative Normal Nonreactive [facility] Comment on above: Performed By: #### L UDR2 #### [place] [address] Iron % Saturationon 09-24-19 19 Iron % Saturation 23 % Normal 20-55 [facility] Comment on above: Performed By: #### L URIN #### [place] [address] Iron Binding Cap. 317 ug/dL Normal 250-450 [facility] Comment on above: Performed By: #### L URIN #### [place] [address] Iron Serum 72 ug/dL Normal 50-170 [facility] Comment on above: Performed By: #### L URIN #### [place] [address] Prealbuminon 09-24-2018 Prealbumin mass conc 20.8 mg/dL Normal 20.0-40.0 [facility] Comment on above: Performed By: #### L URIN #### [facility] [address] [place] [address] Vitamin B12on 09-24-2018 Cobalamin (Vitamin B12) mass conc 444 pg/mL Normal 193-986 [facility] Comment on above: Performed By: #### L UDR2 #### [place] [address] Chlam/GC-DNA Amplifiedon Chlam/GC-DNA Amplified Test performed at [facility] Chlamydia trachomatis DNA NOT DETECTED Neisseria gonorrhoeae DNA NOT DETECTED Reference range NOT DETECTED Method: Strand Displacement Amplification-BD ProbeTec Assay Comment: A negative result does not preclude C.trachomatis or N. gonorrhoeae infection because results are dependent on adequate specimen collection, absence of inhibitors, and sufficient DNA to be detected. Normal [facility] Comment on above: Performed By: #### L UDR2 #### [place] [address] Comprehensive Panelon 2018 Albumin mass conc 4.4 g/dL Normal 3.4-5.0 [facility] Comment on above: Performed By: #### L URIN #### [place] [address] ALP enzyme act/vol 90 U/L Normal 50-130 [facility] Comment on above: Performed By: #### L URIN #### [place] [address] ALT-SGPT Blood 25 U/L Normal 14-63 [facility] Comment on above: Performed By: #### L URIN #### [place] [address] Anion gap molar conc 15 mmol/L Normal 8-20 [facility] Comment on above: Performed By: #### L URIN #### [place] [address] AST-SGOT Blood 17 U/L Normal 15-37 [facility] Comment on above: Performed By: #### L URIN #### [facility] [address] [place] [address] Bilirubin Ql (U) 0.3 mg/dL Normal 0.2-1.0 [facility] Comment on above: Performed By: #### L URIN #### [facility] [address] [place] [address] Calcium mass conc 9.4 mg/dL Normal 8.5-10.1 [facility] Comment on above: Performed By: #### L URIN #### [facility] [address] [place] [address] Chloride molar conc 103 mmol/L Normal 98-107 [facility] Comment on above: Performed By: #### L URIN #### [facility] [address] [place] [address] CO2 Blood 25 mEq/L Normal 21-32 [facility] Comment on above: Performed By: #### L URIN #### [facility] [address] [place] [address] Creatinine mass conc 0.65 mg/dL Normal 0.51-0.95 [facility] Comment on above: Performed By: #### L URIN #### [facility] [address] [place] [address] Glucose mass conc 86 mg/dL Normal 70-99 [facility] Comment on above: Performed By: #### L URIN #### [facility] [address] [place] [address] Potassium molar conc 3.9 mmol/L Normal 3.5-5.1 [facility] Comment on above: Performed By: #### L URIN #### [facility] [address] [place] [address] Protein mass conc 7.8 g/dL Normal 6.4-8.2 [facility] Comment on above: Performed By: #### L URIN #### [facility] [address] [place] [address] Sodium molar conc 139 mmol/L Normal 136-145 [facility] Comment on above: Performed By: #### L URIN #### [facility] [address] [place] [address] Urea nitrogen mass conc 6 mg/dL Low 7-25 [facility] Comment on above: Performed By: #### L URIN #### [facility] [address] [place] [address] Urea nitrogen/Creatinine mass ratio 9 mg/mg Low 10-20 [facility] Comment on above: Performed By: #### L URIN #### [facility] [address] [place] [address] Cult Urineon 09-23-2018 Cult Urine Test performed at [facility] <10,000 CFU/ml gram positive organisms cultured. No further identification or susceptibility testing will be performed. Plates will be held for 5 days. Normal [facility] Comment on above: Performed By: #### L UDR2 #### [place] [address] Hemogram/Diffon 09-23-2018 Abs. Baso 0.02 thou/cmm Normal 0.00-0.08 [facility] Comment on above: Performed By: #### L URIN #### [facility] [address] [place] [address] Abs. [place] 0.51 thou/cmm Normal 0.20-1.00 [facility] Comment on above: Performed By: #### L URIN #### [place] [address] Abs. Neut (ANC) 2.91 thou/cmm Low 3.00-5.67 [facility] Comment on above: Performed By: #### L URIN #### [facility] [address] [place] [address] Basophils/100 WBC (Bld) 0.3 % Normal [facility] Comment on above: Performed By: #### L URIN #### [facility] [address] [place] [address] Eosinophils #/vol (Bld) 0.12 thou/cmm Normal 0.00-0.41 [facility] Comment on above: Performed By: #### L URIN #### [facility] [address] [place], [place] [address] Eosinophils/100 WBC (Bld) 2.0 % Normal [facility] Comment on above: Performed By: #### L URIN #### [facility] [address] [place] [address] Erythrocyte distribution width Ratio (RBC) 13.2 % Normal 11.5-15.9 [facility] Comment on above: Performed By: #### L URIN #### [facility] [address] [place] [address] Hematocrit Volume Fraction (Bld) 42.2 % Normal 37.0-47.0 [facility] Comment on above: Performed By: #### L URIN #### [facility] [address] [place] [address] Hemoglobin mass conc (Bld) 13.8 g/dL Normal 12.0-16.0 [facility] Comment on above: Performed By: #### L URIN #### [facility] [address] [place] [address] Lymphocytes #/vol (Bld) 2.54 thou/cmm Normal 1.50-3.65 [facility] Comment on above: Performed By: #### L URIN #### [facility] [address] [place] [address] Lymphocytes/100 WBC (Bld) 41.6 % Normal [facility] Comment on above: Performed By: #### L URIN #### [facility] [address] [place] [address] MCH Entitic mass (RBC) 29.1 pg Normal 27.0-31.[address] [facility] Comment on above: Performed By: #### L URIN #### [facility] [address] [place] [address] MCHC mass conc (RBC) 32.7 % Normal 32.0-36.0 [facility] Comment on above: Performed By: #### L URIN #### [place] [address] MCV Entitic volume (RBC) 89.0 fL Normal 81.0-99.0 [facility] Comment on above: Performed By: #### L URIN #### [facility] [address] [place] [address] Monocytes/100 WBC (Bld) 8.4 % Normal [facility] Comment on above: Performed By: #### L URIN #### [facility] [address] [place] [address] Platelet mean volume Entitic volume (Bld) 9.4 fL Normal 7.1-10.5 [facility] Comment on above: Performed By: #### L URIN #### [facility] [address] [place] [address] Platelets #/vol (Bld) 291 thou/cmm Normal 150-400 [facility] Comment on above: Performed By: #### L URIN #### [facility] [address] [place] [address] RBC #/vol (Bld) 4.74 mil/cmm Normal 4.20-5.40 [facility] Comment on above: Performed By: #### L URIN #### [facility] [address] [place] [address] Seg Neutrophil 47.7 % Normal [facility] Comment on above: Performed By: #### L URIN #### [facility] [address] [place] [address] WBC #/vol (Bld) 6.1 thou/cmm Normal 4.8-10.8 [facility] Comment on above: Performed By: #### L URIN #### [facility] [address] [place] [address] Lipase Bloodon 09-23-2018 Lipase Blood 100 U/L Normal 73-393 [facility] Comment on above: Performed By: #### L URIN #### [facility] [address] [place] [address] MDRD eGFRon 09-23-2018 GFR/1.73 sq M predicted among non-blacks MDRD vol rate/area (S/P/Bld) mL/min/{1.73_m2} Normal >60mL/min/1.7 3m2 [facility] Comment on above: Result Comment: If t he patient is , multiply the result by 1.210. Performed By: #### L URIN #### [facility] [address] [place], [place] [address] TSHon 09-23-2018 Thyrotropin Qn 1.57 uIU/mL Normal 0.34-4.82 [facility] Comment on above: Performed By: #### L URIN #### [facility] [address] [place], [place] [address] CT ABDOMEN AND PELVIS WITH C ONTRASTon 03-26-2018 CT ABDOMEN AND PELVIS WITH CONTRAST Performed at [facility] APPROVED BY: Ochoa Huynh MD Exam: CT of the abdomen and pelvis with contrast dated 03/26/2018 07:05. Indication: 17y/o female with right lower quadrant pain. Comparison: None. Technique: Helically acquired CT images were obtained from the lung bases to the upper thighs following the administration of 150 mL of Omnipaque intravenous contrast and reconstructed to a slice thickness of 3.75 mm. Coronal and sagittal reformatted images were obtained. CT Radiation Dose: Integrated Dose-length product (DLP) = 611.13 mGy*cm. CT Dose Reduction Employed: Automated Exposure Control (AEC). Findings: Evaluation of the lower chest reveals clear lung bases. The liver, gallbladder, spleen, pancreas, and adrenal glands are normal in appearance. There is symmetric renal enhancement. There is no evidence of hydronephrosis or hydroureter. A normal appendix is identified in the right lower quadrant. The small and large bowel are normal in caliber without evidence of focal wall thickening. There is no evidence of bowel obstruction. The bladder appears grossly normal. The uterus and ovaries are normal in CT appearance for a patient of this age. There appears to be a right corpus luteal cyst and trace free fluid adjacent to the right ovary. The visualized vascular structures appear normal. No lymphadenopathy, significant free fluid, or organized fluid collections are appreciated. Bone windows demonstrate no suspicious lytic or sclerotic lesions. IMPRESSION: 1. No acute abnormality identified in the abdomen or pelvis. 2. Right ovarian corpus luteal cyst and adjacent trace free fluid possibly representing etiology of patient's right lower quadrant pain. Normal [facility] Comprehensive Panelon 2017 Albumin mass conc 4.2 g/dL Normal 3.4-5.0 [facility] Comment on above: Performed By: #### L P14 #### [facility] [address] [place] [address] ALP enzyme act/vol 96 U/L Normal 50-130 [facility] Comment on above: Performed By: #### L P14 #### [facility] [address] [place] [address] ALT-SGPT Blood 15 U/L Normal 14-63 [facility] Comment on above: Performed By: #### L P14 #### [facility] [address] [place] [address] Anion gap molar conc 9 mmol/L Normal 8-20 [facility] Comment on above: Performed By: #### L P14 #### [facility] [address] [place] [address] AST-SGOT Blood 13 U/L Low 15-37 [facility] Comment on above: Performed By: #### L P14 #### [facility] [address] [place] [address] Bilirubin Ql (U) 0.2 mg/dL Normal 0.2-1.0 [facility] Comment on above: Performed By: #### L P14 #### [facility] [address] [place] [address] Calcium mass conc 9.0 mg/dL Normal 8.5-10.1 [facility] Comment on above: Performed By: #### L P14 #### [facility] [address] [place] [address] Chloride molar conc 105 mmol/L Normal 98-107 [facility] Comment on above: Performed By: #### L P14 #### [facility] [address] [place] [address] CO2 Blood 28 mEq/L Normal 21-32 [facility] Comment on above: Performed By: #### L P14 #### [facility] [address] [place] [address] Creatinine mass conc 0.68 mg/dL Normal 0.51-0.95 [facility] Comment on above: Performed By: #### L P14 #### [facility] [address] [place] [address] Glucose mass conc 91 mg/dL Normal 70-99 [facility] Comment on above: Performed By: #### L P14 #### [facility] [address] [place] [address] Potassium molar conc 3.9 mmol/L Normal 3.5-5.1 [facility] Comment on above: Performed By: #### L P14 #### [facility] [address] [place] [address] Protein mass conc 8.0 g/dL Normal 6.4-8.2 [facility] Comment on above: Performed By: #### L P14 #### [facility] [address] [place] [address] Sodium molar conc 138 mmol/L Normal 136-145 [facility] Comment on above: Performed By: #### L P14 #### [facility] [address] [place] [address] Urea nitrogen mass conc 7 mg/dL Normal 7-25 [facility] Comment on above: Performed By: #### L P14 #### [place] [address] Urea nitrogen/Creatinine mass ratio 10 mg/mg Normal 10-20 [facility] Comment on above: Performed By: #### L P14 #### [place] [address] Cult Urineon 03-26-2018 Cult Urine Test performed at [facility] <10,000 CFU/ml gram positive organisms cultured. No further identification or susceptibility testing will be performed. Plates will be held for 5 days. Normal [facility] Comment on above: Performed By: #### L URIN #### [facility] [address] [place] [address] Hemogram/Manual Diffon 03-26 Abs. Baso 0.00 thou/cmm Normal 0.00-0.08 [facility] Comment on above: Performed By: #### L MCBD #### [place] [address] Abs. [place] 0.61 thou/cmm Normal 0.20-1.00 [facility] Comment on above: Performed By: #### L MCBD #### [facility] [address] [place], [place] [address] Abs. Neut (ANC) 10.94 thou/cmm High 3.00-5.67 [facility] Comment on above: Performed By: #### L MCBD #### [facility] [address] [place], [place] [address] Basophils/100 WBC (Bld) 0.0 % Normal [facility] Comment on above: Performed By: #### L MCBD #### [place] [address] Eosinophils #/vol (Bld) 0.00 thou/cmm Normal 0.00-0.41 [facility] Comment on above: Performed By: #### L MCBD #### [address] [address] Eosinophils/100 WBC (Bld) 0.0 % Normal [facility] Comment on above: Performed By: #### L MCBD #### [address] [address] Lymphocytes #/vol (Bld) 3.65 thou/cmm Normal 1.50-3.65 [facility] Comment on above: Performed By: #### L MCBD #### [address] [address] Lymphocytes/100 WBC (Bld) 24.0 % Normal [facility] Comment on above: Performed By: #### L MCBD #### [address] [address] Monocytes/100 WBC (Bld) 4.0 % Normal [facility] Comment on above: Performed By: #### L MCBD #### [address] [address] Platelets #/vol (Bld) Normal Normal [facility] Comment on above: Performed By: #### L MCBD #### [address], [place] [address] RBC morphology finding Nom (Bld) Normal Normal [facility] Comment on above: Performed By: #### L MCBD #### [facility] [address] [place] [address] Seg Neutrophil 72.0 % Normal [facility] Comment on above: Performed By: #### L MCBD #### [facility] [address] [place] [address] Diff Type Manual Diff Normal [facility] Comment on above: Performed By: #### L MCBD #### [facility] [address] [place] [address] Erythrocyte distribution width Ratio (RBC) 13.0 % Normal 11.5-15.9 [facility] Comment on above: Performed By: #### L MCBD #### [facility] [address] [place] [address] Hematocrit Volume Fraction (Bld) 40.4 % Normal 37.0-47.0 [facility] Comment on above: Performed By: #### L MCBD #### [facility] [address] [place] [address] Hemoglobin mass conc (Bld) 13.1 g/dL Normal 12.0-16.0 [facility] Comment on above: Performed By: #### L MCBD #### [facility] [address] [place] [address] MCH Entitic mass (RBC) 28.6 pg Normal 27.0-31.[address] [facility] Comment on above: Performed By: #### L MCBD #### [facility] [address] [place] [address] MCHC mass conc (RBC) 32.4 % Normal 32.0-36.0 [facility] Comment on above: Performed By: #### L MCBD #### [facility] [address] [place] [address] MCV Entitic volume (RBC) 88.2 fL Normal 81.0-99.0 [facility] Comment on above: Performed By: #### L MCBD #### [facility] [address] [place] [address] Platelet mean volume Entitic volume (Bld) 9.2 fL Normal 7.1-10.5 [facility] Comment on above: Performed By: #### L MCBD #### [facility] [address] [place] [address] Platelets #/vol (Bld) 387 thou/cmm Normal 150-400 [facility] Comment on above: Performed By: #### L MCBD #### [facility] [address] [place] [address] RBC #/vol (Bld) 4.58 mil/cmm Normal 4.20-5.40 [facility] Comment on above: Performed By: #### L MCBD #### [place] [address] WBC #/vol (Bld) 15.2 thou/cmm High 4.8-10.8 [facility] Comment on above: Performed By: #### L MCBD #### [place] [address] Lactic acidon 03-26-2018 Lactate molar conc 1.3 mmol/L Normal 0.4-2.0 [facility] Comment on above: Performed By: #### L URIN #### [place] [address] Lipase Bloodon 03-26-2018 Lipase Blood 94 U/L Normal 73-393 [facility] Comment on above: Performed By: #### L LIP #### [place] [address] MDRD eGFRon 03-26-2018 GFR/1.73 sq M predicted among non-blacks MDRD vol rate/area (S/P/Bld) mL/min/{1.73_m2} Normal >60mL/min/1.7 3m2 [facility] Comment on above: Result Comment: If t he patient is , multiply the result by 1.210. Performed By: #### L GFR #### [facility] [address] [place] [address] Urinalysis Routineon 018 Appearance Nom (U) CLEAR Normal [facility] Comment on above: Performed By: #### L URIN #### [facility] [address] [place] [address] Bacteria LM.HPF #/area (Urine sed) MODERATE Abnormal None [facility] Comment on above: Performed By: #### L URIN #### [facility] [address] [place] [address] Bilirubin Urine Negative Normal Negative [facility] Comment on above: Performed By: #### L URIN #### [facility] [address] [place] [address] Color Nom (U) YELLOW Normal [facility] Comment on above: Performed By: #### L URIN #### [facility] [address] [place] [address] Ep Cells Urine 6-12 Abnormal 0-5 [facility] Comment on above: Performed By: #### L URIN #### [facility] [address] [place] [address] Glucose Ql (U) Negative Normal Negative [facility] Comment on above: Performed By: #### L URIN #### [facility] [address] [place] [address] Hemoglobin,Urine 2+ Abnormal Negative [facility] Comment on above: Performed By: #### L URIN #### [facility] [address] [place] [address] Ketone Urine Negative Normal Negative [facility] Comment on above: Performed By: #### L URIN #### [facility] [address] [place] [address] Leukocytes Esterase 1+ Abnormal Negative [facility] Comment on above: Performed By: #### L URIN #### [facility] [address] [place] [address] Nitrites Urine Negative Normal Negative [facility] Comment on above: Performed By: #### L URIN #### [facility] [address] [place] [address] pH (U) 6.0 [pH] Normal 5.0-8.0 [facility] Comment on above: Performed By: #### L URIN #### [facility] [address] [place] [address] Protein mass conc (U) 1+ Abnormal Negative [facility] Comment on above: Performed By: #### L URIN #### [facility] [address] [place] [address] RBC LM.HPF #/area (Urine sed) 13-20 Abnormal 0-3 [facility] Comment on above: Performed By: #### L URIN #### [facility] [address] [place] [address] Specific [place], Ur 1.015 Normal 1.005-1.030 [facility] Comment on above: Performed By: #### L URIN #### [facility] [address] [place] [address] Urobilinogen,Ur 0.2 EU/dL Normal 0.0-1.0 [facility] Comment on above: Performed By: #### L URIN #### [facility] [address] [place] [address] WBC LM.HPF #/area (Urine sed) 36-50 Abnormal 0-5 [facility] Comment on above: Performed By: #### L URIN #### [place] [address] Urine HCG, Qual.on 8 HCG.beta subunit ( test) Ql (U) Negative Normal Negative [facility] Comment on above: Performed By: #### L HCG2 #### [place] [address] ABD COMPL WITH UPRIGHT PA CH ESTon 10-11-2017 ABD COMPL WITH UPRIGHT PA CHEST Performed at [facility] APPROVED BY: Madhu Rushing MD EXAM TITLE: ABD COMPL WITH UPRIGHT PA CHEST DATE: 10/11/2017 08:33 COMPARISON: 05/20/2017 CLINICAL INDICATION/HISTORY: Constipation x1 week TECHNIQUE: AP supine, AP upright and left lateral decubitus views of the abdomen are presented. FINDINGS: Lungs are clear without inflammatory infiltrates or pleural effusions. No abnormally dilated bowel loops are noted. Moderate volume retained fecal material in the proximal colon and transverse colon There are no abnormal calcifications. The bony structures appear intact. IMPRESSION: There is no evidence of free air or obstruction. Moderate volume retained fecal material in the proximal colon and transverse colon Normal [facility] Urinalysis Routineon 018 Ep Cells Urine 2-5 Normal 0-5 [facility] Comment on above: Performed By: #### L URIN #### [place] [address] Mucus Threads MODERATE Normal None [facility] Comment on above: Performed By: #### L URIN #### [facility] [address] [place] [address] pH (U) 6.0 [pH] Normal 5.0-8.0 [facility] Comment on above: Performed By: #### L URIN #### [place] [address] RBC LM.HPF #/area (Urine sed) 4-6 Abnormal 0-3 [facility] Comment on above: Performed By: #### L URIN #### [place] [address] Specific [place], Ur 1.025 Normal 1.005-1.030 [facility] Comment on above: Performed By: #### L URIN #### [place] [address] WBC LM.HPF #/area (Urine sed) 1-3 Normal 0-5 [facility] Comment on above: Performed By: #### L URIN #### [place] [address] Appearance Nom (U) CLEAR Normal [facility] Comment on above: Performed By: #### L URIN #### [place] [address] Bilirubin Urine Negative Normal Negative [facility] Comment on above: Performed By: #### L URIN #### [place] [address] Color Nom (U) YELLOW Normal [facility] Comment on above: Performed By: #### L URIN #### [facility] [address] [place] [address] Glucose Ql (U) Negative Normal Negative [facility] Comment on above: Performed By: #### L URIN #### [facility] [address] [place] [address] Hemoglobin,Urine TRACE-INTACT Abnormal Negative [facility] Comment on above: Performed By: #### L URIN #### [facility] [address] [place] [address] Ketone Urine Negative Normal Negative [facility] Comment on above: Performed By: #### L URIN #### [facility] [address] [place] [address] Leukocytes Esterase Negative Normal Negative [facility] Comment on above: Performed By: #### L URIN #### [facility] [address] [place] [address] Nitrites Urine Negative Normal Negative [facility] Comment on above: Performed By: #### L URIN #### [facility] [address] [place] [address] Protein mass conc (U) Negative Normal Negative [facility] Comment on above: Performed By: #### L URIN #### [facility] [address] [place] [address] Urobilinogen,Ur 0.2 EU/dL Normal 0.0-1.0 [facility] Comment on above: Performed By: #### L URIN #### [place] [address] Urine Drug Screenon 10-11-19 18 Protein mass conc (U) Non-Detected Normal Non-Detected [facility] Comment on above: Performed By: #### L UDR2 #### [facility] [address] [place] [address] Urine Amphetamine Non-Detected Normal Non-Detected [facility] Comment on above: Performed By: #### L UDR2 #### [facility] [address] [place] [address] Urine Barbiturates Non-Detected Normal Non-Detected [facility] Comment on above: Performed By: #### L UDR2 #### [facility] [address] [place] [id number] Urine Benzodiazepine Non-Detected Normal Non-Detected [facility] Comment on above: Performed By: #### L UDR2 #### [facility] [address] [place], [place] [address] Urine Buprenorphine Non-Detected Normal Non-Detected [facility] Comment on above: Result Comment: Urin e Drug Cutoff Levels Urine Amphetamine 500 ng/mL Urine Barbituate 200 ng/mL Urine Benzodiazepines 150 ng/mL Urine Cocaine 150 ng/mL Urine Methamphetamines 500 ng/mL Urine Methadone 200 ng/mL Urine Opiates 100 ng/mL Urine Oxycodone 100 ng/mL Urine Phencyclidine (PCP) 25 ng/mL Urine Propoxyphene 300 ng/mL Urine Tricyclics 300 ng/mL Urine THC 50 ng/mL Urine Buprenorphine 10 ng/mL The results of these analytes are unconfirmed and reported qualitatively as detected or non-detected relative to the cutoff value. Detected results indicate the sample is likely to contain the analyte. Non-detected results indicate that either the sample does not contain the analyte or it is present in concentrations below the cutoff level. This drug screen should be used for medical diagnostic purposes only. Testing Performed at: [place] [address] Performed By: #### L UDR2 #### [facility] [address] [place] [address] Urine Cocaine Non-Detected Normal Non-Detected [facility] Comment on above: Performed By: #### L UDR2 #### [facility] [address] [place], [place] [address] Urine Methadone Non-Detected Normal Non-Detected [facility] Comment on above: Performed By: #### L UDR2 #### [facility] [address] [place], [place] [address] Urine Methamphetamine Non-Detected Normal Non-Detected [facility] Comment on above: Performed By: #### L UDR2 #### [facility] [address] [place] [address] Urine Opiate Non-Detected Normal Non-Detected [facility] Comment on above: Performed By: #### L UDR2 #### [facility] [address] [place] [address] Urine Oxycodone Non-Detected Normal Non-Detected [facility] Comment on above: Performed By: #### L UDR2 #### [facility] [address] [place], [place] [address] Urine PCP Non-Detected Normal Non-Detected [facility] Comment on above: Performed By: #### L UDR2 #### [facility] [address] [place] [address] Urine THC Non-Detected Normal Non-Detected [facility] Comment on above: Performed By: #### L UDR2 #### [facility] [address] [place] [address] Urine Tricyclics Non-Detected Normal Non-Detected [facility] Comment on above: Performed By: #### L UDR2 #### [facility] [address] [place] [address] Urine HCG, Qual.on 8 HCG.beta subunit ( test) Ql (U) Negative Normal Negative [facility] Comment on above: Performed By: #### L HCG2 #### [facility] [address] [place], [place] [address] Vital Signs Date Time Vital Sign Value Performing Clinician Facility 01-01-2025 12:10-0400 Body temperature 98.2 [degF] Fredo Braxton MD Work Phone: [facility] 01-01-2025 12:10-0400 Diastolic blood pressure 79 mm[Hg] Fredo Braxton MD Work Phone: [facility] 01-01-2025 12:10-0400 Heart rate 91 /min Fredo Braxton MD Work Phone: [facility] 01-01-2025 12:10-0400 Respiratory rate 18 /min Fredo Braxton MD Work Phone: [facility] 01-01-2025 12:10-0400 Systolic blood pressure 119 mm[Hg] Fredo Braxton MD Work Phone: [facility] 12-31-2024 00:50-0400 SaO2% (BldA) [Mass fraction] 60.7 % Fredo Braxton MD Work Phone: [facility] 12-30-2024 19:35-0400 Diastolic blood pressure 76 mm[Hg] Jesus Vaca MD Work Phone: [facility] 12-30-2024 19:35-0400 Heart rate 71 /min Jesus Vaca MD Work Phone: [facility] 12-30-2024 19:35-0400 SaO2% (BldA) [Mass fraction] 100 % Jesus Vaca MD Work Phone: [facility] 12-30-2024 19:35-0400 Systolic blood pressure 126 mm[Hg] Jesus Vaca MD Work Phone: [facility] 12-29-2024 20:15-0400 Body height 162.6 cm Fredo Braxton MD Work Phone: [facility] 12-29-2024 20:15-0400 Body mass index (BMI) [Ratio] 29.97 kg/m2 Fredo Braxton MD Work Phone: [facility] 12-29-2024 20:15-0400 Body weight 79.2 kg Fredo Braxton MD Work Phone: [facility] 12-25-2024 10:59-0400 Body mass index (BMI) [Ratio] 30.09 kg/m2 Melita Wileyehl [employer]HIGHER EDUCATION ADMINISTRATOR Work Phone: [facility] 12-25-2024 10:59-0400 Body weight 79.52 kg Melita Rosa [employer]IGHER EDUCATION ADMINISTRATOR Work Phone: [facility] 12-25-2024 10:59-0400 Diastolic blood pressure 73 mm[Hg] Melita Rosa [employer]IGHER EDUCATION ADMINISTRATOR Work Phone: [facility] 12-25-2024 10:59-0400 Heart rate 84 /min Melita Wileyehl [employer]IGHER EDUCATION ADMINISTRATOR Work Phone: [facility] 12-25-2024 10:59-0400 Systolic blood pressure 114 mm[Hg] Melita Rosa [employer]IGHER EDUCATION ADMINISTRATOR Work Phone: [facility] 12-18-2024 14:21-0400 Body mass index (BMI) [Ratio] 29.63 kg/m2 Melita Rosa [employer]IGHER EDUCATION ADMINISTRATOR Work Phone: [facility] 12-18-2024 14:21-0400 Body weight 78.29 kg Melita Rosa [employer]IGHER EDUCATION ADMINISTRATOR Work Phone: [facility] 12-18-2024 14:21-0400 Diastolic blood pressure 71 mm[Hg] Melita Rosa [employer]IGHER EDUCATION ADMINISTRATOR Work Phone: [facility] 12-18-2024 14:21-0400 Heart rate 96 /min Melita Rosa [employer]HER EDUCATION ADMINISTRATOR Work Phone: [facility] 12-18-2024 14:21-0400 Systolic blood pressure 116 mm[Hg] Melita Rosa [employer]HER EDUCATION ADMINISTRATOR Work Phone: [facility] 12-11-2024 13:05-0400 Body mass index (BMI) [Ratio] 29.51 kg/m2 Melita Rosa [employer]IGHER EDUCATION ADMINISTRATOR Work Phone: [facility] 12-11-2024 13:05-0400 Body weight 77.97 kg Melita Rosa [employer]IGHER EDUCATION ADMINISTRATOR Work Phone: [facility] 12-11-2024 13:05-0400 Diastolic blood pressure 71 mm[Hg] Melita Rosa [employer]IGHER EDUCATION ADMINISTRATOR Work Phone: [facility] 12-11-2024 13:05-0400 Heart rate 88 /min Melita Rosa [employer]HER EDUCATION ADMINISTRATOR Work Phone: [facility] 12-11-2024 13:05-0400 Systolic blood pressure 120 mm[Hg] Melita Rosa [employer]HER EDUCATION ADMINISTRATOR Work Phone: [facility] 10-17-2024 13:36-0500 Heart rate 102 /min Ev Sparks MD Work Phone: [facility] 10-17-2024 07:30-0500 Body temperature 98.1 [degF] Ev Sparks MD Work Phone: [facility] 10-17-2024 07:30-0500 Diastolic blood pressure 73 mm[Hg] Ev Sparks MD Work Phone: [facility] 10-17-2024 07:30-0500 Heart rate 115 /min Ev Sparks MD Work Phone: [facility] 10-17-2024 07:30-0500 Respiratory rate 16 /min Ev Sparks MD Work Phone: [facility] 10-17-2024 07:30-0500 SaO2% (BldA) [Mass fraction] 100 % Ev Sparks MD Work Phone: [facility] 10-17-2024 07:30-0500 Systolic blood pressure 119 mm[Hg] Ev Sparks MD Work Phone: [facility] 10-15-2024 13:27-0500 Body height 163.8 cm Ev Sparks MD Work Phone: [facility] 10-15-2024 13:27-0500 Body mass index (BMI) [Ratio] 27.09 kg/m2 Ev Sparks MD Work Phone: [facility] 10-15-2024 13:27-0500 Body weight 72.7 kg Ev Sparks MD Work Phone: [facility] 12-21-2022 00:05-0400 Heart rate 98 /min [facility] 12-21-2022 00:05-0400 Respiratory rate 18 /min [facility] 12-20-2022 23:28-0400 Body height 162.56 cm [facility] 12-20-2022 23:28-0400 Body mass index (BMI) [Ratio] 20.8 kg/m2 [facility] 12-20-2022 23:28-0400 Body temperature 98.4 [degF] [facility] 12-20-2022 23:28-0400 Body weight 55.05 kg [facility] 12-20-2022 23:28-0400 Diastolic blood pressure 85 mm[Hg] [facility] 12-20-2022 23:28-0400 SaO2% (BldA) [Mass fraction] 100 % [facility] 12-20-2022 23:28-0400 Systolic blood pressure 128 mm[Hg] [facility] Encounters Encounter Date Encounter Type Care Provider Facility Start: 01-31-2025 End: 01-31-2025 ambulatory Neena Oprecio [facility] Remote Patient Monitoring Start: 01-31-2025 End: 01-31-2025 [facility] Comment on above: OB HTN RPM end of pr ogram letter. Start: 01-31-2025 End: 01-31-2025 Patient encounter procedure Melany Lewis [facility] Care Management/Patient Access Comment on above: APPOINTMENT SCHEDRAZ NG; Outreach Start: 01-10-2025 End: 01-10-2025 [facility] Comment on above: OB RPM COMPLIANCE AL ERT Start: 01-03-2025 End: 01-03-2025 Encounter Melita MCDONALD Work Phone: [facility] NICU Start: 01-01-2025 End: 01-01-2025 ambulatory Primo Kim [facility] Remote Patient Monitoring Start: 12-30-2024 End: 12-31-2024 Evaluation and management of inpatient Primo Nelson MD Work Phone: [facility] Labor and Delivery Start: 12-29-2024 End: 01-01-2025 Evaluation and management of inpatient Fredo Braxton MD Work Phone: [facility] Comment on above: Vacuum-assisted vagi nal delivery (HCC) (Primary Dx); Third trimester (HCC); Dental abscess; History of drug abuse (HCC); Gestational hypertension, third trimester (HCC) Start: 12-25-2024 End: 12-25-2024 Patient encounter procedure Melita Wileyehl [employer]HER EDUCATION ADMINISTRATOR Work Phone: [facility] Obstetrics High Risk Comment on above: Supervision of high risk in third trimester (HCC) (Primary Dx); Heartburn during in third trimester (HCC); Anemia affecting in third trimester (HCC); Tobacco use disorder; Mild intermittent asthma without complication (HCC); History of incarceration; History of drug abuse; BMI 28.0-28.9,adult; Anxiety and depression Start: 12-25-2024 End: 12-25-2024 ambulatory UNKNOWN PROVIDER Facility:[facility] Start: 12-22-2024 End: 12-22-2024 Patient Outreach SINDI Barron [facility] Social Work Start: 12-18-2024 End: 12-19-2024 Patient encounter procedure Melita Rosa [employer]HER EDUCATION ADMINISTRATOR Work Phone: [facility] Obstetrics High Risk Comment on above: Supervision of high risk in third trimester (HCC) (Primary Dx); Tobacco use disorder; Mild intermittent asthma without complication (HCC); History of incarceration; History of drug abuse; Heartburn during in third trimester (HCC); Breech presentation, single or unspecified fetus (HCC); BMI 28.0-28.9,adult; Anxiety and depression; Anemia affecting in third trimester (HCC) Start: 12-18-2024 End: 12-19-2024 ambulatory [facility] 2 [facility] Start: 12-11-2024 End: 12-11-2024 Patient encounter procedure Melita Wileyehl [employer]IGHER EDUCATION ADMINISTRATOR Work Phone: [facility] Obstetrics High Risk Comment on above: Supervision of high risk in third trimester (HCC) (Primary Dx); Breech presentation, single or unspecified fetus (HCC); Tobacco use disorder; Mild intermittent asthma without complication (HCC); History of incarceration; History of drug abuse; BMI 28.0-28.9,adult; Anxiety and depression; Anemia affecting in third trimester (HCC) Start: 12-11-2024 End: 12-14-2024 ambulatory UNKNOWN PROVIDER Facility:[facility] Start: 12-01-2024 End: 12-01-2024 ambulatory UNKNOWN PROVIDER Facility:[facility] Start: 11-27-2024 End: 11-28-2024 ambulatory UNKNOWN PROVIDER Facility:[facility] Start: 11-13-2024 End: 11-14-2024 ambulatory UNKNOWN PROVIDER Facility:[facility] Start: 10-30-2024 End: 10-30-2024 ambulatory UNKNOWN PROVIDER Facility:[facility] Start: 10-30-2024 ambulatory UNKNOWN PROVIDER Facili ty:[facility] Start: 10-16-2024 End: 10-16-2024 Patient encounter procedure Chad Davis DMD, MD Work Phone: [facility] Oral Surgery Comment on above: 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 (Primary Dx) Start: 10-16-2024 ambulatory UNKNOWN PROVIDER Facili ty:[facility] Start: 10-15-2024 ambulatory UNKNOWN PROVIDER Facili ty:[facility] Start: 10-15-2024 ambulatory Ev Neema HicksMunguia cility:[facility] Start: 10-15-2024 End: 10-17-2024 ambulatory GLENN CHOI Facility:[facility] Start: 10-15-2024 End: 10-17-2024 Emergency department patient visit [facility] Facility:[facility] Comment on above: Third trimester preg geronimo (HCC) (Primary Dx); Dental abscess; SIRS (systemic inflammatory response syndrome) (HCC); Submandibular abscess; Tachycardia; Leukocytosis, unspecified type; History of drug abuse (HCC); Anemia affecting in third trimester (HCC) Start: 10-14-2024 ambulatory Charlee Negro NP Facili ty:[facility] Start: 10-14-2024 End: 10-15-2024 Emergency department patient visit Charlee Negro NP Facility:[facility] Start: 10-14-2024 End: 10-14-2024 Emergency department patient visit Charlee Negro NP Facility:[facility] Start: 09-05-2024 ambulatory TALISHA DUBON [employer]CNRay Facility:[facility] Start: 08-04-2024 End: 08-04-2024 ambulatory TALISHA RUTH [employer] Facility:[facility] Start: 08-04-2024 End: 08-04-2024 Patient encounter procedure TALISHA RUTH APRN-CNM [facility] Start: 08-01-2024 End: 08-05-2024 ambulatory TALISHA RUTH [employer]-CNM Facility:[facility] Start: 08-01-2024 End: 08-05-2024 Outreach Lab TALISHA RUTH [employer]-CNM [facility] Start: 07-26-2024 End: 07-27-2024 Emergency department patient visit Charlee Negro NP Facility:[facility] Start: 07-05-2024 End: 07-05-2024 ambulatory NONE PHYSICIAN [facility] Start: 07-05-2024 End: 07-05-2024 Patient encounter procedure MARIBELL LUTHER [employer]IGHER EDUCATION ADMINISTRATOR [facility] Start: 07-03-2024 End: 07-07-2024 ambulatory NONE PHYSICIAN Facility:[facility] Start: 12-20-2022 End: 12-21-2022 Emergency department patient visit [facility]-Emergency Department Start: 11-13-2022 Letter encounter Fidel Ram MD Work Phone[facility] Start: 05-15-2022 Letter encounter Fidel Ram MD Work Phone: [facility] Start: 09-23-2018 Patient encounter procedure CHARLEE De Dios (TRAVIS) [facility] Start: 09-23-2018 End: 09-23-2018 Patient encounter procedure CHARLEE De Dios (HIGHER EDUCATION ADMINISTRATOR) [facility] Start: 07-15-2017 End: 07-15-2017 Ambulatory CHARLEE De Dios [facility] Procedures Date Procedure Procedure Detail Performing Clinician Start: 01-01-2025 OB REMOTE MONITORING Jabari Betancourt DO Work Phone: Start: 12-31-2024 ENROLL PATIENT IN MY CHART CARE PLAN Kwadwo Melendez MD Work Phone: Start: 12-31-2024 Blood gases any comb ination ph pco2 po2 co2 hco3 Lito Pitt MD Work Phone: Start: 12-30-2024 Protein total xcpt refractometry urine Kwadwo Melendez MD Work Phone: Start: 12-30-2024 Epidural anesthesia Chr fiona Abel MD Work Phone: Start: 12-29-2024 Drug screen class list a Reanna Mason MD Work Phone: Start: 12-29-2024 EXTRA TUBE Fredo raya MD Work Phone: Start: 12-29-2024 GOLD TOP - SST TUBE, BLOOD Fredo Braxton MD Work Phone: Start: 12-29-2024 End: 12-29-2024 Hepatic function panel Kwadwo Melendez MD Work Phone: Start: 12-29-2024 End: 12-29-2024 Lactate dehydrogenase ldh Kwadwo Melendez MD Work Phone: Start: 12-29-2024 ANTIBODY ID - LAB USE ONLY Lito Pitt MD Work Phone: Start: 12-29-2024 Blood typing, ABO, R ho(D) and RBC antibody screening Lito Pitt MD Work Phone: Start: 12-29-2024 SYPHILIS TOTAL/TPPA Ugo Pitt MD Work Phone: Start: 12-25-2024 Urnls dip stick/tabl et rgnt non-auto w/o micrscp Melita Lee [employer]HIGHER EDUCATION ADMINISTRATOR Work Phone: Start: 12-18-2024 Blood count complete automated Melita Lee APRN-HIGHER EDUCATION ADMINISTRATOR Work Phone: Start: 12-18-2024 Urnls dip stick/tabl et rgnt non-auto w/o micrscp Melita Lee [employer]HIGHER EDUCATION ADMINISTRATOR Work Phone: Start: 12-18-2024 Us preg uterus real time f/u trnsabdl per fetus Melita Lee [employer]HIGHER EDUCATION ADMINISTRATOR Work Phone: Start: 10-25-2024 Radiology Comparison study - date and time Ev Sparks MD Work Phone: Start: 10-17-2024 End: 10-17-2024 Glucose tolerance test gtt 3 specimens Indu Veloz MD Work Phone: Start: 10-17-2024 End: 10-17-2024 Glucose tolerance test gtt 3 specimens Indu Veloz MD Work Phone: Start: 10-16-2024 Glucose post glucose dose Reanna Mason MD Work Phone: Start: 10-16-2024 Drug screen class list a Reanna Mason MD Work Phone: Start: 10-16-2024 Cyanocobalamin vitamin b-12 Reanna Mason MD Work Phone: Start: 10-16-2024 Ct maxillofacial w/c ontrast material Melita Alejandre MD Work Phone: Start: 10-15-2024 Blood typing, ABO, R ho(D) and RBC antibody screening Melita Alejandre MD Work Phone: Start: 10-15-2024 Iadna nos amplified probe tq each organism Daksha Kaba MD Work Phone: Start: 10-15-2024 Us preg uterus real time f/u trnsabdl per fetus Daksha Kaba MD Work Phone: Start: 10-15-2024 Cul bact xcpt urine blood/stool aerobic isol Ev Sparks MD Work Phone: Start: 10-15-2024 Assay of lactate Montrell Sparks MD Work Phone: Start: 10-15-2024 Troponin I.cardiac [Mass/volume] in Serum or Plasma by Detection limit <= 0.01 ng/mL Ev Sparks MD Work Phone: Start: 10-15-2024 Ecg routine ecg w/le ast 12 lds trcg only w/o i&r Ev Sparks MD Work Phone: Start: 10-15-2024 Antibody rubella Juan Mason MD Work Phone: Start: 10-15-2024 Assay of lactate Montrell Sparks MD Work Phone: Start: 10-15-2024 Iaad ia hepatitis b surface antigen Reanna Mason MD Work Phone: Start: 10-15-2024 SYPHILIS TOTAL/TPPA Adan Mason MD Work Phone: Start: 10-15-2024 Troponin I.cardiac [Mass/volume] in Serum or Plasma by Detection limit <= 0.01 ng/mL Ev Sparks MD Work Phone: None (qualifier value) MARIBELL GREGORYKINSON [employer]HIGHER EDUCATION ADMINISTRATOR Plan of Treatment Date Care Activity Detail Author Start: 11-08-2049 Shingles (RZV) Vacci ne (1 of 2) Shingles (RZV) Vaccine (1 of 2) [facility] Start: 12-29-2025 Creatinine measurement Basic Metabol ic Panel [facility] Start: 06-06-2025 Influenza vaccination Influenza Vacc ine (#1) [facility] Start: 01-30-2025 End: 01-30-2025 Patient encounter procedure 01/30/2025 9:00 AM EDT Office Visit [facility] Obstetrics High Risk [address] [place] [id number] Melita Lee [employer]HIGHER EDUCATION ADMINISTRATOR [address] [place] [address] [facility] Obstetrics High Risk Start: 01-04-2025 End: 01-04-2025 Nursing evaluation of patient and report 01/04/2025 9:30 AM EDT Nurse Visit [facility] Gynecology [address] [place] [address] Nurse, Heat Engineering Teacher [facility] Gynecology Start: 01-01-2025 End: 01-01-2025 Patient encounter procedure 01/01/2025 11:00 AM EDT Office Visit [facility] Obstetrics High Risk [address] [place] [address] Melita Lee APRN-CNP [address] [place] [address] [facility] Obstetrics High Risk Start: 12-29-2024 End: 12-29-2024 Patient encounter procedure 12/29/2024 8:00 PM EDT Office Visit [facility] Labor and Delivery [address] [place] [id number] Melita Lee APRN-CNP [address] [place] [address] [facility] Labor and Delivery Start: 12-25-2024 End: 12-25-2024 Patient encounter procedure 12/25/2024 11:00 AM EDT Office Visit [facility] Obstetrics High Risk [address] [place] [address] Melita Lee APRNHAO [address] [place] [address] [facility] Obstetrics High Risk Start: 12-18-2024 End: 12-18-2024 Patient encounter procedure 12/18/2024 2:00 PM EDT Office Visit [facility] Obstetrics High Risk [address] [place] [address] Melita Lee APRN-CNP [address] [place] [id number] [facility] Obstetrics High Risk Start: 12-18-2024 End: 12-18-2024 ambulatory 12/18/2024 1:00 PM EDT [employer] 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[employer]OW 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 Ultrasound [facility] [address] [place] [address] [facility] Start: 05-07-2024 COVID-19 Vaccine ( season) COVID-19 Vaccine ( season) [facility] Start: 06-06-2022 Influenza vaccination Influenza Vacc ine (#1) [facility] Start: 02-01-2022 Tetanus vaccination Tetanus (T d or Tdap) Booster [facility] Start: 11-08-2020 Screening for malign ant neoplasm of cervix Pap Smear [facility] Start: 11-08-2018 Pneumococcal vaccination Pneum ococcal Vaccine(s) (1 of 2 - PCV) [facility] Start: 11-08-2017 Hepatitis C screening Hepatitis C An tibody [facility] Start: 11-08-2017 Screening for Chlamy venu trachomatis STI Screening (Age 18-24) [facility] Start: 2015 Meningococcal B (Bexsero,OMV) Vaccine (Optional,16-23 years) (#1) Meningococcal B (Bexsero,OMV) Vaccine (Optional,16-23 years) (#1) [facility] Start: 05-11-2000 COVID-19 Vaccine (#1) COVID-19 Vacci ne (#[facility]) [facility] Assay of ferritin FERRITIN Lab R outine Supervision of high risk in third trimester (HCC) Anemia affecting in third trimester (HCC) Ordered: 12/19/[address] [facility] Work Phone: Comment on above: Ordered: 12/19/2024 Assay of folic acid serum FOLIC ACID Lab Routine Supervision of high risk in third trimester (HCC) Anemia affecting in third trimester (HCC) Ordered: 12/19/2024 [facility] Comment on above: Ordered: 12/19/2024 Assay of iron IRON AND TIBC La b Routine Supervision of high risk in third trimester (HCC) Anemia affecting in third trimester (HCC) Ordered: 12/19/2024 [facility] Comment on above: Ordered: 12/19/2024 Cul prsmptv pthgnc organism scrn w/colony estimj CULTURE FOR BETA-HEMOLYTIC STREP Microbiology Routine Supervision of high risk in third trimester (HCC) 12/11/2024 1:24 PM EDT [facility] Cyanocobalamin vitam in b-12 VITAMIN B12 (CYANOCOBALAMIN) Lab Routine Supervision of high risk in third trimester (HCC) Anemia affecting in third trimester (HCC) Ordered: 12/19/2024 [facility] Comment on above: Ordered: 12/19/2024 End: 12-29-2024 Iadna nos amplified probe tq each organism [email or web address] Work Phone: Comment on above: One time for 1 Occur rences starting 12/29/2024 until 12/29/2024 Patient Education Meth Abuse Addiction [facility] Work Phone: Patient referral [facility] Work Phone: Urnls dip stick/tabl et rgnt non-auto w/o micrscp URINE GLU/PROTEIN-OB PTS ONLY Lab Routine Supervision of high risk in third trimester (HCC) Ordered: 12/11/2024 [email or web address] Work Phone: Comment on above: Ordered: 12/11/2024 Immunizations Immunization Date Immunization Notes Care Provider Jamarcus flores 05-24-2017 meningococcal polysaccharide (groups A, C, Y and W-135) diphtheria toxoid conjugate vaccine (MCV4P) Melita MCDONALD [facility] 10-10-2015 hepatitis A vaccine, pediatric/adolescent dosage, 2 dose schedule Fidel Ram MD Work Phone: [facility] 10-10-2015 Human Papillomavirus 9-valent vaccine Fidel Ram MD Work Phone: [facility] 06-06-2014 hepatitis A vaccine, pediatric/adolescent dosage, 2 dose schedule Fidel Ram MD Work Phone: [facility] 06-06-2014 human papilloma viru s vaccine, quadrivalent Fidel Ram MD Work Phone: [facility] 02-02-2012 human papilloma viru s vaccine, quadrivalent Fidel Ram MD Work Phone: [facility] 02-02-2012 measles, mumps and rubella virus vaccine Fidel Ram MD Work Phone: [facility] 02-02-2012 Meningococcal, MCV4, unspecified conjugate formulation(groups A, C, Y and W-135) Fidel Ram MD Work Phone: [facility] 02-02-2012 tetanus toxoid, redu hannah diphtheria toxoid, and acellular pertussis vaccine, adsorbed Fidel Ram MD Work Phone: [facility] 02-02-2012 varicella virus vaccine Nolvia Ram MD Work Phone: [facility] 05-20-2006 tuberculin skin test ; purified protein derivative solution, intradermal Fidel Ram MD Work Phone: [facility] Work Phone: 06-17-2005 measles, mumps and rubella virus vaccine [facility] Work Phone: [facility] 01-01-2005 diphtheria, tetanus toxoids and acellular pertussis vaccine [facility]ajanny [facility] Work Phone: [facility] 01-01-2005 poliovirus vaccine, inactivated [facility]itajanny [facility] Work Phone: [facility] 07-16-2004 influenza virus vacc ine, unspecified formulation Fidel Ram MD Work Phone: [facility] 11-01-2001 varicella virus vaccine Cali Lee [facility] Work Phone: [facility] Work Phone: 02-28-2001 diphtheria, tetanus toxoids and acellular pertussis vaccine [facility]itajanny [facility] Work Phone: [facility] Work Phone: 02-28-2001 pneumococcal conjuga te vaccine, 7 valent Melitajanny [facility] Work Phone: [facility] 12-20-2000 haemophilus influenz ae type b conjugate and Hepatitis B vaccine [facility] Work Phone: [facility] 12-20-2000 measles, mumps and rubella virus vaccine [facility] Work Phone: [facility] 12-20-2000 poliovirus vaccine, inactivated Melita Rosa [employer] Work Phone: [facility] 05-12-2000 diphtheria, tetanus toxoids and acellular pertussis vaccine, unspecified formulation Melita Rosa [employer] Work Phone: [facility] Work Phone: 05-12-2000 haemophilus influenz ae type b conjugate and Hepatitis B vaccine Melita Rosa [employer] Work Phone: [facility] 03-16-2000 diphtheria, tetanus toxoids and acellular pertussis vaccine Melita Rosa [employer] Work Phone: [facility] 03-16-2000 haemophilus influenz ae type b conjugate and Hepatitis B vaccine Melita Rosa [employer] Work Phone: [facility] 03-16-2000 poliovirus vaccine, inactivated Melita Rosa [employer] Work Phone: [facility] 01-12-2000 diphtheria, tetanus toxoids and acellular pertussis vaccine Melita Rosa [employer] Work Phone: [facility] 01-12-2000 haemophilus influenz ae type b vaccine, conjugate unspecified formulation Melita Rosa [employer] Work Phone: [facility] 01-12-2000 hepatitis B vaccine, pediatric or pediatric/adolescent dosage Melita Rosa [employer] Work Phone: [facility] 01-12-2000 poliovirus vaccine, inactivated Melita Rosa [employer] Work Phone: [facility] Payers Date Payer Category Payer Self-pay [id number] 2024 Medicaid (Managed Care) [facility] MEDICAID [id number] 2024 Unknown [id number] Dental --Stand Alone DENTAL-[employer] MEDICAID [id number] 2001 Medicaid [employer] [employer] [id number] 2001-Present [phone] [place] [id number] Medicaid HMO [id number] 1999 Unknown [id number] 2.16.840.1.849277.3.579.2. 627 1999 Unknown [id number] 2.16.840.1.694466.3.579.2. 627 1999 Unknown [id number] 2.16.840.1.848633.3.579.2. 627 1999 Unknown [id number] 2.16.840.1.111493.3.579.2. 627 1999 Unknown [id number] 2.16.840.1.047629.3.579.2. 627 1999 Unknown [id number] 2.16.840.1.920565.3.579.2. 732 1999 Unknown [id number] 2.16.840.1.069282.3.579.2. 732 1999 Unknown [id number] 2.16.840.1.758876.3.579.2. 732 1999 Unknown [id number] 2.16.840.1.982553.3.579.2. 732 1999 Unknown [id number] 2.16.840.1.621024.3.579.2. 732 1999 Unknown [id number] 2.16.840.1.597404.3.579.2. 732 1999 Unknown [id number] 2.16.840.1.526192.3.579.2. 732 1999 Unknown [id number] 2.16.840.1.792044.3.579.2. 732 1999 Unknown [id number] 2.16.840.1.277484.3.579.2. 732 1999 Unknown [id number] 2.16.840.1.055814.3.579.2. 732 1999 Unknown [id number] 2.16.840.1.056516.3.579.2. 732 1999 Unknown [id number] 2.16.840.1.269396.3.579.2. 732 1999 Unknown [id number] 2.16.840.1.689420.3.579.2. 732 1999 Unknown [id number] 2.16.840.1.513007.3.579.2. 732 Private Health Insurance [id number] Unknown [id number] 2.16.840.1.836127.3.579.2. 462 Unknown [id number] 2.16.840.1.631641.3.579.2. 462 Unknown [id number] 2.16.840.1.683064.3.579.2. 462 Unknown [id number] 2.16.840.1.173196.3.579.2. 462 Unknown [id number] 2..840.1.255519.3.579.2. 462 Social History Date Type Detail Facility Tobacco smoking status MIIS Heavy tobacco smoker [facility] Start: 06-02-2016 End: 10-15-2024 Alcohol intake Current non-drinker of alcohol (finding) [facility] Start: 06-02-2016 End: 10-15-2024 Alcohol intake [facility] Start: 2000 [facility] Start: 12-20-2022 Tobacco smoking status [facility] Unknown if ever smoked [facility] Start: 10-14-2019 Rare [facility] Start: 10-14-2019 None [facility] Start: 10-14-2019 With Family [facility] Start: 06-28-2024 Tobacco smoking status Light tobacco smoker (finding) [facility] Start: 10-30-2024 Tobacco smoking status MIIS Smokes tobacco daily [facility] History of tobacco use Cigarette Smoker [facility] Start: 12-11-2024 End: 12-31-2024 Alcoholic beverage intake Ex-drinker (finding) [facility] Start: 10-15-2024 End: 12-29-[address] [facility] Has the electric, gas, oil, or water [employer] threatened to shut off services in your home in past 12Mo No [facility] Fear of Current or Ex-Partner Not on file [facility] (I/We) worried whether (my/our) food would run out before (I/we) got money to buy more. Never true [facility] The thought of harming myself has occurred to me Never [facility] Start: 10-30-2024 Education [facility] Start: 04-14-2024 [facility] Start: 07-10-2012 Sex Female (finding) [facility] Start: 07-22-2021 Gender identity Identifies as female gender (finding) [facility] Start: 07-22-2021 Sexual orientation Heterosexual (fin ding) [facility] Start: 12-31-2024 Details of drug misuse behavior Misuses drugs (finding) [facility] Start: 12-31-2024 Details of drug misuse behavior Metamfetamine (substance) [facility] Start: 12-31-2024 History of sexual behavior Sexually active [facility] Start: 10-15-2024 Details of drug misuse behavior Does not misuse drugs (situation) [facility] Start: 10-15-2024 History of sexual behavior Never been sexually active [facility] NEGATED: Highlighted row [facility] Goals Date Patient Goal Desired Activity /State Personal health goal Functional Status Date Assessment Result Facility 12-29-2024 Are you deaf, or do you have serious difficulty hearing No 12/29/2024 8:26 PM [facility] 12-29-2024 Are you blind, or do you have serious difficulty seeing, even when wearing glasses No 12/29/2024 8:26 PM Denise Anderson RN No [facility] 12-29-2024 Do you have serious difficulty walking or climbing stairs No 12/29/2024 8:26 PM Denise Anderson, ALHAJI No [facility] 12-29-2024 Do you have difficul ty dressing or bathing No 12/29/2024 8:26 PM Denise Anderson, ALHAJI No [facility] 12-29-2024 Because of a physica l, mental, or emotional condition, do you have difficulty doing errands alone such as visiting a physician's office or shopping No 12/29/2024 8:26 PM Denise Anderson RN No [facility] 10-15-2024 Are you deaf, or do you have serious difficulty hearing No 10/15/2024 1:27 PM Shasha Rajan, ALHAJI No [facility] 10-15-2024 Are you blind, or do you have serious difficulty seeing, even when wearing glasses No 10/15/2024 1:27 PM Shasha Rajan, RN No [facility] 10-15-2024 Do you have serious difficulty walking or climbing stairs No 10/15/2024 1:27 PM Shasha Rajan, RN No [facility] 10-15-2024 Do you have difficul ty dressing or bathing No 10/15/2024 1:27 PM Shasha Rajan, RN No [facility] 10-15-2024 Because of a physica l, mental, or emotional condition, do you have difficulty doing errands alone such as visiting a physician's office or shopping No 10/15/2024 1:27 PM Shasha Rajan, RN No [facility] Clinical Notes 12-20-2022 to 01-31-2025 Telephone Encounter - Melany Lewis - 01/31/2025 12:01 PM EDTTelephone Encounter - Melany Lewis - 01/31/2025 12:01 PM EDTOpNeena kelly - 01/31/2025 7:11 AM EDTDischarge Instructions Note Date & Type Note Facility 01-31-2025 Telephone encounter Note NO SHOW , OB FOLLOW-UP, & NEW OB APPOINTMENTS Patient appeared on /no show report Patient NO SHOWED appointment on 01/30/25 Called patient :LVM to call back to reschd apt 1st attempt to contact - end of PP date 03/25/25 [facility] 01-31-2025 Miscellaneous Notes NO SHOW , OB FOLLOW-UP, & NEW OB APPOINTMENTS Patient appeared on /no show report Patient NO SHOWED appointment on 01/30/25 Called patient :LVM to call back to reschd apt 1st attempt to contact - end of PP date 03/25/25 documented in this encounter [facility] 01-31-2025 History of Present illness Narrative Sent OB HTN RPM end of program letter. Neena Shook, MPH Virtual Care Manufacturer'S Service Representative [facility]'s Virtual Chronic Disease Management Program Ph#: [phone] documented in this encounter [facility] 01-10-2025 History of Present illness Narrative Maternal HTN RPM Compliance Alert Review Contact details: 1st attempt to reach patient via telephone. No answer, left VM requesting a call back. SITUATION: Compliance alert received that patient has not taken vitals in the past 48 hours. BACKGROUND: Last vital sign activity synced on 01/03/25 ASSESSMENT: Patient have not check vitals for over 7 days. RECOMMENDATIONS: Patient to check vitals twice a day with C[employer] device. Neena Shook, MPH Virtual Care Manufacturer'S Service Representative [facility] Virtual Chronic Disease Management Program Ph#: [phone] documented in this encounter [facility] 01-03-2025 Obstetrics Note This note was copied from a baby's chart. Discussed engorgement management including: Reviewed feed or pump 8-12 times a day around the clock. Make sure baby is latching well to empty the breast effectively. Keep baby actively nursing throughout the feed and do not skip feedings in the first couple of weeks. Reverse pressure softening, apply gentle back and upward pressure to the base the areola for several minutes to temporarily remove swelling. Feed baby on demand or 8-12 times a day. Apply cold packs for 10-20 minutes after feeding to reduce the swelling and provide comfort. [facility] 01-03-2025 Miscellaneous Notes This note was copied from a baby's chart. Discussed engorgement management including: Reviewed feed or pump 8-12 times a day around the clock. Make sure baby is latching well to empty the breast effectively. Keep baby actively nursing throughout the feed and do not skip feedings in the first couple of weeks. Reverse pressure softening, apply gentle back and upward pressure to the base the areola for several minutes to temporarily remove swelling. Feed baby on demand or 8-12 times a day. Apply cold packs for 10-20 minutes after feeding to reduce the swelling and provide comfort. documented in this encounter [facility] 01-02-2025 Note DISCHARGE SUMMARY [address] [id number] Jose R Tapia Date of : 2000 24 year old female Attending Dr. Rico Date of Admission 12/29/2024 Date of Discharge 01/01/2025 Hospital Problems as of 01/01/2025 * (Principal) Status post vacuum-assisted vaginal delivery Third trimester (HCC) Discharge Procedure Orders Enroll Patient in [facility] Maternal Hypertension RPM Referral Referral Priority: Routine Referral Type: Service Level Authorization Number of Visits Requested: 3 Expiration Date: 12/31/25 Maternal Hypertension RPM Referral Referral Priority: Routine Referral Type: Service Level Authorization Number of Visits Requested: 3 Expiration Date: 01/01/26 Future Appointments Date Time Provider Department Center 01/04/2025 9:30 AM Nurse, Heat Engineering Teacher Heat Engineering Teacher [facility] [place] 01/30/2025 9:00 AM Melita Lee APRN-CNP OB [facility] Final Diagnosis: Status post vacuum-assisted vaginal delivery Condition at Discharge improved Activity no restrictions PIH/Pre-eclampsia hypertension, induced Hemorrhage No Diet no restrictions Disposition home Functional Status ambulatory Contraception None Baby NICU Stay Yes Follow up with [facility] in 4 weeks Delivery Information Delivery Date/Time: 12/31/2024 @ 12:36 AM Infant weight: 7 lb 15 oz (3.6 kg) APGARS: 1 Minute: 9 , 5 Minute: 9 DISCHARGE DIAGNOSIS 1. S/p a vacuum-assisted vaginal delivery at 39 weeks 2 days gestational age 2. H/o dental abscess 3. Anxiety/Depression 4. Gestational hypertension 5. Viable male HOSPITAL COURSE: Jose R Tapia is a 24 year old who presented at 39w2d for elective induction of labor. Initial exam was 0.5cm / 0% / -5 station. Fole, pitocin, and AROM used for induction. She progressed well in labor, and on 12/31/2024 she underwent a vacuum-assisted vaginal delivery of a viable . Attending physician Dr. Rico and resident Dr. Melendez were present at delivery. Bilateral labial and a second degree laceration were repaired in the usual fashion. Intrapartum, the patient was diagnosed with gestational hypertension. She was asymptomatic and labs were unremarkable. Patient recovered well and was transferred to the floor where she had an uncomplicated course. Her blood pressures remained normotensive without long-acting agents. She remained afebrile, had decreasing lochia, was ambulating, tolerating PO, and pain was well controlled with PO pain medications. She was breast and formula feeding without difficulty. On PPD # 1 she was subsequently considered stable for discharge home. LABS: Cord Blood Gases: 12/31/2024 12:42 AM pH, Shaq Cord 7.408 Oxygen Saturation 70.8 PvCO2, Cord 40.1 PvO2, Cord 30.1 Base Ex, Shaq Cord 0.6 HCO3-, Shaq Cord 25 pH 7.317 pCO2 51.7 PO2 <30 Oxygen Saturation 60.7 (H) Base Excess -1.0 Bicarbonate 26 Legend: (H) High 12/30/2024 12/29/2024 12/29/2024 OB Pre-eclampsia Labs Hgb 10.3 Hct 29.8 RBC 3.59 WBC 13.0 Mch 28.6 Mchc 34.5 Mcv 83 BUN 4 Creatinine 0.58 TP:CR Ratio 109 Uric Acid 4.2 Ast 17 Alt 14 Plt 299 DISCHARGE INSTRUCTIONS: - Rx given: Tylenol, Motrin, Colace, and PNV. - RPM referral placed - Instructions: Pelvic rest for 6 weeks - no intercourse, douching, tampons. Showers okay, no tubs/soaking. Follow up in 4 weeks for visit. Kwadwo Melendez MD Obstetrics and Gynecology PGY-4 WE provided the patient and/or family/surrogate with the following information: Explanation of the primary diagnosis, and secondary diagnoses where applicable, including test results, Discussion of any new medications and treatments, including expected benefits and potential major side effects, Explanation of previous treatments or medications that are discontinued, Discussion of post-hospital day-to-day care needs, and Follow-up plans, and warning signs that should prompt more urgent follow-up [facility] 01-01-2025 Obstetrics Note This note was copied from a baby's chart. Consult Indications: $ Consult Type: NICU Follow-Up Reason for Consult: Referred by Nursing Assessment: LATCH Score: 8 Maternal: Maternal Goals: Initial Feeding Plan: Both breast milk and formula Maternal Assessment; Breast: Breast Appearance: Soft : Medical Complications/History: Behavior: Quiet alert Latch Assessment: Independent, Grasps breasts, Lips flanged, Rhythmical sucking, Tongue down at Breast: Positioning: Cross cradle, Mother able to independently latch Latch Assessment: Independent, Grasps breasts, Lips flanged, Rhythmical sucking, Tongue down Feeding Interventions: Breast support and compression throughout feeding, Rousing techniques to maintain alertness, Use of Pillows/Rolls Suck Assessment at Breast: Nutritive, sustained Teaching: Teaching: Language appropriate, Rousing techniques, Latch on techniques, Positioning, Adequacy, Frequency, Duration of feeds Recommendations: Recommendations: Breastfeed on demand, At least 8 times in 24 hours, At least 15-20 minutes, Perform frequent skin to skin care, Pump 8-12 times in 24 hours Comments: Latch observed. Infant able to latch deeply without difficulty or pain. Mother denies breast or nipple pain. Mother states she would like to just put baby to breast instead of triple feeding (breast feeding, bottle feeding and pumping). Encouraged to call with any questions or concerns. Follow-up: Pump Status: Pump given (zomee z2 from [facility]ata Perez) Follow Up: As needed [facility] 01-01-2025 Miscellaneous Notes This note was copied from a baby's chart. Consult Indications: $ Consult Type: NICU Follow-Up Reason for Consult: Referred by Nursing Assessment: LATCH Score: 8 Maternal: Maternal Goals: Initial Feeding Plan: Both breast milk and formula Maternal Assessment; Breast: Breast Appearance: Soft Infant: Medical Complications/History: Behavior: Quiet alert Latch Assessment: Independent, Grasps breasts, Lips flanged, Rhythmical sucking, Tongue down at Breast: Positioning: Cross cradle, Mother able to independently latch infant Latch Assessment: Independent, Grasps breasts, Lips flanged, Rhythmical sucking, Tongue down Feeding Interventions: Breast support and compression throughout feeding, Rousing techniques to maintain alertness, Use of Pillows/Rolls Suck Assessment at Breast: Nutritive, sustained Teaching: Teaching: Language appropriate, Rousing techniques, Latch on techniques, Positioning, Adequacy, Frequency, Duration of feeds Recommendations: Recommendations: Breastfeed on demand, At least 8 times in 24 hours, At least 15-20 minutes, Perform frequent skin to skin care, Pump 8-12 times in 24 hours Comments: Latch observed. able to latch deeply without difficulty or pain. Mother denies breast or nipple pain. Mother states she would like to just put baby to breast instead of triple feeding (breast feeding, bottle feeding and pumping). Encouraged to call with any questions or concerns. Follow-up: Pump Status: Pump given (zomee z2 from [facility]ata Perez) Follow Up: As needed documented in this encounter [facility] 01-01-2025 Consult note Formatting of th is note might be different from the original. SW Coverage Note- Note copied from baby's chart. SW consult received for: Hx of maternal mental health Per chart review, pt with a hx of anxiety and depression Pt is not currently taking any meds. Pt is engaged in counseling in an IOP program. Pt has repeatedly not endorsed experiencing depressive and anxious symptoms during (see PNC and current physician notes). Per chart review, pt's mood has been reported stable throughout . Physicians have documented that pt denies SI/SA/HI. Pt has a hx of substance use but has had clean tox screens throughout with the exception of a positive result for Oxycodone in 10/31 while admitted for a Dental procedure in which she was administered Oxycodeone. SW deferring MH consult at this time. SW to see pt to provide education about depression and anxiety and provide NICU support. MARTÍN Vasquez, MLSP, FUSE ASSEMBLER PRN Learning And Development Administrator [facility] 01-01-2025 Consult note Formatting of th is note might be different from the original. SW Coverage Note- Note copied from baby's chart. SW consult received for: Hx of maternal mental health Per chart review, pt with a hx of anxiety and depression Pt is not currently taking any meds. Pt is engaged in counseling in an IOP program. Pt has repeatedly not endorsed experiencing depressive and anxious symptoms during (see PNC and current physician notes). Per chart review, pt's mood has been reported stable throughout . Physicians have documented that pt denies SI/SA/HI. Pt has a hx of substance use but has had clean tox screens throughout with the exception of a positive result for Oxycodone in 10/31 while admitted for a Dental procedure in which she was administered Oxycodeone. SW deferring MH consult at this time. SW to see pt to provide education about depression and anxiety and provide NICU support. MARTÍN Vasquez, MLSP, FUSE ASSEMBLER PRN Learning And Development Administrator documented in this encounter [facility] 01-01-2025 Note 01/01/25 1000 Maternal Remote Patient Monitoring - HTN - Education/Consent Program Explained? Yes Consent Signed? Yes BP Cuff Given? Yes BP Cuff Size Given Standard Size (BMI less than 40 or blue cuff used in clinic) BP Cuff IMEI ID# [id number] Digital Care Service Team Use Only Outreach Type Inpatient Visit [facility] 01-01-2025 History of Present illness Narrative 01/01/25 1000 Maternal Remote Patient Monitoring - HTN - Education/Consent Program Explained? Yes Consent Signed? Yes BP Cuff Given? Yes BP Cuff Size Given Standard Size (BMI less than 40 or blue cuff used in clinic) BP Cuff IMEI ID# [id number] Digital Care Service Team Use Only Outreach Type Inpatient Visit documented in this encounter [facility] 01-01-2025 Hospital Discharge instructions Martha Betancourt DO - 01/01/2025 7:50 AM EDT Congratulations! Homegoing instructions: - Nothing in the vagina for 6 weeks -- no intercourse, tampons, douching. NO SEX. - No soaking tub baths or swimming. Showers are okay. - No lifting heavier than 15 pounds. - Okay to use stairs, be careful and go slowly at first. - Please come to your visit in 4 weeks. Breast pump if Every insurance is different regarding what pumps are covered and what they need from us. You can either call your insurance company to see what is covered and request a specific prescription or you can use a website like pumpsformomGroupoff, [employer], or [email or web address] to help you navigate the whole process. Often, these websites will handle getting the prescription requested from the doctor once you put in all the information and then ship the pump directly to you. Let us know if you have any difficulty with that or need a prescription sent to a specific location. Homegoing medications: - Motrin and Tylenol for cramping/pain - Miralax for constipation - vitamins while or for as long as you wish - Iron supplements to help replenish blood loss Come back to see Melita Lee in 4 weeks! PAIN MEDICATIONS: - Take pain medications as prescribed. - Avoid aspirin. It can cause bleeding. CALL YOUR DOCTOR IF: - You have pain, redness, and swelling from the IV site. - You feel dizzy or feel like fainting. - You develop pain or bleeding when you urinate. - You develop nausea, vomiting, or diarrhea. - You develop heavier vaginal bleeding or abnormal vaginal discharge. - You develop a rash. - You have any type of abnormal reaction or develop an allergy to your medication. - You need stronger pain medication for your pain. SEEK IMMEDIATE MEDICAL CARE: - You develop a temperature of 100.4 F (38 C) or higher. - You develop abdominal pain. - You develop chest pain or shortness of breath. - You pass out. - You develop pain, swelling or redness of your leg. - You develop heavy vaginal bleeding with or without blood clots soaking > 1 pad per hour. For additional health information call: SDI Line at : 24 hours a day. documented [facility] this [facility] Note OB Progre ss Note 01/01/2025, 7:38 AM S: Patient without complaints. Pain is adequately controlled on PO pain medication. Patient is tolerating a diet, ambulating and urinating without difficulty. Lochia similar to menses. Mood stable and bonding well with baby in the NICU. Denies SARMIENTO, vision changes, CP, SOB, RUQ pain, or worsening edema. O: Vitals Recorded in This Encounter 12/31/2024 1952 12/31/2024 2249 01/01/2025 0030 01/01/2025 0445 01/01/2025 0719 BP: 124/63 131/84 -- 133/89 119/79 Pulse: 76 82 -- 78 85 Resp: 20 18 -- 20 18 Temp: -- 97.9 ???F (36.6 ???C) -- 98.6 ???F (37 ???C) 98.2 ???F (36.8 ???C) Temp src: -- Oral -- Oral Oral Pain Score: 0 2 0 0 -- Gen: NAD, AAOx3 Abd: soft, appropriately tender, firm fundus below umbilicus Ext: Nontender, no edema Lab Results Component Value Date ABORH O Positive 12/29/2024 Lab Results Component Value Date RUBELLA 18.1 10/15/2024 A/P: Jose R Tapia is a 24 year old PPD#1 s/p VAVD. #) Routine - Afebrile, vitals signs stable, pain controlled - Continue routine PP care. - Formula and , control: undecided - Rh+/RI - VTE score 0: encourage ambulation - S/p misoprostol and ancef for bimanual exam #) Gestational hypertension - BP 110s-130s/70-80s - no si/sx of worsening disease - plan for short interval BP check and enroll in home BP monitoring #) Asthma - albuterol prn #) Anxiety/depression - mood stable, no SI/HI - not on meds Anticipate discharge today. Martha Betancourt, DO Obstetrics AND Gynecology PGY-3 OB STAFF I saw this 24 [address] with Dr. Betancourt and reviewed her history and physical findings. I was present for the critical portion of the visit. Assessment and plan were formulated in conjunction with the resident. Desires discharge today with plan to stay in NICU with her baby. Will need short interval BP check as an outpatient. I personally discussed the management plan with the patient, answered her questions and gave her discharge instructions as well as instructions for follow-up. The patient expressed understanding of our management plan. Dr. Glenn Choi [facility] 01-01-2025 History of Present illness Narrative OB Progress Note 01/01/2025, 7:38 AM S: Patient without complaints. Pain is adequately controlled on PO pain medication. Patient is tolerating a diet, ambulating and urinating without difficulty. Lochia similar to menses. Mood stable and bonding well with baby in the NICU. Denies SARMIENTO, vision changes, CP, SOB, RUQ pain, or worsening edema. O: Vitals Recorded in This Encounter 12/31/2024 1952 12/31/2024 2249 01/01/2025 0030 01/01/2025 0445 01/01/2025 0719 BP: 124/63 131/84 -- 133/89 119/79 Pulse: 76 82 -- 78 85 Resp: 20 18 -- 20 18 Temp: -- 97.9 F (36.6 C) -- 98.6 F (37 C) 98.2 F (36.8 C) Temp src: -- Oral -- Oral Oral Pain Score: 0 2 0 0 -- Gen: NAD, AAOx3 Abd: soft, appropriately tender, firm fundus below umbilicus Ext: Nontender, no edema Lab Results Component Value Date ABORH O Positive 12/29/2024 Lab Results Component Value Date RUBELLA 18.1 10/15/2024 A/P: Jose R Tapia is a 24 year old PPD#1 s/p VAVD. #) Routine - Afebrile, vitals signs stable, pain controlled - Continue routine PP care. - Formula and , control: undecided - Rh+/RI - VTE score 0: encourage ambulation - S/p misoprostol and ancef for bimanual exam #) Gestational hypertension - BP 110s-130s/70-80s - no si/sx of worsening disease - plan for short interval BP check and enroll in home BP monitoring #) Asthma - albuterol prn #) Anxiety/depression - mood stable, no SI/HI - not on meds Anticipate discharge today. Martha Betancourt DO Obstetrics & Gynecology PGY-3 OB STAFF I saw this 24 [address] old patient with Dr. Betancourt and reviewed her history and physical findings. I was present for the critical portion of the visit. Assessment and plan were formulated in conjunction with the resident. Desires discharge today with plan to stay in NICU with her baby. Will need short interval BP check as an outpatient. I personally discussed the management plan with the patient, answered her questions and gave her discharge instructions as well as instructions for follow-up. The patient expressed understanding of our management plan. Dr. Glenn Choi 12/31/24 1:31 AM To room for increased trickling on fundal exam. BP 117/46 (BP Location: left arm) Pulse 95 Temp 98.2 F (36.8 C) (Oral) Resp 18 Ht 5' 4 (1.626 m) Wt 174 lb 9.7 oz (79.2 kg) LMP (LMP Unknown) SpO2 100% No BMI 29.97 kg/m Fundus firm ~1cm below U Clots evacuated from ABRAHAN Misoprostol 800mcg MS Ancef for bimanual EBL of 199g Total of 399cc Kwadwo Melendez MD Obstetrics and Gynecology PGY-4 12/31/24 12:17 AM To room to assess pushing. Good maternal efforts, still +2 station. Pt reported significant fatigue. Assessed for vacuum but after discussion of risks and benefits, pt desired to continue pushing unassisted. FHT occ cat 2 for occ variables but good variability and overall cat 1. To continue pushing. Anticipate . Daksha Kaba MD PGY-1 Obstetrics & Gynecology 12/30/24 11:03 PM In to assess pushing efforts. Pushing for 1.5 hours. Now 10/100/+2 although with some caput. LOP position rotated to ALLISON. Deep variables noted with pushing. Pitocin decreased to 3 snow-units/min. Able to elicit scalp stim at 2300. Will continue to monitor. Kwadwo Melendez MD Obstetrics and Gynecology PGY-4 Cosigned by Pauline Rico MD at 12/30/2024 11:32 PM EDT Associated attestation - Pauline Rico MD - 12/30/2024 11:32 PM EDT Patient seen and examined at the bedside. Tachysystole noted and pitocin turned down. Fetus noted to be LOP and rotated to ALLISON. Will continue to monitor but will consider decreasing pitocin further or considering operative delivery vs section if FHR tracing does not improve.CEFM noted to improve with decrease in pitocin so will continue to proceed with pushng. Images from the original note were not included. ADDENDUM 9:08 PM To room for FHR decels. Cervix: 9/100/0 Patient repositioned. Will decrease pitocin if continued variables persist however overall reassured by moderate variability LABOR PROGRESS 12/30/2024, 7:14 PM S:Patient without complaints. O: BP 115/68 Pulse 70 Temp 98.1 F (36.7 C) (Oral) Resp 16 Ht 5' 4 (1.626 m) Wt 174 lb 9.7 oz (79.2 kg) LMP (LMP Unknown) SpO2 100% No BMI 29.97 kg/m GEN:A&Ox3 Cervix: 5-6cm / 80% / -1 NST: baseline 120, moderate variability, few mild variable decelerations, + accels TOCO: contractions Q2-4 minutes 12/30/2024 12/29/2024 12/29/2024 OB Pre-eclampsia Labs Hgb 10.3 Hct 29.8 RBC 3.59 WBC 13.0 Mch 28.6 Mchc 34.5 Mcv 83 BUN 4 Creatinine 0.58 TP:CR Ratio 109 Uric Acid 4.2 Ast 17 Alt 14 Plt 299 A/P: 24 year old at 39w1d, admitted for eIOL, now with gHTN 1. Labor: latent phase of labor -- Increasing pitocin per protocol, currently 10 snow-units/min -- Pain management: Epidural 2. FWB: Category 2 -- Few mild variables but overall reassuring due to + accels and mod variability -- Overall reassuring status, continue EFM. 3. GBS negative 4. Gestational hypertension -- BP range: 110-120/60-80 -- Pt asx -- PreE labs without e/o end organ damage 5. Asthma -- Albuterol prn Continue IOL Kwadwo Melendez MD Obstetrics and Gynecology PGY-4 LABOR AND DELIVERY INTRAPARTUM PROGRESS NOTE 12/30/24 2:49 PM S:To room for cervical check O: BP 122/83 (BP Location: left arm) Pulse 82 Temp 98.4 F (36.9 C) (Oral) Resp 16 Ht 5' 4 (1.626 m) Wt 174 lb 9.7 oz (79.2 kg) LMP (LMP Unknown) SpO2 94% No BMI 29.97 kg/m Cervix: Dilation: 5.5, Effacement (%): 70, Station: -2, Examined By: MD Melvin Consider IUPC if no improvement NST: baseline 125, moderate variability, no decelerations, + accels TOCO: contractions Q3-4 minutes Pitocin management: Pitocin (last 168 hours) Date/Time Action Medication Dose Rate 12/29/24 2200 IV New Bag oxytocin (PITOCIN) infusion 2 snow-units/min 2 mL/hr 12/29/24 2230 IV Rate Change oxytocin (PITOCIN) infusion 3 snow-units/min 3 mL/hr 12/30/24 0030 IV Rate Change oxytocin (PITOCIN) infusion 4 snow-units/min 4 mL/hr 12/30/24 0100 IV Rate Change oxytocin (PITOCIN) infusion 5 snow-units/min 5 mL/hr 12/30/24 0500 IV Rate Change oxytocin (PITOCIN) infusion 6 snow-units/min 6 mL/hr 12/30/24 0530 IV Rate Change oxytocin (PITOCIN) infusion 8 snow-units/min 8 mL/hr 12/30/24 0633 IV Rate Change oxytocin (PITOCIN) infusion 4 snow-units/min 4 mL/hr 12/30/24 0653 IV Rate Change oxytocin (PITOCIN) infusion 2 snow-units/min 2 mL/hr 12/30/24 1330 IV Rate Change oxytocin (PITOCIN) infusion 3 snow-units/min 3 mL/hr A/P: 24 year old at 39w1d with eIOL > gHTN 1. Labor: latent phase of labor. -- On pitocin per protocol. Currently at 3 snow-units/min -- s/p AROM -- total time of: Hours: 4 Minutes: 19 -- Pain management: Epidural 2. well being: Category 1 -- Reassuring status, continue cEFM 3. GBS: GBS: Negative for beta-hemolytic Streptococci group B. 4. HTN in : Gestational hypertension --BPs overall normotensive -- Serum HELLP labs reassuring -- For BP check PP 5. Asthma -- Caution with Hemabate 6. Anemia -- Hgb 10.3 -- Consider T&C if prolonged labor course Continue trial of labor. Peyton Charles DO Obstetrics and Gynecology PGY-2 LABOR PROGRESS 12/30/2024, 10:18 AM S:Patient without complaints. O: BP 117/78 Pulse 75 Temp 98 F (36.7 C) (Oral) Resp 16 Ht 5' 4 (1.626 m) Wt 174 lb 9.7 oz (79.2 kg) LMP (LMP Unknown) SpO2 96% No BMI 29.97 kg/m GEN:A&Ox3 Cervix: 5-6cm / 70% / -2 AROM clear fluid NST: baseline 120, moderate variability, no decelerations, + accels TOCO: contractions Q2-4 minutes A/P: 24 year old at 39w1d, admitted for elective induction of labor 1. Labor: latent phase of labor -- Increasing pitocin per protocol, currently 2 snow-units/min (decreased due to tachysystole per Dr. Kaba) -- Pain management: Epidural 2. FWB: Category 1 -- Overall reassuring status, continue EFM. 3. GBS negative 4. Gestational hypertension -- Overall normotensive, but has had a few mild range BP >4h apart -- Will order PreE labs now -- Pt asx 5. Asthma -- Albuterol prn Continue IOL Kwadwo Melendez MD Obstetrics and Gynecology PGY-4 Cosigned by Pauline Rico MD at 12/30/2024 12:49 PM EDT Associated attestation - Paulnie Rico MD - 12/30/2024 12:49 PM EDT Patient seen and examined at bedside. Patient with category 1 tracing. Diagnosed with GHTN, continue to monitor Bps. Patient being induced on pitocin. 0708 -Anesthesia called for anesthesia consult 717- LR bolus initiated 0715- Anesthesia at bedside for consult 0722-Timeout 0734- Test dose, FHR monitored 0740- Patient dosed by anesthesia, FHR monitored 0751- Anesthesia out of room LABOR AND DELIVERY INTRAPARTUM PROGRESS NOTE 12/30/24 5:13 AM SUBJECTIVE: Cervical exam, wants epidural before AROM OBJECTIVE: BP 126/81 (BP Location: left arm) Pulse 80 Temp 98.1 F (36.7 C) (Oral) Resp 16 Ht 5' 4 (1.626 m) Wt 174 lb 9.7 oz (79.2 kg) LMP (LMP Unknown) SpO2 97% No BMI 29.97 kg/m CERVIX: 4/70/-2, richmond removed Last exam: Dilation: 4.5, Effacement (%): 70, Station: -2, Examined By: Isabella MENDIETA NST: baseline 130, moderate variability, +accelerations, Intermittent variable decelerations TOCO: ctx q2-3 min Pitocin (last 168 hours) Date/Time Action Medication Dose Rate 12/29/24 2200 IV New Bag oxytocin (PITOCIN) infusion 2 snow-units/min 2 mL/hr 12/29/24 2230 IV Rate Change oxytocin (PITOCIN) infusion 3 snow-units/min 3 mL/hr 12/30/24 0030 IV Rate Change oxytocin (PITOCIN) infusion 4 snow-units/min 4 mL/hr 12/30/24 0100 IV Rate Change oxytocin (PITOCIN) infusion 5 snow-units/min 5 mL/hr 12/30/24 0500 IV Rate Change oxytocin (PITOCIN) infusion 6 snow-units/min 6 mL/hr ASSESSMENT AND PLAN: 24 year old at 39w1d admitted for eIOL Latent phase of labor - pitocin at 6 snow-units/min - Plan for amniotomy after epiduralrupture date or rupture time have not been documented - pain management: Epidural when needed - feeding: Breast Milk and Formula - contraception: Implant - GBS: Negative for beta-hemolytic Streptococci group B. FWB: cat 1 FHR tracing - EFW: ~3500g, 59%ile, 12/01/24 - overall reassuring status, continue cEFM 3. Anxiety and Depression - SW & consult PP as needed - Mood stable, no SI/HI 4. Tobacco use - Nicotine patch PRN 5. Mild intermittent asthma - No current meds - Hemabate contraindicated in setting of PPH 6. 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 Tox screen on admission negative. Anticipate Reanna Mason MD Obstetrics and Gynecology, PGY-1 LABOR AND DELIVERY INTRAPARTUM PROGRESS NOTE 12/30/24 1:23 AM SUBJECTIVE: Tracing OBJECTIVE: BP 126/80 (BP Location: left arm) Pulse 92 Temp 98.2 F (36.8 C) (Oral) Resp 17 Ht 5' 4 (1.626 m) Wt 174 lb 9.7 oz (79.2 kg) LMP (LMP Unknown) SpO2 99% No BMI 29.97 kg/m CERVIX: Deferred Last exam: Dilation: Fingertip, Effacement (%): 0, Station: Floating, Examined By: Isabella MENDIETA NST: baseline 150, moderate variability, +accelerations, Intermittent variable decelerations TOCO: ctx q3-4 min Pitocin (last 168 hours) Date/Time Action Medication Dose Rate 12/29/24 2200 IV New Bag oxytocin (PITOCIN) infusion 2 snow-units/min 2 mL/hr 12/29/24 2230 IV Rate Change oxytocin (PITOCIN) infusion 3 snow-units/min 3 mL/hr 12/30/24 0030 IV Rate Change oxytocin (PITOCIN) infusion 4 snow-units/min 4 mL/hr 12/30/24 0100 IV Rate Change oxytocin (PITOCIN) infusion 5 snow-units/min 5 mL/hr ASSESSMENT AND PLAN: 24 year old at 39w1d admitted for eIOL Latent phase of labor - cervical richmond in place - pitocin at 5 snow-units/min - Plan for amniotomy when appropriate rupture date or rupture time have not been documented - pain management: Epidural when needed - feeding: Breast Milk and Formula - contraception: Implant - GBS: Negative for beta-hemolytic Streptococci group B. FWB: cat 2 FHR tracing, moderate variability, accels present, low concern for acidemia - EFW: ~3500g, 59%ile, 12/01/24 - overall reassuring status, continue cEFM 3. Anxiety and Depression - SW & consult PP as needed - Mood stable, no SI/HI 4. Tobacco use - Nicotine patch PRN 5. Mild intermittent asthma - No current meds - Hemabate contraindicated in setting of PPH 6. 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 Tox screen on admission negative. Anticipate Reanna Mason MD Obstetrics and Gynecology, PGY-1 documented in this encounter [facility] 12-31-2024 Miscellaneous Notes This note was copied from a baby's chart. Consult Indications: $ Consult Type: $ New consult Reason for Consult: Routine Assessment: Mom sleeping, Nurse will instructed patient how to pump. Maternal: Maternal Goals: Initial Feeding Plan: Both breast milk and formula Maternal History: Experience: No Education: None Is Infant From Mother?: Yes (see comment) (NICU) Initiation: Initiation - within 60 minutes of delivery or within 6 hours of separation (NICU) Teaching: Teaching: Language appropriate, Pumping Education/Resources Provided: Written booklet, NICU packet, Community resources Recommendations: Recommendations: Pump 8-12 times in 24 hours Follow-up: Pump Status: Has pump Follow Up: Will continue to follow Sudha Rey 12/31/2024 Problem: Routine Care: Goal: Patient care will be managed and maintained throughout hospital stay per unit specific routine care procedure Outcome: Progressing Intervention: Implement Routine Care of the Patient in Labor Delivery Stages Procedure (continuous) Note: Routine care and hourly rounding maintained. Patient oriented to room, and call light within reach. Problem: Breast Milk/: Goal: Breast Milk/ will be promoted, initated and maintained Outcome: Progressing Intervention: Initiate Procedure (continuous) Note: Patient desires to breast and bottle feed. Will initiate and assist with first feed. Will continue to encourage and support mom during this time. All questions answered. Problem: Fluid and Electrolyte Imbalance: Goal: Adequate fluid and electrolyte balance will be achieved and maintained Outcome: Progressing Intervention: Monitor for signs and symptoms of electrolyte imbalance (ongoing) Note: IV fluids administered per orders. Vaginal Bleeding will be monitored. Problem: Risk for Infection: Goal: Risk for infection will be reduced Outcome: Progressing Intervention: Monitor vital signs (per order) Note: No signs and symptoms of infection as this time. Labs WNL and patient remains afebrile. Will continue to assess and monitor. Problem: Knowledge Deficit: Goal: Ability to make informed decisions regarding treatment will improve Outcome: Progressing Intervention: Identify level of understanding (continuous) Note: Pt kept up to date on POC, all questions answered at this time. Problem: Acute Pain: Goal: Ability to identify pain intensity on a pain scale and rate it consistently will be achieved and maintained Outcome: Progressing Intervention: Assess pain routinely using the developmentally appropriate pain scale (continuous) Note: Pain scale used during hourly rounding on patient. Patient received an epidural for pain management during labor. Encouraged to hit her epidural button only if needed and explained that pressure is a normal feeling with an epidural. Will continue to assess and provide non-pharmacologic interventions when possible as well. Problem: Safety: Goal: Patient will remain free of falls during hospital stay Outcome: Progressing Intervention: Assess for risk related to falls using age appropriate scale (continuous) Note: Environment remains safe. Side rails are up on the bed and is in lowest, locked position. No skid footwear/ Yellow falls risk band and socks applied. Purposeful hourly rounding maintained and call light within reach. Problem: Discharge Planning: Goal: Discharge needs of the adult patient will be met Outcome: Progressing Intervention: Follow [facility] Discharge Planning Policy (continuous) Note: Patient to be transferred with her baby to the Unit s/p after the recovery period in L&D. Plan for discharge home after 24-48 hours. Patient aware and updated on the discharge planning. Problem: Substance Use / Abuse Goal: JAIL GOAL: PATIENT WILL ESTABLISH A SUSTAINED RECOVERY FROM SUBSTANCE ABUSE Outcome: Progressing Note: Problem: Routine Care: Goal: Patient care will be managed and maintained throughout hospital stay per unit specific routine care procedure Outcome: Progressing Intervention: Implement Routine Care of the Patient in Labor Delivery Stages Procedure (continuous) Note: Routine care and hourly rounding maintained. Patient oriented to room, and call light within reach. Problem: Breast Milk/: Goal: Breast Milk/ will be promoted, initated and maintained Outcome: Progressing Intervention: Initiate Procedure (continuous) Note: Patient desires to breast and bottle feed. Will initiate and assist with first feed. Will continue to encourage and support mom during this time. All questions answered. Problem: Fluid and Electrolyte Imbalance: Goal: Adequate fluid and electrolyte balance will be achieved and maintained Outcome: Progressing Intervention: Monitor for signs and symptoms of electrolyte imbalance (ongoing) Note: IV fluids administered per orders. Vaginal Bleeding will be monitored. Problem: Risk for Infection: Goal: Risk for infection will be reduced Outcome: Progressing Intervention: Monitor vital signs (per order) Note: No signs and symptoms of infection as this time. Labs WNL and patient remains afebrile. Will continue to assess and monitor. Problem: Knowledge Deficit: Goal: Ability to make informed decisions regarding treatment will improve Outcome: Progressing Intervention: Identify level of understanding (continuous) Note: Pt kept up to date on POC, all questions answered at this time. Problem: Acute Pain: Goal: Ability to identify pain intensity on a pain scale and rate it consistently will be achieved and maintained Outcome: Progressing Intervention: Assess pain routinely using the developmentally appropriate pain scale (continuous) Note: Pain scale used during hourly rounding on patient. Patient received an epidural for pain management during labor. Encouraged to hit her epidural button only if needed and explained that pressure is a normal feeling with an epidural. Will continue to assess and provide non-pharmacologic interventions when possible as well. Problem: Safety: Goal: Patient will remain free of falls during hospital stay Outcome: Progressing Intervention: Assess for risk related to falls using age appropriate scale (continuous) Note: Environment remains safe. Side rails are up on the bed and is in lowest, locked position. No skid footwear/ Yellow falls risk band and socks applied. Purposeful hourly rounding maintained and call light within reach. Problem: Discharge Planning: Goal: Discharge needs of the adult patient will be met Outcome: Progressing Intervention: Follow S Discharge Planning Policy (continuous) Note: Patient to be transferred with her baby to the Unit s/p after the recovery period in L&D. Plan for discharge home after 24-48 hours. Patient aware and updated on the discharge planning. 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 She had a cat II tracing with variable decels with pushing so pitocin was decreased. She was making good progress. We had periods of mod variability and accels at 0004. Patient took a break from pushing due to low energy. She then was amenable to a vacuum assisted delivery given FHR tracing and fatigue. Delivered a living Male over perineum with No episiotomy from Left Occiput Anterior position with Epidural anesthesia. Nocord complications. Anterior shoulder delivered atraumatically, shoulder dystocia not present, followed by posterior shoulder and body. Cord doubly clamped and cut, and placed on maternal abdomen Placenta delivery was Spontaneous, and it was Intact, with 3 Vessels cord and with intact amnion/chorion. Pitocin was administered. Fundus firm. Vagina and perineum inspected and found to have 2nd perineal laceration, No periurethral laceration, Bilateral labial laceration, No sulcus laceration(s), no vaginal laceration(s), and no cervical laceration(s). The perineum and lacerations were repaired in the usual fashion. Patient stable in delivery room and in delivery room Delivery Date/Time: 12/31/2024 @ 12:36 AM Infant weight: See delivery summary report for weight. APGARS: 1 Minute 5 Minute Totals: 9 9 Blood loss: Blood loss: 200 (12/29/2024 8:08 PM - 12/31/2024 1:14 AM) Pt plans to Breast Milk and Formula feed and use Implant for contraception The patient now has the following VTE risk factors: 0 No known risk factors for a total score of 0. The patient does not meet criteria for chemoprophylaxis currently. PPH Flowsheet the patient's post- PPH risk score is High Risk Total Score: 23 4 Adm - Induction of labor (with oxytocin) or cervical ripening 2 Adm - Hematocrit <30 4 Pre - Labor greater than 18 hours 4 Pre - Augmentation of labor 4 Pre - Prolonged second stage (>2 hours) 4 Post - Operative vaginal delivery 1 PPH Doc Complete (Admission Assessment) Was there a post hemorrhage? No Attending: PAULINE RICO Resident(s): KWADWO MELENDEZ;MARIBELL MOREL;SARAH COHN;LAYLA GARY Labor Events Induction?: Yes Indications for induction: Hypertension Induction methods: [place]/EASI, Oxytocin, AROM Cervical ripening date/time: Augmentation: N/A--IOL Rupture type: Artificial Rupture date/time: 12/30/24 1030 Fluid color: Clear labor?: No Labor complications: None Hypertension in ?: Yes Hypertensive disorder: Gestational Hypertension Start Pushing Labor onset date/time: 12/29/242199 Dilation complete date/time: 12/30/242125 Start pushing date/time: 12/30/20242133 Decision date/time (emergent ): Anesthesia Anesthesia/Pain Management: Epidural [place] Delivery Details Forceps attempted?: No Vacuum extractor attempted?: Yes Informed Consent: verbal Pelvic exam done: Yes Estimated position prior to placement: left occipital anterior Asynclitic: No Indications: Maternal Fatigue, Heart Rate or Rhythm Abnormality Vacuum type: Kiwi Vacuum application location: Outlet Ease of placement: easy Ease of traction: easy Informed Consent: verbal First attempt time vacuum applied: 0029 EDT First attempt time vacuum removed: 0036 EDT Number of pop offs: 0 Number of pulls: 5 Total vacuum application time: 8 minutes Vacuum applied by: NORA Pelvic exam done: Yes Bladder: Emptied Station at placement: +3 Rotation: 0 Estimated position prior to placement: left occipital anterior Asynclitic: No Failed?: No Shoulder Dystocia Shoulder dystocia present?: No Presentation and Position Presentation: Vertex Position: Left Occiput Anterior Kwadwo Melendez MD Cosigned by Pauline Rico MD at 12/31/2024 1:38 AM EDT Problem: Routine Care: Goal: Patient care will be managed and maintained throughout hospital stay per unit specific routine care procedure Outcome: Progressing Unit routine initiated and maintained. Pt oriented to room, call gordon, and nurse Problem: Breast Milk/: Goal: Breast Milk/ will be promoted, initated and maintained Outcome: Progressing Pt plans to breastfeed her infant. Education provided on and performing kangaroo care. Problem: Fluid and Electrolyte Imbalance: Goal: Adequate fluid and electrolyte balance will be achieved and maintained Outcome: Progressing Patient fluid and electrolyte will be maintained with both IV fluids and PO fluids. Problem: Risk for Infection: Goal: Risk for infection will be reduced Outcome: Progressing Hand hygiene maintained; pt remains afebrile. Will continue to assess vital signs per protocol Problem: Knowledge Deficit: Goal: Ability to make informed decisions regarding treatment will improve Outcome: Progressing Will address any knowledge deficits that patient may have and address any concerns. Problem: Acute Pain: Goal: Ability to identify pain intensity on a pain scale and rate it consistently will be achieved and maintained Outcome: Progressing Patient pain will be managed with both nonpharmacologic and pharmacologic measures. Problem: Safety: Goal: Patient will remain free of falls during hospital stay Outcome: Progressing Side rails up times two, bed locked in lowest position, call gordon within reach, non slip socks applied and falls band applied. Problem: Discharge Planning: Goal: Discharge needs of the adult patient will be met Outcome: Progressing Patient will be aware of all discharge plans prior to discharge. Problem: Substance Use / Abuse Goal: MUD WORKER GOAL: PATIENT WILL ESTABLISH A SUSTAINED RECOVERY FROM SUBSTANCE ABUSE Outcome: Progressing Before patient leaves hospital she will establish a plan to sustain recovery from substance abuse. Blood Attestation: ATTESTATION OF INFORMED CONSENT FOR BLOOD: The transfusion of blood and/or blood components were discussed with the patient and/or legal contact center representative. The risks, benefits and alternatives were reviewed. Questions regarding blood transfusions were answered. The patient /or the patient s legal contact center representative agree with the plan for transfusion of blood and/or blood components. Problem: Routine Care: Goal: Patient care will be managed and maintained throughout hospital stay per unit specific routine care procedure Outcome: Progressing Unit routine implemented- pt oriented to room, call gordon, care channel. Patient care will be managed and maintained throughout hospital stay per unit specific routine care procedure Orders being followed. Problem: Breast Milk/: Goal: Breast Milk/ will be promoted, initated and maintained Outcome: Progressing promoted while in labor. Will initiate when pt delivers. Problem: Fluid and Electrolyte Imbalance: Goal: Adequate fluid and electrolyte balance will be achieved and maintained Outcome: Progressing Adequate fluid and electrolyte balance will be achieved and maintained IV fluids infusing as ordered. Lab work drawn and sent as ordered. Problem: Risk for Infection: Goal: Risk for infection will be reduced Outcome: Progressing No signs or symptoms of infection at this time. Pt afebrile. Problem: Knowledge Deficit: Goal: Ability to make informed decisions regarding treatment will improve Outcome: Progressing Pt verbalizes understanding of POC. All questions answered. Problem: Acute Pain: Goal: Ability to identify pain intensity on a pain scale and rate it consistently will be achieved and maintained Outcome: Progressing Pt rating pain 0/10 on numeric pain scale. Pt verbalizes understanding of interventions. Problem: Safety: Goal: Patient will remain free of falls during hospital stay Outcome: Progressing Side rails up times two, bed locked in lowest position, call gordon within reach, non slip socks applied. Problem: Discharge Planning: Goal: Discharge needs of the adult patient will be met Outcome: Progressing No discharge concerns at this time. All questions answered. Pt verbalizes understanding of discharge disposition. Will transfer to following delivery. 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 Patient continues sobriety and denies relapse. SW following. documented in this encounter [facility] 12-31-2024 Obstetrics Note This note was copied from a baby's chart. Consult Indications: $ Consult Type: $ New consult Reason for Consult: Routine Assessment: Mom sleeping, Nurse will instructed patient how to pump. Maternal: Maternal Goals: Initial Feeding Plan: Both breast milk and formula Maternal History: Experience: No Education: None Is From Mother?: Yes (see comment) (NICU) Initiation: Initiation - within 60 minutes of delivery or within 6 hours of separation (NICU) Teaching: Teaching: Language appropriate, Pumping Education/Resources Provided: Written booklet, NICU packet, Community resources Recommendations: Recommendations: Pump 8-12 times in 24 hours Follow-up: Pump Status: Has pump Follow Up: Will continue to follow Sudha Rey 12/31/2024 [facility] 12-31-2024 Note Formatting of this n ote is different from the original. Addendum created 12/31/24 1003 by Kameron Rodriguez MD [facility] Note [facility] 12-31-2024 Miscellaneous Notes Addendum created 12/31/24 100 by Kameron Rodriguez MD Clinical Note Signed documented in this encounter [facility] 12-31-2024 Plan of care note Problem: Routine Care: Goal: Patient care will be managed and maintained throughout hospital stay per unit specific routine care procedure Outcome: Progressing Intervention: Implement Routine Care of the Patient in Labor Delivery Stages Procedure (continuous) Note: Routine care and hourly rounding maintained. Patient oriented to room, and call light within reach. Problem: Breast Milk/: Goal: Breast Milk/ will be promoted, initated and maintained Outcome: Progressing Intervention: Initiate Procedure (continuous) Note: Patient desires to breast and bottle feed. Will initiate and assist with first feed. Will continue to encourage and support mom during this time. All questions answered. Problem: Fluid and Electrolyte Imbalance: Goal: Adequate fluid and electrolyte balance will be achieved and maintained Outcome: Progressing Intervention: Monitor for signs and symptoms of electrolyte imbalance (ongoing) Note: IV fluids administered per orders. Vaginal Bleeding will be monitored. Problem: Risk for Infection: Goal: Risk for infection will be reduced Outcome: Progressing Intervention: Monitor vital signs (per order) Note: No signs and symptoms of infection as this time. Labs WNL and patient remains afebrile. Will continue to assess and monitor. Problem: Knowledge Deficit: Goal: Ability to make informed decisions regarding treatment will improve Outcome: Progressing Intervention: Identify level of understanding (continuous) Note: Pt kept up to date on POC, all questions answered at this time. Problem: Acute Pain: Goal: Ability to identify pain intensity on a pain scale and rate it consistently will be achieved and maintained Outcome: Progressing Intervention: Assess pain routinely using the developmentally appropriate pain scale (continuous) Note: Pain scale used during hourly rounding on patient. Patient received an epidural for pain management during labor. Encouraged to hit her epidural button only if needed and explained that pressure is a normal feeling with an epidural. Will continue to assess and provide non-pharmacologic interventions when possible as well. Problem: Safety: Goal: Patient will remain free of falls during hospital stay Outcome: Progressing Intervention: Assess for risk related to falls using age appropriate scale (continuous) Note: Environment remains safe. Side rails are up on the bed and is in lowest, locked position. No skid footwear/ Yellow falls risk band and socks applied. Purposeful hourly rounding maintained and call light within reach. Problem: Discharge Planning: Goal: Discharge needs of the adult patient will be met Outcome: Progressing Intervention: Follow [facility] Discharge Planning Policy (continuous) Note: Patient to be transferred with her baby to the Unit s/p after the recovery period in L&D. Plan for discharge home after 24-48 hours. Patient aware and updated on the discharge planning. Problem: Substance Use / Abuse Goal: JAIL GOAL: PATIENT WILL ESTABLISH A SUSTAINED RECOVERY FROM SUBSTANCE ABUSE Outcome: Progressing Note: [facility] 12-31-2024 Plan of care note Problem: Routine Care: Goal: Patient care will be managed and maintained throughout hospital stay per unit specific routine care procedure Outcome: Progressing Intervention: Implement Routine Care of the Patient in Labor Delivery Stages Procedure (continuous) Note: Routine care and hourly rounding maintained. Patient oriented to room, and call light within reach. Problem: Breast Milk/: Goal: Breast Milk/ will be promoted, initated and maintained Outcome: Progressing Intervention: Initiate Procedure (continuous) Note: Patient desires to breast and bottle feed. Will initiate and assist with first feed. Will continue to encourage and support mom during this time. All questions answered. Problem: Fluid and Electrolyte Imbalance: Goal: Adequate fluid and electrolyte balance will be achieved and maintained Outcome: Progressing Intervention: Monitor for signs and symptoms of electrolyte imbalance (ongoing) Note: IV fluids administered per orders. Vaginal Bleeding will be monitored. Problem: Risk for Infection: Goal: Risk for infection will be reduced Outcome: Progressing Intervention: Monitor vital signs (per order) Note: No signs and symptoms of infection as this time. Labs WNL and patient remains afebrile. Will continue to assess and monitor. Problem: Knowledge Deficit: Goal: Ability to make informed decisions regarding treatment will improve Outcome: Progressing Intervention: Identify level of understanding (continuous) Note: Pt kept up to date on POC, all questions answered at this time. Problem: Acute Pain: Goal: Ability to identify pain intensity on a pain scale and rate it consistently will be achieved and maintained Outcome: Progressing Intervention: Assess pain routinely using the developmentally appropriate pain scale (continuous) Note: Pain scale used during hourly rounding on patient. Patient received an epidural for pain management during labor. Encouraged to hit her epidural button only if needed and explained that pressure is a normal feeling with an epidural. Will continue to assess and provide non-pharmacologic interventions when possible as well. Problem: Safety: Goal: Patient will remain free of falls during hospital stay Outcome: Progressing Intervention: Assess for risk related to falls using age appropriate scale (continuous) Note: Environment remains safe. Side rails are up on the bed and is in lowest, locked position. No skid footwear/ Yellow falls risk band and socks applied. Purposeful hourly rounding maintained and call light within reach. Problem: Discharge Planning: Goal: Discharge needs of the adult patient will be met Outcome: Progressing Intervention: Follow [facility] Discharge Planning Policy (continuous) Note: Patient to be transferred with her baby to the Unit s/p after the recovery period in L&D. Plan for discharge home after 24-48 hours. Patient aware and updated on the discharge planning. Problem: Substance Use / Abuse Goal: JAIL GOAL: PATIENT WILL ESTABLISH A SUSTAINED RECOVERY FROM SUBSTANCE ABUSE Outcome: Progressing Note: [facility] 12-31-2024 Labor and delivery summary note OB Delivery Note: The patient began pushing 12/30/2024 9:34 PM. She had a cat II tracing with variable decels with pushing so pitocin was decreased. She was making good progress. We had periods of mod variability and accels at 0004. Patient took a break from pushing due to low energy. She then was amenable to a vacuum assisted delivery given FHR tracing and fatigue. Delivered a living Male over perineum with No episiotomy from Left Occiput Anterior position with Epidural anesthesia. Nocord complications. Anterior shoulder delivered atraumatically, shoulder dystocia not present, followed by posterior shoulder and body. Cord doubly clamped and cut, and placed on maternal abdomen Placenta delivery was Spontaneous, and it was Intact, with 3 Vessels cord and with intact amnion/chorion. Pitocin was administered. Fundus firm. Vagina and perineum inspected and found to have 2nd perineal laceration, No periurethral laceration, Bilateral labial laceration, No sulcus laceration(s), no vaginal laceration(s), and no cervical laceration(s). The perineum and lacerations were repaired in the usual fashion. Patient stable in delivery room and in delivery room Delivery Date/Time: 12/31/2024 @ 12:36 AM Infant weight: See delivery summary report for weight. APGARS: 1 Minute 5 Minute Totals: 9 9 Blood loss: Blood loss: 200 (12/29/2024 8:08 PM - 12/31/2024 1:14 AM) Pt plans to Breast Milk and Formula feed and use Implant for contraception The patient now has the following VTE risk factors: 0 No known risk factors for a total score of 0. The patient does not meet criteria for chemoprophylaxis currently. PPH Flowsheet the patient's post- PPH risk score is High Risk Total Score: 23 4 Adm - Induction of labor (with oxytocin) or cervical ripening 2 Adm - Hematocrit <30 4 Pre - Labor greater than 18 hours 4 Pre - Augmentation of labor 4 Pre - Prolonged second stage (>2 hours) 4 Post - Operative vaginal delivery 1 PPH Doc Complete (Admission Assessment) Was there a post hemorrhage? No Attending: PAULINE RICO Resident(s): KWADWO MELENDEZ;MARIBELL MOREL;SARAH COHN;LAYLA GARY Labor Events Induction?: Yes Indications for induction: Hypertension Induction methods: [place]/EASI, Oxytocin, AROM Cervical ripening date/time: Augmentation: N/A--IOL Rupture type: Artificial Rupture date/time: 12/30/24 1030 Fluid color: Clear labor?: No Labor complications: None Hypertension in ?: Yes Hypertensive disorder: Gestational Hypertension Start Pushing Labor onset date/time: 12/29/242199 Dilation complete date/time: 12/30/242125 Start pushing date/time: 12/30/20242133 Decision date/time (emergent ): Anesthesia Anesthesia/Pain Management: Epidural Delivery Details Forceps attempted?: No Vacuum extractor attempted?: Yes Informed Consent: verbal Pelvic exam done: Yes Estimated position prior to placement: left occipital anterior Asynclitic: No Indications: Maternal Fatigue, Heart Rate or Rhythm Abnormality Vacuum type: Kiwi Vacuum application location: Outlet Ease of placement: easy Ease of traction: easy Informed Consent: verbal First attempt time vacuum applied: 0029 EDT First attempt time vacuum removed: 0036 EDT Number of pop offs: 0 Number of pulls: 5 Total vacuum application time: 8 minutes Vacuum applied by: NORA Pelvic exam done: Yes Bladder: Emptied Station at placement: +3 Rotation: 0 Estimated position prior to placement: left occipital anterior Asynclitic: No Failed?: No Shoulder Dystocia Shoulder dystocia present?: No Presentation and Position Presentation: Vertex Position: Left Occiput Anterior Kwadwo Melendez MD Cosigned by Pauline Rico MD at 12/31/2024 1:38 AM EDT [facility] 12-30-2024 Note LABOR AND DELIVERY I NTRAPARTUM PROGRESS NOTE 12/30/24 2:49 PM S:To room for cervical check O: BP 122/83 (BP Location: left arm) Pulse 82 Temp 98.4 ???F (36.9 ???C) (Oral) Resp 16 Ht 5' 4 (1.626 m) Wt 174 lb 9.7 oz (79.2 kg) LMP (LMP Unknown) SpO2 94% No BMI 29.97 kg/m??? Cervix: Dilation: 5.5, Effacement (%): 70, Station: -2, Examined By: MD Melvin Consider IUPC if no improvement NST: baseline 125, moderate variability, no decelerations, + accels TOCO: contractions Q3-4 minutes Pitocin management: Pitocin (last 168 hours) Date/Time Action Medication Dose Rate 12/29/24 2200 IV New Bag oxytocin (PITOCIN) infusion 2 snow-units/min 2 mL/hr 12/29/24 2230 IV Rate Change oxytocin (PITOCIN) infusion 3 snow-units/min 3 mL/hr 12/30/24 0030 IV Rate Change oxytocin (PITOCIN) infusion 4 snow-units/min 4 mL/hr 12/30/24 0100 IV Rate Change oxytocin (PITOCIN) infusion 5 snow-units/min 5 mL/hr 12/30/24 0500 IV Rate Change oxytocin (PITOCIN) infusion 6 snow-units/min 6 mL/hr 12/30/24 0530 IV Rate Change oxytocin (PITOCIN) infusion 8 snow-units/min 8 mL/hr 12/30/24 0633 IV Rate Change oxytocin (PITOCIN) infusion 4 snow-units/min 4 mL/hr 12/30/24 0653 IV Rate Change oxytocin (PITOCIN) infusion 2 snow-units/min 2 mL/hr 12/30/24 1330 IV Rate Change oxytocin (PITOCIN) infusion 3 snow-units/min 3 mL/hr A/P: 24 year old at 39w1d with eIOL > gHTN 1. Labor: latent phase of labor. -- On pitocin per protocol. Currently at 3 snow-units/min -- s/p AROM -- total time of: Hours: 4 Minutes: 19 -- Pain management: Epidural 2. well being: Category 1 -- Reassuring status, continue cEFM 3. GBS: GBS: Negative for beta-hemolytic Streptococci group B. 4. HTN in : Gestational hypertension --BPs overall normotensive -- Serum HELLP labs reassuring -- For BP check PP 5. Asthma -- Caution with Hemabate 6. Anemia -- Hgb 10.3 -- Consider T AND C if prolonged labor course Continue trial of labor. Peyton Charles, Obstetrics and Gynecology PGY-2 [facility] 12-30-2024 Plan of care note Problem: Routine Care: Goal: Patient care will be managed and maintained throughout hospital stay per unit specific routine care procedure Outcome: Progressing Unit routine initiated and maintained. Pt oriented to room, call gordon, and nurse Problem: Breast Milk/: Goal: Breast Milk/ will be promoted, initated and maintained Outcome: Progressing Pt plans to breastfeed her infant. Education provided on and performing kangaroo care. Problem: Fluid and Electrolyte Imbalance: Goal: Adequate fluid and electrolyte balance will be achieved and maintained Outcome: Progressing Patient fluid and electrolyte will be maintained with both IV fluids and PO fluids. Problem: Risk for Infection: Goal: Risk for infection will be reduced Outcome: Progressing Hand hygiene maintained; pt remains afebrile. Will continue to assess vital signs per protocol Problem: Knowledge Deficit: Goal: Ability to make informed decisions regarding treatment will improve Outcome: Progressing Will address any knowledge deficits that patient may have and address any concerns. Problem: Acute Pain: Goal: Ability to identify pain intensity on a pain scale and rate it consistently will be achieved and maintained Outcome: Progressing Patient pain will be managed with both nonpharmacologic and pharmacologic measures. Problem: Safety: Goal: Patient will remain free of falls during hospital stay Outcome: Progressing Side rails up times two, bed locked in lowest position, call gordon within reach, non slip socks applied and falls band applied. Problem: Discharge Planning: Goal: Discharge needs of the adult patient will be met Outcome: Progressing Patient will be aware of all discharge plans prior to discharge. Problem: Substance Use / Abuse Goal: JAIL GOAL: PATIENT WILL ESTABLISH A SUSTAINED RECOVERY FROM SUBSTANCE ABUSE Outcome: Progressing Before patient leaves hospital she will establish a plan to sustain recovery from substance abuse. [facility] 12-30-2024 Procedure anesthe sabine Narrative Procedure Name Responsible Anesthesiologist Anesthesia Start Time Anesthesia Stop Time LABOR ANALGESIA Primo Nelson MD 12/30/24 0721 5 0056 Events Date Time Event Comment 12/30/2024 0721 An Start Data 0721 An Start 0751 an stop data 1923 An Start Data 193 Quick Note One sided (pain on left), catheter pulled back 1cm to 11cm at skin 1935 Quick Note Patient endorsi ng relief of pain 1935 an stop data 12/31/2024 0056 AN Stop Meds Name Total lidocaine 1.5% epinephrine 1:200,000 5 m L OB [id number] EPIDURAL bolus (BupEpidB olus) 10 mL L & D fentaNYL 500 mcg - BUPivacaine 0.1 % EPIDURAL infusion 250 mL premix 172.33 mL * Agents No agents on file. * Blood No blood administrations on file. Lines, Drains, and Airways Type Details Placement Removal Peripheral IV Line 12/29/24; 2100; 20 gauge; Anterior, Right; Forearm; 1 12/29/24 2100 by Denise Castro, ALHAJI Epidural 12/30/24; 0731 (crea juan r via procedure documentation); Sitting; 12/31/24; 0246; Catheter intact, Dressing applied; Lumbar (1-5) 12/30/24 0731 by Carlos Abel MD 12/31/24 0246 by Sarah Cohn RN documented in this encounter [id number] Anesthesiology procedure note* Anesthesia Procedure Notes - Primo Nelson MD - 12/30/2024 7:34 AM EDTAssociated Order(s): Epidural Block Epidural Block Patient location during procedure: OB Start time: 12/30/2024 7:31 AM End time: 12/30/2024 7:34 AM Reason for block: procedure for pain Preanesthetic Checklist Completed: patient identified, IV checked, risks and benefits discussed, consent given, standard monitors applied and equipment checked, pre-op evaluation and timeout performed Staffing: Authorized by: Primo Nelson MD Performed by: Carlos Abel MD Epidural Patient position: sitting Patient monitoring: heart rate and continuous pulse ox Approach: midline Location: L3-4, lumbar Injection technique: JACQUE saline Procedures: lidocaine 1% used Prep: chlorhexidine, site prepped and draped and sterile technique and prep used Multiple attempts not required: Needle Needle type: Tuohy-Schliff Needle gauge: 17 Needle length: 3.5 (9 cm) Needle insertion depth: 7 cm Needle bevel orientation: parallel to dural fibers Catheter type: side hole Catheter at skin depth: 12 cm Test dose: negative and lidocaine 1.5% with epinephrine 1-to-200,000 Assessment Events: injection not painful, no injection resistance, no blood aspirated, CSF not aspirated, no difficulty passing catheter, no paresthesia, adequate block, no unintentional unilaterality and well-tolerated Additional Notes Test dose negative. No complications. I was personally present for the garcia portions of the procedure. Primo Nelson MD Anesthesiologist No block complications [facility] Work Phone: [phone] NoteEpidural Block Patient location during procedure: OB Start time: 12/30/2024 7:31 AM End time: 12/30/2024 7:34 AM Reason for block: procedure for pain Preanesthetic Checklist Completed: patient identified, IV checked, risks and benefits discussed, consent given, standard monitors applied and equipment checked, pre-op evaluation and timeout performed Staffing: Authorized by: Primo Nelson MD Performed by: Carlos Abel MD Epidural Patient position: sitting Patient monitoring: heart rate and continuous pulse ox Approach: midline Location: L3-4, lumbar Injection technique: JACQUE saline Procedures: lidocaine 1% used Prep: chlorhexidine, site prepped and draped and sterile technique and prep used Multiple attempts not required: Needle Needle type: Tuohy-Schliff Needle gauge: 17 Needle length: 3.5 (9 cm) Needle insertion depth: 7 cm Needle bevel orientation: parallel to dural fibers Catheter type: side hole Catheter at skin depth: 12 cm Test dose: negative and lidocaine 1.5% with epinephrine 1-to-200,000 Assessment Events: injection not painful, no injection resistance, no blood aspirated, CSF not aspirated, no difficulty passing catheter, no paresthesia, adequate block, no unintentional unilaterality and well-tolerated Additional Notes Test dose negative. No complications. I was personally present for the garcia portions of the procedure. Primo Nelson MD Anesthesiologist No block complicationsThe [facility] [id number] Surgical operation note* Anesthesia Procedure Notes - Primo Nelson MD - 12/30/2024 7:34 AM EDT Associated Order(s): Epidural Block Epidural Block Patient location during procedure: OB Start time: 12/30/2024 7:31 AM End time: 12/30/2024 7:34 AM Reason for block: procedure for pain Preanesthetic Checklist Completed: patient identified, IV checked, risks and benefits discussed, consent given, standard monitors applied and equipment checked, pre-op evaluation and timeout performed Staffing: Authorized by: Primo Nelson MD Performed by: Carlos Abel MD Epidural Patient position: sitting Patient monitoring: heart rate and continuous pulse ox Approach: midline Location: L3-4, lumbar Injection technique: JACQUE saline Procedures: lidocaine 1% used Prep: chlorhexidine, site prepped and draped and sterile technique and prep used Multiple attempts not required: Needle Needle type: Tuohy-Schliff Needle gauge: 17 Needle length: 3.5 (9 cm) Needle insertion depth: 7 cm Needle bevel orientation: parallel to dural fibers Catheter type: side hole Catheter at skin depth: 12 cm Test dose: negative and lidocaine 1.5% with epinephrine 1-to-200,000 Assessment Events: injection not painful, no injection resistance, no blood aspirated, CSF not aspirated, no difficulty passing catheter, no paresthesia, adequate block, no unintentional unilaterality and well-tolerated Additional Notes Test dose negative. No complications. I was personally present for the garcia portions of the procedure. 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 Positive Physical Exam Airway Mallampati: II TM distance: Adequate Micrognathia: Not present Jaw opening: Adequate Neck flexion: Adequate Dental PE (+) intact Pulmonary Cardiovascular Neuro Plan Anesthesia plan: epidural; Anesthesia risks / alternatives discussed pre-op Questions answered / anesthesia plan accepted Past medical history, surgical history, allergies, and medications reviewed. Pertinent laboratory tests, EKG, imaging, and consults reviewed and I have personally seen and evaluated the patient, repeating garcia portions of the history and physical examination. Attestation: Anesthesia options were discussed with the patient and/or legal contact center representative. The risks, benefitsand alternatives were reviewed. Questions regarding anesthesia were answered. Patient and/or legal contact center representative knows such anesthetics and procedures may be performed by Resident physicians, Certified Anesthesiologist Assistants, or Certified Nurse Anesthetists under the supervision of a physician. The patient /or the patient s legal contact center representative agree with the plan for anesthesia. clinical trial specialist Evaluation Current Patient is now. Obstetric History MHPATFORM Cosigned by Primo Nelson MD at 12/30/2024 7:45 AM EDT Associated attestation - Primo Nelson MD - 12/30/2024 7:45 AM EDT Teaching Physician Note: I saw and evaluated the patient. I personally obtained the garcia and critical portions of the historyand physical exam. I reviewed the resident's documentation and discussed the patient with the resident. I agree with the resident's medical decision making as documented in the resident's note. Primo Nelson MD documented in this [id number] Progress note* Blood Attestation - Carlos Abel MD - 12/30/2024 7:17 AM EDT Blood Attestation: ATTESTATION OF INFORMED CONSENT FOR BLOOD: The transfusion of blood and/or blood components were discussed with the patient and/or legal contact center representative. The risks, benefits and alternatives were reviewed. Questions regarding blood transfusions were answered. The patient /or the patient s legal contact center representative agree with the plan for transfusion of blood and/or blood components. 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 Positive Physical Exam Airway Mallampati: II TM distance: Adequate Micrognathia: Not present Jaw opening: Adequate Neck flexion: Adequate Dental PE (+) intact Pulmonary Cardiovascular Neuro Plan Anesthesia plan: epidural; Anesthesia risks / alternatives discussed pre-op Questions answered / anesthesia plan accepted Past medical history, surgical history, allergies, and medications reviewed. Pertinent laboratory tests, EKG, imaging, and consults reviewed and I have personally seen and evaluated the patient, repeating garcia portions of the history and physical examination. Attestation: Anesthesia options were discussed with the patient and/or legal contact center representative. The risks, benefitsand alternatives were reviewed. Questions regarding anesthesia were answered. Patient and/or legal contact center representative knows such anesthetics and procedures may be performed by Resident physicians, Certified Anesthesiologist Assistants, or Certified Nurse Anesthetists under the supervision of a physician. The patient /or the patient s legal contact center representative agree with the plan for anesthesia. clinical trial specialist Evaluation Current Patient is now. Obstetric History MHPATFORM Cosigned by Primo Nelson MD at 12/30/2024 7:45 AM EDT Associated attestation - Primo Nelson MD - 12/30/2024 7:45 AM EDT Teaching Physician Note: I saw and evaluated the patient. I personally obtained the garcia and critical portions of the historyand physical exam. I reviewed the resident's documentation and discussed the patient with the resident. I agree with the resident's medical decision making as documented in the resident's note. Primo Nelson MD [facility] Work Phone: [phone] 503-825904-26-2025 NoteLABOR AND DELIVERY INTRAPARTUM PROGRESS NOTE 12/30/24 5:13 AM SUBJECTIVE: Cervical exam, wants epidural before AROM OBJECTIVE: BP 126/81 (BP Location: left arm) Pulse 80 Temp 98.1 ???F (36.7 ???C) (Oral) Resp 16 Ht 5' 4 (1.626 m) Wt 174 lb 9.7 oz (79.2 kg) LMP (LMP Unknown) SpO2 97% No BMI 29.97 kg/m??? CERVIX: 4/70/-2, richmond removed Last exam: Dilation: 4.5, Effacement (%): 70, Station: -2, Examined By: Isabella MENDIETA NST: baseline 130, moderate variability, +accelerations, Intermittent variable decelerations TOCO: ctx q2-3 min Pitocin (last 168 hours) Date/Time Action Medication Dose Rate 12/29/24 2200 IV New Bag oxytocin (PITOCIN) infusion 2 snow-units/min 2 mL/hr 12/29/24 2230 IV Rate Change oxytocin (PITOCIN) infusion 3 snow-units/min 3 mL/hr 12/30/24 0030 IV Rate Change oxytocin (PITOCIN) infusion 4 snow-units/min 4 mL/hr 12/30/24 0100 IV Rate Change oxytocin (PITOCIN) infusion 5 snow-units/min 5 mL/hr 12/30/24 0500 IV Rate Change oxytocin (PITOCIN) infusion 6 snow-units/min 6 mL/hr ASSESSMENT AND PLAN: 24 year old at 39w1d admitted for eIOL Latent phase of labor - pitocin at 6 snow-units/min - Plan for amniotomy after epiduralrupture date or rupture time have not been documented - pain management: Epidural when needed - feeding: Breast Milk and Formula - contraception: Implant - GBS: Negative for beta-hemolytic Streptococci group B. FWB: cat 1 FHR tracing - EFW: ~3500g, 59%ile, 12/01/24 - overall reassuring status, continue cEFM 3. Anxiety and Depression - SW AND consult PP as needed - Mood stable, no SI/HI 4. Tobacco use - Nicotine patch PRN 5. Mild intermittent asthma - No current meds - Hemabate contraindicated in setting of PPH 6. 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 Tox screen on admission negative. Anticipate Reanna Mason MD Obstetrics and Gynecology, PGY-1[facility] [id number] NoteLABOR AND DELIVERY INTRAPARTUM PROGRESS NOTE 12/30/24 1:23 AM SUBJECTIVE: Tracing OBJECTIVE: BP 126/80 (BP Location: left arm) Pulse 92 Temp 98.2 ???F (36.8 ???C) (Oral) Resp 17 Ht 5' 4 (1.626 m) Wt 174 lb 9.7 oz (79.2 kg) LMP (LMP Unknown) SpO2 99% No BMI 29.97 kg/m??? CERVIX: Deferred Last exam: Dilation: Fingertip, Effacement (%): 0, Station: Floating, Examined By: Isabella MENDIETA NST: baseline 150, moderate variability, +accelerations, Intermittent variable decelerations TOCO: ctx q3-4 min Pitocin (last 168 hours) Date/Time Action Medication Dose Rate 12/29/24 2200 IV New Bag oxytocin (PITOCIN) infusion 2 snow-units/min 2 mL/hr 12/29/24 2230 IV Rate Change oxytocin (PITOCIN) infusion 3 snow-units/min 3 mL/hr 12/30/24 0030 IV Rate Change oxytocin (PITOCIN) infusion 4 snow-units/min 4 mL/hr 12/30/24 0100 IV Rate Change oxytocin (PITOCIN) infusion 5 snow-units/min 5 mL/hr ASSESSMENT AND PLAN: 24 year old at 39w1d admitted for eIOL Latent phase of labor - cervical richmond in place - pitocin at 5 snow-units/min - Plan for amniotomy when appropriate rupture date or rupture time have not been documented - pain management: Epidural when needed - feeding: Breast Milk and Formula - contraception: Implant - GBS: Negative for beta-hemolytic Streptococci group B. FWB: cat 2 FHR tracing, moderate variability, accels present, low concern for acidemia - EFW: ~3500g, 59%ile, 12/01/24 - overall reassuring status, continue cEFM 3. Anxiety and Depression - AND consult PP as needed - Mood stable, no SI/HI 4. Tobacco use - Nicotine patch PRN 5. Mild intermittent asthma - No current meds - Hemabate contraindicated in setting of PPH 6. 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 Tox screen on admission negative. Anticipate Reanna Mason MD Obstetrics and Gynecology, PGY-1[facility] [id number] Note12/29/2024 9:43 PM RICHMOND BULB PROCEDURE NOTE Risks and benefits of the procedure were explained to the patient and she agreed to proceed with the procedure. A timeout was performed prior to the procedure. Pt was placed supine in frog leg position. The 16 panamanian richmond bulb was placed manually through the cervix. Once in place, the richmond bulb was filled with 60cc of sterile water. The richmond was then hung freely. The patient tolerated the procedure well with no complications. SVE: 0.5 / 0 / -5 EBL 0cc Preprocedure pain score 0/10 Postprocedure pain score 0/10 Reanna Mason MD Obstetrics and Gynecology, PGY-1[facility]04-25-2025 Procedure note * Reanna Mason MD - 12/29/2024 9:42 PM EDTProcedure(s): DILATION OF CERVICAL CANAL. Pre-Procedure Diagnose(s): Encounter for elective induction of labor (HCC) Post-Procedure Diagnose(s): Encounter for elective induction of labor (HCC) 12/29/2024 9:43 PM RICHMOND BULB PROCEDURE NOTE Risks and benefits of the procedure were explained to the patient and she agreed to proceed with the procedure. A timeout was performed prior to the procedure. Pt was placed supine in frog leg position. The 16 panamanian richmond bulb was placed manually through the cervix. Once in place, the richmond bulb was filled with 60cc of sterile water. The richmond was then hung freely. The patient tolerated the procedure well with no complications. SVE: 0.5 / 0 / -5 EBL 0cc Preprocedure pain score 0/10 Postprocedure pain score 0/10 Reanna Mason MD Obstetrics and Gynecology, PGY-1 [id number] Procedure note* Reanna Mason MD - 12/29/2024 9:42 PM EDTProcedure(s): DILATION OF CERVICAL CANAL. Pre-Procedure Diagnose(s): Encounter for elective induction of labor (HCC) Post-Procedure Diagnose(s): Encounter for elective induction of labor (HCC) 12/29/2024 9:43 PM RICHMOND BULB PROCEDURE NOTE Risks and benefits of the procedure were explained to the patient and she agreed to proceed with the procedure. A timeout was performed prior to the procedure. Pt was placed supine in frog leg position. The 16 panamanian richmond bulb was placed manually through the cervix. Once in place, the richmond bulb was filled with 60cc of sterile water. The richmond was then hung freely. The patient tolerated the procedure well with no complications. SVE: 0.5 / 0 / -5 EBL 0cc Preprocedure pain score 0/10 Postprocedure pain score 0/10 Reanna Mason MD Obstetrics and Gynecology, PGY-1 documented in this [id number] Plan of care note* Care Plan Note - Denise Castro RN - 12/29/2024 9:12 PM EDT Problem: Routine Care: Goal: Patient care will be managed and maintained throughout hospital stay per unit specific routine care procedure Outcome: Progressing Unit routine implemented- pt oriented to room, call gordon, care channel. Patient care will be managed and maintained throughout hospital stay per unit specific routine care procedure Orders being followed. Problem: Breast Milk/: Goal: Breast Milk/ will be promoted, initated and maintained Outcome: Progressing promoted while in labor. Will initiate when pt delivers. Problem: Fluid and Electrolyte Imbalance: Goal: Adequate fluid and electrolyte balance will be achieved and maintained Outcome: Progressing Adequate fluid and electrolyte balance will be achieved and maintained IV fluids infusing as ordered. Lab work drawn and sent as ordered. Problem: Risk for Infection: Goal: Risk for infection will be reduced Outcome: Progressing No signs or symptoms of infection at this time. Pt afebrile. Problem: Knowledge Deficit: Goal: Ability to make informed decisions regarding treatment will improve Outcome: Progressing Pt verbalizes understanding of POC. All questions answered. Problem: Acute Pain: Goal: Ability to identify pain intensity on a pain scale and rate it consistently will be achieved and maintained Outcome: Progressing Pt rating pain 0/10 on numeric pain scale. Pt verbalizes understanding of interventions. Problem: Safety: Goal: Patient will remain free of falls during hospital stay Outcome: Progressing Side rails up times two, bed locked in lowest position, call gordon within reach, non slip socks applied. Problem: Discharge Planning: Goal: Discharge needs of the adult patient will be met Outcome: Progressing No discharge concerns at this time. All questions answered. Pt verbalizes understanding of discharge disposition. Will transfer to following delivery. 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 Patient continues sobriety and denies relapse. SW following. [id number] History and physical note* Reanna Mason MD - 12/29/2024 8:21 PM EDT Images from the original note were not included. LABOR AND DELIVERY HISTORY AND PHYSICAL NOTE 12/29/2024 8:21 PM Chief complaint: Braeden Tapia is a 24 year old at 39w0d presents to Labor and Delivery for eIOL. She reports no contractions, no vaginal bleeding, no leaking fluid, and normal movement. Her has been complicated by: 1) Late transfer of care - Transferred here at 28 weeks, from [facility] - Dating confirmed by 07/05/24 US, placing her at 14w0d, at [facility]. Spoke with [place] L&D provider regarding dating US. 2) History of incarceration - Incarcerated late August-September. - SW/BH consult declined. - Related to possession of controlled substances. - Patient states she is in IOP 3) Anxiety and depression - Mood stable, no SI/HI - Counseling - in IOP, no meds. - Denies SW/BH 4) Dental Abscess - 10/15/2024: #L dental/mandibular abscess, Sepsis; Elevated troponin:: s/p I&D drainage by OMFS with 5cc serosanguinous fluid drained. CT face/soft tissue significant for significant soft tissue infection/phlegmon throughout the left face with myositis of the left masseter muscle without discrete drainable abscess. Sent home with: Peridex mouth rinse daily, no PO for 30 min after use; Cefdinir 2x daily + Flagyl 3x daily for 7 day course - Since that time, no new concerns. 5) History of drug use - Hx of methamphetamine and alcohol abuse - Tox screen negative on 10/15 (positive for oxycodone after iatrogenic administration of opiates) - Denies current use 6) Tobacco use - 0.5 PPD 10/30/24 7) Mild intermittent asthma - Reports this as childhood asthma, last time of symptoms she was in Kindergarten. - No meds - no previous hospitalizations Dating Summary Working BRIANNA: 01/05/2025 set by Margaret Chou RN on 10/30/2024 based on Ultrasound on 10/15/2024 Based On BRIANNA GA Diff User Date Other Basis 01/10/2025 -5d Margaret Chou RN 10/30/2024 Comment: stated BRIANNA Last Menstrual Period (LMP Unknown) Margaret Chou RN 10/30/2024 Ultrasound on 10/15/2024 01/05/2025 Working Margaret Chou RN 10/30/2024 GA: 28w2d OB History Para Term AB Living 1 0 SAB IAB Ectopic Multiple Live Births # Outcome Date GA Lbr Jevon/2nd Weight Sex Type Anes PTL Lv 1 Current Obstetric Comments Due date January 10 Prior Delivery: No. Prior Shoulder Dystocia: No. Prior Delivery: No. Diabetes in : None. Hypertension in : None Infertility treatment: None. Conditions: None Anatomic Malformations: None Other Maternal Medical Conditions: None. Infections in : None. History: Had total of greater than 3 visits. Primary OB Provider: Melita Lee Past Medical History: Diagnosis Date Dental abscess 10/2024 Resolved Depression No problems currently Headache No meds, takes nap Mild intermittent asthma (HCC) No meds since childhood. Pneumonia, organism unspecified(486) 09/30/2004 Past Surgical History: Procedure Laterality Date NO PAST SURGICAL HISTORY Family History Problem Relation Age of Onset Other (colitis [Other]) Mother GI Disorders Mother Other (Tachycardia [Other]) Mother Good health Father Cancer runs in family Social History Tobacco Use Smoking status: Every Day Current packs/day: 0.50 Types: Cigarettes Vaping Use Vaping status: Never Used Substance Use Topics Alcohol use: Not Currently Alcohol/week: 7.0 standard drinks of alcohol Types: 7 Cans of beer per week Drug use: Yes Types: Methamphetamines Allergies Allergen Reactions Latex Rash Penicillins Other Other Reaction(s): unsure - allergic as young child No current facility-administered medications on file prior to encounter. Current Outpatient Medications on File Prior to Encounter Medication Sig Dispense Refill ondansetron (ZOFRAN-ODT) 4 MG disintegrating tablet Take 1 Tablet by mouth every 12 hours [address]for Nausea. Place 1 tablet under tongue as needed for nausea. 10 Tablet 0 acetaminophen (TYLENOL) 500 MG tablet Take 2 Tablets by mouth every 6 (six) hours. 30 Tablet 0 chlorhexidine (PERIDEX) 0.12 % oral solution Swish and spit 15 mL by mouth 2 times daily. 473 mL 3 Lidocaine HCl (lidocaine viscous) 2 % SOLN solution Take 15 mL by mouth every 3 hours as needed (For severe tooth pain). 100 mL 0 TABS tablet Take 1 Tablet by mouth daily. 30 Tablet 5 OB Problem List None noted. Problems (from 10/15/24 to present) Problem Noted Diagnosed Resolved Third trimester ([facility]) 12/29/2024 by Lito Pitt MD No Heartburn during in third trimester ([facility]) 11/13/2024 by Melita Lee APRN-CNP No History of incarceration 10/30/2024 by Melita Lee APRN-CNP No Overview Signed 10/30/2024 11:41 AM by Melita Lee APRN-CNP Briefly incarcerated from late Aug-mid September Anxiety and depression 10/30/2024 by Melita Lee APRN-CNP No Overview Signed 10/30/2024 11:41 AM by Melita Lee APRN-CNP Reports hx of Anemia affecting in third trimester ([facility]) 10/30/2024 by Melita Lee APRN-CNP No Overview Addendum 11/14/2024 4:34 PM by Melita Lee APRN-CNP Normocytic. Low b12, low ferritin. Nrm Hgb elect CBC (last 3 years, up to 8 values) 11/13/2024 10/17/2024 10/16/2024 10/15/2024 1:58 PM 4:29 AM 6:46 AM 9:31 AM WBC 19.2 11.2 12.7 18.0 RBC 3.52 3.25 3.38 3.83 Hgb 10.3 9.6 9.8 11.0 Hct 30.3 28.5 29.9 33.9 MCV 86 88 88 88 RDW 13.7 14.1 14.2 14.1 Plt 279 263 298 330 BMI 28.0-28.9,adult 10/30/2024 by Melita Lee APRN-CNP No Overview Signed 10/30/2024 11:54 AM by Melita Lee APRN-CNP Unsure pregravid wt Dental abscess 10/15/2024 by Melita Alejandre MD No Overview Signed 10/30/2024 11:35 AM by Melita Lee APRN-CNP 10/15/2024: #L dental/mandibular abscess, Sepsis; Elevated troponin:: s/p I&D drainage by OMFS with 5cc serosanguinous fluid drained. CT face/soft tissue significant for significant soft tissue infection/phlegmon throughout the left face with myositis of the left masseter muscle without discrete drainable abscess. Cardiopulmonary exam benign EKG with mild sinus tachycardia (HR 102); Sent home with: Peridex mouth rinse daily, no PO for 30 min after use; Cefdinir 2x daily + Flagyl 3x daily for 7 day course Supervision of high risk in third trimester (HCC) 10/15/2024 by Melita Alejandre MD No Overview Signed 10/30/2024 11:33 AM by Melita Lee APRN-CNP T/f care [facility] in 3rd TM; Rh +/ RI / / CT neg / HBV neg / HCV neg / HIV neg / neg Ucx. Abnormal1 hr, nrm 3 hr GTT History of drug abuse 10/15/2024 by Melita Alejandre MD No Overview Addendum 10/30/2024 11:36 AM by Melita Lee APRN-CNP Hx Meth and Alcohol use 10/15: when inpatient for tooth abcess Tox screen negative except for oxycodone, however tox screen collected after administered oxycodone in hospital Tobacco use disorder 07/06/2017 by Melita Alejandre MD No Overview Signed 10/30/2024 11:39 AM by Melita Lee APRN-CNP 1/ ppd 10/30/24 Mild intermittent asthma without complication (HCC) 11/07/2003 by Sabra Christensen) No Overview Signed 10/30/2024 11:34 AM by Melita Lee APRN-CNP childhood Breech presentation (HCC) 12/11/2024 by Melita Lee APRN-CNP 12/18/2024 by Melita Lee APRN-CNP Review Of Systems: Otherwise negative O: Ht 5' 4 (1.626 m) Wt 174 lb 9.7 oz (79.2 kg) LMP (LMP Unknown) BMI 29.97 kg/m GEN: NAD Neck: thyroid not enlarged CV: Regular rate and rhythm Lungs: Clear bilaterally Abd: soft, gravid, non-tender Back: no CVAT Ext: No BLE edema, non-tender Neuro: No focal deficits Vaginal Lesions:no Vaginal Exam: 0.5/0/-5 Membranes: Intact SSE: Not indicated FHR: Baseline 130 bpm, moderate variability, accels present, no decels. TOCO:Acontractile U/S: Cephalic Estimated Weight: ~3500g, 59%ile, 12/01/24 Lab Results Component Value Date HCT 31.7 (L) 12/18/2024 HCT 30.3 (L) 11/13/2024 HCT 28.5 (L) 10/17/2024 ABORH O Positive 10/15/2024 ABSCINT Negative 10/15/2024 SYPHILISTOT Non-Reactive 10/15/2024 HBSAG Non-Reactive 10/15/2024 HIVAGAB Non-Reactive 10/15/2024 GCAMPLIFY Negative 10/15/2024 CHLAMAMPLIFY Negative 10/15/2024 RUBELLA 18.1 10/15/2024 GLUOBSCRN 178 (H) 10/16/2024 Beta Strep Culture (no units) Date Value 12/11/2024 Negative for beta-hemolytic Streptococci group B. 10/10/2007 Beta-Streptococcus Culture Site: Throat Culture: Negative for beta-hemolytic Streptococci group A. Assessment: 24 year old at 39w0d dated by 14w0d US here for eIOL. Plan: 1. Transfer to Labor and Delivery - Induce with pitocin, richmond, and AROM as indicated. 2. Consents for delivery verbally reviewed and signed as needed for operative delivery. The patient was counseled as to the possible modes of delivery including spontaneous vaginal delivery, vacuum delivery, forceps delivery, and delivery. The procedure, personnel, risks, benefits, and alternatives of each procedure were discussed with the patient. General risks including, but not limited to the following, were discussed: infection, bleeding withpossible need for blood transfusion, and damage to other tissues, organs, vessels or nerves. 3. FWB: NST reactive 4. L&D Labs: O Positive/R immune/GBS negative 5. The patient has the following VTE risk factors: 0 No known risk factors for a total score of 0 .The patient does not meet criteria for chemoprophylaxis currently. 6.PPH Pre- Flowsheet The patient s pre- PPH risk score is: High Risk Total Score: 9 4 Adm - Induction of labor (with oxytocin) or cervical ripening 4 Pre - Augmentation of labor 1 PPH Doc Complete (Admission Assessment) . A type and screen and a CBC have been ordered. Blood has not been ordered for crossmatch ATTESTATION OF INFORMED CONSENT FOR BLOOD: The transfusion of blood and/or blood components were discussed with the patient and/or legal contact center representative. The risks, benefits and alternatives were reviewed. Questions regarding blood transfusions were answered. The patient /or the patient s legal contact center representative agree with the plan for transfusion of blood and/or blood components.. Her bleeding will be monitored, and the PPH cart and medication kit are immediately available on the unit. 7. The patient is planning to Breast Milk and Formula feed and use Implant contraception. Her plan for pain control in labor is epidural 8. Anxiety and Depression - & consult PP as needed - Mood stable, no SI/HI 9. Tobacco use - Patient offered nicorette/nicotine patch PRN, patient would prefer patch. 10. Mild intermittent asthma - No current meds - Avoid use of hemabate in setting of PPH 11. History of drug abuse - In remission. - Currently in IOP. - Tox screen on admission obtained with patient consent. Currently pending. Reanna Mason MD Staffed with Dr. Braxton. Cosigned by Fredo Braxton MD at 12/30/2024 3:46 AM EDT Associated attestation - Fredo Braxton MD - 12/30/2024 3:46 AM EDT Teaching Physician Note: I saw and evaluated the patient. I personally obtained the garcia and critical portions of the historyand physical exam. I reviewed the resident's documentation and discussed the patient with the resident. I agree with the resident's medical decision making as documented in the resident's note. 24y at 39w1d, presenting for scheduled induction of labor. status currently reassuring. Zhanna Braxton MD Maternal Medicine, Complex Family Planning Pager: [phone] [id number] History and physical note* Reanna Mason MD - 12/29/2024 8:21 PM EDT Images from the original note were not included. LABOR AND DELIVERY HISTORY AND PHYSICAL NOTE 12/29/2024 8:21 PM Chief complaint: Braeden Tapia is a 24 year old at 39w0d presents to Labor and Delivery for eIOL. She reports no contractions, no vaginal bleeding, no leaking fluid, and normal movement. Her has been complicated by: 1) Late transfer of care - Transferred here at 28 weeks, from [facility] - Dating confirmed by 07/05/24 US, [place]w0d, [place] [facility] [facility]. Spoke with [place] L&D provider regarding dating [place]. 2) History of incarceration - Incarcerated late August-September. - SW/ consult declined. - Related to possession of controlled substances. - Patient states she is in IOP 3) Anxiety and depression - Mood stable, no SI/HI - Counseling - in IOP, no meds. - Denies SW/BH 4) Dental Abscess - 10/15/2024: #L dental/mandibular abscess, Sepsis; Elevated troponin:: s/p I&D drainage by OMFS with 5cc serosanguinous fluid drained. CT face/soft tissue significant for significant soft tissue infection/phlegmon throughout the left face with myositis of the left masseter muscle without discrete drainable abscess. Sent home with: Peridex mouth rinse daily, no PO for 30 min after use; Cefdinir 2x daily + Flagyl 3x daily for 7 day course - Since that time, no new concerns. 5) History of drug use - Hx of methamphetamine and alcohol abuse - Tox screen negative on 10/15 (positive for oxycodone after iatrogenic administration of opiates) - Denies current use 6) Tobacco use - 0.5 PPD 10/30/24 7) Mild intermittent asthma - Reports this as childhood asthma, last time of symptoms she was in Kindergarten. - No meds - no previous hospitalizations Dating Summary Working BRIANNA: 01/05/2025 set by Margaret Chou RN on 10/30/2024 based on Ultrasound on 10/15/2024 Based On BRIANNA GA Diff User Date Other Basis 01/10/2025 -5d Margaret Chou RN 10/30/2024 Comment: stated BRIANNA Last Menstrual Period (LMP Unknown) Margaret Chou RN 10/30/2024 Ultrasound on 10/15/2024 01/05/2025 Working Margaret Chou RN 10/30/2024 GA: 28w2d OB History Para Term AB Living 1 0 SAB IAB Ectopic Multiple Live Births # Outcome Date GA Lbr Jevon/2nd Weight Sex Type Anes PTL Lv 1 Current Obstetric Comments Due date January 10 Prior Delivery: No. Prior Shoulder Dystocia: No. Prior Delivery: No. Diabetes in : None. Hypertension in : None Infertility treatment: None. Conditions: None Anatomic Malformations: None Other Maternal Medical Conditions: None. Infections in : None. History: Had total of greater than 3 visits. Primary OB Provider: Melita Lee Past Medical History: Diagnosis Date Dental abscess 10/2024 Resolved Depression No problems currently Headache No meds, takes nap Mild intermittent asthma (HCC) No meds since childhood. Pneumonia, organism unspecified(486) 09/30/2004 Past Surgical History: Procedure Laterality Date NO PAST SURGICAL HISTORY Family History Problem Relation Age of Onset Other (colitis [Other]) Mother GI Disorders Mother Other (Tachycardia [Other]) Mother Good health Father Cancer runs in family Social History Tobacco Use Smoking status: Every Day Current packs/day: 0.50 Types: Cigarettes Vaping Use Vaping status: Never Used Substance Use Topics Alcohol use: Not Currently Alcohol/week: 7.0 standard drinks of alcohol Types: 7 Cans of beer per week Drug use: Yes Types: Methamphetamines Allergies Allergen Reactions Latex Rash Penicillins Other Other Reaction(s): unsure - allergic as young child No current facility-administered medications on file prior to encounter. Current Outpatient Medications on File Prior to Encounter Medication Sig Dispense Refill ondansetron (ZOFRAN-ODT) 4 MG disintegrating tablet Take 1 Tablet by mouth every 12 hours [address] neededfor Nausea. Place 1 tablet under tongue as needed for nausea. 10 Tablet 0 acetaminophen (TYLENOL) 500 MG tablet Take 2 Tablets by mouth every 6 (six) hours. 30 Tablet 0 chlorhexidine (PERIDEX) 0.12 % oral solution Swish and spit 15 mL by mouth 2 times daily. 473 mL 3 Lidocaine HCl (lidocaine viscous) 2 % SOLN solution Take 15 mL by mouth every 3 hours as needed (For severe tooth pain). 100 mL 0 TABS tablet Take 1 Tablet by mouth daily. 30 Tablet 5 OB Problem List None noted. Problems (from 10/15/24 to present) Problem Noted Diagnosed Resolved Third trimester (HCC) 12/29/2024 by Lito Pitt MD No Heartburn during in third trimester (HCC) 11/13/2024 by Melita Lee APRN-CNP No History of incarceration 10/30/2024 by Mleita Lee APRN-CNP No Overview Signed 10/30/2024 11:41 AM by Melita Lee APRN-CNP Briefly incarcerated from late Aug-mid September Anxiety and depression 10/30/2024 by Melita Lee APRN-CNP No Overview Signed 10/30/2024 11:41 AM by Melita Lee APRN-CNP Reports hx of Anemia affecting in third trimester (HCC) 10/30/2024 by Melita Lee APRN-CNP No Overview Addendum 11/14/2024 4:34 PM by Melita Lee APRN-CNP Normocytic. Low b12, low ferritin. Nrm Hgb elect CBC (last 3 years, up to 8 values) 11/13/2024 10/17/2024 10/16/2024 10/15/2024 1:58 PM 4:29 AM 6:46 AM 9:31 AM WBC 19.2 11.2 12.7 18.0 RBC 3.52 3.25 3.38 3.83 Hgb 10.3 9.6 9.8 11.0 Hct 30.3 28.5 29.9 33.9 MCV 86 88 88 88 RDW 13.7 14.1 14.2 14.1 Plt 279 263 298 330 BMI 28.0-28.9,adult 10/30/2024 by Melita Lee APRN-CNP No Overview Signed 10/30/2024 11:54 AM by Melita Lee APRN-CNP Unsure pregravid wt Dental abscess 10/15/2024 by Melita Alejandre MD No Overview Signed 10/30/2024 11:35 AM by Melita Lee APRN-CNP 10/15/2024: #L dental/mandibular abscess, Sepsis; Elevated troponin:: s/p I&D drainage by OMFS with 5cc serosanguinous fluid drained. CT face/soft tissue significant for significant soft tissue infection/phlegmon throughout the left face with myositis of the left masseter muscle without discrete drainable abscess. Cardiopulmonary exam benign EKG with mild sinus tachycardia (HR 102); Sent home with: Peridex mouth rinse daily, no PO for 30 min after use; Cefdinir 2x daily + Flagyl 3x daily for 7 day course Supervision of high risk in third trimester (HCC) 10/15/2024 by Melita Alejandre MD No Overview Signed 10/30/2024 11:33 AM by Melita Lee APRN-CNP T/f care alexander in 3rd TM; Rh +/ RI / / CT neg / HBV neg / HCV neg / HIV neg / neg Ucx. Abnormal1 hr, nrm 3 hr GTT History of drug abuse 10/15/2024 by Melita Alejandre MD No Overview Addendum 10/30/2024 11:36 AM by Melita Lee APRN-CNP Hx Meth and Alcohol use 10/15: when inpatient for tooth abcess Tox screen negative except for oxycodone, however tox screen collected after administered oxycodone in hospital Tobacco use disorder 07/06/2017 by Melita Alejandre MD No Overview Signed 10/30/2024 11:39 AM by Melita Lee APRN-CNP 1/ ppd 10/30/24 Mild intermittent asthma without complication (HCC) 11/07/2003 by Sabra Christensen) No Overview Signed 10/30/2024 11:34 AM by Melita Lee APRN-CNP childhood Breech presentation (HCC) 12/11/2024 by Melita Lee APRN-CNP 12/18/2024 by Melita Lee APRN-CNP Review Of Systems: Otherwise negative O: Ht 5' 4 (1.626 m) Wt 174 lb 9.7 oz (79.2 kg) LMP (LMP Unknown) BMI 29.97 kg/m GEN: NAD Neck: thyroid not enlarged CV: Regular rate and rhythm Lungs: Clear bilaterally Abd: soft, gravid, non-tender Back: no CVAT Ext: No BLE edema, non-tender Neuro: No focal deficits Vaginal Lesions:no Vaginal Exam: 0.5/0/-5 Membranes: Intact SSE: Not indicated FHR: Baseline 130 bpm, moderate variability, accels present, no decels. TOCO:Acontractile U/S: Cephalic Estimated Weight: ~3500g, 59%ile, 12/01/24 Lab Results Component Value Date HCT 31.7 (L) 12/18/2024 HCT 30.3 (L) 11/13/2024 HCT 28.5 (L) 10/17/2024 ABORH O Positive 10/15/2024 ABSCINT Negative 10/15/2024 SYPHILISTOT Non-Reactive 10/15/2024 HBSAG Non-Reactive 10/15/2024 HIVAGAB Non-Reactive 10/15/2024 GCAMPLIFY Negative 10/15/2024 CHLAMAMPLIFY Negative 10/15/2024 RUBELLA 18.1 10/15/2024 GLUOBSCRN 178 (H) 10/16/2024 Beta Strep Culture (no units) Date Value 12/11/2024 Negative for beta-hemolytic Streptococci group B. 10/10/2007 Beta-Streptococcus Culture Site: Throat Culture: Negative for beta-hemolytic Streptococci group A. Assessment: 24 year old at 39w0d dated by 14w0d US here for eIOL. Plan: 1. Transfer to Labor and Delivery - Induce with pitocin, richmond, and AROM as indicated. 2. Consents for delivery verbally reviewed and signed as needed for operative delivery. The patient was counseled as to the possible modes of delivery including spontaneous vaginal delivery, vacuum delivery, forceps delivery, and delivery. The procedure, personnel, risks, benefits, and alternatives of each procedure were discussed with the patient. General risks including, but not limited to the following, were discussed: infection, bleeding withpossible need for blood transfusion, and damage to other tissues, organs, vessels or nerves. 3. FWB: NST reactive 4. L&D Labs: O Positive/R immune/GBS negative 5. The patient has the following VTE risk factors: 0 No known risk factors for a total score of 0 .The patient does not meet criteria for chemoprophylaxis currently. 6.PPH Pre- Flowsheet The patient s pre- PPH risk score is: High Risk Total Score: 9 4 Adm - Induction of labor (with oxytocin) or cervical ripening 4 Pre - Augmentation of labor 1 PPH Doc Complete (Admission Assessment) . A type and screen and a CBC have been ordered. Blood has not been ordered for crossmatch ATTESTATION OF INFORMED CONSENT FOR BLOOD: The transfusion of blood and/or blood components were discussed with the patient and/or legal contact center representative. The risks, benefits and alternatives were reviewed. Questions regarding blood transfusions were answered. The patient /or the patient s legal contact center representative agree with the plan for transfusion of blood and/or blood components.. Her bleeding will be monitored, and the PPH cart and medication kit are immediately available on the unit. 7. The patient is planning to Breast Milk and Formula feed and use Implant contraception. Her plan for pain control in labor is epidural 8. Anxiety and Depression - & consult PP as needed - Mood stable, no SI/HI 9. Tobacco use - Patient offered nicorette/nicotine patch PRN, patient would prefer patch. 10. Mild intermittent asthma - No current meds - Avoid use of hemabate in setting of PPH 11. History of drug abuse - In remission. - Currently in IOP. - Tox screen on admission obtained with patient consent. Currently pending. Reanna Mason MD Staffed with Dr. Braxton. Cosigned by Fredo Braxton MD at 12/30/2024 3:46 AM EDT Associated attestation - Fredo Braxton MD - 12/30/2024 3:46 AM EDT Teaching Physician Note: I saw and evaluated the patient. I personally obtained the garcia and critical portions of the historyand physical exam. I reviewed the resident's documentation and discussed the patient with the resident. I agree with the resident's medical decision making as documented in the resident's note. 24y at 39w1d, presenting for scheduled induction of labor. status currently reassuring. Zhanna Braxton MD Maternal Medicine, Complex Family Planning Pager: [phone] documented in this [id number] Evaluation + Plan note* Assessment & Plan Note - Melita Lee APRN-CNP - 12/25/2024 12:05 PM EDT Associated Problem(s): Anemia affecting in third trimester (HCC) On with extra iron and b12 and is taking that instead of more pills. Does not desire to take extra iron or b12 Nrm hgb elec Labs noteable for low ferritin and low b12; normocytic anemia Repeat 37 weeks reviewed today Hgb slight improvement [id number] Miscellaneous Notes* Assessment & Plan Note - Melita Lee APRN-CNP - 12/25/2024 12:05 PM EDTAssociated Problem(s): Anemia affecting in third trimester (HCC) On with extra iron and b12 and is taking that instead of more pills. Does not desire to take extra iron or b12 Nrm hgb elec Labs noteable for low ferritin and low b12; normocytic anemia Repeat 37 weeks reviewed today Hgb slight improvement * Assessment & Plan Note - Melita Lee APRN-CNP - 12/25/2024 12:04 PM EDT Associated Problem(s): Anxiety and depression mood stable reasons to reach out reviewed BH referral declined will continue close monitoring during the / PP period * Assessment & Plan Note - Melita Lee APRN-CNP - 12/25/2024 12:04 PM EDT Associated Problem(s): BMI 28.0-28.9,adult Growth AGA * Assessment & Plan Note - Melita Lee APRN-CNP - 12/25/2024 12:04 PM EDT Associated Problem(s): Heartburn during in third trimester (HCC) Omeprazole helps sometimes Diet changes reviewed * Assessment & Plan Note - Melita Lee APRN-CNP - 12/25/2024 12:04 PM EDT Associated Problem(s): History of drug abuse SW following, continued sobriety Denies cravings, relapse * Assessment & Plan Note - Melita Lee APRN-CNP - 12/25/2024 12:03 PM EDT Associated Problem(s): History of incarceration on probation Lives with partner and grandmother * Assessment & Plan Note - Melita Lee APRN-CNP - 12/25/2024 12:03 PM EDT Associated Problem(s): Mild intermittent asthma without complication (HCC) States in childhood, no meds Denies CP/SOB * Assessment & Plan Note - Melita Lee APRN-CNP - 12/25/2024 12:03 PM EDT Associated Problem(s): Tobacco use disorder Cut down to 3-5 cigs per day nicotine dependant service request already placed Will continue to encouraged cessation Serial growth ongoing - AGA to date Has nicotine patches ordered, has not used yet We reviewed maternal/ risks both during the and We discussed abruption risks * Assessment & Plan Note - Melita Lee APRN-CNP - 12/25/2024 12:02 PM EDT Associated Problem(s): Supervision of high risk in third trimester (HCC) Datinw2d IUP on 01/06/2024 ; Anatomy scan report WNL at OSH, the [facility], records not sent KARO here 35w0d EFW 59%tile AC 75%tile - KARO: The following structures were not optimally visualizeddue to crowding: neck, mandible, profile, abdominal cord insertion, RVOT Genetics: rrCFDNA at [facility]/clyde Munoz pt Vaccinations: declines all, counseled Labs: RH+/RI, RPR negative; Abnormal 1 hr, Nrm 3 hour. GBS negative : control: plans for nexplanon; Feeding: plans to BF; Pediatrics: pre visit information previously provided. Plans to take baby to Delivery: 39 week IOL: December 29 at 8pm Labor precautions reviewed documented in this [id number] Evaluation + Plan note* Assessment & Plan Note - Melita Lee APRN-CNP - 12/25/2024 12:04 PM EDT Associated Problem(s): Anxiety and depression mood stable reasons to reach out reviewed BH referral declined will continue close monitoring during the / PP period [id number] Notemood stable reasons to reach out reviewed BH referral declined will continue close monitoring during the / PP periodThe [facility]04-21-2025 Evaluation + Plan note* Assessment & Plan Note - Melita Lee APRN-CNP - 12/25/2024 12:04 PM EDTAssociated Problem(s): BMI 28.0-28.9,adult Growth AGA [id number] Evaluation + Plan note* Assessment & Plan Note - Melita Lee APRN-CNP - 12/25/2024 12:04 PM EDTAssociated Problem(s): Heartburn during in third trimester (HCC) Omeprazole helps sometimes Diet changes reviewed [id number] Evaluation + Plan note* Assessment & Plan Note - Melita Lee APRN-CNP - 12/25/2024 12:04 PM EDTAssociated Problem(s): History of drug abuse SW following, continued sobriety Denies cravings, relapse [id number] Evaluation + Plan note* Assessment & Plan Note - Melita Lee APRN-CNP - 12/25/2024 12:03 PM EDTAssociated Problem(s): History of incarceration on probation Lives with partner and grandmother [id number] Evaluation + Plan note* Assessment & Plan Note - Melita Lee APRN-CNP - 12/25/2024 12:03 PM EDTAssociated Problem(s): Mild intermittent asthma without complication (HCC) States in childhood, no meds Denies CP/SOB [id number] Evaluation + Plan note* Assessment & Plan Note - Melita Lee APRN-CNP - 12/25/2024 12:03 PM EDTAssociated Problem(s): Tobacco use disorder Cut down to 3-5 cigs per day nicotine dependant service request already placed Will continue to encouraged cessation Serial growth ongoing - AGA to date Has nicotine patches ordered, has not used yet We reviewed maternal/ risks both during the and We discussed abruption risks [id number] Evaluation + Plan note* Assessment & Plan Note - Melita Lee APRN-CNP - 12/25/2024 12:02 PM EDTAssociated Problem(s): Supervision of high risk in third trimester (HCC) Datinw2d IUP on 01/06/2024 ; Anatomy scan report WNL at OSH, [facility], records not sent KARO here 35w0d EFW 59%tile AC 75%tile - KARO: The following structures were not optimally visualizeddue to crowding: neck, mandible, profile, abdominal cord insertion, RVOT Genetics: rrCFDNA at [facility]/[place], per pt Vaccinations: declines all, counseled Labs: RH+/RI, RPR negative; Abnormal 1 hr, Nrm 3 hour. GBS negative : control: plans for nexplanon; Feeding: plans to BF; Pediatrics: pre visit information previously provided. Plans to take baby to Delivery: 39 week IOL: December 29 at 8pm Labor precautions reviewed [id number] History of Present illness Narrative* Melita Lee APRN- CNP - 12/25/2024 11:00 AM EDT Images from the original note were not included. Department of Obstetrics & Gynecology Division of Maternal Medicine scale manager Follow-Up Visit Date of visit: 12/25/24 Time of visit: 11:00 AM Patient name: Jose R Tapia Patient Patient : 2000 Assessment and Plan: 24 year old at 38w3d here for her high-risk follow-up visit. Thefetal and maternal status are reassuring today. The EPIC chart was reviewed and updated. Please refer to the OB EPIC problem list for further details on the problems addressed at today's visit. Supervision of high risk in third trimester (HCC) [2 ppd 10/30/24 ] Datinw2d IUP on 01/06/2024 ; Anatomy scan report WNL at OSH, [facility], records not sent KARO here 35w0d EFW 59%tile AC 75%tile - KARO: The following structures were not optimally visualizeddue to crowding: neck, mandible, profile, abdominal cord insertion, RVOT Genetics: rrCFDNA at [facility], per pt Vaccinations: declines all, counseled Labs: RH+/RI, RPR negative; Abnormal 1 hr, Nrm 3 hour. GBS negative : control: plans for nexplanon; Feeding: plans to BF; Pediatrics: pre visit information previously provided. Plans to take baby to Delivery: 39 week IOL: December 29 at 8pm Labor precautions reviewed Tobacco use disorder [09/07 ppd 10/30/24 ] Cut down to 3-5 cigs per day nicotine dependant service request already placed Will continue to encouraged cessation Serial growth ongoing - AGA to date Has nicotine patches ordered, has not used yet We reviewed maternal/ risks both during the and We discussed abruption risks Mild intermittent asthma without complication (HCC) [childhood] States in childhood, no meds Denies CP/SOB History of incarceration [Briefly incarcerated from late Aug-mid September] on probation Lives with partner and grandmother History of drug abuse (HCC) [Hx Meth and Alcohol use ] SW following, continued sobriety Denies cravings, relapse Heartburn during in third trimester (HCC) Omeprazole helps sometimes Diet changes reviewed BMI 28.0-28.9,adult [Unsure pregravid wt] Growth AGA Anxiety and depression [Reports hx of] mood stable reasons to reach out reviewed BH referral declined will continue close monitoring during the / PP period Anemia affecting in third trimester (HCC) [Normocytic. Low b12, low ferritin. Nrm Hgb elect] On with extra iron and b12 and is taking that instead of more pills. Does not desire to take extra iron or b12 Nrm hgb elec Labs noteable for low ferritin and low b12; normocytic anemia Repeat 37 weeks reviewed today Hgb slight improvement Orders & Meds Signed During This Encounter Urine Glu/Protein-Ob Pts Only Follow-up Plan: Follow-up in 12/29 (Wednesday) for IOL, or as indicated based on clinical progress. Patient Education & Counseling: General warning signs discussed, including when to go to the hospital or seek medical attention. kick counts, signs, and symptoms of labor reviewed with the patient today. Patient verbalizes understanding of the care plan and the current management of issues. No further questions or concerns were raised by the patient. Future Appointments Reviewed: Patient's next appointments are listed as follows: Future Appointments (next 10) Provider Department Center 12/29/2024 8:00 PM Melita Lee, [employer]IG[employer] EDUCATION ADMINISTRATOR; LD INDUCTIONS [facility] Labor and Delivery INPATIENT Melita Lee DNP, [employer] Advanced Practice Provider ([facility]IMBERLEE) [employer] WORKFLOW CONSULTANT, Maternal Medicine Department [address] [place] [address] Chief Complaint Patient presents with visit Subjective: Jose R Tapia is a 24 year old at 38w3d who presents for her high risk follow-up visit. She is followed in high risk clinic for a c/b Asthma, H/o Drug use, Tobacco use, anxiety and depression, Anemia Current Symptoms: Today, she reports the following symptoms : some ctx, cramping the past day Nothing consistent Vitals Symptoms Flowsheet Row Office Visit from 12/25/2024 in [facility] Obstetrics High Risk Vag Bleed N Show / Disch N Cramps / CTX Y Dysuria N Pelv press Y She denies nausea, vomiting , loss of fluid, fevers, chills, or general urinary issues today Pertinent negatives and positives listed above. Otherwise, all 10 systems of ROS negative. except what is mention above in HPI. See updated PN Smartforms PN Labs & dating info reviewed. Problem list, OB Flowsheet, PMHx, PSHx, PSocH, Family Hx, Social Hx, medications, and allergies all reviewed and updated in [facility]. Problem based charting was completed today - -we reviewed the following Problem Heartburn During in Third Trimester ([facility]) History of Incarceration Anxiety and Depression Anemia Affecting in Third Trimester ([facility]) Bmi 28.0-28.9,Adult Supervision of High Risk in Third Trimester ([facility]) History of Drug Abuse Tobacco Use Disorder Mild Intermittent Asthma Without Complication ([facility]) Allergies Allergen Reactions Latex Rash Penicillins Other Other Reaction(s): unsure - allergic as young child Objective: Vitals Recorded in This Encounter 12/25/2024 1059 BP: 114/73 Pulse: 84 Weight: 175 lb 4.8 oz (79.5 kg) General: Alert, oriented, no acute distress, pleasant. Psychiatric: Normal mood and affect. HEENT: Mucous membranes moist, no conjunctival injection. Neck: No thyroid enlargement or lymphadenopathy. Cardiovascular: Warm and well-perfused, normal heart rate and rhythm. Pulmonary: No increased work of breathing Abdomen: Soft, gravid, non-tender. Back: No costovertebral angle tenderness. OB/Pelvic : heart tones positive by Doppler or reviewed from today's ultrasound. Pelvic not indicated. Vitals Assessment Flowsheet Row Office Visit from 12/25/2024 in [facility] Obstetrics High Risk Fundal Ht -- Presentation -- FHR 125 Mvmt Present Cervical Exam: Vitals Cervical Exam Flowsheet Row Office Visit from 12/25/2024 in [facility] Obstetrics High Risk Cx Dil 0 [0.5] Cx Sta -4 Cx Eff 10 Further examination findings documented in the episode visit flowsheet. Pertinent Labs/Tests Results Reviewed: CBC (last 3 years, up to 8 values) 12/18/2024 11/13/2024 10/17/2024 10/16/2024 10/15/2024 2:39 PM 1:58 PM 4:29 AM 6:46 AM 9:31 AM WBC 16.9 19.2 11.2 12.7 18.0 RBC 3.64 3.52 3.25 3.38 3.83 Hgb 10.7 10.3 9.6 9.8 11.0 Hct 31.7 30.3 28.5 29.9 33.9 MCV 87 86 88 88 88 RDW 14.9 13.7 14.1 14.2 14.1 Plt 260 279 263 298 330 * Comfort Syed MA - 12/25/2024 10:59 AM EDT Patient was identified by name and date of . Ada Syed MA Patient at risk for falls:No Falls Risk protocol implemented: No documented in this [id number] Note* Addendum Note - Melita Lee APRN-CNP - 12/19/2024 8:49 AM EDTAddended by: MELITA LEE on: 12/19/2024 08:49 AM Modules accepted: Orders [id number] Miscellaneous Notes* Addendum Note - Melita Lee APRN- CNP - 12/19/2024 8:49 AM EDTAddended by: MELITA LEE on: 12/19/2024 08:49 AM Modules accepted: Orders * Assessment & Plan Note - Melita Lee APRN-CNP - 12/18/2024 5:13 PM EDT Associated Problem(s): Anemia affecting in third trimester (HCC) On with extra iron and b12 and is taking that instead of more pills. Does not desire to take extra iron or b12 Nrm hgb elec Labs noteable for low ferritin and low b12; normocytic anemia Repeat 37 weeks - ordered today * Assessment & Plan Note - Melita Lee APRN-CNP - 12/18/2024 5:13 PM EDT Associated Problem(s): Anxiety and depression mood stable reasons to reach out reviewed BH referral declined will continue close monitoring during the / PP period * Assessment & Plan Note - Melita Lee APRN-CNP - 12/18/2024 5:12 PM EDT Associated Problem(s): BMI 28.0-28.9,adult Growth AGA * Assessment & Plan Note - Melita Lee APRN-CNP - 12/18/2024 5:12 PM EDT Associated Problem(s): Breech presentation (HCC) (Resolved 12/18/2024) Cephalic on US today * Assessment & Plan Note - Melita Lee APRN-CNP - 12/18/2024 5:12 PM EDT Associated Problem(s): Heartburn during in third trimester (HCC) Omeprazole helps sometimes Diet changes reviewed * Assessment & Plan Note - Melita Lee APRN-CNP - 12/18/2024 5:12 PM EDT Associated Problem(s): History of drug abuse SW following, continued sobriety * Assessment & Plan Note - Melita Lee APRN-CNP - 12/18/2024 5:11 PM EDT Associated Problem(s): History of incarceration on probation Lives with partner and grandmother * Assessment & Plan Note - Melita Lee APRN-CNP - 12/18/2024 5:11 PM EDT Associated Problem(s): Mild intermittent asthma without complication (HCC) States in childhood, no meds Denies CP/SOB * Assessment & Plan Note - Melita Lee APRN-CNP - 12/18/2024 5:11 PM EDT Associated Problem(s): Tobacco use disorder Cut down to 3-5 cigs per day nicotine dependant service request already placed Will continue to encouraged cessation Serial growth ongoing - AGA to date Has nicotine patches ordered, has not used yet We reviewed maternal/ risks both during the and We discussed abruption risks * Assessment & Plan Note - Melita Lee APRN-CNP - 12/18/2024 5:09 PM EDT Associated Problem(s): Supervision of high risk in third trimester (HCC) Datinw2d IUP on 01/06/2024 ; Anatomy scan report WNL at [facility], [facility], records not sent KARO here 35w0d EFW 59%tile AC 75%tile - KARO: The following structures were not optimally visualizeddue to crowding: neck, mandible, profile, abdominal cord insertion, RVOT Genetics: rrCFDNA at [facility]/[place], per pt Vaccinations: declines all, counseled Labs: RH+/RI, RPR negative; Abnormal 1 hr, Nrm 3 hour. GBS negative : control: plans for nexplanon; Feeding: plans to BF; Pediatrics: pre visit information previously provided. Plans to take baby to Delivery: desires 39 week IOL: Rosalba 25 at 8pm The patient has been recommended to have an induction of labor. Reviewed that an induction of laborcan be done for either medical or elective indications in order to safely achieve a healthy delivery. The goal of an induction is to have a vaginal delivery, and multiple large studies in both high and low risk patients have shown that induction of labor is safe and is associated with a higher chance of a vaginal delivery than the alternative, expectant management. As with any patient inlabor, a delivery may be recommended during her labor for either maternal or reasons, but our starting plan is to achieve a vaginal mode of delivery. I discussed that inductions can involve several steps. For patients with an unripe cervix, cervical ripening with either misoprostol or a richmond catheter may be used. For an induction we also recommend the use of pitocin, a synthetic form of oxytocin, to stimulate contractions. The pitocin will betitrated to achieve a regular contraction pattern. I also reviewed that artificial rupture of membranes may be recommended during the course of her labor as this can help shorten the time to delivery. I reviewed any questions the patient had about the induction of labor process and answered them to the best of my ability. documented in this [id number] Evaluation + Plan note* Assessment & Plan Note - Melita Lee APRN-CNP - 12/18/2024 5:13 PM EDT Associated Problem(s): Anemia affecting in third trimester (HCC) On with extra iron and b12 and is taking that instead of more pills. Does not desire to take extra iron or b12 Nrm hgb elec Labs noteable for low ferritin and low b12; normocytic anemia Repeat 37 weeks - ordered today [id number] Evaluation + Plan note* Assessment & Plan Note - Melita Lee APRN-CNP - 12/18/2024 5:13 PM EDTAssociated Problem(s): Anxiety and depression mood stable reasons to reach out reviewed BH referral declined will continue close monitoring during the / PP period [id number] Notemood stable reasons to reach out reviewed BH referral declined will continue close monitoring during the / [facility] [id number] Miscellaneous Notes* Assessment & Plan Note - Melita Lee APRN-CNP - 12/18/2024 5:13 PM EDTAssociated Problem(s): Anemia affecting in third trimester (HCC) On with extra iron and b12 and is taking that instead of more pills. Does not desire to take extra iron or b12 Nrm hgb elec Labs noteable for low ferritin and low b12; normocytic anemia Repeat 37 weeks - ordered today * Assessment & Plan Note - Melita Lee APRN-CNP - 12/18/2024 5:13 PM EDT Associated Problem(s): Anxiety and depression mood stable reasons to reach out reviewed BH referral declined will continue close monitoring during the / PP period * Assessment & Plan Note - Melita Lee APRN-CNP - 12/18/2024 5:12 PM EDT Associated Problem(s): BMI 28.0-28.9,adult Growth AGA * Assessment & Plan Note - Melita Lee APRN-CNP - 12/18/2024 5:12 PM EDT Associated Problem(s): Breech presentation (HCC) (Resolved 12/18/2024) Cephalic on US today * Assessment & Plan Note - Melita Lee APRN-CNP - 12/18/2024 5:12 PM EDT Associated Problem(s): Heartburn during in third trimester (HCC) Omeprazole helps sometimes Diet changes reviewed * Assessment & Plan Note - Melita Lee APRN-CNP - 12/18/2024 5:12 PM EDT Associated Problem(s): History of drug abuse SW following, continued sobriety * Assessment & Plan Note - Melita Lee APRN-CNP - 12/18/2024 5:11 PM EDT Associated Problem(s): History of incarceration on probation Lives with partner and grandmother * Assessment & Plan Note - Melita Lee APRN-CNP - 12/18/2024 5:11 PM EDT Associated Problem(s): Mild intermittent asthma without complication (HCC) States in childhood, no meds Denies CP/SOB * Assessment & Plan Note - Melita Lee APRN-CNP - 12/18/2024 5:11 PM EDT Associated Problem(s): Tobacco use disorder Cut down to 3-5 cigs per day nicotine dependant service request already placed Will continue to encouraged cessation Serial growth ongoing - AGA to date Has nicotine patches ordered, has not used yet We reviewed maternal/ risks both during the and We discussed abruption risks * Assessment & Plan Note - Melita Lee APRN-CNP - 12/18/2024 5:09 PM EDT Associated Problem(s): Supervision of high risk in third trimester (HCC) Datinw2d IUP on 01/06/2024 ; Anatomy scan report WNL at [facility], [facility], records not sent KARO here 35w0d EFW 59%tile AC 75%tile - KARO: The following structures were not optimally visualizeddue to crowding: neck, mandible, profile, abdominal cord insertion, RVOT Genetics: rrCFDNA at [facility], [place] pt Vaccinations: declines all, counseled Labs: RH+/RI, RPR negative; Abnormal 1 hr, Nrm 3 hour. GBS negative : control: plans for nexplanon; Feeding: plans to BF; Pediatrics: pre visit information previously provided. Plans to take baby to Delivery: desires 39 week IOL: December 29 at 8pm The patient has been recommended to have an induction of labor. Reviewed that an induction of laborcan be done for either medical or elective indications in order to safely achieve a healthy delivery. The goal of an induction is to have a vaginal delivery, and multiple large studies in both high and low risk patients have shown that induction of labor is safe and is associated with a higher chance of a vaginal delivery than the alternative, expectant management. As with any patient inlabor, a delivery may be recommended during her labor for either maternal or reasons, but our starting plan is to achieve a vaginal mode of delivery. I discussed that inductions can involve several steps. For patients with an unripe cervix, cervical ripening with either misoprostol or a richmond catheter may be used. For an induction we also recommend the use of pitocin, a synthetic form of oxytocin, to stimulate contractions. The pitocin will betitrated to achieve a regular contraction pattern. I also reviewed that artificial rupture of membranes may be recommended during the course of her labor as this can help shorten the time to delivery. I reviewed any questions the patient had about the induction of labor process and answered them to the best of my ability. documented in this [id number] Evaluation + Plan note* Assessment & Plan Note - Melita Lee APRN-CNP - 12/18/2024 5:12 PM EDT Associated Problem(s): BMI 28.0-28.9,adult Growth AGA [id number] Evaluation + Plan note* Assessment & Plan Note - Melita Lee APRN-CNP - 12/18/2024 5:12 PM EDTAssociated Problem(s): Breech presentation (HCC) (Resolved 12/18/2024) Cephalic on US today [id number] Evaluation + Plan note* Assessment & Plan Note - Melita Lee APRN-CNP - 12/18/2024 5:12 PM EDTAssociated Problem(s): Heartburn during in third trimester (HCC) Omeprazole helps sometimes Diet changes reviewed [id number] Evaluation + Plan note* Assessment & Plan Note - Melita Lee APRN-CNP - 12/18/2024 5:12 PM EDTAssociated Problem(s): History of drug abuse SW following, continued sobriety [id number] Evaluation + Plan note* Assessment & Plan Note - Melita Lee APRN-CNP - 12/18/2024 5:11 PM EDTAssociated Problem(s): History of incarceration on probation Lives with partner and grandmother [id number] Evaluation + Plan note* Assessment & Plan Note - Melita Lee APRN-CNP - 12/18/2024 5:11 PM EDTAssociated Problem(s): Mild intermittent asthma without complication (HCC) States in childhood, no meds Denies CP/SOB [id number] Evaluation + Plan note* Assessment & Plan Note - Melita Lee APRN-CNP - 12/18/2024 5:11 PM EDTAssociated Problem(s): Tobacco use disorder Cut down to 3-5 cigs per day nicotine dependant service request already placed Will continue to encouraged cessation Serial growth ongoing - AGA to date Has nicotine patches ordered, has not used yet We reviewed maternal/ risks both during the and We discussed abruption risks [id number] Evaluation + Plan note* Assessment & Plan Note - Melita Lee APRN-CNP - 12/18/2024 5:09 PM EDTAssociated Problem(s): Supervision of high risk in third trimester (HCC) Datinw2d IUP on 01/06/2024 ; Anatomy scan report WNL at [facility], [facility], records not sent KARO here 35w0d EFW 59%tile AC 75%tile - KARO: The following structures were not optimally visualizeddue to crowding: neck, mandible, profile, abdominal cord insertion, RVOT Genetics: rrCFDNA at [facility], per pt Vaccinations: declines all, counseled Labs: RH+/RI, RPR negative; Abnormal 1 hr, Nrm 3 hour. GBS negative : control: plans for nexplanon; Feeding: plans to BF; Pediatrics: pre visit information previously provided. Plans to take baby to Delivery: desires 39 week IOL: December 29 at 8pm The patient has been recommended to have an induction of labor. Reviewed that an induction of laborcan be done for either medical or elective indications in order to safely achieve a healthy delivery. The goal of an induction is to have a vaginal delivery, and multiple large studies in both high and low risk patients have shown that induction of labor is safe and is associated with a higher chance of a vaginal delivery than the alternative, expectant management. As with any patient inlabor, a delivery may be recommended during her labor for either maternal or reasons, but our starting plan is to achieve a vaginal mode of delivery. I discussed that inductions can involve several steps. For patients with an unripe cervix, cervical ripening with either misoprostol or a richmond catheter may be used. For an induction we also recommend the use of pitocin, a synthetic form of oxytocin, to stimulate contractions. The pitocin will betitrated to achieve a regular contraction pattern. I also reviewed that artificial rupture of membranes may be recommended during the course of her labor as this can help shorten the time to delivery. I reviewed any questions the patient had about the induction of labor process and answered them to the best of my ability. [id number] History of Present illness Narrative* Alia Camarena MA - 12/18/2024 2:21 PM EDT Patient was identified by name and date of . Alia Camarena MA Patient at risk for falls:No Falls Risk protocol implemented: No * Melita Lee APRN-CNP - 12/18/2024 2:00 PM EDT Images from the original note were not included. Department of Obstetrics & Gynecology Division of Maternal Medicine scale manager Follow-Up Visit Date of visit: 12/18/24 Time of visit: 2:00 PM Patient name: Jose R Tapia Patient Patient : 2000 Assessment and Plan: 24 year old at 37w3d here for her high-risk follow-up visit. Thefetal and maternal status are reassuring today. The EPIC chart was reviewed and updated. Please refer to the OB EPIC problem list for further details on the problems addressed at today's visit. Supervision of high risk in third trimester (HCC) [T/f care alexander in 3rd TM; Rh +/ RI / / CT neg / HBV neg / HCV neg / HIV neg / neg Ucx. Abnormal 1 hr, nrm 3 hr GTT ] Datinw2d IUP on 01/06/2024 ; Anatomy scan report WNL at OSH, [facility], records not sent KARO here 35w0d EFW 59%tile AC 75%tile - KARO: The following structures were not optimally visualizeddue to crowding: neck, mandible, profile, abdominal cord insertion, RVOT Genetics: rrCFDNA at [facility], per pt Vaccinations: declines all, counseled Labs: RH+/RI, RPR negative; Abnormal 1 hr, Nrm 3 hour. GBS negative : control: plans for nexplanon; Feeding: plans to BF; Pediatrics: pre visit information previously provided. Plans to take baby to Delivery: desires 39 week IOL: December 29 at 8pm The patient has been recommended to have an induction of labor. Reviewed that an induction of laborcan be done for either medical or elective indications in order to safely achieve a healthy delivery. The goal of an induction is to have a vaginal delivery, and multiple large studies in both high and low risk patients have shown that induction of labor is safe and is associated with a higher chance of a vaginal delivery than the alternative, expectant management. As with any patient inlabor, a delivery may be recommended during her labor for either maternal or reasons, but our starting plan is to achieve a vaginal mode of delivery. I discussed that inductions can involve several steps. For patients with an unripe cervix, cervical ripening with either misoprostol or a richmond catheter may be used. For an induction we also recommend the use of pitocin, a synthetic form of oxytocin, to stimulate contractions. The pitocin will betitrated to achieve a regular contraction pattern. I also reviewed that artificial rupture of membranes may be recommended during the course of her labor as this can help shorten the time to delivery. I reviewed any questions the patient had about the induction of labor process and answered them to the best of my ability. Tobacco use disorder [/2 ppd 10/30/24 ] Cut down to 3-5 cigs per day nicotine dependant service request already placed Will continue to encouraged cessation Serial growth ongoing - AGA to date Has nicotine patches ordered, has not used yet We reviewed maternal/ risks both during the and We discussed abruption risks Mild intermittent asthma without complication (HCC) [childhood] States in childhood, no meds Denies CP/SOB History of incarceration [Briefly incarcerated from late Aug-mid September] on probation Lives with partner and grandmother History of drug abuse (HCC) [Hx Meth and Alcohol use ] SW following, continued sobriety Heartburn during in third trimester (HCC) Omeprazole helps sometimes Diet changes reviewed Breech presentation (HCC) Cephalic on US today BMI 28.0-28.9,adult [Unsure pregravid wt] Growth AGA Anxiety and depression [Reports hx of] mood stable reasons to reach out reviewed referral declined will continue close monitoring during the / PP period Anemia affecting in third trimester (HCC) [Normocytic. Low b12, low ferritin. Nrm Hgb elect] On with extra iron and b12 and is taking that instead of more pills. Does not desire to take extra iron or b12 Nrm hgb elec Labs noteable for low ferritin and low b12; normocytic anemia Repeat 37 weeks - ordered today Orders & Meds Signed During This Encounter Complete Blood Count Urine Glu/Protein-Ob Pts Only Follow-up Plan: Follow-up in 1 wk, or as indicated based on clinical progress. Patient Education & Counseling: General warning signs discussed, including when to go to the hospital or seek medical attention. kick counts, signs, and symptoms of labor reviewed with the patient today. Patient verbalizes understanding of the care plan and the current management of issues. No further questions or concerns were raised by the patient. Future Appointments Reviewed: Patient's next appointments are listed as follows: Future Appointments (next 10) Provider Department Center 12/25/2024 11:00 AM (Arrive by 10:45 AM) Melita Lee APRN-CNP [facility] Obstetrics High Risk [facility] 12/29/2024 8:00 PM Melita Lee APRN-CNP; LD INDUCTIONS [facility] Labor and Delivery INPATIENT Melita Lee DNP, APRN-FNP Advanced Practice Provider ([facility]) [employer], Maternal Medicine Department [address] [place], [place] [id number] Chief Complaint Patient presents with Pregancy high risk Subjective: Jose R Tapia is a 24 year old at 37w3d who presents for her high risk follow-up visit. She is followed in high risk clinic for a c/b Asthma, H/o Drug use, Tobacco use, anxiety and depression, Anemia Current Symptoms: Today, she reports the following symptoms : pelvic pressure Vitals Symptoms Flowsheet Row Office Visit from 12/18/2024 in [facility] Obstetrics High Risk Vag Bleed N Show / Disch N Cramps / CTX N Dysuria N Pelv press Y She denies nausea, vomiting , loss of fluid, fevers, chills, or general urinary issues today She denies labor concerns today Pertinent negatives and positives listed above. Otherwise, all 10 systems of ROS negative. except what is mention above in HPI. See updated PN Smartforms PN Labs & dating info reviewed. Problem list, OB Flowsheet, PMHx, PSHx, PSocH, Family Hx, Social Hx, medications, and allergies all reviewed and updated in [facility]. Problem based charting was completed today - -we reviewed the following Problem Heartburn During in Third Trimester ([facility]) History of Incarceration Anxiety and Depression Anemia Affecting in Third Trimester ([facility]) Bmi 28.0-28.9,Adult Supervision of High Risk in Third Trimester ([facility]) History of Drug Abuse Tobacco Use Disorder Mild Intermittent Asthma Without Complication ([facility]) Breech Presentation ([facility]) (Resolved) Allergies Allergen Reactions Latex Rash Penicillins Other Other Reaction(s): unsure - allergic as young child Objective: Vitals Recorded in This Encounter 12/18/2024 1421 BP: 116/71 Pulse: 96 Weight: 172 lb 9.6 oz (78.3 kg) General: Alert, oriented, no acute distress, pleasant. Psychiatric: Normal mood and affect. HEENT: Mucous membranes moist, no conjunctival injection. Neck: No thyroid enlargement or lymphadenopathy. Cardiovascular: Warm and well-perfused, normal heart rate and rhythm. Pulmonary: No increased work of breathing Abdomen: Soft, gravid, non-tender. Back: No costovertebral angle tenderness. OB/Pelvic : heart tones positive by Doppler or reviewed from today's ultrasound. Pelvic not indicated. Vitals Assessment Flowsheet Row Office Visit from 12/18/2024 in [facility] Obstetrics High Risk Fundal Ht -- Presentation Vertex FHR 141 Mvmt Present Further examination findings documented in the episode visit flowsheet. Pertinent Labs/Tests Results: CBC (last 3 years, up to 8 values) 11/13/2024 10/17/2024 10/16/2024 10/15/2024 1:58 PM 4:29 AM 6:46 AM 9:31 AM WBC 19.2 11.2 12.7 18.0 RBC 3.52 3.25 3.38 3.83 Hgb 10.3 9.6 9.8 11.0 Hct 30.3 28.5 29.9 33.9 MCV 86 88 88 88 RDW 13.7 14.1 14.2 14.1 Plt 279 263 298 330 documented in this [id number] History of Present illness Narrative* Alia Camarena MA - 12/18/2024 2:21 PM EDT Patient was identified by name and date of . Alia Camarena MA Patient at risk for falls:No Falls Risk protocol implemented: No * Melita Lee APRN-CNP - 12/18/2024 2:00 PM EDT Images from the original note were not included. Department of Obstetrics & Gynecology Division of Maternal Medicine scale manager Follow-Up Visit Date of visit: 12/18/24 Time of visit: 2:00 PM Patient name: Jose R Tapia Patient Patient : 2000 Assessment and Plan: 24 year old at 37w3d here for her high-risk follow-up visit. Thefetal and maternal status are reassuring today. The EPIC chart was reviewed and updated. Please refer to the OB EPIC problem list for further details on the problems addressed at today's visit. Supervision of high risk in third trimester (HCC) [T/f care alexander in 3rd TM; Rh +/ RI / / CT neg / HBV neg / HCV neg / HIV neg / neg Ucx. Abnormal 1 hr, nrm 3 hr GTT ] Datinw2d IUP on 01/06/2024 ; Anatomy scan report WNL at [facility], [facility], records not sent KARO here 35w0d EFW 59%tile AC 75%tile - KARO: The following structures were not optimally visualizeddue to crowding: neck, mandible, profile, abdominal cord insertion, RVOT Genetics: rrCFDNA at [facility], per pt Vaccinations: declines all, counseled Labs: RH+/RI, RPR negative; Abnormal 1 hr, Nrm 3 hour. GBS negative : control: plans for nexplanon; Feeding: plans to BF; Pediatrics: pre visit information previously provided. Plans to take baby to Delivery: desires 39 week IOL: December 29 at 8pm The patient has been recommended to have an induction of labor. Reviewed that an induction of laborcan be done for either medical or elective indications in order to safely achieve a healthy delivery. The goal of an induction is to have a vaginal delivery, and multiple large studies in both high and low risk patients have shown that induction of labor is safe and is associated with a higher chance of a vaginal delivery than the alternative, expectant management. As with any patient inlabor, a delivery may be recommended during her labor for either maternal or reasons, but our starting plan is to achieve a vaginal mode of delivery. I discussed that inductions can involve several steps. For patients with an unripe cervix, cervical ripening with either misoprostol or a richmond catheter may be used. For an induction we also recommend the use of pitocin, a synthetic form of oxytocin, to stimulate contractions. The pitocin will betitrated to achieve a regular contraction pattern. I also reviewed that artificial rupture of membranes may be recommended during the course of her labor as this can help shorten the time to delivery. I reviewed any questions the patient had about the induction of labor process and answered them to the best of my ability. Tobacco use disorder [09/07 ppd 10/30/24 ] Cut down to 3-5 cigs per day nicotine dependant service request already placed Will continue to encouraged cessation Serial growth ongoing - AGA to date Has nicotine patches ordered, has not used yet We reviewed maternal/ risks both during the and We discussed abruption risks Mild intermittent asthma without complication (HCC) [childhood] States in childhood, no meds Denies CP/SOB History of incarceration [Briefly incarcerated from late Aug-mid September] on probation Lives with partner and grandmother History of drug abuse (HCC) [Hx Meth and Alcohol use ] SW following, continued sobriety Heartburn during in third trimester (HCC) Omeprazole helps sometimes Diet changes reviewed Breech presentation (HCC) Cephalic on US today BMI 28.0-28.9,adult [Unsure pregravid wt] Growth AGA Anxiety and depression [Reports hx of] mood stable reasons to reach out reviewed referral declined will continue close monitoring during the / PP period Anemia affecting in third trimester (HCC) [Normocytic. Low b12, low ferritin. Nrm Hgb elect] On with extra iron and b12 and is taking that instead of more pills. Does not desire to take extra iron or b12 Nrm hgb elec Labs noteable for low ferritin and low b12; normocytic anemia Repeat 37 weeks - ordered today Orders & Meds Signed During This Encounter Complete Blood Count Urine Glu/Protein-Ob Pts Only Follow-up Plan: Follow-up in 1 wk, or as indicated based on clinical progress. Patient Education & Counseling: General warning signs discussed, including when to go to the hospital or seek medical attention. kick counts, signs, and symptoms of labor reviewed with the patient today. Patient verbalizes understanding of the care plan and the current management of issues. No further questions or concerns were raised by the patient. Future Appointments Reviewed: Patient's next appointments are listed as follows: Future Appointments (next 10) Provider Department Center 12/25/2024 11:00 AM (Arrive by 10:45 AM) Melita Lee APRN-CNP [facility] Obstetrics High Risk [facility] 12/29/2024 8:00 PM Melita Lee APRN-CNP; LD INDUCTIONS [facility] Labor and Delivery INPATIENT Melita Lee DNP, APRN-FNP Advanced Practice Provider (KIMBERLEE) SENIOR SOLUTIONS WORKFLOW CONSULTANT, Maternal Medicine Department [address] [place], [place] [id number] Chief Complaint Patient presents with Pregancy high risk Subjective: Jose R Tapia is a 24 year old at 37w3d who presents for her high risk follow-up visit. She is followed in high risk clinic for a c/b Asthma, H/o Drug use, Tobacco use, anxiety and depression, Anemia Current Symptoms: Today, she reports the following symptoms : pelvic pressure Vitals Symptoms Flowsheet Row Office Visit from 12/18/2024 in [facility] Obstetrics High [facility] Vag Bleed N Show / Disch N Cramps / CTX N Dysuria N Pelv press Y She denies nausea, vomiting , loss of fluid, fevers, chills, or general urinary issues today She denies labor concerns today Pertinent negatives and positives listed above. Otherwise, all 10 systems of ROS negative. except what is mention above in HPI. See updated PN Smartforms PN Labs & dating info reviewed. Problem list, OB Flowsheet, PMHx, PSHx, PSocH, Family Hx, Social Hx, medications, and allergies all reviewed and updated in [employer]. Problem based charting was completed today - -we reviewed the following Problem Heartburn During in Third Trimester ([facility]) History of Incarceration Anxiety and Depression Anemia Affecting in Third Trimester ([facility]) Bmi 28.0-28.9,Adult Supervision of High Risk in Third Trimester ([facility]) History of Drug Abuse Tobacco Use Disorder Mild Intermittent Asthma Without Complication ([facility]) Breech Presentation ([facility]) (Resolved) Allergies Allergen Reactions Latex Rash Penicillins Other Other Reaction(s): unsure - allergic as young child Objective: Vitals Recorded in This Encounter 12/18/2024 1421 BP: 116/71 Pulse: 96 Weight: 172 lb 9.6 oz (78.3 kg) General: Alert, oriented, no acute distress, pleasant. Psychiatric: Normal mood and affect. HEENT: Mucous membranes moist, no conjunctival injection. Neck: No thyroid enlargement or lymphadenopathy. Cardiovascular: Warm and well-perfused, normal heart rate and rhythm. Pulmonary: No increased work of breathing Abdomen: Soft, gravid, non-tender. Back: No costovertebral angle tenderness. OB/Pelvic : heart tones positive by Doppler or reviewed from today's ultrasound. Pelvic not indicated. Vitals Assessment Flowsheet Row Office Visit from 12/18/2024 in [facility] Obstetrics High Risk Fundal Ht -- Presentation Vertex FHR 141 Mvmt Present Further examination findings documented in the episode visit flowsheet. Pertinent Labs/Tests Results: CBC (last 3 years, up to 8 values) 11/13/2024 10/17/2024 10/16/2024 10/15/2024 1:58 PM 4:29 AM 6:46 AM 9:31 AM WBC 19.2 11.2 12.7 18.0 RBC 3.52 3.25 3.38 3.83 Hgb 10.3 9.6 9.8 11.0 Hct 30.3 28.5 29.9 33.9 MCV 86 88 88 88 RDW 13.7 14.1 14.2 14.1 Plt 279 263 298 330 documented in this [id number] Evaluation + Plan note* Assessment & Plan Note - Melita Lee APRN-CNP - 12/11/2024 2:24 PM EDT Associated Problem(s): Breech presentation (HCC) On US at 35 weeks US next week to recheck position ECV vs CS discussed, will plan at next appt base on position [id number] Miscellaneous Notes* Assessment & Plan Note - Melita Lee APRN-CNP - 12/11/2024 2:24 PM EDTAssociated Problem(s): Breech presentation (HCC) On US at 35 weeks US next week to recheck position ECV vs CS discussed, will plan at next appt base on position * Assessment & Plan Note - Melita Lee APRN-CNP - 12/11/2024 2:22 PM EDT Associated Problem(s): Anemia affecting in third trimester (HCC) Reports picked up with extra iron and b12 and is taking that instead of more pills. Does not desire to take extra iron or b12 Nrm hgb elec Labs noteable for low ferritin and low b12; normocytic anemia Repeat 37 weeks * Assessment & Plan Note - Melita Lee APRN-CNP - 12/11/2024 2:22 PM EDT Associated Problem(s): Anxiety and depression mood stable reasons to reach out reviewed BH referral declined will continue close monitoring during the * Assessment & Plan Note - Melita Lee APRN-CNP - 12/11/2024 2:21 PM EDT Associated Problem(s): BMI 28.0-28.9,adult Growth AGA * Assessment & Plan Note - Melita Lee APRN-CNP - 12/11/2024 2:21 PM EDT Associated Problem(s): History of drug abuse SW following, continued sobriety * Assessment & Plan Note - Melita Lee APRN-CNP - 12/11/2024 2:21 PM EDT Associated Problem(s): History of incarceration on probation, SW following Lives with partner and grandmother * Assessment & Plan Note - Melita Lee APRN-CNP - 12/11/2024 2:21 PM EDT Associated Problem(s): Mild intermittent asthma without complication (HCC) States in childhood, no meds Denies CP/SOB * Assessment & Plan Note - Melita Lee APRN-CNP - 12/11/2024 2:21 PM EDT Associated Problem(s): Tobacco use disorder Cut down to 3-5 cigs per day nicotine dependant service request already placed Will continue to encouraged cessation Serial growth ongoing - AGA to date Has nicotine patches ordered, has not used yet We reviewed maternal/ risks both during the and We discussed abruption risks * Assessment & Plan Note - Melita Lee APRN-CNP - 12/11/2024 2:20 PM EDT Associated Problem(s): Supervision of high risk in third trimester (HCC) Dating -- 28w2d IUP on 01/06/2024 ; Anatomy scan report WNL at [facility], the [facility], records not sent KARO here 35w0d EFW 59%tile AC 75%tile - KARO: The following structures were not optimally visualizeddue to crowding: neck, mandible, profile, abdominal cord insertion, RVOT Genetics: rrCFDNA at [facility] pt Vaccinations: declines all, counseled RH+/RI, RPR negative; Abnormal 1 hr, Nrm 3 hour : control: plans for nexplanon Feeding: plans to BF Pediatrics: pre visit information previously provided. Plans to take baby to [facility] today documented in this [id number] Evaluation + Plan note* Assessment & Plan Note - Melita Lee APRN-CNP - 12/11/2024 2:22 PM EDT Associated Problem(s): Anemia affecting in third trimester (HCC) Reports picked up with extra iron and b12 and is taking that instead of more pills. Does not desire to take extra iron or b12 Nrm hgb elec Labs noteable for low ferritin and low b12; normocytic anemia Repeat 37 weeks [id number] Evaluation + Plan note* Assessment & Plan Note - Melita Lee APRN-CNP - 12/11/2024 2:22 PM EDTAssociated Problem(s): Anxiety and depression mood stable reasons to reach out reviewed referral declined will continue close monitoring during the [id number] Notemood stable reasons to reach out reviewed BH referral declined will continue close monitoring during the pregnancyThe [facility] 12-11-2024 Evaluation + Plan note* Assessment & Plan Note - Melita Lee APRN- CNP - 12/11/2024 2:21 PM EDTAssociated Problem(s): BMI 28.0-28.9,adult Growth AGA [id number] Evaluation + Plan note* Assessment & Plan Note - Melita Lee APRN-CNP - 12/11/2024 2:21 PM EDTAssociated Problem(s): History of drug abuse SW following, continued sobriety [id number] Evaluation + Plan note* Assessment & Plan Note - Melita Lee APRN-CNP - 12/11/2024 2:21 PM EDTAssociated Problem(s): History of incarceration on probation, SW following Lives with partner and grandmother [id number] Evaluation + Plan note* Assessment & Plan Note - Melita Lee APRN-CNP - 12/11/2024 2:21 PM EDTAssociated Problem(s): Mild intermittent asthma without complication (HCC) States in childhood, no meds Denies CP/SOB [id number] Evaluation + Plan note* Assessment & Plan Note - Melita Lee APRN-CNP - 12/11/2024 2:21 PM EDTAssociated Problem(s): Tobacco use disorder Cut down to 3-5 cigs per day nicotine dependant service request already placed Will continue to encouraged cessation Serial growth ongoing - AGA to date Has nicotine patches ordered, has not used yet We reviewed maternal/ risks both during the and We discussed abruption risks [id number] Evaluation + Plan note* Assessment & Plan Note - Melita Lee APRN-CNP - 12/11/2024 2:20 PM EDTAssociated Problem(s): Supervision of high risk in third trimester (HCC) Dating -- 28w2d IUP on 01/06/2024 ; Anatomy scan report WNL at [facility], [facility], records not sent KARO here 35w0d EFW 59%tile AC 75%tile - KARO: The following structures were not optimally visualizeddue to crowding: neck, mandible, profile, abdominal cord insertion, RVOT Genetics: rrCFDNA at [facility], per pt Vaccinations: declines all, counseled RH+/RI, RPR negative; Abnormal 1 hr, Nrm 3 hour : control: plans for nexplanon Feeding: plans to BF Pediatrics: pre visit information previously provided. Plans to take baby to [facility] today [id number] History of Present illness Narrative* Alia Camarena MA - 12/11/2024 1:05 PM EDT Patient was identified by name and date of . Alia Camarena MA Patient at risk for falls:No Falls Risk protocol implemented: No * Melita Lee APRN-CNP - 12/11/2024 1:00 PM EDT Images from the original note were not included. Department of Obstetrics & Gynecology Division of Maternal Medicine scale manager Follow-Up Visit Date of visit: 12/11/24 Time of visit: 1:00 PM Patient name: Jose R Tapia Patient Patient : 2000 Assessment and Plan: 24 year old at 36w3d here for her high-risk follow-up visit. Thefetal and maternal status are reassuring today. The EPIC chart was reviewed and updated. Please refer to the OB EPIC problem list for further details on the problems addressed at today's visit. Supervision of high risk in third trimester (HCC) [T/f care aleaxnder in 3rd TM; Rh +/ RI / / CT neg / HBV neg / HCV neg / HIV neg / neg Ucx. Abnormal 1 hr, nrm 3 hr GTT ] Dating -- 28w2d IUP on 01/06/2024 ; Anatomy scan report WNL at [facility], the [facility], records not sent KARO here 35w0d EFW 59%tile AC 75%tile - KARO: The following structures were not optimally visualizeddue to crowding: neck, mandible, profile, abdominal cord insertion, RVOT Genetics: rrCFDNA at [facility], per pt Vaccinations: declines all, counseled RH+/RI, RPR negative; Abnormal 1 hr, Nrm 3 hour : control: plans for nexplanon Feeding: plans to BF Pediatrics: pre visit information previously provided. Plans to take baby to [facility] today Tobacco use disorder [/2 ppd 10/30/24 ] Cut down to 3-5 cigs per day nicotine dependant service request already placed Will continue to encouraged cessation Serial growth ongoing - AGA to date Has nicotine patches ordered, has not used yet We reviewed maternal/ risks both during the and We discussed abruption risks Mild intermittent asthma without complication (HCC) [childhood] States in childhood, no meds Denies CP/SOB History of incarceration [Briefly incarcerated from late Aug-mid September] on probation, SW following Lives with partner and grandmother History of drug abuse (HCC) [Hx Meth and Alcohol use ] SW following, continued sobriety BMI 28.0-28.9,adult [Unsure pregravid wt] Growth AGA Anxiety and depression [Reports hx of] mood stable reasons to reach out reviewed BH referral declined will continue close monitoring during the Anemia affecting in third trimester (HCC) [Normocytic. Low b12, low ferritin. Nrm Hgb elect] Reports picked up with extra iron and b12 and is taking that instead of more pills. Does not desire to take extra iron or b12 Nrm hgb elec Labs noteable for low ferritin and low b12; normocytic anemia Repeat 37 weeks Breech presentation (HCC) On US at 35 weeks US next week to recheck position ECV vs CS discussed, will plan at next appt base on position Orders & Meds Signed During This Encounter Urine Glu/Protein-Ob Pts Only Culture for Beta-Hemolytic Strep Follow-up Plan: Follow-up in 1 wk, or as indicated based on clinical progress. At next visit, will plan for CBC Patient Education & Counseling: General warning signs discussed, including when to go to the hospital or seek medical attention. kick counts, signs, and symptoms of labor reviewed with the patient today. Patient verbalizes understanding of the care plan and the current management of issues. No further questions or concerns were raised by the patient. Future Appointments Reviewed: Patient's next appointments are listed as follows: Future Appointments (next 10) Provider Department Center 12/18/2024 1:00 PM SKILLED NURSING ROOM 2 [facility] Diagnostic [facility] 12/18/2024 2:00 PM (Arrive by 1:45 PM) Melita Lee APRN-CNP [facility] Risk [facility] 12/25/2024 11:00 AM (Arrive by 10:45 AM) Melita Lee APRN-CNP [facility] Risk [facility] 01/01/2025 11:00 AM (Arrive by 10:45 AM) Melita Lee APRN-CNP [facility] Risk [facility] Melita Lee DNP, APRN-FNP Advanced Practice Provider (KIMBERLEE) SENIOR SOLUTIONS WORKFLOW CONSULTANT, Maternal Medicine Department [address] [place], [place] [phone] Chief Complaint Patient presents with visit Subjective: Jose R Tapia is a 24 year old at 36w3d who presents for her high risk follow-up visit. She is followed in high risk clinic for a c/b Asthma, H/o Drug use, Tobacco use, anxiety and depression, Anemia Current Symptoms: Today, she reports the following symptoms : none Some lightening crotch Vitals Symptoms Flowsheet Row Office Visit from 12/11/2024 in [facility] Obstetrics High Risk Vag Bleed N Show / Disch N Cramps / CTX N Dysuria N Pelv press N She denies nausea, vomiting , loss of fluid, fevers, chills, or general urinary issues today She denies labor concerns today Pertinent negatives and positives listed above. Otherwise, all 10 systems of ROS negative. except what is mention above in HPI. See updated PN Smartforms PN Labs & dating info reviewed. Problem list, OB Flowsheet, PMHx, PSHx, PSocH, Family Hx, Social Hx, medications, and allergies all reviewed and updated in [facility]. Problem based charting was completed today - -we reviewed the following Problem Breech Presentation (Hcc) History of Incarceration Anxiety and Depression Anemia Affecting in Third Trimester ([facility]) Bmi 28.0-28.9,Adult Supervision of High Risk in Third Trimester ([facility]) History of Drug Abuse Tobacco Use Disorder Mild Intermittent Asthma Without Complication ([facility]) Allergies Allergen Reactions Latex Rash Penicillins Other Other Reaction(s): unsure - allergic as young child Objective: Vitals Recorded in This Encounter 12/11/2024 1305 BP: 120/71 Pulse: 88 Weight: 171 lb 14.4 oz (78 kg) General: Alert, oriented, no acute distress, pleasant. Psychiatric: Normal mood and affect. HEENT: Mucous membranes moist, no conjunctival injection. Neck: No thyroid enlargement or lymphadenopathy. Cardiovascular: Warm and well-perfused, normal heart rate and rhythm. Pulmonary: No increased work of breathing Abdomen: Soft, gravid, non-tender. Back: No costovertebral angle tenderness. OB/Pelvic : heart tones positive by Doppler or reviewed from today's ultrasound. Pelvic not indicated. Vitals Assessment Flowsheet Row Office Visit from 12/11/2024 in [facility] Obstetrics High Risk Fundal Ht -- Presentation -- FHR 150 Mvmt Present Further examination findings documented in the episode visit flowsheet. Pertinent Labs/Tests Results: CBC (last 3 years, up to 8 values) 11/13/2024 10/17/2024 10/16/2024 10/15/2024 1:58 PM 4:29 AM 6:46 AM 9:31 AM WBC 19.2 11.2 12.7 18.0 RBC 3.52 3.25 3.38 3.83 Hgb 10.3 9.6 9.8 11.0 Hct 30.3 28.5 29.9 33.9 MCV 86 88 88 88 RDW 13.7 14.1 14.2 14.1 Plt 279 263 298 330 documented in this [id number] Notemood stable reasons to reach out reviewed BH referral declined will continue close monitoring during the pregnancyThe [facility] 11-22-2024 NoteOB/METAL CONTROL WORKER Risk Score for Admission: 21% Reason for Referral: OB Assessment SW attempted to reach Pt via telephone call for a 3rd outreach. SW LVM for Pt requesting a return call. SW provided SW contact information. SW attempted to reach Pt on 11/08, 11/15, and 11/22. SW sent letter to Pt's home providing SW contact information. Plan: SW will await return phone call. DG Flores, FUSE ASSEMBLER Outpatient Learning And Development Administrator [phone] [facility]03-10-2025 Note- mood stable - reasons to reach out reviewed - BH referral declined - will continue close monitoring during the pregnancyThe [facility] 11-13-2024 Note- on probation, SW referral todayThe [facility]02-24-2025 Note- on probation, SW referral todayThe [facility]02-11-2025 Hospital Discharge instructions* Discharge Instructions* Caity Cohn RN - 10/17/2024 11:41 AM EST Return to the Triage area if * Bag of water breaks (note time and color). * Vaginal bleeding equal to or greater than a period. * Contractions every five minutes for one hour, lasting 45-60 seconds. * Decrease in movement. * Fever * Pain * Bleeding in mouth [facility] Labor & Delivery * Attachments The following attachments cannot be sent through Care Everywhere. * Tooth Abscess Discharge Instructions ([place]) * Tooth Extraction Discharge Instructions ([place]) documented in this [id number] History of Present illness Narrative* Caity Cohn RN - 10/17/2024 8:26 AM EST /BEREKET Mason notified of critical Glucose value of 54. /BEREKET Mason read back critical results. New orders not received. 0830: Pt's breakfast delivered to bedside * Talisha Rahman MD - 10/17/2024 5:39 AM EST [facility] Progress Note 10/17/2024 5:40 AM Hospital Course: (10/15): She presented to [facility] ED on 10/14 with 2-3 days of worsening left lower jaw. Shehad been seen in the [place] ED that morning and discharged on oral clindamycin. She was afebrile, labs notable for leukocytosis of 18.1 with left shift, lactate 0.8. CT head and neck showed subperiosteal abscess of L outer mandible extending from dental source with extensive cellulitis and reactive submandibular adenopathy. Transfer to [place] for treatment was initially planned due to no dental/OMFS providers available at [facility], but pt declined and left [facility]MA, [facility], labs notable for continued leukocytosis with L shift, mild hypomagnesemia/hypokalemia, and elevated lactate of 2.5. Afebrile but tachycardic to 120s on presentation and she met sepsis criteria at this time, so blood cx collected. She was seen by OMFS who performed I&D of L facial abscess in the ED with ~5cc fluid collected and sent for culture. OMFS recommended continuing IV antibiotics and CT facial bones with contrast, so pt was admitted to antepartum for continued IV abxand observation in the setting of sepsis. She has been able to swallow and drink fluids but has had decreased intake over the last few days as the pain has limited her ability to open her mouth. (10/16): Patient clinically improving, to OMFS for routine extraction teeth # 17, # 18, # 19, and #20 . Seen by SW regarding prior history of substance use. Patient in treatment program at this time, declines further assistance. Transitioned to PO Abx per OMFS recommendations. S: No acute events overnight. No new concerns this morning. Denies painful cxns, LOF, or vaginal bleeding. +FM. Hospital Course: O: BP 112/67 (BP Location: left arm) Pulse 93 Temp 98 F (36.7 C) (Oral) Resp 17 Ht 5' 4.5 (1.638 m) Wt 160 lb 4.4 oz (72.7 kg) SpO2 99% Unknown BMI 27.09 kg/m Tmax (24 hours): 98.1 F (36.7 C) Blood pressure over the past 24 hours, as of 10/17/2024 5:40 AM: Systolic (24hrs), Av , Min:109 , Max:121 Diastolic (24hrs), Av, Min:63, Max:81 Gen: NAD, alert and oriented Oral: Swelling appears to have improved, decreased edema. Oral exam now with missing left lower molars. Purulent drainage visible. Left mandible non-tender to light palpation, though indurated. Abd: soft, NT/ND Ext: BLE edema, no calf tenderness SVE deferred FHT: 130s baseline with moderate variability, accels present, no decels, AGA reactive. O'Neill: quiet, acontractile Last US 10/15/24: vertex, anterior placenta, +FHT, RODRÍGUEZ wnl Estimated Weight: ~1098g, 39%ile, 2/9 growth on L&D. Has formal US scheduled 11/06. A/P: Jose R Tapia is a 23 year old at 27w6d admitted for sepsis suspected secondary to L dental/mandibular abscess. 1) Sepsis - Now resolved - Met criteria for sepsis with leukocytosis, tachycardia, elevated lactate, and + source of infection - Blood cultures no growth to date - Lactate 2.5 -> 0.7 - Afebrile, no subjective fevers or chills - WBC 18.0K -> 12.7K -> 11.2 - s/p I&D by OMFS with 5cc serosanguinous fluid, now s/p extraction of teeth # 17, # 18, # 19, and # 20. - Wound cultures with 1+ gram positive cocci in pairs, final culture pending. - CT face/soft tissue significant for significant soft tissue infection/phlegmon throughout the left face with myositis of the left masseter muscle without discrete drainable abscess - Peridex mouth rinse daily, no PO for 30 min after use - Cefdinir 2x daily + Flagyl 3x daily for 7 day course initiated yesterday (10/13). - Appreciate care. - Continue tylenol 1000mg q6h and oxycodone PRN for pain 2) History of substance use - Prior meth/stimulant use, denies use during this . - Stable, no cravings - Seen by TJ yesterday, attends an IOP program through [facility] in [place]. - Tox screen negative except for oxycodone, however tox screen collected after administered oxycodone in hospital. 3) Tobacco use - Current use = 1/2 ppd - Nicotine replacement PRN - Advised cessation 4) FWB - NST daily, AGA, reactive - Growth on admission, EFW 39%ile - SKILLED NURSING ultrasound scheduled 11/06. 5) Asthma - Patient denies symptoms at this time. No exacerbation this - Albuterol inhaler PRN 6) routine OB - Feeding: Undecided - Contraception: Undecided - Rh + / Rubella unknown / GBS unknown - Glucose OB screen completed in hospital -> final result pending. Dispo: Possible discharge today Reanna Mason MD Obstetrics and Gynecology, PGY-1 Teaching Physician Note: I saw and evaluated the patient. I personally obtained the garcia and critical portions of the historyand physical exam. I reviewed the resident's documentation and discussed the patient with the resident. I agree with the resident's medical decision making as documented in the resident's note. Appropriate for discharge today Talisha Rahman MD * Glo Stallings RN - 10/16/2024 12:54 PM EST 1254: Sent urine tox. Pt aware. Expressed concern that medicine that I got in the ED might show upin test. RN reassured pt that the physicians will account for any narcotics that show up in urine given by hospital. 1255: Pt drank orange glucola. RN will take sample in 1 hr. Pt aware * Talisha Tapia RN - 10/16/2024 6:00 AM EST 0548 EFM for NST able to be d/hannah per Dr Betancourt * Glenda Garces RN - 10/15/2024 2:[address] Kaba at the bedside to see patient. documented in this [id number] Procedure note* Talisha Rahman MD - 10/17/2024 7:20 AM ESTProcedure(s): NON-STRESS TEST Pre-Procedure Diagnose(s): Dental abscess Post-Procedure Diagnose(s): Dental abscess Jose R Tapia is a 23 year old at 27w6d admitted for sepsis (now resolved) secondary to left mandibular abscess. NST: FHR: Baseline 130 Accels present Decels absent Variability: moderate TOCO: CTX: No Reactive Reanna Mason MD Obstetrics and Gynecology, PGY-1 I have personally reviewed the NST. NST reactive. I agree with the resident's documentation as stated above. Talisha Rahman MD [id number] Procedure note* Talisha Rahman MD - 10/17/2024 7:20 AM ESTProcedure(s): NON-STRESS TEST Pre-Procedure Diagnose(s): Dental abscess Post-Procedure Diagnose(s): Dental abscess Jose R Tapia is a 23 year old at 27w6d admitted for sepsis (now resolved) secondary to left mandibular abscess. NST: FHR: Baseline 130 Accels present Decels absent Variability: moderate TOCO: CTX: No Reactive Reanna Mason MD Obstetrics and Gynecology, PGY-1 I have personally reviewed the NST. NST reactive. I agree with the resident's documentation as stated above. Talisha Rahman MD * Talisha Rahman MD - 10/16/2024 7:19 AM ESTProcedure(s): NON-STRESS TEST Pre-Procedure Diagnose(s): High-risk , third trimester (HCC) Post-Procedure Diagnose(s): High-risk , third trimester (HCC) Jose R Tapia is a 23 year old at 27w5d admitted for L dental abscess/sepsis NST: FHR: Baseline 130 Accels present Decels absent Variability: moderate TOCO: CTX: No Reactive Reanna Mason MD Obstetrics and Gynecology, PGY-1 I have personally reviewed the above NST. I agree with the resident's documentation as stated above. Reactive NST. Talisha Rahman MD documented in this [id number] NoteAPU Progress Note 10/17/2024 5:40 AM Hospital Course: (10/15): She presented to [facility] ED on 10/14 with 2-3 days of worsening left lower jaw. She had been seen in the [place] ED that morning and discharged on oral clindamycin. She was afebrile, labs notable for leukocytosis of 18.1 with left shift, lactate 0.8. CT head and neck showed subperiosteal abscess of L outer mandible extending from dental source with extensive cellulitis and reactive submandibular adenopathy. Transfer to [place] for treatment was initially planned due to no dental/OMFS providers available at [facility], but pt declined and left AMA, transported herself to [facility]. In the [facility] ED, labs notable for continued leukocytosis with L shift, mild hypomagnesemia/hypokalemia, and elevated lactate of 2.5. Afebrile but tachycardic to 120s on presentation and she met sepsis criteria at this time, so blood cx collected. She was seen by OMFS who performed I AND D of L facial abscess in the ED with ~5cc fluid collected and sent for culture. OMFS recommended continuing IV antibiotics and CT facial bones with contrast, so pt was admitted to antepartum for continued IV abx and observation in the setting of sepsis. She has been able to swallow and drink fluids but has had decreased intake over the last few days as the pain has limited her ability to open her mouth. (10/16): Patient clinically improving, to [facility] for routine extraction teeth # 17, # 18, # 19, and # 20 . Seen by SW regarding prior history of substance use. Patient in treatment program at this time, declines further assistance. Transitioned to PO Abx per OMFS recommendations. S: No acute events overnight. No new concerns this morning. Denies painful cxns, LOF, or vaginal bleeding. +FM. Hospital Course: O: BP 112/67 (BP Location: left arm) Pulse 93 Temp 98 ???F (36.7 ???C) (Oral) Resp 17 Ht 5' 4.5 (1.638 m) Wt 160 lb 4.4 oz (72.7 kg) SpO2 99% Unknown BMI 27.09 kg/m??? Tmax (24 hours): 98.1 ???F (36.7 ???C) Blood pressure over the past 24 hours, as of 10/17/2024 5:40 AM: Systolic (24hrs), Av , Min:109 , Max:121 Diastolic (24hrs), Av, Min:63, Max:81 Gen: NAD, alert and oriented Oral: Swelling appears to have improved, decreased edema. Oral exam now with missing left lower molars. Purulent drainage visible. Left mandible non-tender to light palpation, though indurated. Abd: soft, NT/ND Ext: BLE edema, no calf tenderness SVE deferred FHT: 130s baseline with moderate variability, accels present, no decels, AGA reactive. O'Neill: quiet, acontractile Last US 10/15/24: vertex, anterior placenta, +FHT, RODRÍGUEZ wnl Estimated Weight: ~1098g, 39%ile, 2/9 growth on L AND D. Has formal US scheduled 11/06. A/P: Jose R Tapia is a 23 year old at 27w6d admitted for sepsis suspected secondary to L dental/mandibular abscess. 1) Sepsis - Now resolved - Met criteria for sepsis with leukocytosis, tachycardia, elevated lactate, and + source of infection - Blood cultures no growth to date - Lactate 2.5 -> 0.7 - Afebrile, no subjective fevers or chills - WBC 18.0K -> 12.7K -> 11.2 - s/p I AND D by OMFS with 5cc serosanguinous fluid, now s/p extraction of teeth # 17, # 18, # 19, and # 20. - Wound cultures with 1+ gram positive cocci in pairs, final culture pending. - CT face/soft tissue significant for significant soft tissue infection/phlegmon throughout the left face with myositis of the left masseter muscle without discrete drainable abscess - Peridex mouth rinse daily, no PO for 30 min after use - Cefdinir 2x daily + Flagyl 3x daily for 7 day course initiated yesterday (10/13). - Appreciate care. - Continue tylenol 1000mg q6h and oxycodone PRN for pain 2) History of substance use - Prior meth/stimulant use, denies use during this . - Stable, no cravings - Seen by TJ yesterday, attends an IOP program through [facility] [place]. - Tox screen negative except for oxycodone, however tox screen collected after administered oxycodone in hospital. 3) Tobacco use - Current use = 1/2 ppd - Nicotine replacement PRN - Advised cessation 4) FWB - NST daily, AGA, reactive - Growth on admission, EFW 39%ile - SKILLED NURSING ultrasound scheduled 11/06. 5) Asthma - Patient denies symptoms at this time. No exacerbation this - Albuterol inhaler PRN 6) routine OB - Feeding: Undecided - Contraception: Undecided - Rh + / Rubella unknown / GBS unknown - Glucose OB screen completed in hospital -> final result pending. Dispo: Possible discharge today Reanna Mason MD Obstetrics and Gynecology, PGY-1 Teaching Physician Note: I saw and evaluated the patient. I personally obtained the garcia and critical portions of the history and physical exam. I reviewed the resident's documentation and discussed the patient with the resident. I agree with the resident's medical decision making as documented in the resi (more content not included)...[facility] [id number] History of Present illness Narrative* Chad Davis DMD, MD - 10/16/2024 4:15 PM EST Teaching Physician Note: I saw and evaluated the patient. I personally obtained the garcia and critical portions of the historyand physical exam. I reviewed the resident's documentation and discussed the patient with the resident. I agree with the resident's medical decision making as documented in the resident's note. Chad Davis DMD, MD * Maurice Traore DDS - 10/16/2024 11:55 AM EST ORAL SURGERY PROCEDURE ROOM NOTE [facility] Surgical Product(s): Routine extraction teeth # 17, # 18, # 19, and # 20 PMH: Reviewed, no change. Antibiotic prophylaxis indicated/taken: no Discussed risks, benefits, and alternatives of treatment. All of the patient s questions were answered, and informed consent was obtained: yes Pre-op Diagnosis: Caries PROCEDURE TIME OUT CHECK LIST 1. Radiograph is correctly matched to the patient,diagnostic quality, correctly oriented for laterality: Yes 2. Time out performed confirming correct surgical site and/or involved teeth verified by the patient and the surgeon: Yes Anesthesia: 2% Xylocaine with 1/100,000 epinephrine: 1 carpules Attending: Chad Davis DMD, MD Resident: León Assistants: ENRICO Bruce Procedure in Detail: Anesthetized with 1 carp 2% lido via QUE. Teeth #17,18,19,20 extracted via elevator and forceps. Irrigated with copious saline. Gauze hemostasis achieved. Patient dismissed in stable condition. Complications: none Specimens: Intact teeth Estimated blood loss: Minimal (<5 ml) Disposition: Admitted to hospital Maurice Traore DDS * Lam Owen - 10/16/2024 9:49 AM EST Images from the original note were not included. documented in this [id number] Consult note* Richard Crabtree LSW - 10/16/2024 3:32 PM ESTAssociated Order(s): IP SOCIAL WORK SERVICE REQUEST SOCIAL WORK COVERAGE NOTE SW aware of consult for 'Substance abuse resources/interventions'. Per chart review, pt with history of substance use. SW met with pt at bedside, visitor present during discussion with pt's permission. This is pt's first per her report. Pt states she stopped using substances prior to and has not used again during this . Pt attends an IOP program through [facility] [place]. Pt denies need for additional substance use resources at this time. Tox screen is pending. No discharge or SDOH concerns noted by pt. Pt aware to alert SW should needs arise prior to discharge. SW remains available. GRAHAM Guo LSW Inpatient Social Work [facility] Work Phone: [phone] Consult note* Richard Crabtree LSW - 10/16/2024 3:32 PM ESTAssociated Order(s): IP SOCIAL WORK SERVICE REQUEST SOCIAL WORK COVERAGE NOTE SW aware of consult for 'Substance abuse resources/interventions'. Per chart review, pt with history of substance use. SW met with pt at bedside, visitor present during discussion with pt's permission. This is pt's first per her report. Pt states she stopped using substances prior to and has not used again during this . Pt attends an IOP program through [facility] [place]. Pt denies need for additional substance use resources at this time. Tox screen is pending. No discharge or SDOH concerns noted by pt. Pt aware to alert SW should needs arise prior to discharge. SW remains available. GRAHAM Guo, FUSE ASSEMBLER Inpatient Social Work * Talisha Rahman MD - 10/16/2024 5:51 AM ESTAssociated Order(s): IP OB HIGH RISK CONSULT scale manager Consult Note 10/16/2024 CC: Dental abscess and sepsis HPI: Jose R Tapia is a 23 year old at 27w5d who presented to Labor [facility] Delivery yesterday afternoon for dental abscess and sepsis. (10/15) She presented to [facility] ED on 10/14 with 2-3 days of worsening left lower jaw. She had been seen in the [place] ED that morning and discharged on oral clindamycin. She was afebrile, labs notable for leukocytosis of 18.1 with left shift, lactate 0.8. CT head and neck showed subperiosteal abscess of L outer mandible extending from dental source with extensive cellulitis and reactive submandibular adenopathy. Transfer to [place] for treatment was initially planned due to no dental/OMFS providers available at [facility], but pt declined and left AMA, transported herself to [facility]. In the [facility] ED, labs notable for continued leukocytosis with L shift, mild hypomagnesemia/hypokalemia, and elevated lactate of 2.5. Afebrile but tachycardic to 120s on presentation and she met sepsis criteria at this time, so blood cx collected. She was seen by OMFS who performed I&D of L facial abscess in the ED with ~5cc fluid collected and sent for culture. OMFS recommended continuing IV antibiotics and CT facial bones with contrast, so pt was admitted to antepartum for continued IV abxand observation in the setting of sepsis. She has been able to swallow and drink fluids but has had decreased intake over the last few days as the pain has limited her ability to open her mouth. Interval update: Today the patient reports she is doing much better. She states she has been able to eat with success. She's had some water and snacks. She states this dental problem has been here since about Wednesday of last week, this has never occurred before. She currently lives in [place] with her grandmother, she has a stable partner whom she feels safe with. They plan to move in together here in [place] [address] in an apartment that used to be owned by her grandfather. She is currently here with her cousin who drover her up here, she states she would like to continue her care through [facility]. 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 However, she was arrested and sent to halfway for a week, after which she did not use meth again. She states she did not go to a rehab facility or have any formal detox therapy and was able to stop without assistance herself.She denies any cravings at this time, she is agreeable to a urine tox screen. She states she is unsure whether she wasnts to breast or bottle feed and is also unsure of contraception - she reports wanting it, but is unsure what she should receive when it is time. Regarding her jaw swelling, she reports it is much improved compared to earlier this week, she states OMFS recommended they remove several teeth but is unsure when they plan to do this, just told that it would likely happen while she was admitted. She denies any fever, nausea, vomiting, chills, sweats, or weakness. She states her pain is well controlled with her current regimen. She denies any LOF, vaginal bleeding, reports normal movement, denies contractions. ROS: otherwise negative except as above. Past Medical History: Diagnosis Date Mild intermittent asthma (HCC) Pneumonia, organism unspecified(486) 09/30/04 Past Surgical History: Procedure Laterality Date NO PAST SURGICAL HISTORY Allergies Allergen Reactions Latex Rash Penicillins Other Other Reaction(s): unsure - allergic as young child Current Facility-Administered Medications: lactated ringers iv infusion, , Intravenous, Continuous, Lito Pitt MD, Stopped at 10/16/24 0516 nicotine (NICODERM CQ) 14 mg/24HR patch, 14 mg, Transdermal, Daily, Melita Alejandre MD, 14 mg at 10/15/24 1531 cefepime (MAXIPIME) 2-5 GM-%(50ML) in dextrose 5% 50 mL ivpb, 2,000 mg, Intravenous, Q8H Antibiotic, Melita Alejandre MD, Last Rate: 100 mL/hr at 10/16/24 0516, 2,000 mg at 10/16/24 0516 chlorhexidine (PERIDEX) 0.12 % oral solution, 15 mL, Swish & Spit, 2x Daily, Melita Alejandre MD, 15 mL at 10/15/24 2134 tablet, 1 Tablet, Oral, Daily, Melita Alejandre MD, 1 Tablet at 10/15/24 1438 ondansetron (ZOFRAN) 4 MG/2ML injection, 4 mg, Intravenous Push, Q6H PRN, Melita Alejandre MD docusate sodium (COLACE) capsule, 100 mg, Oral, 2x Daily, Melita Alejandre MD, 100 mg at 10/15/24 2100 oxyCODONE immediate release tablet, 5 mg, Oral, Q4H PRN, Melita Alejandre MD, 5 mg at 10/16/24 0552 acetaminophen (TYLENOL) tablet, 1,000 mg, Oral, q6h, Melita Alejandre MD, 1,000 mg at 10/16/24 0203 metroNIDAZOLE (FLAGYL) 500 MG/100ML ivpb, 500 mg, Intravenous, Q8H Antibiotic, Ev Sparks MD, Last Rate: 100 mL/hr at 10/16/24 0257, 500 mg at 10/16/24 0257 OBJ: BP 113/61 (BP Location: left arm) Pulse 79 Temp 97.5 F (36.4 C) (Oral) Resp 18 Ht 5' 4.5 (1.638 m) Wt 160 lb 4.4 oz (72.7 kg) SpO2 100% Unknown BMI 27.09 kg/m Gen: NAD, A&Ox3 Oral exam: Significant left lower jaw swelling, without erythema, tender to palpation. Oral exam significant for significant tooth decay on left lower molars. Surrounding mucosa edematous, no visibledrainage. Resp: nonlabored breathing on room air CV: RRR Abd: soft, gravid, nontender Ext: no BLE edema NST: 130 baseline, moderate variability, accelerations present, decelerations absent O'Neill: Acontractile Labs: 10/15/2024 9:31 AM 10/15/2024 12:51 PM 10/15/2024 1:46 PM WBC 18.0 (H) RBC 3.83 (L) Hemoglobin 11.0 (L) Hematocrit 33.9 (L) MCV 88 MCH 28.7 MCHC 32.5 Platelet 330 RDW-CV% 14.1 MPV 8.1 Neutrophils 81.3 (H) Neutrophil # 14.60 (H) Lymphocytes 10.1 (L) Lymph Absolute 1.80 Monocytes 7.5 Monocyte Absolute 1.34 (H) Eosinophil 0.9 Eosinophil Absolute 0.17 Basophils 0.2 Basophil # 0.04 MDW 23 (H) Glucose 90 Sodium 137 Potassium 3.4 (L) Carbon Dioxide 22 Chloride 104 BUN 4 (L) Creatinine 0.53 (L) Calcium 8.8 Anion Gap 14 Estimated GFR 132 Albumin 3.8 Bilirubin, Direct 0.09 Bilirubin, Total 0.4 Alkaline Phosphatase 88 ALT (SGPT) 12 AST (SGOT) 13 Protein, Total 6.7 Gram Stain 1+ Polymorphonuclear Leukocytes (P) Gram Stain No Squamous Epithelial Cells seen (P) Gram Stain 1+ Gram Positive Cocci In Pairs (P) Lactate 2.5 (H) 0.7 Legend: (H) High (L) Low (P) Preliminary Imaging: CT Face Soft Tissue W/Contrast pending Last US: Patient states last ultasound was in September. Images downloading to [facility] now. No other imaging available. Patient underwent bedside US upon admission. 10/15/24: vertex, anterior placenta, +FHT, RODRÍGUEZ wnl Estimated Weight: ~1098g, 39%ile, 2/9 growth on L& Assessment: In summary, Ms Tapia is a 23 year old at 27w5d with sepsis suspected secondary to Ldental/mandibular abscess. Plan: 1) Sepsis - Suspected secondary to L dental/mandibular abscess - Met criteria for sepsis with leukocytosis, tachycardia, elevated lactate, and + source of infection - Blood cultures pending - Lactate 2.5 -> 0.7 - Afebrile, no subjective fevers or chills - WBC 18.0K -> 12.7K this AM - s/p I&D by OMFS with 5cc serosanguinous fluid. - Wound cultures pending - CT face/soft tissue pending - Peridex mouth rinse daily, no PO for 30 min after use - Follow up in oral surgery clinic for dental extraction this admission. - Appreciate care - Continue IV Abx, cefepime/flagyl for a total of 24-48 hours. Once clinically improved, may cease IV Abx and transition to PO Abx. Will f/u with OMFS regarding optimal Abx regimen. - Continue Tylenol 1000mg q6h and oxycodone PRN for pain. - Continue to trend AM CBC, BMP for resolution of leukocytosis and electrolyte disturbances - Magnesium 1.7 and Potassium 3.4 on admission, repleted on admission. 2) Elevated troponin - hs-cTnl ordered in ED, 15 -> 17, mildly elevated, delta <5, low suspicion for acute coronary process at this time. - Cardiopulmonary exam benign - Pt is asymptomatic, denies chest pain, SOB - EKG with mild sinus tachycardia (HR 102) 3) Hx of substance use - Prior meth/stimulant use, denies use during this . - Stable, no cravings - Patient agreeable to urine tox screen. - Urine tox screen ordered. 4) Hx of incarceration in - briefly incarcerated form late Aug-mid September. - SW consult placed. 5) Tobacco use - Current use = 1/2 ppd - Nicotine replacement PRN. 6) FWB - NST daily, AGA, reactive - Growth on admission, EFW 39%ile - Consider Formal SKILLED NURSING ultrasound this admission. 8) Asthma - Patient denies symptoms at this time. Had asthma as a child. Has not had any exacerbations thispregnancy. - Albuterol inhaler PRN. 9) Routine OB - Feeding: Undecided - Contraception: Undecided - Rh + / Rubella unknown / GBS unknown - Unclear as to care prior to this encounter, patient reports receiving care through [facility]. Latest CareEverywhere records appear to be from 2020. Filling out record release form currently.Routine labs ordered as add- on labs. - Needs glucose OB screening, ordered. Dispo: Continue to monitor inpatient. Patient seen and discussed with Dr. Rahman . Reanna Mason MD Obstetrics and Gynecology, PGY-1 MFM Attending Note Patient is a 23yo at 27w5d admitted for mandibular abscess and sepsis. No complaints Pain improved Denies methamphetamine cravings Denies asthma exacerbation Has good movement Denies ctx, LOF or VB Vitals Recorded in This Encounter 10/16/2024 1045 10/16/2024 1154 10/16/2024 1200 10/16/2024 1255 10/16/2024 1545 BP: -- 121/81 -- -- 110/63 Pulse: -- 93 -- -- 88 Resp: -- 15 -- -- 17 Temp: -- 98.1 F (36.7 C) -- -- 98.1 F (36.7 C) Temp src: -- Oral -- -- Oral SpO2: -- 100 % -- -- 100 % Pain Score: 10 10 10 9 4 NAD RRR ABD soft, gravid, NTTP EFM Review 130 bpm Moderate variability + accels - decels TOCO quiescent - cont IV cefepime per OMFS recs - s/p I&S with plans for tooth extraction today - SW consult pendin - head CT pending - utox pending Teaching Physician Note: I saw and evaluated the patient. I personally obtained the garcia and critical portions of the historyand physical exam. I reviewed the resident's documentation and discussed the patient with the resident. I agree with the resident's medical decision making as documented in the resident's note. Talisha Rahman MD * Maribell Gary, DDS - 10/15/2024 12:03 PM EST Images from the original note were not included. CONSULTATION, ORAL & MAXILLOFACIAL SURGERY Name: Jose R Tapia : 2000 Location: [place] [address] Consulting Team/Attending: ED (Ev Sparks MD) Reason for Consult: Left sided facial swelling History of Present Illness Jose R Tapia is a 23 year old female who is 27 weeks w/ PMH notable for asthma, presenting to [facility] with CC of left sided facial swelling that began on Wednesday10/13/2024. Patient went to [facility], was given IV abx and planned to be transferred to [facility] as they did not have an oral surgeon combustion analyst. Patient left on her own accord and came to [facility] with worsening left sided jaw pain and swelling. Denies difficulty swallowing, SOB and is able to tolerate her own secretions. Review of Systems ROS: Negative unless otherwise stated in HPI Constitutional: Reports occasional fatigue Eyes: Patient denies blurry vision, drainage, diplopia, erythema, vision loss/change. Ears: Patient denies changes in hearing, deafness, drainage from ears, pain. Nose: Patient denies epistaxis, congestion, pain, changes in smell. Mouth/Neck: Patient denies changes in speech, odynophagia, dysphagia, drooling, throat pain, inability to swallow. Respiratory: Patient denies cough, hemoptysis, wheezing, shortness of breath, increased work of breathing. Cardiac: Patient denies chest pain, dyspnea on exertion, orthopnea, palpitations, syncope. Gastrointestinal: Patient denies nausea, vomiting, diarrhea, constipation, abdominal pain. Genitourinary: Reports increased urinary frequency due to Neurological: Denies sensory changes in CN V3 bilaterally Past Medical History Past Medical History: Diagnosis Date Mild intermittent asthma (HCC) Pneumonia, organism unspecified(486) 09/30/04 Past Surgical History Review of patient's past surgical history indicates: NO PAST SURGICAL HISTORY Family History Family History Problem Relation Age of Onset Other (colitis [Other]) Mother GI Disorders Mother Other (Tachycardia [Other]) Mother Good health Father Cancer runs in family Social History Social History Tobacco Use Smoking status: Heavy Smoker Smokeless tobacco: Not on file Substance Use Topics Alcohol use: No Alcohol/week: 0.0 standard drinks of alcohol Medications cefepime ivpb, 2,000 mg, Intravenous, Q8H Antibiotic metroNIDAZOLE, 500 mg, Intravenous, Q8H Antibiotic Current Facility-Administered Medications: cefepime (MAXIPIME) 2,000 mg in sterile water for injection 20 mL IV push, 2,000 mg, Intravenous, Q8H Antibiotic, Ev Sparks MD metroNIDAZOLE (FLAGYL) 500 MG/100ML ivpb, 500 mg, Intravenous, Q8H Antibiotic, Ev Sparks MD, Last Rate: 100 mL/hr at 10/15/24 1033, 500 mg at 10/15/24 1033 No current outpatient medications on file. Allergies Allergies Allergen Reactions Latex Rash Penicillins Other Other Reaction(s): unsure - allergic as young child Physical Exam BP 114/76 Pulse (!) 108 Temp 98.1 F (36.7 C) (Oral) Resp 18 Ht 5' 4 (1.626 m) Wt 160 lb (72.6 kg) SpO2 98% BMI 27.46 kg/m GENERAL: Laying comfortably in bed. Well appearing. No acute distress. Well developed. Well nourished. HEAD: Left sided facial swelling. No lacerations, masses, or lesions of scalp. Skin without erythema, scarring, or rashes. EYES: EOM intact. Sclera normal. Without conjunctival erythema or drainage. PERRLA. EARS: Normal external ears NOSE: External nose midline. Without bleeding or drainage. ORAL: moist mucus membranes. Normal tongue. FOM without induration or raising. Uvula symmetric. Pharyngeal renteria without masses or lesions. Grossly carious teeth #17,19,20 with adjacent vestibular swelling and TTP. Stable and reproducible occlusion. No TMJ clicking or popping. Maximal incisal opening ~30mm. Patient tolerating her own secretions. NECK: Without difficulty swallowing. Parotid and submandibular glands without edema or tenderness bilaterally. Inferior border of the mandible palpable b/l RESPIRATION/VOICE: Breathing comfortable on room air. No hoarseness, wheezing, or stridor. Ausculation of lungs clear bilaterally without crackles or rhonchi. CARDIOVASCULAR: Regular rate and rhythm. No clubbing, cyanosis, or edema in hands or feet. SNEURO: Awake and alert. Oriented to person, place, and time. Cranial Nerves V and VII grossly intact and symmetric bilaterally. No anesthesia or paresthesia of CNV3 distribution bilaterally. PSYCH: Appropriate mood and affect. Relevant Labs Vital Sign Ranges: Temperature: [98.1 F (36.7 C)] 98.1 F (36.7 C) Heart Rate: [108-121] 108 Respiratory Rate: [16-18] 18 BP: (114-116)/(74-76) 114/76 CBC, PT, PTT, INR: CBC/PT/INR 10/15/2024 9:31 AM WBC 18.0 RBC 3.83 Hgb 11.0 Hct 33.9 MCV 88 RDW 14.1 Plt 330 aPTT 28 INR 1.11 BMP: Basic Metabolic Panel 10/15/2024 9:31 AM Na 137 K 3.4 Cl 104 CO2 22 Gap 14 Glu 90 BUN 4 Cr 0.53 Ca 8.[address] facial bones pending, to be transferred from outside facility. Assessment and Plan Jose R Tapia is a 23 year old female, Hospital Day: 1, who Oral & Maxillofacial Facial was consulted for management/evaluation of left sided facial swelling. Clinical examination is most consistent with diagnosis of left vestibular abscess in the region of carious teeth #17-20. CBC shows elevated WBC of 18.0. CT scan pending, to be transferred from outside facility. Plan to do bedside I&D of left vestibular abscess. Procedures Obtained verbal consent from the patient to complete I&D of left facial abscess. Administered approx. 12cc of 1% lidocaine w/ 1:100,000 epi [facility] Used a 15 blade to create a 2 cm stab incision adjacent to teeth #19-20. Used a hemostat to bluntly dissect down to bone. Approx 5cc of serosanguinis discharge expressed from the wound. Obtained culture. Irrigated with 70cc of NS. Placed gauze for hemostasis. Indication/Pre-Op Diagnosis: Left sided vestibular abscess Consent: Verbally obtained. Anesthetic: 12cc1% lidocaine with 1:100,000 epinephrine Significant findings: serosanguinius discharge The patient tolerated the procedure well. OMFS Recommendations - Continue IV abx while in house with cefipime and flagyl - Analgesics per primary - Peridex mouthrinse, swish and spit. Do not eat or drink for 30 minutes after - Follow up labs; CBC - Send culture for bacterial and fungal organisms (culture placed at bedside) - Obtain CT facial bones with contrast - Follow up with oral surgery clinic while inpatient to extract indicated teeth #19-20. - OMFS will arrange a follow up appointment. Please provide the patient / family with our clinic number [phone] to confirm the appointment. Maribell Gary DDS Oral & Maxillofacial Surgery, PGY-3 Team Pager: [phone] Attending: Dr. Chad Davis DMD, MD Cosigned by Chad Davis DMD, MD at 10/16/2024 2:55 PM EST documented in this [id number] NoteORAL SURGERY PROCEDURE ROOM NOTE [facility] Surgical Product(s): Routine extraction teeth # 17, # 18, # 19, and # 20 PMH: Reviewed, no change. Antibiotic prophylaxis indicated/taken: no Discussed risks, benefits, and alternatives of treatment. All of the patient's questions were answered, and informed consent was obtained: yes Pre-op Diagnosis: Caries PROCEDURE TIME OUT CHECK LIST 1. Radiograph is correctly matched to the patient,diagnostic quality, correctly oriented for laterality: Yes 2. Time out performed confirming correct surgical site and/or involved teeth verified by the patient and the surgeon: Yes Anesthesia: 2% Xylocaine with 1/100,000 epinephrine: 1 carpules Attending: Chad Davis DMD, MD Resident: León Assistants: ENRICO Bruce Procedure in Detail: Anesthetized with 1 carp 2% lido via QUE. Teeth #17,18,19,20 extracted via elevator and forceps. Irrigated with copious saline. Gauze hemostasis achieved. Patient dismissed in stable condition. Complications: none Specimens: Intact teeth Estimated blood loss: Minimal (<5 ml) Disposition: Admitted to hospital [facility]02-10-2025 Procedure note* Talisha Rahman MD - 10/16/2024 7:19 AM ESTProcedure(s): NON-STRESS TEST Pre-Procedure Diagnose(s): High-risk , third trimester (HCC) Post-Procedure Diagnose(s): High-risk , third trimester (HCC) Jose R Tapia is a 23 year old at 27w5d admitted for L dental abscess/sepsis NST: FHR: Baseline 130 Accels present Decels absent Variability: moderate TOCO: CTX: No Reactive Reanna Mason MD Obstetrics and Gynecology, PGY-1 I have personally reviewed the above NST. I agree with the resident's documentation as stated above. Reactive NST. Talisha Rahman MD [id number] Consult note* Talisha Rahman MD - 10/16/2024 5:51 AM EST Associated Order(s): IP OB HIGH RISK CONSULT scale manager Consult Note 10/16/2024 CC: Dental abscess and sepsis HPI: Jose R Tapia is a 23 year old at 27w5d who presented to Labor & Delivery yesterday afternoon for dental abscess and sepsis. (10/15) She presented to [facility] ED on 10/14 with 2-3 days of worsening left lower jaw. She had been seen in the [place] ED that morning and discharged on oral clindamycin. She was afebrile, labs notable for leukocytosis of 18.1 with left shift, lactate 0.8. CT head and neck showed subperiosteal abscess of L outer mandible extending from dental source with extensive cellulitis and reactive submandibular adenopathy. Transfer to [place] for treatment was initially planned due to no dental/OMFS providers available at [facility], but pt declined and left AMA, transported herself to [facility]. In the [facility] ED, labs notable for continued leukocytosis with L shift, mild hypomagnesemia/hypokalemia, and elevated lactate of 2.5. Afebrile but tachycardic to 120s on presentation and she met sepsis criteria at this time, so blood cx collected. She was seen by OMFS who performed I&D of L facial abscess in the ED with ~5cc fluid collected and sent for culture. OMFS recommended continuing IV antibiotics and CT facial bones with contrast, so pt was admitted to antepartum for continued IV abxand observation in the setting of sepsis. She has been able to swallow and drink fluids but has had decreased intake over the last few days as the pain has limited her ability to open her mouth. Interval update: Today the patient reports she is doing much better. She states she has been able to eat with success. She's had some water and snacks. She states this dental problem has been here since about Wednesday of last week, this has never occurred before. She currently lives in [place] with her grandmother, she has a stable partner whom she feels safe with. They plan to move in together here in [place] off [address] in an apartment that used to be owned by her grandfather. She is currently here with her cousin who drover her up here, she states she would like to continue her care through [facility]. 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 However, she was arrested and sent to halfway for a week, after which she did not use meth again. She states she did not go to a rehab facility or have any formal detox therapy and was able to stop without assistance herself.She denies any cravings at this time, she is agreeable to a urine tox screen. She states she is unsure whether she wasnts to breast or bottle feed and is also unsure of contraception - she reports wanting it, but is unsure what she should receive when it is time. Regarding her jaw swelling, she reports it is much improved compared to earlier this week, she states OMFS recommended they remove several teeth but is unsure when they plan to do this, just told that it would likely happen while she was admitted. She denies any fever, nausea, vomiting, chills, sweats, or weakness. She states her pain is well controlled with her current regimen. She denies any LOF, vaginal bleeding, reports normal movement, denies contractions. ROS: otherwise negative except as above. Past Medical History: Diagnosis Date Mild intermittent asthma (HCC) Pneumonia, organism unspecified(486) 09/30/04 Past Surgical History: Procedure Laterality Date NO PAST SURGICAL HISTORY Allergies Allergen Reactions Latex Rash Penicillins Other Other Reaction(s): unsure - allergic as young child Current Facility-Administered Medications: lactated ringers iv infusion, , Intravenous, Continuous, Lito Pitt MD, Stopped at 10/16/24 0516 nicotine (NICODERM CQ) 14 mg/24HR patch, 14 mg, Transdermal, Daily, Melita Alejandre MD, 14 mg at 10/15/24 1531 cefepime (MAXIPIME) 2-5 GM-%(50ML) in dextrose 5% 50 mL ivpb, 2,000 mg, Intravenous, Q8H Antibiotic, Melita Alejandre MD, Last Rate: 100 mL/hr at 10/16/24 0516, 2,000 mg at 10/16/24 0516 chlorhexidine (PERIDEX) 0.12 % oral solution, 15 mL, Swish & Spit, 2x Daily, Melita Alejandre MD, 15 mL at 10/15/24 2134 tablet, 1 Tablet, Oral, Daily, Melita Alejandre MD, 1 Tablet at 10/15/24 1438 ondansetron (ZOFRAN) 4 MG/2ML injection, 4 mg, Intravenous Push, Q6H PRN, Melita Alejandre MD docusate sodium (COLACE) capsule, 100 mg, Oral, 2x Daily, Melita Alejandre MD, 100 mg at 10/15/24 2100 oxyCODONE immediate release tablet, 5 mg, Oral, Q4H PRN, Melita Alejandre MD, 5 mg at 10/16/24 0552 acetaminophen (TYLENOL) tablet, 1,000 mg, Oral, q6h, Melita Alejandre MD, 1,000 mg at 10/16/24 0203 metroNIDAZOLE (FLAGYL) 500 MG/100ML ivpb, 500 mg, Intravenous, Q8H Antibiotic, Ev Sparks MD, Last Rate: 100 mL/hr at 10/16/24 0257, 500 mg at 10/16/24 0257 OBJ: BP 113/61 (BP Location: left arm) Pulse 79 Temp 97.5 F (36.4 C) (Oral) Resp 18 Ht 5' 4.5 (1.638 m) Wt 160 lb 4.4 oz (72.7 kg) SpO2 100% Unknown BMI 27.09 kg/m Gen: NAD, A&Ox3 Oral exam: Significant left lower jaw swelling, without erythema, tender to palpation. Oral exam significant for significant tooth decay on left lower molars. Surrounding mucosa edematous, no visibledrainage. Resp: nonlabored breathing on room air CV: RRR Abd: soft, gravid, nontender Ext: no BLE edema NST: 130 baseline, moderate variability, accelerations present, decelerations absent O'Neill: Acontractile Labs: 10/15/2024 9:31 AM 10/15/2024 12:51 PM 10/15/2024 1:46 PM WBC 18.0 (H) RBC 3.83 (L) Hemoglobin 11.0 (L) Hematocrit 33.9 (L) MCV 88 MCH 28.7 MCHC 32.5 Platelet 330 RDW-CV% 14.1 MPV 8.1 Neutrophils 81.3 (H) Neutrophil # 14.60 (H) Lymphocytes 10.1 (L) Lymph Absolute 1.80 Monocytes 7.5 Monocyte Absolute 1.34 (H) Eosinophil 0.9 Eosinophil Absolute 0.17 Basophils 0.2 Basophil # 0.04 MDW 23 (H) Glucose 90 Sodium 137 Potassium 3.4 (L) Carbon Dioxide 22 Chloride 104 BUN 4 (L) Creatinine 0.53 (L) Calcium 8.8 Anion Gap 14 Estimated GFR 132 Albumin 3.8 Bilirubin, Direct 0.09 Bilirubin, Total 0.4 Alkaline Phosphatase 88 ALT (SGPT) 12 AST (SGOT) 13 Protein, Total 6.7 Gram Stain 1+ Polymorphonuclear Leukocytes (P) Gram Stain No Squamous Epithelial Cells seen (P) Gram Stain 1+ Gram Positive Cocci In Pairs (P) Lactate 2.5 (H) 0.7 Legend: (H) High (L) Low (P) Preliminary Imaging: CT Face Soft Tissue W/Contrast pending Last US: Patient states last ultasound was in September. Images downloading to [facility] now. No other imaging available. Patient underwent bedside US upon admission. 10/15/24: vertex, anterior placenta, +FHT, RODRÍGUEZ wnl Estimated Weight: ~1098g, 39%ile, 2/9 growth on L& Assessment: In summary, Ms Tapia is a 23 year old at 27w5d with sepsis suspected secondary to Ldental/mandibular abscess. Plan: 1) Sepsis - Suspected secondary to L dental/mandibular abscess - Met criteria for sepsis with leukocytosis, tachycardia, elevated lactate, and + source of infection - Blood cultures pending - Lactate 2.5 -> 0.7 - Afebrile, no subjective fevers or chills - WBC 18.0K -> 12.7K this AM - s/p I&D by OMFS with 5cc serosanguinous fluid. - Wound cultures pending - CT face/soft tissue pending - Peridex mouth rinse daily, no PO for 30 min after use - Follow up in oral surgery clinic for dental extraction this admission. - Appreciate care - Continue IV Abx, cefepime/flagyl for a total of 24-48 hours. Once clinically improved, may cease IV Abx and transition to PO Abx. Will f/u with OMFS regarding optimal Abx regimen. - Continue Tylenol 1000mg q6h and oxycodone PRN for pain. - Continue to trend AM CBC, BMP for resolution of leukocytosis and electrolyte disturbances - Magnesium 1.7 and Potassium 3.4 on admission, repleted on admission. 2) Elevated troponin - hs-cTnl ordered in ED, 15 -> 17, mildly elevated, delta <5, low suspicion for acute coronary process at this time. - Cardiopulmonary exam benign - Pt is asymptomatic, denies chest pain, SOB - EKG with mild sinus tachycardia (HR 102) 3) Hx of substance use - Prior meth/stimulant use, denies use during this . - Stable, no cravings - Patient agreeable to urine tox screen. - Urine tox screen ordered. 4) Hx of incarceration in - briefly incarcerated form late Aug-september. - SW consult placed. 5) Tobacco use - Current use = 1/2 ppd - Nicotine replacement PRN. 6) FWB - NST daily, AGA, reactive - Growth on admission, EFW 39%ile - Consider Formal SKILLED NURSING ultrasound this admission. 8) Asthma - Patient denies symptoms at this time. Had asthma as a child. Has not had any exacerbations thispregnancy. - Albuterol inhaler PRN. 9) Routine OB - Feeding: Undecided - Contraception: Undecided - Rh + / Rubella unknown / GBS unknown - Unclear as to care prior to this encounter, patient reports receiving care through [facility]. Latest [facility] records appear to be from 2020. Filling out record release form currently.Routine labs ordered as add- on labs. - Needs glucose OB screening, ordered. Dispo: Continue to monitor inpatient. Patient seen and discussed with Dr. Rahman . Reanna Mason MD Obstetrics and Gynecology, PGY-1 MFM Attending Note Patient is a 23yo at 27w5d admitted for mandibular abscess and sepsis. No complaints Pain improved Denies methamphetamine cravings Denies asthma exacerbation Has good movement Denies ctx, LOF or VB Vitals Recorded in This Encounter 10/16/2024 1045 10/16/2024 1154 10/16/2024 1200 10/16/2024 1255 10/16/2024 1545 BP: -- 121/81 -- -- 110/63 Pulse: -- 93 -- -- 88 Resp: -- 15 -- -- 17 Temp: -- 98.1 F (36.7 C) -- -- 98.1 F (36.7 C) Temp src: -- Oral -- -- Oral SpO2: -- 100 % -- -- 100 % Pain Score: 10 10 10 9 4 NAD RRR ABD soft, gravid, NTTP EFM Review 130 bpm Moderate variability + accels - decels TOCO quiescent - cont IV cefepime per OMFS recs - s/p I&S with plans for tooth extraction today - SW consult pendin - head CT pending - utox pending Teaching Physician Note: I saw and evaluated the patient. I personally obtained the garcia and critical portions of the historyand physical exam. I reviewed the resident's documentation and discussed the patient with the resident. I agree with the resident's medical decision making as documented in the resident's note. Talisha Rahman MD [id number] Plan of care note* Care Plan Note - Shasha Trevino RN - 10/15/2024 3:52 PM EST Problem: Routine Care: Goal: Patient care will be managed and maintained throughout hospital stay per unit specific routine care procedure Outcome: Progressing Problem: Infection: Goal: Will be free of signs and symptoms of infection Outcome: Progressing Problem: Knowledge Deficit: Goal: Ability to make informed decisions regarding treatment will improve Outcome: Progressing Goal: Knowledge of disease processes will improve Outcome: Progressing Problem: Acute Pain: Goal: Ability to identify pain intensity on a pain scale and rate it consistently will be achieved and maintained Outcome: Progressing Goal: Acceptable level of pain which allows the patient to achieve functional outcome goals Outcome: Progressing Problem: Safety: Goal: Patient will remain free of falls during hospital stay Outcome: Progressing Goal: Free from injury during hospitalization Outcome: Progressing Problem: Discharge Planning: Goal: Discharge needs of the adult patient will be met Outcome: Progressing [id number] Miscellaneous Notes* Care Plan Note - Shasha Trevino RN - 10/15/2024 3:52 PM EST Problem: Routine Care: Goal: Patient care will be managed and maintained throughout hospital stay per unit specific routine care procedure Outcome: Progressing Problem: Infection: Goal: Will be free of signs and symptoms of infection Outcome: Progressing Problem: Knowledge Deficit: Goal: Ability to make informed decisions regarding treatment will improve Outcome: Progressing Goal: Knowledge of disease processes will improve Outcome: Progressing Problem: Acute Pain: Goal: Ability to identify pain intensity on a pain scale and rate it consistently will be achieved and maintained Outcome: Progressing Goal: Acceptable level of pain which allows the patient to achieve functional outcome goals Outcome: Progressing Problem: Safety: Goal: Patient will remain free of falls during hospital stay Outcome: Progressing Goal: Free from injury during hospitalization Outcome: Progressing Problem: Discharge Planning: Goal: Discharge needs of the adult patient will be met Outcome: Progressing documented in this [id number] History and physical note* Glenn Choi MD - 10/15/2024 1:38 PM EST LABOR AND DELIVERY HISTORY AND PHYSICAL NOTE 10/15/2024 1:38 PM Chief complaint: Chief Complaint Patient presents with Dental Left lower dental pain and worsening swelling, onset Wednesday, 27 weeks OB Jose R Tapia is a 23 year old at 27w4d presents to Labor and Delivery for dental abscess andsepsis. She presented to [facility] ED on 10/14 with 2-3 days of worsening left lower jaw. She had beenseen in the [place] ED that morning and discharged on oral clindamycin. She was afebrile, labs notable for leukocytosis of 18.1 with left shift, lactate 0.8. CT head and neck showed subperiosteal abscess of L outer mandible extending from dental source with extensive cellulitis and reactive submandibular adenopathy. Transfer to [place] for treatment was initially planned due to no dental/OMFS providers available at [facility], but pt declined and left AMA, transported herself to [facility]. In the [facility] ED, labs notable for continued leukocytosis with L shift, mild hypomagnesemia/hypokalemia, and elevated lactate of 2.5. Afebrile but tachycardic to 120s on presentation and she met sepsis criteria at this time, so blood cx collected. She was seen by OMFS who performed I&D of L facial abscess in the ED with ~5cc fluid collected and sent for culture. OMFS recommended continuing IV antibiotics and CT facial bones with contrast, so pt was admitted to antepartum for continued IV abxand observation in the setting of sepsis. Currently, pt reports feeling tired and in pain. She has been able to swallow and drink fluids but not able to eat much for the past few days due to pain and unable to open mouth very wide. She reports she has been a patient at [facility] before. She lives in [place] but has plans to move to [place]. Pain is 5-6/10. No fevers or chills, palpitations, chest pain, SOB. She has n/v but has had it throughout . She reports no contractions, no vaginal bleeding, no leaking fluid, and normal movement. Her has been complicated by: # Mild intermittent asthma - in childhood, no medications # COVID 19 infection in - Diagnosed on 07/27/24 - Asymptomatic # Hx of substance use - Meth/stimulant use, reports no use since February. - Stopped prior to # Tobacco use - Current tobacco use, 1/2 ppd # Hx of incarceration - During end of August to mid-September # Transfer of care - receiving care at [facility] - Reports she has been getting routine OB care, last US was anatomy scan - Reports no glucola yet this Dating Summary Working BRIANNA: 01/10/2025 set by Melita Alejandre MD on 10/15/2024 based on Other Basis Based On BRIANNA GA Diff User Date Other Basis 01/10/2025 Working Melita Alejandre MD 10/15/2024 Comment: stated BRIANNA OB History Para Term AB Living 1 0 SAB IAB Ectopic Multiple Live Births # Outcome Date GA Lbr Jevon/2nd Weight Sex Type Anes PTL Lv 1 Current Obstetric Comments Due date January 10 Prior Delivery: No. Prior Shoulder Dystocia: No. Prior Delivery: No. Diabetes in : None. Hypertension in : None Infertility treatment: None. Conditions: None Anatomic Malformations: None Other Maternal Medical Conditions: None. Infections in : dental infection . History: Had total of greater than 3 visits. Primary OB Provider: [facility] No data found Past Medical History: Diagnosis Date Mild intermittent asthma (HCC) Pneumonia, organism unspecified(486) 09/30/04 Past Surgical History: Procedure Laterality Date NO PAST SURGICAL HISTORY Family History Problem Relation Age of Onset Other (colitis [Other]) Mother GI Disorders Mother Other (Tachycardia [Other]) Mother Good health Father Cancer runs in family Social History Tobacco Use Smoking status: Heavy Smoker Substance Use Topics Alcohol use: No Alcohol/week: 0.0 standard drinks of alcohol Drug use: No Allergies Allergen Reactions Latex Rash Penicillins Other Other Reaction(s): unsure - allergic as young child No current facility-administered medications on file prior to encounter. No current outpatient medications on file prior to encounter. OB Problem List None noted. Problems (from 10/15/24 to present) Problem Noted Diagnosed Resolved Third trimester (HCC) 10/15/2024 by Melita Alejandre MD No Review Of Systems: Negative except as noted in the HPI O: BP 117/72 (BP Location: left arm) Pulse 96 Temp 98 F (36.7 C) (Oral) Resp 18 Ht 5' 4.5 (1.638 m) Wt 160 lb 4.4 oz (72.7 kg) SpO2 99% BMI 27.09 kg/m GEN: NAD HEENT: L mandibular area with significant swelling. Unable to fully open mouth. Visibly carious L lower teeth. No visible drainage. thyroid not enlarged CV: Regular rhythm, mildly tachycardic Lungs: Clear bilaterally Abd: soft, gravid, non-tender Back: no CVAT Ext: no edema, non-tender Neuro: A&Ox3 Pelvic: deferred FHR: baseline 120s, moderate variability, +accels, no decels TOCO: acontractile U/S: vertex, anterior placenta, +FHT, RODRÍGUEZ wnl Estimated Weight: ~1098g, 39%ile, 2/9 growth on L&D Lab Results Component Value Date HCT 33.9 (L) 10/15/2024 HCT 37.1 12/31/2004 HCT 35.8 10/24/2001 ABORH 1999 Collection Date 99 Time 1004 Procedure ABORH O POS ANTIBODY SCREEN NEGATIVE VIJAY POLYSPECIF NEGATIVE Collection Date 99 Time 1004 Procedure ABO RH TYPE O POS ABSCINT 1999 Collection Date 99 Time 1004 Procedure ABORH O POS ANTIBODY SCREEN NEGATIVE VIJAY POLYSPECIF NEGATIVE Collection Date 99 Time 1004 Procedure ABO RH TYPE O POS Beta Strep Culture (no units) Date Value 10/10/2007 Beta-Streptococcus Culture Site: Throat Culture: Negative for beta-hemolytic Streptococci group A. Assessment: 23 year old at 27w4d admitted for IV antibiotics and management of sepsis in the setting of L dental/mandibular abscess. Plan: # L dental/mandibular abscess # Sepsis - Admit to antepartum - Meeting sepsis criteria with leukocytosis, tachycardia, elevated lactate, and source of infection - Blood cultures pending - Lactate 2.5 -> 0.7, now resolved - Afebrile, no subjective fevers or chills - s/p I&D drainage by OMFS with 5cc serosanguinous fluid drained - Wound cultures pending for bacterial and fungal orgs - Recommend CT facial bones with contrast, ordered - Recommend peridex mouthrinse daily, no PO for 30min after use - Follow up in oral surgery clinic during admission for dental extraction - Continue IV abx, on cefepime/flagyl - Tylenol 1000mg q6 and oxycodone PRN for pain - Mg 1.7 and K 3.4 on admission, repleted - Trend AM CBC, BMP for resolution of leukocytosis and resolution of electrolyte disturbance - HR OB consult placed # Elevated troponin - hs-cTnl ordered in ED, 15 -> 17, mildly elevated - Cardiopulmonary exam benign - Pt is asymptomatic, denies chest pain, SOB - EKG with mild sinus tachycardia (HR 102) # Hx of substance use - Prior meth/stimulant use, no use in - Stable, no cravings - Consider consult; pt has indicated she may also transfer care to [place] # Incarceration in - Briefly incarcerated from late Aug-mid September - Consider SW consult; pt has indicated she may also transfer care to [place] # Tobacco use - Current use, 1/2 ppd - Nicotine replacement ordered PRN while inpatient, pt currently declines # FWB - Cont daily NSTs, AGA, reactive - Growth on admission completed, EFW 39% # Routine OB: - labs available in Care Everywhere - Rh +/ RI / / CT neg / HBV neg / HCV neg / HIV neg / neg Ucx - Trichomonas/NG missing - will order if pt amenable to testing - Needs glucola, can consider while inpatient - Will sign record release form to obtain further records Daksha Kaba MD Staffed with Dr. Choi. OB STAFF I saw this [address] Dr[address] Kaba and reviewed her history and physical findings. I was present for the critical portion of the visit. Assessment and plan were formulated in conjunction with the resident. Moved to antepartum for monitoring s/p drainage of a dental abscess/concerns for sepsis on initial presentation. She currently appears clinically well aside from large amount of left-sided facial swelling. Lactate has normalized. OMFS to continue involvement in her care. NST AGA as above. I personally discussed the management plan with the patient and answered her questions. The patient expressed understanding of our management plan. Dr. Glenn Choi SDI Work Phone: [phone] NoteLABOR AND DELIVERY HISTORY AND PHYSICAL NOTE 10/15/2024 1:38 PM Chief complaint: Chief Complaint Patient presents with Dental Left lower dental pain and worsening swelling, onset Wednesday, 27 weeks OB Jose R Tapia is a 23 year old at 27w4d presents to Labor and Delivery for dental abscess and sepsis. She presented to [facility] ED on 10/14 with 2-3 days of worsening left lower jaw. She had been seen in the [place] ED that morning and discharged on oral clindamycin. She was afebrile, labs notable for leukocytosis of 18.1 with left shift, lactate 0.8. CT head and neck showed subperiosteal abscess of L outer mandible extending from dental source with extensive cellulitis and reactive submandibular adenopathy. Transfer to [place] for treatment was initially planned due to no dental/OMFS providers available at [facility], but pt declined and left AMA, transported herself to [facility]. In the [facility] ED, labs notable for continued leukocytosis with L shift, mild hypomagnesemia/hypokalemia, and elevated lactate of 2.5. Afebrile but tachycardic to 120s on presentation and she met sepsis criteria at this time, so blood cx collected. She was seen by OMFS who performed I AND D of L facial abscess in the ED with ~5cc fluid collected and sent for culture. OMFS recommended continuing IV antibiotics and CT facial bones with contrast, so pt was admitted to antepartum for continued IV abx and observation in the setting of sepsis. Currently, pt reports feeling tired and in pain. She has been able to swallow and drink fluids but not able to eat much for the past few days due to pain and unable to open mouth very wide. She reports she has been a patient at [facility] before. She lives in [place] but has plans to move to [place]. Pain is 5-6/10. No fevers or chills, palpitations, chest pain, SOB. She has n/v but has had it throughout . She reports no contractions, no vaginal bleeding, no leaking fluid, and normal movement. Her has been complicated by: # Mild intermittent asthma - in childhood, no medications # COVID 19 infection in - Diagnosed on 07/27/24 - Asymptomatic # Hx of substance use - Meth/stimulant use, reports no use since February. - Stopped prior to # Tobacco use - Current tobacco use, 1/2 ppd # Hx of incarceration - During end of August to mid-September # Transfer of care - receiving care at [facility] - Reports she has been getting routine OB care, last US was anatomy scan - Reports no glucola yet this Dating Summary Working BRIANNA: 01/10/2025 set by Melita Alejandre MD on 10/15/2024 based on Other Basis Based On BRIANNA [place] Diff User Date Other Basis 01/10/2025 Working Melita Alejandre MD 10/15/2024 Comment: stated BRIANNA OB History Para Term AB Living 1 0 SAB IAB Ectopic Multiple Live Births # Outcome Date GA Lbr Jevon/2nd Weight Sex Type Anes PTL Lv 1 Current Obstetric Comments Due date January 10 Prior Delivery: No. Prior Shoulder Dystocia: No. Prior Delivery: No. Diabetes in : None. Hypertension in : None Infertility treatment: None. Conditions: None Anatomic Malformations: None Other Maternal Medical Conditions: None. Infections in : dental infection . History: Had total of greater than 3 visits. Primary OB Provider: [facility] No data found Past Medical History: Diagnosis Date Mild intermittent asthma (HCC) Pneumonia, organism unspecified(486) 09/30/04 Past Surgical History: Procedure Laterality Date NO PAST SURGICAL HISTORY Family History Problem Relation Age of Onset Other (colitis [Other]) Mother GI Disorders Mother Other (Tachycardia [Other]) Mother Good health Father Cancer runs in family Social History Tobacco Use Smoking status: Heavy Smoker Substance Use Topics Alcohol use: No Alcohol/week: 0.0 standard drinks of alcohol Drug use: No Allergies Allergen Reactions Latex Rash Penicillins Other Other Reaction(s): unsure - allergic as young child No current facility-administered medications on file prior to encounter. No current outpatient medications on file prior to encounter. OB Problem List None noted. Problems (from 10/15/24 to present) Problem Noted Diagnosed Resolved Third trimester (HCC) 10/15/2024 by Melita Alejandre MD No Review Of Systems: Negative except as noted in the HPI O: BP 117/72 (BP Location: left arm) Pulse 96 Temp 98 ???F (36.7 ???C) (Oral) Resp 18 Ht 5' 4.5 (1.638 m) Wt 160 lb 4.4 oz (72.7 kg) SpO2 99% BMI 27.09 kg/m??? GEN: NAD HEENT: L mandibular area with significant swelling. Unable to fully open mouth. Visibly carious L lower teeth. No visible drainage. thyroid not enlarged CV: Regular rhythm, mildly tachycardic Lungs: Clear bilaterally Abd: soft, gravid, non-tender Back: no CVAT Ext: no edema, (more content not included)...The SDI [id number] History and physical note* Glenn Choi MD - 10/15/2024 1:38 PM EST LABOR AND DELIVERY HISTORY AND PHYSICAL NOTE 10/15/2024 1:38 PM Chief complaint: Chief Complaint Patient presents with Dental Left lower dental pain and worsening swelling, onset Wednesday, 27 weeks OB Jose R Tapia is a 23 year old at 27w4d presents to Labor and Delivery for dental abscess andsepsis. She presented to [facility] ED on 10/14 with 2-3 days of worsening left lower jaw. She had beenseen in the [place] ED that morning and discharged on oral clindamycin. She was afebrile, labs notable for leukocytosis of 18.1 with left shift, lactate 0.8. CT head and neck showed subperiosteal abscess of L outer mandible extending from dental source with extensive cellulitis and reactive submandibular adenopathy. Transfer to [place] for treatment was initially planned due to no dental/OMFS providers available at [facility], but pt declined and left AMA, transported herself to [facility]. In the [facility] ED, labs notable for continued leukocytosis with L shift, mild hypomagnesemia/hypokalemia, and elevated lactate of 2.5. Afebrile but tachycardic to 120s on presentation and she met sepsis criteria at this time, so blood cx collected. She was seen by OMFS who performed I&D of L facial abscess in the ED with ~5cc fluid collected and sent for culture. OMFS recommended continuing IV antibiotics and CT facial bones with contrast, so pt was admitted to antepartum for continued IV abxand observation in the setting of sepsis. Currently, pt reports feeling tired and in pain. She has been able to swallow and drink fluids but not able to eat much for the past few days due to pain and unable to open mouth very wide. She reports she has been a patient at [facility] before. She lives in [place] but has plans to move to [place]. Pain is 5-6/10. No fevers or chills, palpitations, chest pain, SOB. She has n/v but has had it throughout . She reports no contractions, no vaginal bleeding, no leaking fluid, and normal movement. Her has been complicated by: # Mild intermittent asthma - in childhood, no medications # COVID 19 infection in - Diagnosed on 07/27/24 - Asymptomatic # Hx of substance use - Meth/stimulant use, reports no use since February. - Stopped prior to # Tobacco use - Current tobacco use, 1/2 ppd # Hx of incarceration - During end of August to mid-September # Transfer of care - receiving care at [facility] - Reports she has been getting routine OB care, last US was anatomy scan - Reports no glucola yet this Dating Summary Working BRIANNA: 01/10/2025 set by Melita Alejandre MD on 10/15/2024 based on Other Basis Based On BRIANNA GA Diff User Date Other Basis 01/10/2025 Working Melita Alejandre MD 10/15/2024 Comment: stated BRIANNA OB History Para Term AB Living 1 0 SAB IAB Ectopic Multiple Live Births # Outcome Date GA Lbr Jevon/2nd Weight Sex Type Anes PTL Lv 1 Current Obstetric Comments Due date January 10 Prior Delivery: No. Prior Shoulder Dystocia: No. Prior Delivery: No. Diabetes in : None. Hypertension in : None Infertility treatment: None. Conditions: None Anatomic Malformations: None Other Maternal Medical Conditions: None. Infections in : dental infection . History: Had total of greater than 3 visits. Primary OB Provider: [facility] No data found Past Medical History: Diagnosis Date Mild intermittent asthma (HCC) Pneumonia, organism unspecified(486) 09/30/04 Past Surgical History: Procedure Laterality Date NO PAST SURGICAL HISTORY Family History Problem Relation Age of Onset Other (colitis [Other]) Mother GI Disorders Mother Other (Tachycardia [Other]) Mother Good health Father Cancer runs in family Social History Tobacco Use Smoking status: Heavy Smoker Substance Use Topics Alcohol use: No Alcohol/week: 0.0 standard drinks of alcohol Drug use: No Allergies Allergen Reactions Latex Rash Penicillins Other Other Reaction(s): unsure - allergic as young child No current facility-administered medications on file prior to encounter. No current outpatient medications on file prior to encounter. OB Problem List None noted. Problems (from 10/15/24 to present) Problem Noted Diagnosed Resolved Third trimester (HCC) 10/15/2024 by Melita Alejandre MD No Review Of Systems: Negative except as noted in the HPI O: BP 117/72 (BP Location: left arm) Pulse 96 Temp 98 F (36.7 C) (Oral) Resp 18 Ht 5' 4.5 (1.638 m) Wt 160 lb 4.4 oz (72.7 kg) SpO2 99% BMI 27.09 kg/m GEN: NAD HEENT: L mandibular area with significant swelling. Unable to fully open mouth. Visibly carious L lower teeth. No visible drainage. thyroid not enlarged CV: Regular rhythm, mildly tachycardic Lungs: Clear bilaterally Abd: soft, gravid, non-tender Back: no CVAT Ext: no edema, non-tender Neuro: A&Ox3 Pelvic: deferred FHR: baseline 120s, moderate variability, +accels, no decels TOCO: acontractile U/S: vertex, anterior placenta, +FHT, RODRÍGUEZ wnl Estimated Weight: ~1098g, 39%ile, 2/9 growth on L&D Lab Results Component Value Date HCT 33.9 (L) 10/15/2024 HCT 37.1 12/31/2004 HCT 35.8 10/24/2001 ABORH 1999 Collection Date 99 Time 1004 Procedure ABORH O POS ANTIBODY SCREEN NEGATIVE VIJAY POLYSPECIF NEGATIVE Collection Date 99 Time 1004 Procedure ABO RH TYPE O POS ABSCINT 1999 Collection Date 99 Time 1004 Procedure ABORH O POS ANTIBODY SCREEN NEGATIVE VIJAY POLYSPECIF NEGATIVE Collection Date 99 Time 1004 Procedure ABO RH TYPE O POS Beta Strep Culture (no units) Date Value 10/10/2007 Beta-Streptococcus Culture Site: Throat Culture: Negative for beta-hemolytic Streptococci group A. Assessment: 23 year old at 27w4d admitted for IV antibiotics and management of sepsis in the setting of L dental/mandibular abscess. Plan: # L dental/mandibular abscess # Sepsis - Admit to antepartum - Meeting sepsis criteria with leukocytosis, tachycardia, elevated lactate, and source of infection - Blood cultures pending - Lactate 2.5 -> 0.7, now resolved - Afebrile, no subjective fevers or chills - s/p I&D drainage by OMFS with 5cc serosanguinous fluid drained - Wound cultures pending for bacterial and fungal orgs - Recommend CT facial bones with contrast, ordered - Recommend peridex mouthrinse daily, no PO for 30min after use - Follow up in oral surgery clinic during admission for dental extraction - Continue IV abx, on cefepime/flagyl - Tylenol 1000mg q6 and oxycodone PRN for pain - Mg 1.7 and K 3.4 on admission, repleted - Trend AM CBC, BMP for resolution of leukocytosis and resolution of electrolyte disturbance - HR OB consult placed # Elevated troponin - hs-cTnl ordered in ED, 15 -> 17, mildly elevated - Cardiopulmonary exam benign - Pt is asymptomatic, denies chest pain, SOB - EKG with mild sinus tachycardia (HR 102) # Hx of substance use - Prior meth/stimulant use, no use in - Stable, no cravings - Consider SW consult; pt has indicated she may also transfer care to [place] # Incarceration in - Briefly incarcerated from late Aug-mid September - Consider SW consult; pt has indicated she may also transfer care to [place] # Tobacco use - Current use, 1/2 ppd - Nicotine replacement ordered PRN while inpatient, pt currently declines # FWB - Cont daily NSTs, AGA, reactive - Growth on admission completed, EFW 39% # Routine OB: - labs available in Care Everywhere - Rh +/ RI / / CT neg / HBV neg / HCV neg / HIV neg / neg Ucx - Trichomonas/NG missing - will order if pt amenable to testing - Needs glucola, can consider while inpatient - Will sign record release form to obtain further records Daksha Kaba MD Staffed with Dr. Choi. OB STAFF I saw this [address] Kaba and reviewed her history and physical findings. I was present for the critical portion of the visit. Assessment and plan were formulated in conjunction with the resident. Moved to antepartum for monitoring s/p drainage of a dental abscess/concerns for sepsis on initial presentation. She currently appears clinically well aside from large amount of left-sided facial swelling. Lactate has normalized. OMFS to continue involvement in her care. NST AGA as above. I personally discussed the management plan with the patient and answered her questions. The patient expressed understanding of our management plan. Dr. Glenn Choi documented in this [id number] Physician Emergency department Note* Ev Sparks MD - 10/15/2024 12:47 PM EST Images from the original note were not included. EMERGENCY DEPARTMENT - VISIT NOTE HISTORY OF PRESENT ILLNESS Chief Complaint Patient presents with Dental Left lower dental pain and worsening swelling, onset Wednesday, 27 weeks OB HIPAA: Verbal permission granted from patient to discuss case, including protected health information, in front of family / friends in room at the time of the evaluation. Measurer: not needed - patient preferred language is [place] Zealander. The history is provided by the Patient. Jose R Tapia is a 23 year old female (at 27 weeks, due date january 10) h/o meth abuse (per chart review, last use 8 months prior), presenting to the ED for further evaluation of dental pain/infection. Patient reports she has had 3 days of left dental pain, and 2 days of significant facial swelling. She reports she went to [facility] ed on Wednesday/Sat and in the ed they initially tried to drain her abscess, and then ordered blood work ct and iv abx. They told her she would need to go to [facility] for OFMSconsult, patient decided to leave AMA last night and come to [facility] for Care. Patient reports sig pain left lower face, non radiating. Swelling. Difficulty eating d/t pain. No fevers. No gen weakness. No n/v. No abd pain, no vb, no lof, no contractions. + FM. OSH records reviewed: 10/14: HR 128, T 97.5 122/78 BP Pulse ox 98% WBC: 18.1 CT: subperiosteal abscess of left mandible from dental source, with extensive cellulitis left lowerface, with mild reactive adenopathy in submandibular region. Follows with OB at [place] no recent OB care given was [facility]. REVIEW OF SYSTEMS Review of Systems Constitutional: Negative for chills and fever. HENT: Positive for dental problem and facial swelling. Negative for congestion and rhinorrhea. Eyes: Negative for discharge and redness. Respiratory: Negative for cough, shortness of breath and wheezing. Cardiovascular: Negative for chest pain and palpitations. Gastrointestinal: Negative for abdominal pain, diarrhea, nausea and vomiting. Genitourinary: Negative for decreased urine volume, difficulty urinating, dysuria, frequency and vaginal bleeding. Musculoskeletal: Negative for arthralgias and myalgias. Skin: Negative for color change, rash and wound. Neurological: Negative for syncope, weakness and headaches. Psychiatric/Behavioral: Negative for behavioral problems and confusion. PAST HISTORY Pertinent Past History: Past Medical History: Diagnosis Date Mild intermittent asthma (HCC) Pneumonia, organism unspecified(486) 09/30/04 Pertinent Family History: Family History Problem Relation Age of Onset Other (colitis [Other]) Mother GI Disorders Mother Other (Tachycardia [Other]) Mother Good health Father Cancer runs in family Pertinent Social History: Social History Occupational History Not on file Tobacco Use Smoking status: Heavy Smoker Smokeless tobacco: Not on file Substance and Sexual Activity Alcohol use: No Alcohol/week: 0.0 standard drinks of alcohol Drug use: No Sexual activity: Never Smoking cessation counseling of less than 3 minutes was provided to the patient including Reinforced decision not to smoke. PHYSICAL EXAM BP 109/63 (BP Location: left arm) Pulse 96 Temp 97.9 F (36.6 C) (Oral) Resp 17 Ht 5' 4.5 (1.638 m) Wt 160 lb 4.4 oz (72.7 kg) SpO2 100% Unknown BMI 27.09 kg/m Const: NAD, Nontoxic, Well nourished, Well Appearing Head: Normocephalic Atruamtic Eyes: PERRL, no conjuctival injection, symmetrical eyelids ENMT: atraumatic ext nose ears, MMM Left face significant manibular edema and erythema noted Multiple dental carious noted, with abscess noted adjacent left lower 19/20 No submandib fullness No trismus Handling secretions Neck: supple, trachea midline , stridor CV: heart rrr no mrg , 2+ peripheral pulses, no edema Resp: Lungs CTAB no wrr GI: soft, gravid, nt, no peritoneal signs MSK: extremities without deformities or ttp Skin: Warm Dry No rash Neuro: CN II-XII grossly intact, strength sensation grossly intact Psych: Alert And Oriented, Approp Mood/Affect MEDICAL DECISION MAKING and ED COURSE History from Independent Historian: Mother reports, swelling sig increased over past 48 hours. Review of External (Non- ED) Notes: See HPI Management Decisions: CT considered but not performed due to able to obtain OSH images. Images sent over from [employer] order in, plant technician/control room operator notified and requested to upload images. - low susp for sig airway involvement, lower susp cuca chow (contrast risk in preg), defer repeat imaging Discussion with External Provider: OFMS - I/d done at bedside OB-METAL CONTROL WORKER send to L/D for further tx and eval ED prescription drug management decision making: Medications prescribed - see visit medications. Independent Test Interpretation: See ed course EKG: ST 102, no lola, no std, no e/o acute ischemic process, no e/o arrythmia qtc 424, rev int by self. ED Course as of 10/16/24 1052 Sun Oct 15, 2024 1012 Concern for sepsis 10:12 AM 10/15/2024. Upon obtaining OSH records CT findings were reviewed, and elevated wbc noted, with tachycardia , c/w sepsis criteria Source: Subperiosteal abscess left mandible, periapical abscess left mandibular molars with cellulitis. NO e.o. end organ damage shock hypotension, and LA < 4 - no req 30cc/kg bolus. Plan cultures, iv abx, and sepsis monitoring. [MILLI] 1036 EKG: rev int by self, ST rate 102, no lola, no std, qtc 424 [MILLI] 1037 COMPLETE BLOOD COUNT W/DIFF (RAPID RESPONSE LABS)(!): WBC 18.0(!) RBC 3.83(!) Hemoglobin 11.0(!) Hematocrit 33.9(!) MCV 88 MCH 28.7 MCHC 32.5 Platelet 330 RDW-CV% 14.1 MPV 8.1 Neutrophils 81.3(!) Neutrophil # 14.60(!) Lymphocytes 10.1(!) Lymph Absolute 1.80 Monocytes 7.5 Monocyte Absolute 1.34(!) Eosinophil 0.9 Eosinophil Absolute 0.17 Basophils 0.2 Basophil # 0.04 MDW 23(!) Leukocytosis with chronc [MILLI] 1229 Requesting pain meds, risk benefit discussed given preg stat. Sdm fentanyl [MILLI] 1234 Spoke with ob gn [MILLI] 1241 report called automobile tire builder resident dieter 1241 [MILLI] ED Course User Index [MILLI] Ev Sparks MD MDM/Plan: 23female, at 27weeks ga, presenting to ED, for further evaluation of Subperiosteal abscess left mandible, periapical abscess left mandibular molars with cellulitis. No significant systemic symptoms, no fevers. However on arrival tachycardic - above expected third tri rate. Afebrile. Normotensive. Physical exam with significant facial edema erythema left mandibular region with notable abscess, and poor dentition left mandibular molars. Protecting airway. NO e/o acute preg complication. Plan, OFMS consults, labs, upload CT imaging, tylenol for pain. Obtain OSH records - get imaging sent over in [facility] from [facility]. Workup notable for leukocytosis 18k with neutrophil predom concerningfor infection, no radha, hypomag - replaced, otherwise no sig lyte abn, LA initially 2.5 (getting 1L ivf), elevated troponin - likely demand no e/o ischemia EKG, trend, coags no sig abn. Patient with sepsis criteria, source + wbc, + tachycardia. Started on iv abx and cultures obt. Given pcn allergy, started on cefepime/flagyl (cat b preg). Given 1L ivf. OFMS drained abscess at bedside, cultures sent. D/w OFMS that she would benefit from hospitilization d/t sepsis dx and need for IV abx. Agreeableto plan. D/w OB-METAL CONTROL WORKER given status - 27 weeks. 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 Nofurther recs. SDM utilized severe 10/10 pain after I/d and tylenol - risk benefit narcotic discussed and affect on preg. 1 x dose fentanyl given for severe pain. IMPRESSION AND DISPOSITION Clinical Impression Diagnosis Comment Third trimester (HCC) [Z34.93] Dental abscess [K04.7] SIRS (systemic inflammatory response syndrome) (HCC) [R65.10] Submandibular abscess [K12.2] Tachycardia [R00.0] Leukocytosis, unspecified type [D72.829] History of drug abuse ([facility]) [F19.11] Anemia affecting in third trimester ([facility]) [O99.013] Disposition: Admitted to Labor and Delivery. Report called to report called automobile tire builder resident [id number] (10/15/24 1241) The patient has received a medical screening examination and within reasonable clinical confidence the patient was stabilized within the capabilities of the emergency department and requires admission / observation. Counseling: Spoke with the patient and discussed today s findings, in addition to providing specific details for the plan of care and expected course. They were given the opportunity to ask questions. Ev Sparks MD [id number] Emergency department Note* Ev Sparks MD - 10/15/2024 12:47 PM EST Images from the original note were not included. EMERGENCY DEPARTMENT - VISIT NOTE HISTORY OF PRESENT ILLNESS Chief Complaint Patient presents with Dental Left lower dental pain and worsening swelling, onset Wednesday, 27 weeks OB HIPAA: Verbal permission granted from patient to discuss case, including protected health information, in front of family / friends in room at the time of the evaluation. Measurer: not needed - patient preferred language is New Zealander. The history is provided by the Patient. Jose R Tapia is a 23 year old female (at 27 weeks, due date january 10) h/o meth abuse (per chart review, last use 8 months prior), presenting to the ED for further evaluation of dental pain/infection. Patient reports she has had 3 days of left dental pain, and 2 days of significant facial swelling. She reports she went to [facility] on Wednesday/Sat and in the ed they initially tried to drain her abscess, and then ordered blood work ct and iv abx. They told her she would need to go to [facility] for OFMSconsult, patient decided to leave AMA last night and come to [facility]. Patient reports sig pain left lower face, non radiating. Swelling. Difficulty eating d/t pain. No fevers. No gen weakness. No n/v. No abd pain, no vb, no lof, no contractions. + FM. OSH records reviewed: 10/14: HR 128, T 97.5 122/78 BP Pulse ox 98% WBC: 18.1 CT: subperiosteal abscess of left mandible from dental source, with extensive cellulitis left lowerface, with mild reactive adenopathy in submandibular region. Follows with OB at [place] no recent OB care given was [facility]. REVIEW OF SYSTEMS Review of Systems Constitutional: Negative for chills and fever. HENT: Positive for dental problem and facial swelling. Negative for congestion and rhinorrhea. Eyes: Negative for discharge and redness. Respiratory: Negative for cough, shortness of breath and wheezing. Cardiovascular: Negative for chest pain and palpitations. Gastrointestinal: Negative for abdominal pain, diarrhea, nausea and vomiting. Genitourinary: Negative for decreased urine volume, difficulty urinating, dysuria, frequency and vaginal bleeding. Musculoskeletal: Negative for arthralgias and myalgias. Skin: Negative for color change, rash and wound. Neurological: Negative for syncope, weakness and headaches. Psychiatric/Behavioral: Negative for behavioral problems and confusion. PAST HISTORY Pertinent Past History: Past Medical History: Diagnosis Date Mild intermittent asthma (HCC) Pneumonia, organism unspecified(486) 09/30/04 Pertinent Family History: Family History Problem Relation Age of Onset Other (colitis [Other]) Mother GI Disorders Mother Other (Tachycardia [Other]) Mother Good health Father Cancer runs in family Pertinent Social History: Social History Occupational History Not on file Tobacco Use Smoking status: Heavy Smoker Smokeless tobacco: Not on file Substance and Sexual Activity Alcohol use: No Alcohol/week: 0.0 standard drinks of alcohol Drug use: No Sexual activity: Never Smoking cessation counseling of less than 3 minutes was provided to the patient including Reinforced decision not to smoke. PHYSICAL EXAM BP 109/63 (BP Location: left arm) Pulse 96 Temp 97.9 F (36.6 C) (Oral) Resp 17 Ht 5' 4.5 (1.638 m) Wt 160 lb 4.4 oz (72.7 kg) SpO2 100% Unknown BMI 27.09 kg/m Const: NAD, Nontoxic, Well nourished, Well Appearing Head: Normocephalic Atruamtic Eyes: PERRL, no conjuctival injection, symmetrical eyelids ENMT: atraumatic ext nose ears, MMM Left face significant manibular edema and erythema noted Multiple dental carious noted, with abscess noted adjacent left lower 19/20 No submandib fullness No trismus Handling secretions Neck: supple, trachea midline , stridor CV: heart rrr no mrg , 2+ peripheral pulses, no edema Resp: Lungs CTAB no wrr GI: soft, gravid, nt, no peritoneal signs MSK: extremities without deformities or ttp Skin: Warm Dry No rash Neuro: CN II-XII grossly intact, strength sensation grossly intact Psych: Alert And Oriented, Approp Mood/Affect MEDICAL DECISION MAKING and ED COURSE History from Independent Historian: Mother reports, swelling sig increased over past 48 hours. Review of External (Non- ED) Notes: See HPI Management Decisions: CT considered but not performed due to able to obtain OSH images. Images sent over from [employer], [employer] order in, plant technician/control room operator notified and requested to upload images. - low susp for sig airway involvement, lower susp abraham, cuca (contrast risk in preg), defer repeat imaging Discussion with External Provider: OFMS - I/d done at bedside OB-METAL CONTROL WORKER send to L/D for further tx and eval ED prescription drug management decision making: Medications prescribed - see visit medications. Independent Test Interpretation: See ed course EKG: ST 102, no lola, no std, no e/o acute ischemic process, no e/o arrythmia qtc 424, rev int by self. ED Course as of 10/16/24 1052 Sun Oct 15, 2024 1012 Concern for sepsis 10:12 AM 10/15/2024. Upon obtaining OSH records CT findings were reviewed, and elevated wbc noted, with tachycardia , c/w sepsis criteria Source: Subperiosteal abscess left mandible, periapical abscess left mandibular molars with cellulitis. NO e.o. end organ damage shock hypotension, and LA < 4 - no req 30cc/kg bolus. Plan cultures, iv abx, and sepsis monitoring. [MILLI] 1036 EKG: rev int by self, ST rate 102, no lola, no std, qtc 424 [MILLI] 1037 COMPLETE BLOOD COUNT W/DIFF (RAPID RESPONSE LABS)(!): WBC 18.0(!) RBC 3.83(!) Hemoglobin 11.0(!) Hematocrit 33.9(!) MCV 88 MCH 28.7 MCHC 32.5 Platelet 330 RDW-CV% 14.1 MPV 8.1 Neutrophils 81.3(!) Neutrophil # 14.60(!) Lymphocytes 10.1(!) Lymph Absolute 1.80 Monocytes 7.5 Monocyte Absolute 1.34(!) Eosinophil 0.9 Eosinophil Absolute 0.17 Basophils 0.2 Basophil # 0.04 MDW 23(!) Leukocytosis with chronc [MILLI] 1229 Requesting pain meds, risk benefit discussed given preg stat. Sdm fentanyl [MILLI] 1234 Spoke with ob gn [MILLI] 1241 report called automobile tire builder resident dieter 1241 [MILLI] ED Course User Index [MILLI] Ev Sparks MD MDM/Plan: 23female, at 27weeks ga, presenting to ED, for further evaluation of Subperiosteal abscess left mandible, periapical abscess left mandibular molars with cellulitis. No significant systemic symptoms, no fevers. However on arrival tachycardic - above expected third tri rate. Afebrile. Normotensive. Physical exam with significant facial edema erythema left mandibular region with notable abscess, and poor dentition left mandibular molars. Protecting airway. NO e/o acute preg complication. Plan, OFMS consults, labs, upload CT imaging, tylenol for pain. Obtain OSH records - get imaging sent over in [employer] from [facility]. Workup notable for leukocytosis 18k with neutrophil predom concerningfor infection, no radha, hypomag - replaced, otherwise no sig lyte abn, LA initially 2.5 (getting 1L ivf), elevated troponin - likely demand no e/o ischemia EKG, trend, coags no sig abn. Patient with sepsis criteria, source + wbc, + tachycardia. Started on iv abx and cultures obt. Given pcn allergy, started on cefepime/flagyl (cat b preg). Given 1L ivf. OFMS drained abscess at bedside, cultures sent. D/w OFMS that she would benefit from hospitilization d/t sepsis dx and need for IV abx. Agreeableto plan. D/w OB-METAL CONTROL WORKER given status - 27 weeks. 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 Nofurther recs. SDM utilized severe 10/10 pain after I/d and tylenol - risk benefit narcotic discussed and affect on preg. 1 x dose fentanyl given for severe pain. IMPRESSION AND DISPOSITION Clinical Impression Diagnosis Comment Third trimester (HCC) [Z34.93] Dental abscess [K04.7] SIRS (systemic inflammatory response syndrome) (HCC) [R65.10] Submandibular abscess [K12.2] Tachycardia [R00.0] Leukocytosis, unspecified type [D72.829] History of drug abuse (HCC) [F19.11] Anemia affecting in third trimester (HCC) [O99.013] Disposition: Admitted to Labor and Delivery. Report called to report called automobile tire builder resident [id number] (10/15/24 1241) The patient has received a medical screening examination and within reasonable clinical confidence the patient was stabilized within the capabilities of the emergency department and requires admission / observation. Counseling: Spoke with the patient and discussed today s findings, in addition to providing specific details for the plan of care and expected course. They were given the opportunity to ask questions. Ev Sparks MD documented in this [id number] Consult note* Maribell Gary, DDS - 10/15/2024 12:03 PM EST Images from the original note were not included. CONSULTATION, ORAL & MAXILLOFACIAL SURGERY Name: Jose R Tapia : 2000 Location: [place] [address] Consulting Team/Attending: ED (Ev Sparks MD) Reason for Consult: Left sided facial swelling History of Present Illness Jose R Tapia is a 23 year old female who is 27 weeks w/ PMH notable for asthma, presenting to [facility] with CC of left sided facial swelling that began on Wednesday10/13/2024. Patient went to [facility], was given IV abx and planned to be transferred to [facility] as they did not have an oral surgeon combustion analyst. Patient left on her own accord and came to [facility] with worsening left sided jaw pain and swelling. Denies difficulty swallowing, SOB and is able to tolerate her own secretions. Review of Systems ROS: Negative unless otherwise stated in HPI Constitutional: Reports occasional fatigue Eyes: Patient denies blurry vision, drainage, diplopia, erythema, vision loss/change. Ears: Patient denies changes in hearing, deafness, drainage from ears, pain. Nose: Patient denies epistaxis, congestion, pain, changes in smell. Mouth/Neck: Patient denies changes in speech, odynophagia, dysphagia, drooling, throat pain, inability to swallow. Respiratory: Patient denies cough, hemoptysis, wheezing, shortness of breath, increased work of breathing. Cardiac: Patient denies chest pain, dyspnea on exertion, orthopnea, palpitations, syncope. Gastrointestinal: Patient denies nausea, vomiting, diarrhea, constipation, abdominal pain. Genitourinary: Reports increased urinary frequency due to Neurological: Denies sensory changes in CN V3 bilaterally Past Medical History Past Medical History: Diagnosis Date Mild intermittent asthma (HCC) Pneumonia, organism unspecified(486) 09/30/04 Past Surgical History Review of patient's past surgical history indicates: NO PAST SURGICAL HISTORY Family History Family History Problem Relation Age of Onset Other (colitis [Other]) Mother GI Disorders Mother Other (Tachycardia [Other]) Mother Good health Father Cancer runs in family Social History Social History Tobacco Use Smoking status: Heavy Smoker Smokeless tobacco: Not on file Substance Use Topics Alcohol use: No Alcohol/week: 0.0 standard drinks of alcohol Medications cefepime ivpb, 2,000 mg, Intravenous, Q8H Antibiotic metroNIDAZOLE, 500 mg, Intravenous, Q8H Antibiotic Current Facility-Administered Medications: cefepime (MAXIPIME) 2,000 mg in sterile water for injection 20 mL IV push, 2,000 mg, Intravenous, Q8H Antibiotic, Ev Sparks MD metroNIDAZOLE (FLAGYL) 500 MG/100ML ivpb, 500 mg, Intravenous, Q8H Antibiotic, Ev Sparks MD, Last Rate: 100 mL/hr at 10/15/24 1033, 500 mg at 10/15/24 1033 No current outpatient medications on file. Allergies Allergies Allergen Reactions Latex Rash Penicillins Other Other Reaction(s): unsure - allergic as young child Physical Exam BP 114/76 Pulse (!) 108 Temp 98.1 F (36.7 C) (Oral) Resp 18 Ht 5' 4 (1.626 m) Wt 160 lb (72.6 kg) SpO2 98% BMI 27.46 kg/m GENERAL: Laying comfortably in bed. Well appearing. No acute distress. Well developed. Well nourished. HEAD: Left sided facial swelling. No lacerations, masses, or lesions of scalp. Skin without erythema, scarring, or rashes. EYES: EOM intact. Sclera normal. Without conjunctival erythema or drainage. PERRLA. EARS: Normal external ears NOSE: External nose midline. Without bleeding or drainage. ORAL: moist mucus membranes. Normal tongue. FOM without induration or raising. Uvula symmetric. Pharyngeal renteria without masses or lesions. Grossly carious teeth #17,19,20 with adjacent vestibular swelling and TTP. Stable and reproducible occlusion. No TMJ clicking or popping. Maximal incisal opening ~30mm. Patient tolerating her own secretions. NECK: Without difficulty swallowing. Parotid and submandibular glands without edema or tenderness bilaterally. Inferior border of the mandible palpable b/l RESPIRATION/VOICE: Breathing comfortable on room air. No hoarseness, wheezing, or stridor. Ausculation of lungs clear bilaterally without crackles or rhonchi. CARDIOVASCULAR: Regular rate and rhythm. No clubbing, cyanosis, or edema in hands or feet. SNEURO: Awake and alert. Oriented to person, place, and time. Cranial Nerves V and VII grossly intact and symmetric bilaterally. No anesthesia or paresthesia of CNV3 distribution bilaterally. PSYCH: Appropriate mood and affect. Relevant Labs Vital Sign Ranges: Temperature: [98.1 F (36.7 C)] 98.1 F (36.7 C) Heart Rate: [108-121] 108 Respiratory Rate: [16-18] 18 BP: (114-116)/(74-76) 114/76 CBC, PT, PTT, INR: CBC/PT/INR 10/15/2024 9:31 AM WBC 18.0 RBC 3.83 Hgb 11.0 Hct 33.9 MCV 88 RDW 14.1 Plt 330 aPTT 28 INR 1.11 BMP: Basic Metabolic Panel 10/15/2024 9:31 AM Na 137 K 3.4 Cl 104 CO2 22 Gap 14 Glu 90 BUN 4 Cr 0.53 Ca 8.[address] facial bones pending, to be transferred from outside facility. Assessment and Plan Jose R Tapia is a 23 year old female, Hospital Day: 1, who Oral & Maxillofacial Facial was consulted for management/evaluation of left sided facial swelling. Clinical examination is most consistent with diagnosis of left vestibular abscess in the region of carious teeth #17-20. CBC shows elevated WBC of 18.0. CT scan pending, to be transferred from outside facility. Plan to do bedside I&D of left vestibular abscess. Procedures Obtained verbal consent from the patient to complete I&D of left facial abscess. Administered approx. 12cc of 1% lidocaine w/ 1:100,000 epi via infiltration at the site of intended I&D in theLLQ. Used a 15 blade to create a 2 cm stab incision adjacent to teeth #19-20. Used a hemostat to bluntly dissect down to bone. Approx 5cc of serosanguinis discharge expressed from the wound. Obtained culture. Irrigated with 70cc of NS. Placed gauze for hemostasis. Indication/Pre-Op Diagnosis: Left sided vestibular abscess Consent: Verbally obtained. Anesthetic: 12cc1% lidocaine with 1:100,000 epinephrine Significant findings: serosanguinius discharge The patient tolerated the procedure well. OMFS Recommendations - Continue IV abx while in house with cefipime and flagyl - Analgesics per primary - Peridex mouthrinse, swish and spit. Do not eat or drink for 30 minutes after - Follow up labs; CBC - Send culture for bacterial and fungal organisms (culture placed at bedside) - Obtain CT facial bones with contrast - Follow up with oral surgery clinic while inpatient to extract indicated teeth #19-20. - OMFS will arrange a follow up appointment. Please provide the patient / family with our clinic number [phone] to confirm the appointment. Maribell Gary DDS Oral & Maxillofacial Surgery, PGY-3 Team Pager: [phone] Attending: Dr. Chad Davis DMD, MD Cosigned by Chad Davis DMD, MD at 10/16/2024 2:55 PM EST [facility] Work Phone: [phone] NoteCONSULTATION, END MAKER Name: Jose R Tapia : 2000 Location: [place] [address] Consulting Team/Attending: ED (Ev Sparks MD) Reason for Consult: Left sided facial swelling History of Present Illness Jose R Tapia is a 23 year old female who is 27 weeks w/ PMH notable for asthma, presenting to [facility] with CC of left sided facial swelling that began on Wednesday10/13/2024. Patient went to [facility], was given IV abx and planned to be transferred to [facility] as they did not have an oral surgeon combustion analyst. Patient left on her own accord and came to [facility] ED with worsening left sided jaw pain and swelling. Denies difficulty swallowing, SOB and is able to tolerate her own secretions. Review of Systems ROS: Negative unless otherwise stated in HPI Constitutional: Reports occasional fatigue Eyes: Patient denies blurry vision, drainage, diplopia, erythema, vision loss/change. Ears: Patient denies changes in hearing, deafness, drainage from ears, pain. Nose: Patient denies epistaxis, congestion, pain, changes in smell. Mouth/Neck: Patient denies changes in speech, odynophagia, dysphagia, drooling, throat pain, inability to swallow. Respiratory: Patient denies cough, hemoptysis, wheezing, shortness of breath, increased work of breathing. Cardiac: Patient denies chest pain, dyspnea on exertion, orthopnea, palpitations, syncope. Gastrointestinal: Patient denies nausea, vomiting, diarrhea, constipation, abdominal pain. Genitourinary: Reports increased urinary frequency due to Neurological: Denies sensory changes in CN V3 bilaterally Past Medical History Past Medical History: Diagnosis Date Mild intermittent asthma (HCC) Pneumonia, organism unspecified(486) 09/30/04 Past Surgical History Review of patient's past surgical history indicates: NO PAST SURGICAL HISTORY Family History Family History Problem Relation Age of Onset Other (colitis [Other]) Mother GI Disorders Mother Other (Tachycardia [Other]) Mother Good health Father Cancer runs in family Social History Social History Tobacco Use Smoking status: Heavy Smoker Smokeless tobacco: Not on file Substance Use Topics Alcohol use: No Alcohol/week: 0.0 standard drinks of alcohol Medications cefepime ivpb, 2,000 mg, Intravenous, Q8H Antibiotic metroNIDAZOLE, 500 mg, Intravenous, Q8H Antibiotic Current Facility-Administered Medications: cefepime (MAXIPIME) 2,000 mg in sterile water for injection 20 mL IV push, 2,000 mg, Intravenous, Q8H Antibiotic, Ev Sparks MD metroNIDAZOLE (FLAGYL) 500 MG/100ML ivpb, 500 mg, Intravenous, Q8H Antibiotic, Ev Sparks MD, Last Rate: 100 mL/hr at 10/15/24 1033, 500 mg at 10/15/24 1033 No current outpatient medications on file. Allergies Allergies Allergen Reactions Latex Rash Penicillins Other Other Reaction(s): unsure - allergic as young child Physical Exam BP 114/76 Pulse (!) 108 Temp 98.1 ???F (36.7 ???C) (Oral) Resp 18 Ht 5' 4 (1.626 m) Wt 160 lb (72.6 kg) SpO2 98% BMI 27.46 kg/m??? GENERAL: Laying comfortably in bed. Well appearing. No acute distress. Well developed. Well nourished. HEAD: Left sided facial swelling. No lacerations, masses, or lesions of scalp. Skin without erythema, scarring, or rashes. EYES: EOM intact. Sclera normal. Without conjunctival erythema or drainage. PERRLA. EARS: Normal external ears NOSE: External nose midline. Without bleeding or drainage. ORAL: moist mucus membranes. Normal tongue. FOM without induration or raising. Uvula symmetric. Pharyngeal renteria without masses or lesions. Grossly carious teeth #17,19,20 with adjacent vestibular swelling and TTP. Stable and reproducible occlusion. No TMJ clicking or popping. Maximal incisal opening ~30mm. Patient tolerating her own secretions. NECK: Without difficulty swallowing. Parotid and submandibular glands without edema or tenderness bilaterally. Inferior border of the mandible palpable b/l RESPIRATION/VOICE: Breathing comfortable on room air. No hoarseness, wheezing, or stridor. Ausculation of lungs clear bilaterally without crackles or rhonchi. CARDIOVASCULAR: Regular rate and rhythm. No clubbing, cyanosis, or edema in hands or feet. SNEURO: Awake and alert. Oriented to person, place, and time. Cranial Nerves V and VII grossly intact and symmetric bilaterally. No anesthesia or paresthesia of CNV3 distribution bilaterally. PSYCH: Appropriate mood and affect. Relevant Labs Vital Sign Ranges: Temperature: [98.1 ???F (36.7 ???C)] 98.1 ???F (36.7 ???C) Heart Rate: [108-121] 108 Respiratory Rate: [16-18] 18 BP: (114-116)/(74-76) 114/76 CBC, PT, PTT, INR: CBC/PT/INR 10/15/2024 9:31 AM WBC 18.0 RBC 3.83 Hgb 11.0 Hct 33.9 MCV 88 RDW 14.1 Plt 330 aPTT 28 INR 1.11 BMP: Basic Metabolic Panel 10/15/2024 9:31 AM Na 137 K 3.4 Cl 104 (more content not included)...The SDI [id number] Note. MICRO - Microbiology PROCEDURE: Urine Culture [*1] SOURCE: Urine, Clean Catch BODY SITE: COLLECTED DATE/TIME: 08/01/2024 09:34 EST RECEIVED DATE/TIME: 08/01/2024 19:47 EST START DATE/TIME: 08/01/2024 19:47 EST FREE TEXT SOURCE: FINAL REPORTS Final Report [] Verified Date/Time/Personnel: 08/02/2024 14:10 EST 10,000 - 50,000 cfu/ml Mixed growth consistent with normal urogenital kendal. Performing Locations *1: This test was performed at: [address], [address]- , [facility]10-30-2024 Note. MICRO - Microbiology PROCEDURE: Urine Culture [*1] SOURCE: Urine, Clean Catch BODY SITE: COLLECTED DATE/TIME: 07/03/2024 17:20 EDT RECEIVED DATE/TIME: 07/03/2024 18:52 EDT START DATE/TIME: 07/03/2024 18:52 EDT FREE TEXT SOURCE: FINAL REPORTS Final Report [] Verified Date/Time/Personnel: 07/05/2024 07:49 EDT 10,000 - 50,000 cfu/ml Mixed growth consistent with normal urogenital kendal. PRELIMINARY REPORTS Preliminary Report [] Verified Date/Time/Personnel: 07/04/2024 08:33 EDT No growth to date Performing Locations *1: This test was performed at: [address], [facility]- , [facility]10-28-2024 Evaluation + Plan note Future Scheduled Tests Laboratory* [facility] Lab Send out (Blood Specimens) 07/03/24 [facility] 04-16-[address] Hanson [facility] December 20, 2022 11:53pm Note Date/Time December 20, 2022 11: 53pm [facility] Medical Records Department [address] [place] [id number] Emergency Department Summary 12/20/22 MR#: [id number] Acct: [id number] Name: JOSE R TAPIA Rep #:[id number] : 2000 22 From: Nikko Hanson MD PCP: HOLLY Sanchez Status:PRE ER Location: ED HPI History of Present Illness Chief Complaint: Substance Abuse Informant: patient Narrative Narrative: Patient had 6 check-in with 180 a couple days ago about meth use. They were going to get her treatment. They asked her if she drinks alcohol. She states she does drink sometimes. They then told her to come here for detox. They actually sent her an email on that issue. I did read the email that was sent to the patient directing her here. The patient states that they did not ask her how much she drank or how often or if she has symptoms. Patient states that she will sometimes drink a beer if it is in the refrigerator and her dad is having a drink. She will sometimes drink a twisted tea during the week. She may have a drink every day. Other times she will go 3 or 4 days with no drink at all. She rarely if ever has more than 1 drink. She has no symptoms of withdrawal. She does not feel especially good when she has a drink. She does not seek out drinking. She has never had issueswith this. She denies any opiates or benzodiazepines. She has no physical complaint. She does not feel she needs detox from alcohol. Her last drink was likely 48 hours ago or maybe more. [facility] Medical History Substance abuse Home Medications NK 12/20/22 [History Last Taken Unknown] Allergy/AdvReac Type Severity Reaction Status Date / Time latex AdvReac Rash Verified 12/20/22 23:30 Penicillins [PCN] AdvReac Other Verified 12/20/22 23:30 Social History Smoking Status: Current every day smoker tobacco type: cigarettes ROS ROS ED Constitutional Constitutional ED: Denies fever(s) ENT ENT ED: Denies rhinorrhea Cardiovascular Cardiovascular: Denies chest pain or palpitations Respiratory/Chest Respiratory/Chest: Denies cough Gastrointestinal Gastrointestinal: Denies nausea or vomiting Musculoskeletal Musculoskeletal: Denies myalgias Integumentary Denies rash Neurologic Neurologic: Denies headache(s), paresthesias or weakness Allergic/Immunologic Allergic/Immunologic ED: Denies urticaria EXAM Physical Exam Narrative Exam Narrative: Patient sitting quietly in the room. She is awake alert appropriate no acute distress. She carries on a very normal conversation and makes good eye contact. HEENT shows no sign of trauma. I smell no odor that would be consistent with alcohol consumption. Neck is supple Lungs are clear bilaterally and saturations are normal at 100%. Heart is regular. No murmur gallop or rub. Abdomen soft nontender Extremities show no rashes. She does not inject any drugs. No track horn. Neurologically she is awake alert appropriate with clear train of thought. Const Vital Signs: 12/20/22 23:28 Temperature 98.4 F Temperature Source Temporal Pulse Rate 98 Respiratory Rate 16 Blood Pressure 128/85 H Blood Pressure Mean 99 Pulse Ox 100 Oxygen Delivery Method Room Air MDM MDM MDM Narrative Medical decision making narrative: Patient has an occasional drink. The most she will have is 1 a day. She has no symptoms if she does not drink. Although she may need help with methamphetamines, she does not need medical detox from alcohol based on this information. She does not really want to come in for detox that she does not think she needs it. If patient has further complaints or concerns she is welcome to return at any time. I do not think any testing is required. I see no indication for labs or x-rays. Discharge Plan Triage Chief Complaint: Substance Abuse ED Provider: Nikko Hanson Dx/Rx/DC Orders Clinical Impression: History of methamphetamine abuse, Alcohol use Instructions: Meth Abuse Addiction Prescriptions: No Action NK Primary Care Provider: Charlee Negro NP Referrals: Charlee Negro [facility], [facility] [Primary Care Provider] - As Needed Disposition Disposition: Home, Self Care What to do if you have Problems For any increased pain, shortness of breath, bleeding, nausea or vomiting, chestpain, or any unexpected problems, contact your Primary Care Provider. Call [facility] ([phone]) or report to the closest Emergency Room. Call 911 if necessary. 12/20/22 [id number] <Electronically signed by Nikko Hanson MD> Cosigner Signature (if applicable): CC: [facility] Charlee Negro ~ Signed [facility] Work Phone: Evaluation + Plan note Future Appointments Appointment Date:08/01/2024 09:00:00 AM Scheduled Provider:TALISHA RUTH Location:[facility] Appointment Type: OV OB Routine Follow Up Diagnostic Tests Pending * Rapid Plasma Reagin Test 07/05/24 * Rubella Antibody 07/05/24 * Varicella Zoster Antibody 07/05/24 Future Scheduled Tests Laboratory* [facility] Lab Send out (Blood Specimens) 07/03/24 [facility] Evaluation noteNo assessment information available [facility] Work Phone: Evaluation note* Diagnosis Supervision of high risk in third trimester (HCC)- Primary Unspecified high-risk Mild intermittent asthma without complication (HCC) Unspecified asthma Dental abscess Periapical abscess without sinus History of drug abuse Other, mixed, or unspecified nondependent drug abuse, in remission Tobacco use disorder History of incarceration Anxiety and depression Dysthymic disorder Anemia affecting in third trimester (HCC) BMI 27.0-27.9,adult Body Mass Index 27.0-27.9, adult Supervision of high risk in third trimester (HCC)- Primary Unspecified high-risk Anemia affecting in third trimester (HCC) History of drug abuse Other, mixed, or unspecified nondependent drug abuse, in remission Tobacco use disorder History of incarceration Anxiety and depression Dysthymic disorder BMI 28.0-28.9,adult Body Mass Index 28.0-28.9, adult Dental abscess Periapical abscess without sinus Mild intermittent asthma without complication (HCC) Unspecified asthma Heartburn during in third trimester (HCC) Supervision of high risk in third trimester ([facility])- Primary Unspecified high-risk Tobacco use disorder Mild intermittent asthma without complication (HCC) Unspecified asthma History of incarceration History of drug abuse Other, mixed, or unspecified nondependent drug abuse, in remission Heartburn during in third trimester ([facility]) Dental abscess Periapical abscess without sinus BMI 28.0-28.9,adult Body Mass Index 28.0-28.9, adult Anxiety and depression Dysthymic disorder Anemia affecting in third trimester (HCC) Supervision of high risk in third trimester ([facility])- Primary Unspecified high-risk Breech presentation, single or unspecified fetus (HCC) Tobacco use disorder Mild intermittent asthma without complication (HCC) Unspecified asthma History of incarceration History of drug abuse Other, mixed, or unspecified nondependent drug abuse, in remission BMI 28.0-28.9,adult Body Mass Index 28.0-28.9, adult Anxiety and depression Dysthymic disorder Anemia affecting in third trimester (HCC) Third trimester (HCC)- Primary Third trimester (HCC)- Primary Third [facility]CC)- [facility] Supervision of high risk in third trimester (HCC)- Primary Unspecified high-risk Mild intermittent asthma without complication (HCC) Unspecified asthma Dental abscess Periapical abscess without sinus History of drug abuse Other, mixed, or unspecified nondependent drug abuse, in remission Tobacco use disorder History of incarceration Anxiety and depression Dysthymic disorder Anemia affecting in third trimester ([facility]) BMI 27.0-27.9,adult Body Mass Index 27.0-27.9, adult Supervision of high risk in third trimester ([facility])- Primary Unspecified high-risk Anemia affecting in third trimester ([facility]) History of drug abuse Other, mixed, or unspecified nondependent drug abuse, in remission Tobacco use disorder History of incarceration Anxiety and depression Dysthymic disorder BMI 28.0-28.9,adult Body Mass Index 28.0-28.9, adult Dental abscess Periapical abscess without sinus Mild intermittent asthma without complication ([facility]) Unspecified asthma Heartburn during in third trimester ([facility]) Supervision of high risk in third trimester ([facility])- Primary Unspecified high-risk Tobacco use disorder Mild intermittent asthma without complication ([facility]) Unspecified asthma History of incarceration History of drug abuse Other, mixed, or unspecified nondependent drug abuse, in remission Heartburn during in third trimester ([facility]) Dental abscess Periapical abscess without sinus BMI 28.0-28.9,adult Body Mass Index 28.0-28.9, adult Anxiety and depression Dysthymic disorder Anemia affecting in third trimester ([facility]) Supervision of high risk in third trimester ([facility])- Primary Unspecified high-risk Breech presentation, single or unspecified fetus ([facility]) Tobacco use disorder Mild intermittent asthma without complication ([facility]) Unspecified asthma History of incarceration History of drug abuse Other, mixed, or unspecified nondependent drug abuse, in remission BMI 28.0-28.9,adult Body Mass Index 28.0-28.9, adult Anxiety and depression Dysthymic disorder Anemia affecting in third trimester ([facility]) Supervision of high risk in third trimester ([facility])- Primary Unspecified high-risk Tobacco use disorder Mild intermittent asthma without complication ([facility]) Unspecified asthma History of incarceration History of drug abuse Other, mixed, or unspecified nondependent drug abuse, in remission Heartburn during in third trimester ([facility]) Breech presentation, single or unspecified fetus ([facility]) BMI 28.0-28.9,adult Body Mass Index 28.0-28.9, adult Anxiety and depression Dysthymic disorder Anemia affecting in third trimester (HCC) Third trimester ([facility])- [facility] Diagnosis Supervision of high risk in third trimester ([facility])- Primary Unspecified high-risk Mild intermittent asthma without complication (HCC) Unspecified asthma Dental abscess Periapical abscess without sinus History of drug abuse Other, mixed, or unspecified nondependent drug abuse, in remission Tobacco use disorder History of incarceration Anxiety and depression Dysthymic disorder Anemia affecting in third trimester ([facility]) BMI 27.0-27.9,adult Body Mass Index 27.0-27.9, adult Supervision of high risk in third trimester ([facility])- Primary Unspecified high-risk Anemia affecting in third trimester ([facility]) History of drug abuse Other, mixed, or unspecified nondependent drug abuse, in remission Tobacco use disorder History of incarceration Anxiety and depression Dysthymic disorder BMI 28.0-28.9,adult Body Mass Index 28.0-28.9, adult Dental abscess Periapical abscess without sinus Mild intermittent asthma without complication (HCC) Unspecified asthma Heartburn during in third trimester ([facility]) Supervision of high risk in third trimester ([facility])- Primary Unspecified high-risk Tobacco use disorder Mild intermittent asthma without complication (HCC) Unspecified asthma History of incarceration History of drug abuse Other, mixed, or unspecified nondependent drug abuse, in remission Heartburn during in third trimester ([facility]) Dental abscess Periapical abscess without sinus BMI 28.0-28.9,adult Body Mass Index 28.0-28.9, adult Anxiety and depression Dysthymic disorder Anemia affecting in third trimester ([facility]) Supervision of high risk in third trimester ([facility])- Primary Unspecified high-risk Breech presentation, single or unspecified fetus ([facility]) Tobacco use disorder Mild intermittent asthma without complication ([facility]) Unspecified asthma History of incarceration History of drug abuse Other, mixed, or unspecified nondependent drug abuse, in remission BMI 28.0-28.9,adult Body Mass Index 28.0-28.9, adult Anxiety and depression Dysthymic disorder Anemia affecting in third trimester ([facility]) Supervision of high risk in third trimester ([facility])- Primary Unspecified high-risk Tobacco use disorder Mild intermittent asthma without complication (HCC) Unspecified asthma History of incarceration History of drug abuse Other, mixed, or unspecified nondependent drug abuse, in remission Heartburn during in third trimester ([facility]) Breech presentation, single or unspecified fetus ([facility]) BMI 28.0-28.9,adult Body Mass Index 28.0-28.9, adult Anxiety and depression Dysthymic disorder Anemia affecting in third trimester (HCC) Third trimester ([facility])- [facility] Diagnosis Supervision of high risk in third trimester ([facility])- Primary Unspecified high-risk Mild intermittent asthma without complication (HCC) Unspecified asthma Dental abscess Periapical abscess without sinus History of drug abuse Other, mixed, or unspecified nondependent drug abuse, in remission Tobacco use disorder History of incarceration Anxiety and depression Dysthymic disorder Anemia affecting in third trimester ([facility]) BMI 27.0-27.9,adult Body Mass Index 27.0-27.9, adult Supervision of high risk in third trimester ([facility])- Primary Unspecified high-risk Anemia affecting in third trimester ([facility]) History of drug abuse Other, mixed, or unspecified nondependent drug abuse, in remission Tobacco use disorder History of incarceration Anxiety and depression Dysthymic disorder BMI 28.0-28.9,adult Body Mass Index 28.0-28.9, adult Dental abscess Periapical abscess without sinus Mild intermittent asthma without complication ([facility]) Unspecified asthma Heartburn during in third trimester ([facility]) Supervision of high risk in third trimester ([facility])- Primary Unspecified high-risk Tobacco use disorder Mild intermittent asthma without complication ([facility]) Unspecified asthma History of incarceration History of drug abuse Other, mixed, or unspecified nondependent drug abuse, in remission Heartburn during in third trimester ([facility]) Dental abscess Periapical abscess without sinus BMI 28.0-28.9,adult Body Mass Index 28.0-28.9, adult Anxiety and depression Dysthymic disorder Anemia affecting in third trimester ([facility]) Supervision of high risk in third trimester ([facility])- Primary Unspecified high-risk Breech presentation, single or unspecified fetus ([facility]) Tobacco use disorder Mild intermittent asthma without complication (HCC) Unspecified asthma History of incarceration History of drug abuse Other, mixed, or unspecified nondependent drug abuse, in remission BMI 28.0-28.9,adult Body Mass Index 28.0-28.9, adult Anxiety and depression Dysthymic disorder Anemia affecting in third trimester ([facility]) Supervision of high risk in third trimester ([facility])- Primary Unspecified high-risk Supervision of high risk in third trimester ([facility])- Primary Unspecified high-risk Tobacco use disorder Mild intermittent asthma without complication ([facility]) Unspecified asthma History of incarceration History of drug abuse Other, mixed, or unspecified nondependent drug abuse, in remission Heartburn during in third trimester ([facility]) Breech presentation, single or unspecified fetus ([facility]) BMI 28.0-28.9,adult Body Mass Index 28.0-28.9, adult Anxiety and depression Dysthymic disorder Anemia affecting in third trimester ([facility]) Third trimester ([facility])- [facility] Diagnosis Supervision of high risk in third trimester ([facility])- Primary Unspecified high-risk Mild intermittent asthma without complication ([facility]) Unspecified asthma Dental abscess Periapical abscess without sinus History of drug abuse Other, mixed, or unspecified nondependent drug abuse, in remission Tobacco use disorder History of incarceration Anxiety and depression Dysthymic disorder Anemia affecting in third trimester ([facility]) BMI 27.0-27.9,adult Body Mass Index 27.0-27.9, adult Supervision of high risk in third trimester ([facility])- Primary Unspecified high-risk Anemia affecting in third trimester ([facility]) History of drug abuse Other, mixed, or unspecified nondependent drug abuse, in remission Tobacco use disorder History of incarceration Anxiety and depression Dysthymic disorder BMI 28.0-28.9,adult Body Mass Index 28.0-28.9, adult Dental abscess Periapical abscess without sinus Mild intermittent asthma without complication ([facility]) Unspecified asthma Heartburn during in third trimester ([facility]) Supervision of high risk in third trimester ([facility])- Primary Unspecified high-risk Tobacco use disorder Mild intermittent asthma without complication ([facility]) Unspecified asthma History of incarceration History of drug abuse Other, mixed, or unspecified nondependent drug abuse, in remission Heartburn during in third trimester ([facility]) Dental abscess Periapical abscess without sinus BMI 28.0-28.9,adult Body Mass Index 28.0-28.9, adult Anxiety and depression Dysthymic disorder Anemia affecting in third trimester ([facility]) Supervision of high risk in third trimester ([facility])- Primary Unspecified high-risk Breech presentation, single or unspecified fetus ([facility]) Tobacco use disorder Mild intermittent asthma without complication ([facility]) Unspecified asthma History of incarceration History of drug abuse Other, mixed, or unspecified nondependent drug abuse, in remission BMI 28.0-28.9,adult Body Mass Index 28.0-28.9, adult Anxiety and depression Dysthymic disorder Anemia affecting in third trimester ([facility]) Supervision of high risk in third trimester ([facility])- Primary Unspecified high-risk Tobacco use disorder Mild intermittent asthma without complication ([facility]) Unspecified asthma History of incarceration History of drug abuse Other, mixed, or unspecified nondependent drug abuse, in remission Heartburn during in third trimester ([facility]) Breech presentation, single or unspecified fetus ([facility]) BMI 28.0-28.9,adult Body Mass Index 28.0-28.9, adult Anxiety and depression Dysthymic disorder Anemia affecting in third trimester ([facility]) Supervision of high risk in third trimester ([facility])- Primary Unspecified high-risk Heartburn during in third trimester ([facility]) Anemia affecting in third trimester ([facility]) Tobacco use disorder Mild intermittent asthma without complication ([facility]) Unspecified asthma History of incarceration History of drug abuse Other, mixed, or unspecified nondependent drug abuse, in remission BMI 28.0-28.9,adult Body Mass Index 28.0-28.9, adult Anxiety and depression Dysthymic disorder [facility] Diagnosis Status post vacuum-assisted vaginal delivery- Primary Third trimester ([facility]) Dental abscess Periapical abscess without sinus History of drug abuse Other, mixed, or unspecified nondependent drug abuse, in remission Gestational hypertension, third trimester ([facility]) Vacuum-assisted vaginal delivery ([facility]) Third trimester ([facility]) Supervision of high risk in third trimester ([facility])- Primary Unspecified high-risk Mild intermittent asthma without complication ([facility]) Unspecified asthma Dental abscess Periapical abscess without sinus History of drug abuse Other, mixed, or unspecified nondependent drug abuse, in remission Tobacco use disorder History of incarceration Anxiety and depression Dysthymic disorder Anemia affecting in third trimester ([facility]) BMI 27.0-27.9,adult Body Mass Index 27.0-27.9, adult Supervision of high risk in third trimester ([facility])- Primary Unspecified high-risk Anemia affecting in third trimester ([facility]) History of drug abuse Other, mixed, or unspecified nondependent drug abuse, in remission Tobacco use disorder History of incarceration Anxiety and depression Dysthymic disorder BMI 28.0-28.9,adult Body Mass Index 28.0-28.9, adult Dental abscess Periapical abscess without sinus Mild intermittent asthma without complication ([facility]) Unspecified asthma Heartburn during in third trimester ([facility]) Supervision of high risk in third trimester ([facility])- Primary Unspecified high-risk Tobacco use disorder Mild intermittent asthma without complication ([facility]) Unspecified asthma History of incarceration History of drug abuse Other, mixed, or unspecified nondependent drug abuse, in remission Heartburn during in third trimester ([facility]) Dental abscess Periapical abscess without sinus BMI 28.0-28.9,adult Body Mass Index 28.0-28.9, adult Anxiety and depression Dysthymic disorder Anemia affecting in third trimester ([facility]) Supervision of high risk in third trimester ([facility])- Primary Unspecified high-risk Breech presentation, single or unspecified fetus ([facility]) Tobacco use disorder Mild intermittent asthma without complication ([facility]) Unspecified asthma History of incarceration History of drug abuse Other, mixed, or unspecified nondependent drug abuse, in remission BMI 28.0-28.9,adult Body Mass Index 28.0-28.9, adult Anxiety and depression Dysthymic disorder Anemia affecting in third trimester ([facility]) Supervision of high risk in third trimester ([facility])- Primary Unspecified high-risk Tobacco use disorder Mild intermittent asthma without complication ([facility]) Unspecified asthma History of incarceration History of drug abuse Other, mixed, or unspecified nondependent drug abuse, in remission Heartburn during in third trimester ([facility]) Breech presentation, single or unspecified fetus ([facility]) BMI 28.0-28.9,adult Body Mass Index 28.0-28.9, adult Anxiety and depression Dysthymic disorder Anemia affecting in third trimester ([facility]) Supervision of high risk in third trimester ([facility])- Primary Unspecified high-risk Heartburn during in third trimester ([facility]) Anemia affecting in third trimester ([facility]) Tobacco use disorder Mild intermittent asthma without complication ([facility]) Unspecified asthma History of incarceration History of drug abuse Other, mixed, or unspecified nondependent drug abuse, in remission BMI 28.0-28.9,adult Body Mass Index 28.0-28.9, adult Anxiety and depression Dysthymic disorder [facility] Diagnosis Supervision of high risk in third trimester ([facility])- Primary Unspecified high-risk Mild intermittent asthma without complication (HCC) Unspecified asthma Dental abscess Periapical abscess without sinus History of drug abuse Other, mixed, or unspecified nondependent drug abuse, in remission Tobacco use disorder History of incarceration Anxiety and depression Dysthymic disorder Anemia affecting in third trimester ([facility]) BMI 27.0-27.9,adult Body Mass Index 27.0-27.9, adult Supervision of high risk in third trimester ([facility])- Primary Unspecified high-risk Anemia affecting in third trimester ([facility]) History of drug abuse Other, mixed, or unspecified nondependent drug abuse, in remission Tobacco use disorder History of incarceration Anxiety and depression Dysthymic disorder BMI 28.0-28.9,adult Body Mass Index 28.0-28.9, adult Dental abscess Periapical abscess without sinus Mild intermittent asthma without complication ([facility]) Unspecified asthma Heartburn during in third trimester ([facility]) Supervision of high risk in third trimester ([facility])- Primary Unspecified high-risk Tobacco use disorder Mild intermittent asthma without complication ([facility]) Unspecified asthma History of incarceration History of drug abuse Other, mixed, or unspecified nondependent drug abuse, in remission Heartburn during in third trimester ([facility]) Dental abscess Periapical abscess without sinus BMI 28.0-28.9,adult Body Mass Index 28.0-28.9, adult Anxiety and depression Dysthymic disorder Anemia affecting in third trimester ([facility]) Supervision of high risk in third trimester ([facility])- Primary Unspecified high-risk Breech presentation, single or unspecified fetus ([facility]) Tobacco use disorder Mild intermittent asthma without complication ([facility]) Unspecified asthma History of incarceration History of drug abuse Other, mixed, or unspecified nondependent drug abuse, in remission BMI 28.0-28.9,adult Body Mass Index 28.0-28.9, adult Anxiety and depression Dysthymic disorder Anemia affecting in third trimester ([facility]) Supervision of high risk in third trimester ([facility])- Primary Unspecified high-risk Tobacco use disorder Mild intermittent asthma without complication ([facility]) Unspecified asthma History of incarceration History of drug abuse Other, mixed, or unspecified nondependent drug abuse, in remission Heartburn during in third trimester ([facility]) Breech presentation, single or unspecified fetus ([facility]) BMI 28.0-28.9,adult Body Mass Index 28.0-28.9, adult Anxiety and depression Dysthymic disorder Anemia affecting in third trimester ([facility]) Supervision of high risk in third trimester ([facility])- Primary Unspecified high-risk Heartburn during in third trimester ([facility]) Anemia affecting in third trimester ([facility]) Tobacco use disorder Mild intermittent asthma without complication ([facility]) Unspecified asthma History of incarceration History of drug abuse Other, mixed, or unspecified nondependent drug abuse, in remission BMI 28.0-28.9,adult Body Mass Index 28.0-28.9, adult Anxiety and depression Dysthymic disorder Vacuum-assisted vaginal delivery ([facility])- [facility] Diagnosis Chronic dental caries extending to pulp- Primary Dental caries extending into pulp Supervision of high risk in third trimester ([facility])- Primary Unspecified high-risk Mild intermittent asthma without complication ([facility]) Unspecified asthma Dental abscess Periapical abscess without sinus History of drug abuse Other, mixed, or unspecified nondependent drug abuse, in remission Tobacco use disorder History of incarceration Anxiety and depression Dysthymic disorder Anemia affecting in third trimester ([facility]) BMI 27.0-27.9,adult Body Mass Index 27.0-27.9, adult Supervision of high risk in third trimester ([facility])- Primary Unspecified high-risk Anemia affecting in third trimester ([facility]) History of drug abuse Other, mixed, or unspecified nondependent drug abuse, in remission Tobacco use disorder History of incarceration Anxiety and depression Dysthymic disorder BMI 28.0-28.9,adult Body Mass Index 28.0-28.9, adult Dental abscess Periapical abscess without sinus Mild intermittent asthma without complication ([facility]) Unspecified asthma Heartburn during in third trimester ([facility]) Supervision of high risk in third trimester ([facility])- Primary Unspecified high-risk Tobacco use disorder Mild intermittent asthma without complication ([facility]) Unspecified asthma History of incarceration History of drug abuse Other, mixed, or unspecified nondependent drug abuse, in remission Heartburn during in third trimester ([facility]) Dental abscess Periapical abscess without sinus BMI 28.0-28.9,adult Body Mass Index 28.0-28.9, adult Anxiety and depression Dysthymic disorder Anemia affecting in third trimester ([facility]) Supervision of high risk in third trimester ([facility])- Primary Unspecified high-risk Breech presentation, single or unspecified fetus ([facility]) Tobacco use disorder Mild intermittent asthma without complication ([facility]) Unspecified asthma History of incarceration History of drug abuse Other, mixed, or unspecified nondependent drug abuse, in remission BMI 28.0-28.9,adult Body Mass Index 28.0-28.9, adult Anxiety and depression Dysthymic disorder Anemia affecting in third trimester ([facility]) Supervision of high risk in third trimester ([facility])- Primary Unspecified high-risk Tobacco use disorder Mild intermittent asthma without complication ([facility]) Unspecified asthma History of incarceration History of drug abuse Other, mixed, or unspecified nondependent drug abuse, in remission Heartburn during in third trimester ([facility]) Breech presentation, single or unspecified fetus ([facility]) BMI 28.0-28.9,adult Body Mass Index 28.0-28.9, adult Anxiety and depression Dysthymic disorder Anemia affecting in third trimester ([facility]) Supervision of high risk in third trimester ([facility])- Primary Unspecified high-risk Heartburn during in third trimester ([facility]) Anemia affecting in third trimester ([facility]) Tobacco use disorder Mild intermittent asthma without complication ([facility]) Unspecified asthma History of incarceration History of drug abuse Other, mixed, or unspecified nondependent drug abuse, in remission BMI 28.0-28.9,adult Body Mass Index 28.0-28.9, adult Anxiety and depression Dysthymic disorder [facility] Diagnosis Third trimester ([facility])- Primary Third trimester ([facility]) Dental abscess Periapical abscess without sinus SIRS (systemic inflammatory response syndrome) ([facility]) Systemic inflammatory response syndrome, unspecified Submandibular abscess Cellulitis and abscess of face Tachycardia Tachycardia, unspecified Leukocytosis, unspecified type History of drug abuse Other, mixed, or unspecified nondependent drug abuse, in remission Anemia affecting in third trimester ([facility]) Dental abscess Periapical abscess without sinus SIRS (systemic inflammatory response syndrome) ([facility]) Systemic inflammatory response syndrome, unspecified Supervision of high risk in third trimester ([facility])- Primary Unspecified high-risk Mild intermittent asthma without complication ([facility]) Unspecified asthma Dental abscess Periapical abscess without sinus History of drug abuse Other, mixed, or unspecified nondependent drug abuse, in remission Tobacco use disorder History of incarceration Anxiety and depression Dysthymic disorder Anemia affecting in third trimester ([facility]) BMI 27.0-27.9,adult Body Mass Index 27.0-27.9, adult Supervision of high risk in third trimester ([facility])- Primary Unspecified high-risk Anemia affecting in third trimester ([facility]) History of drug abuse Other, mixed, or unspecified nondependent drug abuse, in remission Tobacco use disorder History of incarceration Anxiety and depression Dysthymic disorder BMI 28.0-28.9,adult Body Mass Index 28.0-28.9, adult Dental abscess Periapical abscess without sinus Mild intermittent asthma without complication ([facility]) Unspecified asthma Heartburn during in third trimester ([facility]) Supervision of high risk in third trimester ([facility])- Primary Unspecified high-risk Tobacco use disorder Mild intermittent asthma without complication ([facility]) Unspecified asthma History of incarceration History of drug abuse Other, mixed, or unspecified nondependent drug abuse, in remission Heartburn during in third trimester ([facility]) Dental abscess Periapical abscess without sinus BMI 28.0-28.9,adult Body Mass Index 28.0-28.9, adult Anxiety and depression Dysthymic disorder Anemia affecting in third trimester ([facility]) Third trimester ([facility]) SIRS (systemic inflammatory response syndrome) ([facility]) Systemic inflammatory response syndrome, unspecified Supervision of high risk in third trimester ([facility])- Primary Unspecified high-risk Breech presentation, single or unspecified fetus ([facility]) Tobacco use disorder Mild intermittent asthma without complication ([facility]) Unspecified asthma History of incarceration History of drug abuse Other, mixed, or unspecified nondependent drug abuse, in remission BMI 28.0-28.9,adult Body Mass Index 28.0-28.9, adult Anxiety and depression Dysthymic disorder Anemia affecting in third trimester ([facility]) Supervision of high risk in third trimester ([facility])- Primary Unspecified high-risk Tobacco use disorder Mild intermittent asthma without complication ([facility]) Unspecified asthma History of incarceration History of drug abuse Other, mixed, or unspecified nondependent drug abuse, in remission Heartburn during in third trimester ([facility]) Breech presentation, single or unspecified fetus ([facility]) BMI 28.0-28.9,adult Body Mass Index 28.0-28.9, adult Anxiety and depression Dysthymic disorder Anemia affecting in third trimester ([facility]) Supervision of high risk in third trimester ([facility])- Primary Unspecified high-risk Heartburn during in third trimester ([facility]) Anemia affecting in third trimester ([facility]) Tobacco use disorder Mild intermittent asthma without complication ([facility]) Unspecified asthma History of incarceration History of drug abuse Other, mixed, or unspecified nondependent drug abuse, in remission BMI 28.0-28.9,adult Body Mass Index 28.0-28.9, adult Anxiety and depression Dysthymic disorder [facility] Narrative No data available for this section [facility] Hospital Discharge instructions No data available for this section [facility] Progress note No data available for this section [facility] Reason for visit Narrative* Provider Visit (Routine) - Authorized Specialty Diagnoses / Procedures Referred By Contact Referred To Contact Maternal/ Medicine Diagnoses Supervision of high risk in third trimester ([facility]) Procedures 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 [address] [place] [phone] Phone: tel: Referral ID Status Reason Start Date Expiration Date Visits Re quested Visits Authorized [id number] 3 3 [facility]* Auth/Cert (Routine) Specialty Diagnoses / Procedures Referred By Contac t Referred To Contact Obstetrics Diagnoses L&D BR 03 Procedures Fredo Zhu MD [address] [place] [address] Phone: tel: fax: [facility] [address] [place] [phone] Phone: tel: Referral ID Status Reason Start Date Expiration Date Visits Re quested Visits Authorized [id number] 3 3 [facility]* Auth/Cert (Routine) Specialty Diagnoses / Procedures Referred By Contac t Referred To Contact Obstetrics Diagnoses Encounter for supervision of normal , unspecified, third trimester Periapical abscess without sinus Systemic inflammatory response syndrome (sirs) of non-infectious origin without acute organ dysfunction Cellulitis and abscess of mouth Tachycardia, unspecified Elevated white blood cell count, unspecified Procedures Glenn aCrreno MD [address] [place] [phone] Phone: tel: fax: [facility] [address] [place] [phone] Phone: tel: Referral ID Status Reason Start Date Expiration Date Visits Re quested Visits Authorized [id number] 3 3 [facility] Summary Purpose Family History No Family History Records FoundNo Family History Records FoundNo Family History Records FoundNo Family History Records Found No data available for this section No data available for this section No data available for this section No Family History Records FoundNo Family History Records FoundNo Family History Records FoundNo Family History Records Found Advance Directives No Advanced Directives Records Found Date Activated Date Inactivated Comments 12/31/2024 2:06 AM 01/01/2025 2:19 PM Question Answer Comments Documentation of decision pr ocess for this code status: Discussed with patient or surrogate. This is the code status chosen by the patient/surrogate. Date Activated Date Inactivated Comments 12/29/2024 8:15 PM 12/31/2024 2:06 AM Question Answer Comments Documentation of decision pr ocess for this code status: Discussed with patient or surrogate. This is the code status chosen by the patient/surrogate. Date Activated Date Inactivated Comments 10/15/2024 1:26 PM 10/17/2024 3:49 PM Question Answer Comments Documentation of decision pr ocess for this code status: Discussed with patient or surrogate. This is the code status chosen by the patient/surrogate. Date Activated Date Inactivated Comments 12/31/2024 2:06 AM Question Answer Comments Documentation of decision pr ocess for this code status: Discussed with patient or surrogate. This is the code status chosen by the patient/surrogate. Date Activated Date Inactivated Comments 12/29/2024 8:15 PM 12/31/2024 2:06 AM Question Answer Comments Documentation of decision pr ocess for this code status: Discussed with patient or surrogate. This is the code status chosen by the patient/surrogate. Date Activated Date Inactivated Comments 10/15/2024 1:26 PM 10/17/2024 3:49 PM Question Answer Comments Documentation of decision pr ocess for this code status: Discussed with patient or surrogate. This is the code status chosen by the patient/surrogate. Advance Directive Response Recorded Date/ Time Living Will No December 20, 2022 11:48pm Power of Apparel Rental Clerk No December 20 11:48pm Date Activated Date Inactivated Comments 10/15/2024 1:26 PM 10/17/2024 3:49 PM Date Activated Date Inactivated Comments 10/15/2024 1:26 PM 10/17/2024 3:49 PM Date Activated Date Inactivated Comments 12/31/2024 2:06 AM 01/01/2025 2:19 PM Chief Complaint and Reason for Visit Chief Complaint SUBSTANCE ABUSE Additional Source Comments INFORMATION SOURCE (unrecogn ized section and content) DATE CREATED AUTHOR 03/01/2018 [facility] DATE CREATED AUTHOR AUTHOR'S ORGANIZ ATION 10/01/2018 [facility] DATE CREATED AUTHOR AUTHOR'S ORGANIZ ATION 10/06/2018 [facility] DATE CREATED AUTHOR AUTHOR'S ORGANIZ ATION 10/08/2021 [facility] DATE CREATED AUTHOR AUTHOR'S ORGANIZ ATION 09/07/2024 [facility] DATE CREATED AUTHOR AUTHOR'S ORGANIZ ATION 10/16/2024 [facility] DATE CREATED AUTHOR AUTHOR'S ORGANIZ ATION 11/06/2024 [facility] DATE CREATED AUTHOR AUTHOR'S ORGANIZ ATION 03/11/2025 [facility] Care Teams (unrecognized sec tion and content) Obstetrics Specialist Relationship Specialty Start Date End Date Fidel Ram MD [address] [place], [place] [id number] PCP - General Pediatrics 02/02/12 Obstetrics Specialist Relationship Specialty Start Date End Date Fidel Ram MD [address] [place], [place] [id number] PCP - General Pediatrics 02/02/12 Team Status: Active Member Role Status Dates Charlee Negro [employer]OUT, [employer]-C Family Provider Active Charlee Negro [employer]OOKOUT, FOR[employer] LOOKOUT-C Primary Care Provider Active Team Status: Inactive Member Role Status Dates Charlee Negro [employer] LOOKOUT, [employer]OOKOUT-C Primary Care Provider Active Dr. Nikko Hanson MD Emergency Provider Active Obstetrics Specialist Relationship Specialty Start Date End Date Melita Lee APRN-HIGHER EDUCATION ADMINISTRATOR [address] [place], [place] [phone] PRINCIPAL SECURITY ARCHITECT Obstetrics/Gynecology 11/04/24 Chad Davis DMD, MD [address] [place], [place] [phone] Physician Oral & Maxillofacial Surgery 11/04/24 Obstetrics Specialist Relationship Specialty Start Date End Date Melita Lee APRN-CNP [address] [place] [phone] PRINCIPAL SECURITY ARCHITECT Obstetrics/Gynecology 11/04/24 Chad Davis DMD, MD [address] [place], [place] [phone] Physician Oral & Maxillofacial Surgery 11/04/24 Obstetrics Specialist Relationship Specialty Start Date End Date Melita Lee APRN-CNP [address] [place] [phone] PRINCIPAL SECURITY ARCHITECT Obstetrics/Gynecology 11/04/24 Chad Davis DMD, MD [address] [place] [phone] Physician Oral & Maxillofacial Surgery 11/04/24 Obstetrics Specialist Relationship Specialty Start Date End Date Melita Lee APRN-HIGHER EDUCATION ADMINISTRATOR [address] [place] [phone] PRINCIPAL SECURITY ARCHITECT Obstetrics/Gynecology 11/04/24 Chad Davis DMD, MD [address] [place] [phone] Physician Oral & Maxillofacial Surgery 11/04/24 Obstetrics Specialist Relationship Specialty Start Date End Date Melita Lee APRN-HIGHER EDUCATION ADMINISTRATOR [address] [place] [phone] PRINCIPAL SECURITY ARCHITECT Obstetrics/Gynecology 11/04/24 Chad Davis DMD, MD [address] [place] [phone] Physician Oral & Maxillofacial Surgery 11/04/24 Obstetrics Specialist Relationship Specialty Start Date End Date Melita Lee APRN-CNP [address] [place] [phone] PRINCIPAL SECURITY ARCHITECT Obstetrics/Gynecology 11/04/24 Chad Davis DMD, MD [address] [place] [phone] Physician Oral & Maxillofacial Surgery 11/04/24 Obstetrics Specialist Relationship Specialty Start Date End Date Melita Lee APRN-HIGHER EDUCATION ADMINISTRATOR [address] [place] [phone] PRINCIPAL SECURITY ARCHITECT Obstetrics/Gynecology 11/04/24 Chad Davis DMD, MD [address] [place] [phone] Physician Oral & Maxillofacial Surgery 11/04/24 Obstetrics Specialist Relationship Specialty Start Date End Date Melita Lee APRN-HIGHER EDUCATION ADMINISTRATOR [address] [place] [phone] PRINCIPAL SECURITY ARCHITECT Obstetrics/Gynecology 11/04/24 Chad Davis DMD, MD [address] [place] [phone] Physician Oral & Maxillofacial Surgery 11/04/24 Obstetrics Specialist Relationship Specialty Start Date End Date Melita Lee APRN-HIGHER EDUCATION ADMINISTRATOR [address] [place] [phone] PRINCIPAL SECURITY ARCHITECT Obstetrics/Gynecology 11/04/24 Chad Davis DMD, MD [address] [place] [phone] Physician Oral & Maxillofacial Surgery 11/04/24 Obstetrics Specialist Relationship Specialty Start Date End Date Melita Lee APRN-HIGHER EDUCATION ADMINISTRATOR [address] [place] [phone] PRINCIPAL SECURITY ARCHITECT Obstetrics/Gynecology 11/04/24 Chad Davis DMD, MD [address] [place], [place] [phone] Physician Oral & Maxillofacial Surgery 11/04/24 Obstetrics Specialist Relationship Specialty Start Date End Date Melita Lee AIR BO[employer]WAIN-HIGHER EDUCATION ADMINISTRATOR [address] [place], [place] [phone] PRINCIPAL SECURITY ARCHITECT Obstetrics/Gynecology 11/04/24 Chad Davis DMD, MD [address] [place] [phone] Physician Oral & Maxillofacial Surgery 11/04/24 Goals (unrecognized section and content) Goals may be documented in a n alternate section No data available for this section No data available for this section No data available for this section Reason for Visit (unrecogniz ed section and content) Reason Comments visit Reason Comments Pregancy high risk Reason Comments OB RPM COMPLIANCE ALERT Reason Comments OB HTN RPM end of program letter. Reason Comments APPOINTMENT SCHEDULING Outreach Reason Comments Dental Left lower dental pa in and worsening swelling, onset Wednesday, 27 weeks OB Specialty Diagnoses / Procedures Referred By Leighton t Referred To Contact Obstetrics Diagnoses Encounter for supervision of normal , unspecified, third trimester Periapical abscess without sinus Systemic inflammatory response syndrome (sirs) of non-infectious origin without acute organ dysfunction Cellulitis and abscess of mouth Tachycardia, unspecified Elevated white blood cell count, unspecified Procedures Glenn Carreno MD [address] [place] [phone] Phone: tel: fax: [facility] [address] [place] [phone] Phone: tel: Referral ID Status Reason Start Date Expiration Date Visits Re quested Visits Authorized [id number] 3 3 Scheduled Active and Recently Administ ered Medications (unrecognized section and content) Medication Order 12/30/2024 12/31/2024 01/01/2025 acetaminophen (TYLENOL) tablet 1,000 mg, Oral, EVERY 6 HOURS, First dose on 12/31/24 at 0300, Until Discontinued 0232 (Given - Provider: Sarah Cohn RN)0945 (Given - Provider: Sumaya Montes)1600 (Given - Provider: Sumaya Montes)2100 (Hold/Not Given - Provider: Keshia Rivera RN - Reason: Other - Comment: pt declined. staed not in pain) 0300 (Hold/Not Given - Provider: Keshia Rivera RN - Reason: Other - Comment: declined. stated not in pain)0900 (Hold/Not Given - Provider: Mike Montiel - Reason: Patient refused)1500 (Due)2100 (Due) ceFAZolin (ANCEF) 2,000 mg in dextrose 50 mL ivpb (COMPLETED) 2,000 mg, Intravenous, ONCE, 1 dose, On 12/31/24 at 0230 0146 (IV New Bag - Provider: Sarah Cohn RN) docusate sodium (COLACE) capsule 100 mg, Oral, 2 TIMES DAILY WITH MEALS, First dose on 12/31/24 at 0900, Until Discontinued 0945 (Given - Provider: uSmaya Montes)1600 (Given - Provider: Sumaya Montes)1700 (Hold/Not Given - Provider: Sumaya Montes - Reason: Previously Administered) 0900 (Given - Provider: Mike Montiel)1700 (Due) ferrous sulfate 325 mg (65 mg elemental) tablet 325 mg, Oral, DAILY, First dose on 12/31/24 at 0900, Until Discontinued 0945 (Given - Provider: Sumaya Montes) 0900 (Given - Provider: Mike Montiel) ibuprofen (MOTRIN) tablet 600 mg, Oral, EVERY 6 HOURS, First dose on 12/31/24 at 0300, Until Discontinued 0231 (Given - Provider: Sarah Cohn RN)0945 (Given - Provider: Sumaya Montes)1600 (Given - Provider: Sumaya Montes)2100 (Hold/Not Given - Provider: Keshia Rivera RN - Reason: Other - Comment: declined. stated not in pain) 0300 (Hold/Not Given - Provider: Keshia Rivera RN - Reason: Other - Comment: declined. stated not in pain)0900 (Hold/Not Given - Provider: Mike Montiel - Reason: Patient refused)1500 (Due)2100 (Due) lactated ringers iv bolus () 250 mL, at 999 mL/hr, Intravenous, FLUID BOLUS, 1 dose, On Wed12/29/24 at 2330 0617 (IV Rate Change - Provider: Denise Castro, RN) miSOPROStol (CYTOTEC) tablet (COMPLETED) 800 mcg, Rectal, ONCE, 1 dose, On 12/31/24 at 0230 0127 (Given - Provider: Sarah Cohn, RN) nalbuphine (NUBAIN) 10 MG/ML injection (COMPLETED) 10 mg, Intravenous Push, Once, 1 dose, On 12/30/24 at 0430 0404 (Given - Provider: Denise Castro, ALHAJI) nicotine (NICODERM CQ) 14 mg/24HR patch (CANCELED) 14 mg, Transdermal, DAILY, First dose on Wed12/29/24 at 2230, Until Discontinued 1000 (Patch Removal - Provider: Ada Flores RN)1031 (Patch Applied - Provider: Ada Flores RN) 0859 (Patch Removal - Provider: Sumaya Montes) tablet 1 Tablet, Oral, DAILY, First dose on Wed12/31/24 at 0900, Until Discontinued 0945 (Given - Provider: Sumaya Montes) 0900 (Given - Provider: Mike Montiel) Continuous Medication Order 12/30/2024 12/31/2024 01/01/2025 lactated ringers iv infusion (CANCELED) Intravenous, at 25 mL/hr, CONTINUOUS, Starting on Wed12/29/24 at 2100, Until 12/31/24 at 0335 0100 (Rate Verify - Provider: Tia Hogue RN)0419 (Paused - Provider: Denise Castro, ALHAJI)0450 (IV New Bag - Provider: Denise Castro, ALHAJI)0617 (Paused - Provider: Denise Castro, RN)0633 (IV Rate Change - Provider: Denise Castro, ALHAJI)0717 (Paused - Provider: Hardeep Elliott, RN)0747 (IV New Bag - Provider: Hardeep Elliott, RN)1999 (Rate Verify - Provider: Sarah Cohn RN)2100 (Rate Verify - Provider: Sarah Cohn RN)2200 (Rate Verify - Provider: Sarah Cohn, RN)2300 (Rate Verify - Provider: Sarah Cohn, RN) 0000 (Rate Verify - Provider: Sarah Cohn RN)0100 (Rate Verify - Provider: Sarah Cohn RN) oxytocin (PITOCIN) infusion (CANCELED) 6-36 snow-units/min (6-36 mL/hr), Intravenous, CONTINUOUS, Starting on Wed12/29/24 at 2230, Until Wed12/31/24 at 0335 0030 (IV Rate Change - Provider: Denise Castro RN)0100 (IV Rate Change - Provider: Tia Hogue RN)0500 (IV Rate Change - Provider: Denise Castro, RN)0530 (IV Rate Change - Provider: Denise Castro, RN)0633 (IV Rate Change - Provider: Denise Castro RN - Comment: halved due to tachysystole)0653 (IV Rate Change - Provider: Denise Castro RN - Comment: decreased due to tachysystole per Dr. Kaba)1330 (IV Rate Change - Provider: Hardeep Elliott, ALHAJI)1500 (IV Rate Change - Provider: Donna Carmona, ALHAJI)1730 (IV Rate Change - Provider: Hardeep Elliott, RN)1800 (IV New Bag - Provider: Hardeep Elliott, RN)1830 (IV Rate Change - Provider: Hardeep Elliott, RN)1900 (IV Rate Change - Provider: Hardeep Elliott, RN)2000 (Rate Verify - Provider: Sarah Cohn RN)2100 (Rate Verify - Provider: Sarah Cohn, RN)2115 (IV Rate Change - Provider: Sarah Cohn, RN)2200 (Rate Verify - Provider: Sarah Cohn, RN)2252 (IV Rate Change - Provider: Sarah Cohn, RN)2300 (Rate Verify - Provider: Sarah Cohn, RN) 0000 (Rate Verify - Provider: Sarah Cohn, RN)0037 (IV Stop - Provider: Sarah Cohn, RN)0100 (Mistaken Entry - Provider: Sarah Cohn RN - Comment: Cancelled from back documented administration.) PRN Medication Order 12/30/2024 12/31/2024 01/01/2025 benzocaine-menthol (DERMOPLAST) 20-0.5 % topical spray Topical, 4 TIMES DAILY PRN, Starting on 12/31/24 at 0335, Until Discontinued, for perineal pain or discomfort. 0510 (Given - Provider: Pura Workman, RN) lactated ringers iv bolus (CANCELED) 500 mL, at 999 mL/hr, Intravenous, ONCE PRN, Starting on Wed12/29/24 at 2012, Until 12/31/24 at 334 0717 (IV New Bag - Provider: Hardeep Elliott, RN) lactated ringers iv bolus (COMPLETED) 500 mL, at 999 mL/hr, Intravenous, ONCE PRN, 1 dose, Starting on Wed12/29/24 at 2013, Until 12/30/24 at 2114 0419 (IV Rate Change - Provider: Denise Castro, RN)2114 (IV New Bag - Provider: Sarah Cohn, RN) lanolin cream Topical, PRN, Starting on 12/31/24 at 033, Until Discontinued, Dry Skin, Breast Soreness 0510 (Given - Provider: Pura Workman, RN) ondansetron (ZOFRAN) 4 MG/2ML injection (CANCELED) 4 mg, Intravenous Push, EVERY 8 HOURS PRN, Starting on Wed12/29/24 at 2012, Until 12/31/24 at 334 2142 (Given - Provider: Sarah Cohn, RN) oxytocin (PITOCIN) infusion (CANCELED) 30 Units, Intravenous, ONCE PRN, 1 dose, Starting on Wed12/29/24 at 2012, Until 12/31/24 at 334 0038 (IV Rate Change - Provider: Sarah Cohn, RN) polyethylene glycol (MIRALAX) 17 g packet 17 g, Oral, EVERY 12 HOURS PRN, Starting on Wed12/31/24 at 033, Until Discontinued, for constipation not relieved by Colace simethicone (GAS-X) 80 MG chewable tablet 80 mg, Oral, EVERY 6 HOURS PRN, Starting on 12/31/24 at 0335, Until Discontinued, Flatulence witch chlea-glycerin (TUCKS) pad Topical, EVERY 4 HOURS PRN, Starting on 12/31/24 at 0335, Until Discontinued, Itching, Burning, Irritation, not to exceed 6 times per day 0510 (Given - Provider: Pura Workman RN) Scheduled Medication Order 10/15/2024 10/16/2024 10/17/2024 acetaminophen (TYLENOL) tablet (COMPLETED) 1,000 mg, Oral, ONCE, 1 dose, On 10/15/24 at 0954 0956 (Given - Provider: Johanna Allen, ALHAJI) acetaminophen (TYLENOL) tablet 1,000 mg, Oral, Every 6 hours, First dose on 10/15/24 at 1600, Until Discontinued 1656 (Given - Provider: Shasha Trevino, RN) 0203 (Given - Provider: Talisha Tapia RN - Comment: pt was sleeping)0751 (Given - Provider: Glo Stallings RN)1353 (Given - Provider: Darrell Monte RN)203 (Given - Provider: Sheyla Escobar RN) 0200 (Hold/Not Given - Provider: Sheyla Escobar RN - Reason: Patient sleeping)0902 (Given - Provider: Caity Cohn, ALHAJI) cefdinir (OMNICEF) capsule 300 mg, Oral, 2 TIMES DAILY, First dose on 10/16/24 at 1600, Until Discontinued 1548 (Given - Provider: Glo Stallings RN)203 (Given - Provider: hSeyla Escobar RN) 0902 (Given - Provider: Caity Cohn, ALHAJI) cefepime (MAXIPIME) 2,000 mg in sterile water for injection 20 mL IV push (COMPLETED) 2,000 mg, Intravenous, Once, 1 dose, On 10/15/24 at 1049 1034 (IV New Bag - Provider: Kirstin Zepeda, ALHAJI)1255 (IV Stop - Provider: Kirstin Zepeda RN) cefepime (MAXIPIME) 2-5 GM-%(50ML) in dextrose 5% 50 mL ivpb (CANCELED) 2,000 mg, Intravenous, EVERY 8 HOURS ANTIBIOTIC, First dose on 10/15/24 at 1900, Until Discontinued 2036 (IV New Bag - Provider: Talisha Tapia RN) 0516 (IV New Bag - Provider: Talisha Tapia RN)1246 (IV New Bag - Provider: Glo Stallings, ALHAJI) chlorhexidine (PERIDEX) 0.12 % oral solution 15 mL, Swish & Spit, 2 TIMES DAILY, First dose on Wed10/15/24 at 1400, Until Discontinued 1447 (Given - Provider: Glenda Garces, RN)2134 (Given - Provider: Talisha Tapia RN) 0900 (Hold/Not Given - Provider: Glo Stallings RN - Reason: Patient refused)2038 (Given - Provider: Sheyla Escobar RN) 0900 (Hold/Not Given - Provider: Caity Cohn, ALHAJI - Reason: Medication unavailable)1152 (Given - Provider: Caity Cohn, ALHAJI) docusate sodium (COLACE) capsule 100 mg, Oral, 2 TIMES DAILY, First dose on Wed10/15/24 at 1400, Until Discontinued 1439 (Given - Provider: Glenda Garces, ALHAJI)2100 (Given - Provider: Talisha Tapia RN) 0851 (Given - Provider: Glo Stallings, ALHAJI)2038 (Given - Provider: Sheyla Escobar, ALHAJI) 0901 (Given - Provider: Caity Cohn, ALHAJI) fentaNYL (SUBLIMAZE) 50 MCG/ML injection (COMPLETED) 50 mcg, Intravenous Push, STAT, 1 dose, On Wed10/15/24 at 1301 1259 (Given - Provider: Kirstin Zepeda RN) ferrous sulfate 325 mg (65 mg elemental) tablet 325 mg, Oral, DAILY, First dose on Wed10/16/24 at 1100, Until Discontinued 1100 (Hold/Not Given - Provider: Glo Stallings RN - Reason: Patient refused) 0902 (Given - Provider: Caity Cohn, ALHAJI) iohexol (OMNIPAQUE) 350 MG/ML injection (COMPLETED) 75 mL, Intravenous Push, Once at Radiology exam, 1 dose, Starting on Wed10/16/24 at 0250, Until Wed10/16/24 at 0250, Imaging Protocol Orders 0250 (Bolus given - Provider: Joesph Pate) lactated ringers iv bolus (COMPLETED) 1,000 mL, at 999 mL/hr, Intravenous, FLUID BOLUS, 1 dose, On 10/15/24 at 1040 1034 (IV New Bag - Provider: Kirstin Zepeda, RN)1255 (IV Stop - Provider: Kirstin Zepeda RN) lidocaine-EPINEPHrine (XYLOCAINE) 1 %-[id number] injection SOLN (COMPLETED) 10 mL, Injection, ONCE, 1 dose, On 10/15/24 at 1110 1106 (Given - Provider: Liset Bateman, RN) magnesium sulfate 2 GM/50ML in 50 mL ivpb (COMPLETED) 2 g (2,000 mg), Intravenous, ONCE, 1 dose, On 10/15/24 at 1315, at 100 mL/hr 1259 (IV New Bag - Provider: Kirstin Zepeda, RN)1316 (IV Stop - Provider: Sarah Mckeon RN) metroNIDAZOLE (FLAGYL) 500 MG/100ML ivpb (CANCELED) 500 mg, Intravenous, EVERY 8 HOURS ANTIBIOTIC, First dose on 10/15/24 at 1040, Until Discontinued, at 100 mL/hr 1033 (IV New Bag - Provider: Kirstin Zepeda RN)1255 (IV Stop - Provider: Kirstin Zepeda RN)1826 (IV New Bag - Provider: Shasha Trevino, RN) 0257 (IV New Bag - Provider: Talisha Tapia, RN)1052 (IV New Bag - Provider: Glo Stallings, ALHAJI) metroNIDAZOLE (FLAGYL) tablet 500 mg, Oral, 3 TIMES DAILY, First dose on Wed10/16/24 at 1600, Until Discontinued 1548 (Given - Provider: Glo Stallings RN)2202 (Given - Provider: Sheyla Escobar, ALHAJI) 0632 (Given - Provider: Sheyla Escobar, ALHAJI) nicotine (NICODERM CQ) 14 mg/24HR patch 14 mg, Transdermal, DAILY, First dose on 10/15/24 at 1500, Until Discontinued 1531 (Patch Applied - Provider: Glenda Garces, ALHAJI) 0851 (Patch Applied - Provider: Glo Stallings, ALHAJI)0859 (Patch Removal - Provider: Glo Stallings RN) 0901 (Patch Removal - Provider: Caity Cohn, ALHAJI)0902 (Patch Applied - Provider: Caity Cohn, RN) polyethylene glycol (MIRALAX) 17 g packet 17 g, Oral, DAILY, First dose on Wed10/16/24 at 1100, Until Discontinued 1100 (Hold/Not Given - Provider: Glo Stallings RN - Reason: Patient refused) 0900 (Given - Provider: Caity Cohn, RN) potassium chloride SA (K-DUR) controlled release tablet (COMPLETED) 40 mEq, Oral, ONCE, 1 dose, On Wed10/15/24 at 1530 1532 (Given - Provider: Glenda Garces, RN) tablet 1 Tablet, Oral, DAILY, First dose on Wed10/15/24 at 1400, Until Discontinued 1438 (Given - Provider: Glenda Garces, RN) 0851 (Given - Provider: Glo Stallings, ALHAJI) 0901 (Given - Provider: Caity Cohn, ALHAJI) Continuous Medication Order 10/15/2024 10/16/2024 10/17/2024 lactated ringers iv infusion (CANCELED) Intravenous, at 75 mL/hr, CONTINUOUS, Starting on Wed10/15/24 at 1800, Until Wed10/16/24 at 0856 1824 (IV New Bag - Provider: Shasha Trevino RN)1826 (IV Stop - Provider: Talisha Tapia, ALHAJI)2107 (IV Resume - Provider: Talisha Tapia, ALHAJI) 0203 (IV Stop - Provider: Talisha Tapia, RN - Comment: paused for transport to [place])0357 (IV Resume - Provider: Talisha Tapia, ALHAJI)0516 (IV Stop - Provider: Talisha Tapia RN) PRN Medication Order 10/15/2024 10/16/2024 10/17/2024 lidocaine viscous 2 % solution 15 mL, Mouth/Throat, EVERY 3 HOURS PRN, Starting on Wed10/16/24 at 1219, Until Wed10/17/24 at 1549, For severe tooth pain 1548 (Given - Provider: Glo Stallings, ALHAJI) ondansetron (ZOFRAN) 4 MG/2ML injection 4 mg, Intravenous Push, EVERY 6 HOURS PRN, Starting on Wed10/15/24 at 1323, Until Wed10/17/24 at 1549 oxyCODONE immediate release tablet 5 mg, Oral, EVERY 4 HOURS PRN, Starting on 10/15/24 at 1325, Until Wed10/17/24 at 1549, Severe Pain (pain score 7,8,9,10) 1438 (Given - Provider: Glenda Garces, RN) 0552 (Given - Provider: Talisha Tapia RN)1051 (Given - Provider: Glo Stallings RN)2038 (Given - Provider: Sheyla Escobar RN) FOR RECORDS PERTAINING TO PATIENTS WHO ARE OR HAVE BEEN ENROLLED IN A CHEMICAL DEPENDENCY/SUBSTANCEABUSE PROGRAM, SOME INFORMATION MAY BE OMITTED. This clinical summary was aggregated from multiple sources. Caution should be exercised in using it in the provision of clinical care. This summary normalizes information from multiple sources, and as a consequence, information in this document may materially change the coding, format and clinical context of patient data. In addition, data may be omitted in some cases. CLINICAL DECISIONS SHOULD BE BASED ON THE PRIMARY CLINICAL RECORDS. [facility] [employer] provides no warranty or guarantee of the accuracy or completeness of information in this document.
[2025-03-17 11:48] VITALS: BP 118/64; PULSE 78; RESP 14; TEMP 36.6; O2SAT 99
== END 2025-03-17 11:49 | disposition home or self-care (01) ==
PROVIDERS: Emergency Provider Emergency Medicine; PCP Nurse Practitioner Family; Visit Provider Emergency Medicine
DX: L02.411 Cutaneous abscess of right axilla (principal); L02.412 Cutaneous abscess of left axilla; L73.2 Hidradenitis suppurativa; F17.210 Nicotine dependence, cigarettes, uncomplicated
CPT/HCPCS: 10060; 87070; 87077; 87186; 87205; 99283